=== PATIENT | female | born 1975 | race Caucasian/White ===

== ENCOUNTER 2021-11-20 16:53 | Inpatient (IN) ==
[2021-11-20] MEDS ORDERED: SODIUM CHLORIDE 0.9% 1000ML 1,000 ML IV ONE (17:33)
[2021-11-20 17:48] LABS: Basophils # (auto) 0.06 K/uL (0-0.2); Basophils % (auto) 0.3 %; Eosinophils # (auto) 0.04 K/uL (0-0.50); Eosinophils % (auto) 0.2 %; Hematocrit (blood only) 36.2 % (34.1-44.9); Hemoglobin 12.1 g/dl (12.0-16.0); Immature Granulocytes # (auto) 0.13 K/uL (0.00-0.02); Immature Granulocytes % (auto) 0.7 %; Lymphocytes # (auto) 2.32 K/uL (1.2-3.4); Lymphocytes % (auto) 12.6 %; Mean Corpuscular Hemoglobin 30.5 pg (25.0-34.0); Mean Corpuscular Hgb Conc 33.4 g/dL (32.0-36.0); Mean Corpuscular Volume 91.2 fL (80.0-100.0); Mean Platelet Volume 9.4 fL (9.4-12.3); Monocytes # (auto) 1.09 K/uL (0.24-0.82); Monocytes % (auto) 5.9 %; Neutrophils # (auto) 14.84 K/uL (1.4-6.5); Neutrophils % (auto) 80.3 %; Platelet Count 249 K/uL (130-400); RDW Coefficient of Variation 12.9 % (11.5-14.5); RDW Standard Deviation 43.1 fL (36.4-46.3); Red Blood Count 3.97 M/uL (3.93-5.22); White Blood Count 18.48 K/ul (4.8-10.8)
[2021-11-20 17:57] LABS: Appearance Urine Cloudy (Clear); Bacteria Urine Automated Negative (Negative); Blood Urine 1+ (Negative); Color Urine Orange; Epithelial Cell Urine Auto >30 /lpf (0-5); Glucose Urine UA Negative (Negative); Ketones Urine 2+ (Negative); Leukocyte Esterase Urine Negative (Negative); Nitrite Urine Negative (Negative); Protein Urine Trace (Negative); RBC Urine Automated 0-4 /hpf (0-4); Specific Gravity Urine 1.028 (1.000-1.030); Urobilinogen Urine Negative (Negative)
--- NOTE | 2021-11-20 18:04 | CT Scan Report ---
ABDOMEN AND PELVIS CT WITHOUT CONTRAST CT DOSE: 363.47 mGy.cm HISTORY: Left lower abdominal pain. TECHNIQUE: Multiaxial CT images of the abdomen and pelvis were performed without contrast. A dose lo wering technique was utilized adhering to the principles of ALARA. COMPARISON STUDY: None. FINDINGS: The left lung base is clear. There are 2 punctate nodules adjacent to the right minor fissu re on images 6 and 7 measuring 2 mm. No pneumoperitoneum. No pneumatosis. No fractures within the vis ualized osseous structures. Small amount of perihepatic and perisplenic hemoperitoneum. Otherwise, th e unenhanced liver, spleen, adrenal glands, and pancreas are unremarkable. No renal stones or hydrone phrosis. No retroperitoneal hematoma or lymphadenopathy. Normal caliber abdominal aorta. The bladder is decompressed and not well visualized. The intrauterine device appears in good position. There is a moderate amount of hemoperitoneum within the deep pelvis which primarily surrounds the uterus and ov chaya. There is a 2.7 cm cyst within the right ovary. There are 2 adjacent cysts within the left ovar y with the largest measuring 3.2 cm. The there is mild rectal wall thickening with perirectal fat str anding. A few colonic diverticula. No evidence for acute diverticulitis. Fluid-filled colon. The appe ndix is partially obscured by the hemoperitoneum within the right lower quadrant. A short segment aki endix may be identified on image 293 within the right lower quadrant. No surrounding inflammatory lex nge to suggest acute appendicitis. There are multiple thickened loops of jejunum within the left side of the abdomen with adjacent fat stranding. No dilated loops of bowel to suggest an obstruction. IMPRESSION: 1. Moderate hemoperitoneum most pronounced within the deep pelvis which primarily surrounds the uteru s and ovaries. There are bilateral adnexal cystic lesions which are likely ovarian. The etiology of t he hemoperitoneum is not clearly identified but may represent a ruptured hemorrhagic ovarian cyst. Fo llow-up beta-hCG recommended to exclude the possibility of a ruptured ectopic . 2. Multiple thickened loops of jejunum within the left side of the abdomen with adjacent fat strandin g. This is consistent with a nonspecific enteritis. 3. There appears a mild thickening of the rectum with adjacent perirectal fat stranding. 4. Intrauterine device appears in good position. 5. Additional findings as described above. ACT 112: Negative or not required by law. Electronically signed by: Raymond Bush M.D. 11/20/2021 6:01 PM
[2021-11-20 18:06] LABS: Bilirubin Urine 1+ (Negative)
[2021-11-20 18:08] LABS: Albumin Globulin Ratio 1.5 (0.9-2); Albumin Level 4.1 gm/dl (3.4-5.0); BUN Creatinine Ratio 14.8 (10-20); Bilirubin,Total 1.2 mg/dl (0.2-1.0); Calcium 8.4 mg/dl (8.5-10.1); Est GFR (African American) 100.2 ml/min; Est GFR (Non-African American) 86.5 ml/min; Globulin 2.8 gm/dl (2.5-4.0); Potassium 3.9 mmol/L (3.5-5.1); Total Protein 6.9 gm/dl (6.0-8.3)
[2021-11-20 18:11] LABS: Pregnancy Test, Serum Negative (Negative)
[2021-11-20] MEDS ORDERED: SODIUM CHLORIDE 0.9% 1000ML 500 ML IV ONE (19:15)
[2021-11-20] MEDS ORDERED: ONDANSETRON INJ 2 MG/ML 2 ML VIAL IV STA (19:15)
[2021-11-20] MEDS ORDERED: fentaNYL citrate 100 MCG/2 ML VIAL IV ONE ×2 (19:15→20:43)
[2021-11-20 19:51] LABS: INR 5.3 (0.9-1.1); Partial Thromboplastin Ratio 1.9; Prothrombin Time 51.1 Seconds (9.0-12.0)
[2021-11-20 19:55] LABS: Partial Thromboplastin Time 53.5 Seconds (21.0-31.0)
[2021-11-20] MEDS ORDERED: PHYTONADIONE 10 MG in DEXTROSE 5% 50 ML IV ONE (20:13)
--- NOTE | 2021-11-20 20:42 | OB/GYN Consultation ---
Date of Consultation November 20, 2021 Assessment & Plan (1) Pelvic pain: 46 yo female with Mirena IUD, presenting with pelvic pain, CT of abdomen showing moderate amount of fluid in pelvisby CT scan, US with LO cyst and trace fluid in cul de sac VSS Afebrile, uncomfortable On Coumadin for h/o Fac V Leiden and h/o SSV thrombosis, H&H stable Elevated WBCC count I spoke with Radiologist clinician oncology, who stated" he is not seeing much blood nor fluid in pelvis on US, there was some in CT scan but it was not done with contrast s/p IV vitamin K, PT, INR trending down I spoke with patient and her on the phone above findings Differential diagnosis of bleeding hemorrhagic cyst of LO, vs PID/ TOA I offered her Surgery/ Laparoscopy with definitive diagnosis, evacuation of blood from pelvis and stop bleeding from ovary and possible LSO, Patient does not want to have surgery She prefers observation and repeat blood work US in am She understands it may continue to bleeding and she may need emergency surgery. Plan to admit, monitor, VS Q hour, repeat CBC in 2 hours and serial, repeat US in am IV AB NPO All questions were answered (2) Free fluid in pelvis: (3) Left ovarian cyst: (4) IUD (intrauterine device) in place: (5) Factor V Leiden: History of Present Illness History of Present Illness Patient is a 46 yo ( 18 years ago) with Mirena IUD presents to ED with pelvic pain Started yesterday morning and was intermittent until this morning when it became sever with nausea/ dizziness and feeling hot. No VB/ Vaginal d/c/ odor IUD was placed 3 years ago, gets irregular light periods, not every month, no pain with periods. She has been sexually active with 1 partner for 24 years. No h/o STD's, pelvic infections or PID. on Coumadin for h/o Fac V Leiden mutation, 12 mg day/ last dose was yesterday am She had CT of pelvic and US: CT: IMPRESSION: 1. Moderate hemoperitoneum most pronounced within the deep pelvis which primarily surrounds the uterus and ovaries. There are bilateral adnexal cystic lesions which are likely ovarian. The etiology of the hemoperitoneum is not clearly identified but may represent a ruptured hemorrhagic ovarian cyst. Follow-up beta-hCG recommended to exclude the possibility of a ruptured ectopic . 2. Multiple thickened loops of jejunum within the left side of the abdomen with adjacent fat stranding. This is consistent with a nonspecific enteritis. 3. There appears a mild thickening of the rectum with adjacent perirectal fat stranding. 4. Intrauterine device appears in good position. US report pending. Allergies Allergy/AdvReac Type Severity Reaction Status Date / Time vancomycin Allergy Severe EBONY Verified 11/20/21 18:29 SYNDROME Home Medications Medication Instructions Recorded Confirmed Type albuterol sulfate 90 mcg/actuation 2 puff inhalation Q6H PRN 04/27/18 11/20/21 History aerosol inhaler (Ventolin HFA) Shortness Of Breath Or Wheezing folic acid 1 mg tablet 1 mg PO DAILY 04/27/18 11/20/21 History loperamide 2 mg tablet (Imodium 2 mg PO DIRECTED PRN Diarrhea 04/27/18 11/20/21 History A-D) pyridoxine (vitamin B6) 100 mg 100 mg PO DAILY 04/27/18 11/20/21 History tablet (Vitamin B-6) warfarin 6 mg tablet 12 mg PO DAILY #0 tabs 04/28/18 11/20/21 Rx cyanocobalamin (vitamin B-12) 1,000 mcg PO DAILY 11/20/21 11/20/21 History 1,000 mcg tablet (Vitamin B-12) ondansetron HCl 8 mg tablet 8 mg PO TID PRN NAUSEA/VOMITING 11/20/21 11/20/21 History Patient History Medical History (Updated 11/20/21 @ 20:59 by Isaura Grant MD) 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 Chronic anticoagulation Eczema Factor V Leiden On Coumadin. Migraines MTHFR mutation On Coumadin. Venous thrombosis Sagittal sinus B/L. On Coumadin. Surgical History S/P cholecystectomy S/P tonsillectomy and adenoidectomy Family History Other Asthma Thyroid disease Social History Smoking Status: Never smoker Second Hand Exposure: No; Hx Alcohol Use: No Hx Substance Use: No Preferred Language: Colombian Communication Ability: Effective Visual Impairment: No Limitations Fire Coordinator Required: Yes Beliefs That Will Affect Care: None Current Living Situation: Spouse and Family Feels Safe at Home: Yes Assistive Devices: None Review of Systems Constitutional: as per Subjective / HPI Physical Exam Constitutional: WD/WN, vitals as above well developed, well nourished, + acute distress (seems uncomfortable and nauseaous) and average body habitus Results & Data ([facility]) Vital Signs (Past 12 Hours) Vital Signs Temp Pulse Pulse Resp BP BP Pulse Ox 11/20/21 20:00 87 18 112/80 97 11/20/21 18:00 96 H 22 110/76 100 11/20/21 17:55 104 H 18 110/76 97 11/20/21 17:53 98 11/20/21 17:05 37 C 118 H 18 160/72 H 97 O2 Del Method 11/20/21 20:00 11/20/21 18:00 11/20/21 17:55 Room Air 11/20/21 17:53 Room Air 11/20/21 17:05 Room Air Laboratory Results Lab Results 11/20/21 11/20/21 11/20/21 Range/Units 17:30 17:30 17:30 WBC 18.48 H (4.8-10.8) K/ul RBC 3.97 (3.93-5.22) M/uL Hgb 12.1 (12.0-16.0) g/dl Hct 36.2 (34.1-44.9) % MCV 91.2 (80.0-100.0) fL MCH 30.5 (25.0-34.0) pg MCHC 33.4 (32.0-36.0) g/dL RDW Std Deviation 43.1 (36.4-46.3) fL RDW Coeff of Mima 12.9 (11.5-14.5) % Plt Count 249 (130-400) K/uL MPV 9.4 (9.4-12.3) fL Immature Gran % (Auto) 0.7 % Neut % (Auto) 80.3 % Lymph % (Auto) 12.6 % [place] % (Auto) 5.9 % Eos % (Auto) 0.2 % Baso % (Auto) 0.3 % Neut # (Auto) 14.84 H (1.4-6.5) K/uL Lymph # (Auto) 2.32 (1.2-3.4) K/uL [place] # (Auto) 1.09 H (0.24-0.82) K/uL Eos # (Auto) 0.04 (0-0.50) K/uL Baso # (Auto) 0.06 (0-0.2) K/uL Immature Gran # (Auto) 0.13 H (0.00-0.02) K/uL PT (9.0-12.0) Seconds INR (0.9-1.1) APTT (21.0-31.0) Seconds PTT Ratio Sodium 135 L (136-145) mmol/L Potassium 3.9 (3.5-5.1) mmol/L Chloride 103 (98-107) mmol/L Carbon Dioxide 26 (21-32) mmol/L Anion Gap 6 (3-11) BUN 12 (6-23) mg/dl Creatinine 0.81 (0.6-1.2) mg/dl Est Cr Clr Drug Dosing 76.0 ml/min Est GFR ( Amer) 100.2 ml/min Est GFR (Non-Af Amer) 86.5 ml/min BUN/Creatinine Ratio 14.8 (10-20) Glucose 146 H (70-99(Fasting)) mg/dl Calcium 8.4 L (8.5-10.1) mg/dl Total Bilirubin 1.2 H (0.2-1.0) mg/dl AST 25 (13-39) U/L ALT 28 (7-52) U/L Alkaline Phosphatase 107 H (34-104) U/L Total Protein 6.9 (6.0-8.3) gm/dl Albumin 4.1 (3.4-5.0) gm/dl Globulin 2.8 (2.5-4.0) gm/dl Albumin/Globulin Ratio 1.5 (0.9-2) Lipase 16 (11-82) U/L HCG, Qual Negative (Negative) Urine Color Urine Appearance (Clear) Urine pH (4.5-7.5) Ur Specific [place] (1.000-1.030) Urine Protein (Negative) Urine Glucose (UA) (Negative) Urine Ketones (Negative) Urine Blood (Negative) Urine Nitrite (Negative) Urine Bilirubin (Negative) Urine Urobilinogen (Negative) Ur Leukocyte Esterase (Negative) Urine WBC (Auto) (0-5) /hpf Urine RBC (Auto) (0-4) /hpf U Hyaline Cast (Auto) (0-5) /lpf U Epithel Cells (Auto) (0-5) /lpf Urine Bacteria (Auto) (Negative) Ur Renal Epithelial Cell SARS-CoV-2, RNA, NAAT (NEGATIVE) Blood Type Antibody Screen Crossmatch 11/20/21 11/20/21 11/20/21 Range/Units 17:30 17:50 19:23 WBC (4.8-10.8) K/ul RBC (3.93-5.22) M/uL Hgb (12.0-16.0) g/dl Hct (34.1-44.9) % MCV (80.0-100.0) fL MCH (25.0-34.0) pg MCHC (32.0-36.0) g/dL RDW Std Deviation (36.4-46.3) fL RDW Coeff of Mima (11.5-14.5) % Plt Count (130-400) K/uL MPV (9.4-12.3) fL Immature Gran % (Auto) % Neut % (Auto) % Lymph % (Auto) % [place] % (Auto) % Eos % (Auto) % Baso % (Auto) % Neut # (Auto) (1.4-6.5) K/uL Lymph # (Auto) (1.2-3.4) K/uL [place] # (Auto) (0.24-0.82) K/uL Eos # (Auto) (0-0.50) K/uL Baso # (Auto) (0-0.2) K/uL Immature Gran # (Auto) (0.00-0.02) K/uL PT 51.1 H (9.0-12.0) Seconds INR 5.3 H (0.9-1.1) APTT 53.5 H* (21.0-31.0) Seconds PTT Ratio 1.9 Sodium (136-145) mmol/L Potassium (3.5-5.1) mmol/L Chloride (98-107) mmol/L Carbon Dioxide (21-32) mmol/L Anion Gap (3-11) BUN (6-23) mg/dl Creatinine (0.6-1.2) mg/dl Est Cr Clr Drug Dosing ml/min Est GFR ( Amer) ml/min Est GFR (Non-Af Amer) ml/min BUN/Creatinine Ratio (10-20) Glucose (70-99(Fasting)) mg/dl Calcium (8.5-10.1) mg/dl Total Bilirubin (0.2-1.0) mg/dl AST (13-39) U/L ALT (7-52) U/L Alkaline Phosphatase (34-104) U/L Total Protein (6.0-8.3) gm/dl Albumin (3.4-5.0) gm/dl Globulin (2.5-4.0) gm/dl Albumin/Globulin Ratio (0.9-2) Lipase (11-82) U/L HCG, Qual (Negative) Urine Color [place] Urine Appearance Cloudy A (Clear) Urine pH 5.0 (4.5-7.5) Ur Specific [place] 1.028 (1.000-1.030) Urine Protein Trace H (Negative) Urine Glucose (UA) Negative (Negative) Urine Ketones 2+ H (Negative) Urine Blood 1+ H (Negative) Urine Nitrite Negative (Negative) Urine Bilirubin 1+ H (Negative) Urine Urobilinogen Negative (Negative) Ur Leukocyte Esterase Negative (Negative) Urine WBC (Auto) 1-5 (0-5) /hpf Urine RBC (Auto) 0-4 (0-4) /hpf U Hyaline Cast (Auto) 5-10 H (0-5) /lpf U Epithel Cells (Auto) >30 H (0-5) /lpf Urine Bacteria (Auto) Negative (Negative) Ur Renal Epithelial Cell Not Reportable SARS-CoV-2, RNA, NAAT NEGATIVE (NEGATIVE) Blood Type Antibody Screen Crossmatch 11/20/21 Range/Units 19:32 WBC (4.8-10.8) K/ul RBC (3.93-5.22) M/uL Hgb (12.0-16.0) g/dl Hct (34.1-44.9) % MCV (80.0-100.0) fL MCH (25.0-34.0) pg MCHC (32.0-36.0) g/dL RDW Std Deviation (36.4-46.3) fL RDW Coeff of Mima (11.5-14.5) % Plt Count (130-400) K/uL MPV (9.4-12.3) fL Immature Gran % (Auto) % Neut % (Auto) % Lymph % (Auto) % [place] % (Auto) % Eos % (Auto) % Baso % (Auto) % Neut # (Auto) (1.4-6.5) K/uL Lymph # (Auto) (1.2-3.4) K/uL [place] # (Auto) (0.24-0.82) K/uL Eos # (Auto) (0-0.50) K/uL Baso # (Auto) (0-0.2) K/uL Immature Gran # (Auto) (0.00-0.02) K/uL PT (9.0-12.0) Seconds INR (0.9-1.1) APTT (21.0-31.0) Seconds PTT Ratio Sodium (136-145) mmol/L Potassium (3.5-5.1) mmol/L Chloride (98-107) mmol/L Carbon Dioxide (21-32) mmol/L Anion Gap (3-11) BUN (6-23) mg/dl Creatinine (0.6-1.2) mg/dl Est Cr Clr Drug Dosing ml/min Est GFR ( Amer) ml/min Est GFR (Non-Af Amer) ml/min BUN/Creatinine Ratio (10-20) Glucose (70-99(Fasting)) mg/dl Calcium (8.5-10.1) mg/dl Total Bilirubin (0.2-1.0) mg/dl AST (13-39) U/L ALT (7-52) U/L Alkaline Phosphatase (34-104) U/L Total Protein (6.0-8.3) gm/dl Albumin (3.4-5.0) gm/dl Globulin (2.5-4.0) gm/dl Albumin/Globulin Ratio (0.9-2) Lipase (11-82) U/L HCG, Qual (Negative) Urine Color Urine Appearance (Clear) Urine pH (4.5-7.5) Ur Specific [place] (1.000-1.030) Urine Protein (Negative) Urine Glucose (UA) (Negative) Urine Ketones (Negative) Urine Blood (Negative) Urine Nitrite (Negative) Urine Bilirubin (Negative) Urine Urobilinogen (Negative) Ur Leukocyte Esterase (Negative) Urine WBC (Auto) (0-5) /hpf Urine RBC (Auto) (0-4) /hpf U Hyaline Cast (Auto) (0-5) /lpf U Epithel Cells (Auto) (0-5) /lpf Urine Bacteria (Auto) (Negative) Ur Renal Epithelial Cell SARS-CoV-2, RNA, NAAT (NEGATIVE) Blood Type A Positive Antibody Screen NEGATIVE Crossmatch See Detail
[2021-11-20] MEDS ORDERED: SODIUM CHLORIDE 0.9% 250 ML IV PRN (20:43)
[2021-11-20] MEDS ORDERED: PROMETHAZINE HCL 12.5 MG in SODIUM CHLORIDE 0.9% 50 ML IV PRN (21:05)
[2021-11-20] MEDS ORDERED: cefOXitin 2,000 MG/60 ML BAG IV STA (21:47)
[2021-11-20] MEDS ORDERED: DOXYCYCLINE HYCLATE 100 MG in DEXTROSE 5% 100 ML IV STA (21:47)
[2021-11-20 22:31] LABS: Hematocrit (blood only) 29.5 % (34.1-44.9)
[2021-11-20 22:46] LABS: INR 2.4 (0.9-1.1); Prothrombin Time 24.8 Seconds (9.0-12.0)
[2021-11-20] MEDS ORDERED: ONDANSETRON INJ 2 MG/ML 2 ML VIAL IV PRN (23:11)
--- NOTE | 2021-11-20 23:24 | Emergency Department Note ---
History of Present Illness General Chief complaint: Abdominal Pain Stated complaint: ABDOMINAL PAIN Time Seen by Provider: 11/20/21 17:25 Source: patient and old records reviewed Mode of arrival: ambulatory Limitations: no limitations History of Present Illness Maximum Pain Intensity: 9 This patient is a 46-year-old female who comes in after having abdominal pain since yesterday she said it was lower crampy abdominal pain like feeling like [place] gas and bloating. She was constipated which she does not have a history of and today started having diarrhea. She has had no blood or melena. She is been drinking a lot of water she is been urinating okay with possibly some slight dysuria. Her does have COVID but she has been isolating for him and she has had multiple negative tests at home. No fever chills no trauma or injury. She is on Coumadin long-term as she has history of factor V Leiden she tells me she had venous sinus thrombosis in the past. It is better if she lays on her side it is worse with certain positions as well or movement. Home Medications Medication Instructions Recorded Confirmed Type albuterol sulfate 90 mcg/actuation 2 puff inhalation Q6H PRN 04/27/18 11/20/21 History aerosol inhaler (Ventolin HFA) Shortness Of Breath Or Wheezing folic acid 1 mg tablet 1 mg PO DAILY 04/27/18 11/20/21 History loperamide 2 mg tablet (Imodium 2 mg PO DIRECTED PRN Diarrhea 04/27/18 11/20/21 History A-D) pyridoxine (vitamin B6) 100 mg 100 mg PO DAILY 04/27/18 11/20/21 History tablet (Vitamin B-6) warfarin 6 mg tablet 12 mg PO DAILY #0 tabs 04/28/18 11/20/21 Rx cyanocobalamin (vitamin B-12) 1,000 mcg PO DAILY 11/20/21 11/20/21 History 1,000 mcg tablet (Vitamin B-12) ondansetron HCl 8 mg tablet 8 mg PO TID PRN NAUSEA/VOMITING 11/20/21 11/20/21 History Allergies Allergy/AdvReac Type Severity Reaction Status Date / Time vancomycin Allergy Severe EBONY Verified 11/20/21 18:29 SYNDROME Past Med/Surg History Medical History 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 Chronic anticoagulation Eczema Factor V Leiden On Coumadin. Migraines MTHFR mutation On Coumadin. Venous thrombosis Sagittal sinus B/L. On Coumadin. 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 Beliefs That Will Affect Care: None Current Living Situation: Spouse and Family Feels Safe at Home: Yes Assistive Devices: None Review of Systems A total of 10 systems reviewed and were otherwise negative Physical Exam Vital Signs Vital Signs - 24 hr 11/20/21 17:05 11/20/21 17:53 11/20/21 17:55 Temperature 37 C Temperature Source Axillary Pulse Rate 118 H Pulse Rate [Apical] 104 H Pulse Rhythm [Apical] Pulse Strength [Apical] Respiratory Rate 18 18 Respiratory Effort / Characteristics Respiratory Depth Normal Respiratory Pattern Blood Pressure 160/72 H Blood Pressure [Left Arm] 110/76 Blood Pressure Mean 101 Blood Pressure Mean [Left Arm] 87 Blood Pressure Position [Left Arm] Pulse Oximetry 97 98 97 Oxygen Delivery Method Room Air Room Air Room Air Sepsis Recent Fever Within 48 Hours No Sepsis New/Unexplained Change in Mental Status No Sepsis Action Taken by Nursing No Action Required 11/20/21 18:00 11/20/21 20:00 11/20/21 20:46 Temperature Temperature Source Pulse Rate 96 H 87 102 H Pulse Rate [Apical] Pulse Rhythm [Apical] Pulse Strength [Apical] Respiratory Rate 22 18 23 Respiratory Effort / Characteristics Respiratory Depth Respiratory Pattern Blood Pressure 110/76 112/80 109/79 Blood Pressure [Left Arm] Blood Pressure Mean 87 90 89 Blood Pressure Mean [Left Arm] Blood Pressure Position [Left Arm] Pulse Oximetry 100 97 96 Oxygen Delivery Method Sepsis Recent Fever Within 48 Hours Sepsis New/Unexplained Change in Mental Status Sepsis Action Taken by Nursing 11/20/21 21:00 11/20/21 21:55 11/20/21 22:19 Temperature 36.5 C Temperature Source Oral Pulse Rate 106 H 94 H Pulse Rate [Apical] 97 H Pulse Rhythm [Apical] Regular Pulse Strength [Apical] Normal Respiratory Rate 18 20 21 Respiratory Effort / Characteristics Non-Labored Spontaneous Respiratory Depth Normal Respiratory Pattern Regular Blood Pressure 113/76 122/76 Blood Pressure [Left Arm] 104/73 Blood Pressure Mean 88 91 Blood Pressure Mean [Left Arm] 83 Blood Pressure Position [Left Arm] Lying Pulse Oximetry 96 96 99 Oxygen Delivery Method Room Air Sepsis Recent Fever Within 48 Hours Sepsis New/Unexplained Change in Mental Status Sepsis Action Taken by Nursing 11/20/21 22:22 11/20/21 22:30 11/20/21 22:30 Temperature Temperature Source Pulse Rate 94 H 96 H Pulse Rate [Apical] Pulse Rhythm [Apical] Pulse Strength [Apical] Respiratory Rate 16 Respiratory Effort / Characteristics Respiratory Depth Respiratory Pattern Blood Pressure 104/73 121/71 Blood Pressure [Left Arm] Blood Pressure Mean 83 87 Blood Pressure Mean [Left Arm] Blood Pressure Position [Left Arm] Pulse Oximetry 98 98 Oxygen Delivery Method Sepsis Recent Fever Within 48 Hours Sepsis New/Unexplained Change in Mental Status Sepsis Action Taken by Nursing 11/20/21 23:00 11/20/21 23:00 11/20/21 23:30 Temperature Temperature Source Pulse Rate 92 H Pulse Rate [Apical] Pulse Rhythm [Apical] Pulse Strength [Apical] Respiratory Rate 22 Respiratory Effort / Characteristics Respiratory Depth Respiratory Pattern Blood Pressure 126/73 104/79 Blood Pressure [Left Arm] Blood Pressure Mean 90 87 Blood Pressure Mean [Left Arm] Blood Pressure Position [Left Arm] Pulse Oximetry 99 Oxygen Delivery Method Room Air Sepsis Recent Fever Within 48 Hours Sepsis New/Unexplained Change in Mental Status Sepsis Action Taken by Nursing 11/20/21 23:30 11/20/21 23:47 Temperature Temperature Source Pulse Rate 73 81 Pulse Rate [Apical] Pulse Rhythm [Apical] Pulse Strength [Apical] Respiratory Rate 16 18 Respiratory Effort / Characteristics Respiratory Depth Respiratory Pattern Blood Pressure Blood Pressure [Left Arm] Blood Pressure Mean Blood Pressure Mean [Left Arm] Blood Pressure Position [Left Arm] Pulse Oximetry 97 98 Oxygen Delivery Method Room Air Room Air Sepsis Recent Fever Within 48 Hours Sepsis New/Unexplained Change in Mental Status Sepsis Action Taken by Nursing General: Well developed well nourished comfortable appearing middle-aged female who appears in pain but in no acute distress, breathing comfortably on room air. Normal speech HEENT: Normal cephalic atraumatic. Pupils are equal round and reactive to light. Extraocular movements are intact. Oropharynx is pink with moist mucous membranes. No swelling of the mouth lips or tongue. Neck: Supple with a midline trachea. No meningeal signs or stiffness, no JVD or bruits. No Stridor. Chest: Clear to auscultation bilaterally. No wheezes or rhonchi. No increased work of breathing. Heart: Regular rate and rhythm without murmurs or gallops. Abdomen: Soft moderately diffusely tender more so in the lower abdomen. Nondistended without rebound guarding or rigidity. Extremities: No cyanosis clubbing or edema. No calf tenderness or assymetry Spine/Back. Non tender to palpation. No CVA tenderness Skin: Good turgor without rashes. Neurologic exam: Cranial nerves two through 12 are intact. Motor and sensation are intact and symmetrical throughout. Course Administered Medications Discontinued Medications Fentanyl Citrate (Fentanyl Citrate 100 Mcg/2 Ml Vial) 25 mcg IV NOW ONE Stop: 11/20/21 19:16 Last Admin: 11/20/21 19:20 Dose: 25 mcg Documented By: YAKELIN Fentanyl Citrate (Fentanyl Citrate 100 Mcg/2 Ml Vial) 25 mcg IV NOW ONE Stop: 11/20/21 20:44 Last Admin: 11/20/21 20:49 Dose: 25 mcg Documented By: YAKELIN Sodium Chloride (Nss 1000ml) 1,000 mls @ 999 mls/hr IV .Q1H1M ONE Stop: 11/20/21 18:33 Last Infusion: 11/20/21 19:15 Dose: 0 mls/hr Documented By: OAJanis Admin: 11/20/21 17:54 Dose: 999 mls/hr Documented By: ABIDA Sodium Chloride (Nss 1000ml) 500 mls @ 999 mls/hr IV .Q31M ONE Stop: 11/20/21 19:45 Last Infusion: 11/20/21 19:52 Dose: 0 mls/hr Documented By: Admin: 11/20/21 19:21 Dose: 999 mls/hr Documented By: YAKELIN Phytonadione 10 mg/ Dextrose 51 mls @ 102 mls/hr IV ONE ONE Stop: 11/20/21 20:42 Last Infusion: 11/20/21 21:15 Dose: 0 mls/hr Documented By: Admin: 11/20/21 20:44 Dose: 102 mls/hr Documented By: YAKELIN Cefoxitin Sodium (Mefoxin) 2,000 mg in 60 mls @ 100 mls/hr IV NOW STA Stop: 11/20/21 22:22 Last Infusion: 11/20/21 22:30 Dose: 0 mls/hr Documented By: Admin: 11/20/21 22:00 Dose: 100 mls/hr Documented By: YAKELIN Doxycycline Hyclate 100 mg/ (Dextrose) 110 mls @ 50 mls/hr IV NOW STA Stop: 11/20/21 23:58 Last Admin: 11/20/21 22:37 Dose: 50 mls/hr Documented By: ABIDA Ondansetron HCl (Ondansetron Inj 2 Mg/Ml 2 Ml Vial) 4 mg IV Q4H STA Stop: 11/20/21 19:16 Last Admin: 11/20/21 19:20 Dose: 4 mg Documented By: YAKELIN Critical Care Time Critical Care Time: Yes Total Critical Care Time: 30 Due to the patient's abdominal pain with hemoperitoneum, need for reversal of her Coumadin, consultation with [facility] and hematology, frequent reassessment and hemodynamic monitoring as well as type and cross seen in the event that she would need a blood transfusion and multiple imaging and medications, I have personally spent greater than 30 minutes of critical care time in the direct management of this patient. This includes bedside care, interpretation of diagnostic studies, and testing, discussion with consultants, patient, and family members, and other required patient management activities. This 30 minutes is in excess of all separately billable procedures. Medical Decision Making Differential Diagnosis Kidney stone, infection, UTI, colitis, intra-abdominal process, electrolyte or metabolic abnormality, trauma Medical Records Attestation: I reviewed the patient's medical records. Home Medications Current Medication List: was personally reviewed by me Laboratory Data Attestation: I reviewed the patient's lab results. Result diagrams: 11/20/21 22:23 11/20/21 17:30 Lab Results 11/20/21 11/20/21 11/20/21 Range/Units 17:30 17:30 17:30 WBC 18.48 H (4.8-10.8) K/ul RBC 3.97 (3.93-5.22) M/uL Hgb 12.1 (12.0-16.0) g/dl Hct 36.2 (34.1-44.9) % MCV 91.2 (80.0-100.0) fL MCH 30.5 (25.0-34.0) pg MCHC 33.4 (32.0-36.0) g/dL RDW Std Deviation 43.1 (36.4-46.3) fL RDW Coeff of Mima 12.9 (11.5-14.5) % Plt Count 249 (130-400) K/uL MPV 9.4 (9.4-12.3) fL Immature Gran % (Auto) 0.7 % Neut % (Auto) 80.3 % Lymph % (Auto) 12.6 % [place] % (Auto) 5.9 % Eos % (Auto) 0.2 % Baso % (Auto) 0.3 % Neut # (Auto) 14.84 H (1.4-6.5) K/uL Lymph # (Auto) 2.32 (1.2-3.4) K/uL [place] # (Auto) 1.09 H (0.24-0.82) K/uL Eos # (Auto) 0.04 (0-0.50) K/uL Baso # (Auto) 0.06 (0-0.2) K/uL Immature Gran # (Auto) 0.13 H (0.00-0.02) K/uL PT (9.0-12.0) Seconds INR (0.9-1.1) APTT (21.0-31.0) Seconds PTT Ratio Sodium 135 L (136-145) mmol/L Potassium 3.9 (3.5-5.1) mmol/L Chloride 103 (98-107) mmol/L Carbon Dioxide 26 (21-32) mmol/L Anion Gap 6 (3-11) BUN 12 (6-23) mg/dl Creatinine 0.81 (0.6-1.2) mg/dl Est Cr Clr Drug Dosing 76.0 ml/min Est GFR ( Amer) 100.2 ml/min Est GFR (Non-Af Amer) 86.5 ml/min BUN/Creatinine Ratio 14.8 (10-20) Glucose 146 H (70-99(Fasting)) mg/dl Calcium 8.4 L (8.5-10.1) mg/dl Total Bilirubin 1.2 H (0.2-1.0) mg/dl AST 25 (13-39) U/L ALT 28 (7-52) U/L Alkaline Phosphatase 107 H (34-104) U/L Total Protein 6.9 (6.0-8.3) gm/dl Albumin 4.1 (3.4-5.0) gm/dl Globulin 2.8 (2.5-4.0) gm/dl Albumin/Globulin Ratio 1.5 (0.9-2) Lipase 16 (11-82) U/L HCG, Qual Negative (Negative) Urine Color Urine Appearance (Clear) Urine pH (4.5-7.5) Ur Specific [place] (1.000-1.030) Urine Protein (Negative) Urine Glucose (UA) (Negative) Urine Ketones (Negative) Urine Blood (Negative) Urine Nitrite (Negative) Urine Bilirubin (Negative) Urine Urobilinogen (Negative) Ur Leukocyte Esterase (Negative) Urine WBC (Auto) (0-5) /hpf Urine RBC (Auto) (0-4) /hpf U Hyaline Cast (Auto) (0-5) /lpf U Epithel Cells (Auto) (0-5) /lpf Urine Bacteria (Auto) (Negative) Ur Renal Epithelial Cell SARS-CoV-2, RNA, NAAT (NEGATIVE) Blood Type Antibody Screen Crossmatch 11/20/21 11/20/21 11/20/21 Range/Units 17:30 17:50 19:23 WBC (4.8-10.8) K/ul RBC (3.93-5.22) M/uL Hgb (12.0-16.0) g/dl Hct (34.1-44.9) % MCV (80.0-100.0) fL MCH (25.0-34.0) pg MCHC (32.0-36.0) g/dL RDW Std Deviation (36.4-46.3) fL RDW Coeff of Mima (11.5-14.5) % Plt Count (130-400) K/uL MPV (9.4-12.3) fL Immature Gran % (Auto) % Neut % (Auto) % Lymph % (Auto) % [place] % (Auto) % Eos % (Auto) % Baso % (Auto) % Neut # (Auto) (1.4-6.5) K/uL Lymph # (Auto) (1.2-3.4) K/uL [place] # (Auto) (0.24-0.82) K/uL Eos # (Auto) (0-0.50) K/uL Baso # (Auto) (0-0.2) K/uL Immature Gran # (Auto) (0.00-0.02) K/uL PT 51.1 H (9.0-12.0) Seconds INR 5.3 H (0.9-1.1) APTT 53.5 H* (21.0-31.0) Seconds PTT Ratio 1.9 Sodium (136-145) mmol/L Potassium (3.5-5.1) mmol/L Chloride (98-107) mmol/L Carbon Dioxide (21-32) mmol/L Anion Gap (3-11) BUN (6-23) mg/dl Creatinine (0.6-1.2) mg/dl Est Cr Clr Drug Dosing ml/min Est GFR ( Amer) ml/min Est GFR (Non-Af Amer) ml/min BUN/Creatinine Ratio (10-20) Glucose (70-99(Fasting)) mg/dl Calcium (8.5-10.1) mg/dl Total Bilirubin (0.2-1.0) mg/dl AST (13-39) U/L ALT (7-52) U/L Alkaline Phosphatase (34-104) U/L Total Protein (6.0-8.3) gm/dl Albumin (3.4-5.0) gm/dl Globulin (2.5-4.0) gm/dl Albumin/Globulin Ratio (0.9-2) Lipase (11-82) U/L HCG, Qual (Negative) Urine Color [place] Urine Appearance Cloudy A (Clear) Urine pH 5.0 (4.5-7.5) Ur Specific [place] 1.028 (1.000-1.030) Urine Protein Trace H (Negative) Urine Glucose (UA) Negative (Negative) Urine Ketones 2+ H (Negative) Urine Blood 1+ H (Negative) Urine Nitrite Negative (Negative) Urine Bilirubin 1+ H (Negative) Urine Urobilinogen Negative (Negative) Ur Leukocyte Esterase Negative (Negative) Urine WBC (Auto) 1-5 (0-5) /hpf Urine RBC (Auto) 0-4 (0-4) /hpf U Hyaline Cast (Auto) 5-10 H (0-5) /lpf U Epithel Cells (Auto) >30 H (0-5) /lpf Urine Bacteria (Auto) Negative (Negative) Ur Renal Epithelial Cell Not Reportable SARS-CoV-2, RNA, NAAT NEGATIVE (NEGATIVE) Blood Type Antibody Screen Crossmatch 11/20/21 11/20/21 11/20/21 Range/Units 19:32 22:23 22:23 WBC (4.8-10.8) K/ul RBC (3.93-5.22) M/uL Hgb 10.0 L (12.0-16.0) g/dl Hct 29.5 L (34.1-44.9) % MCV (80.0-100.0) fL MCH (25.0-34.0) pg MCHC (32.0-36.0) g/dL RDW Std Deviation (36.4-46.3) fL RDW Coeff of Mima (11.5-14.5) % Plt Count (130-400) K/uL MPV (9.4-12.3) fL Immature Gran % (Auto) % Neut % (Auto) % Lymph % (Auto) % [place] % (Auto) % Eos % (Auto) % Baso % (Auto) % Neut # (Auto) (1.4-6.5) K/uL Lymph # (Auto) (1.2-3.4) K/uL [place] # (Auto) (0.24-0.82) K/uL Eos # (Auto) (0-0.50) K/uL Baso # (Auto) (0-0.2) K/uL Immature Gran # (Auto) (0.00-0.02) K/uL PT 24.8 H (9.0-12.0) Seconds INR 2.4 H (0.9-1.1) APTT (21.0-31.0) Seconds PTT Ratio Sodium (136-145) mmol/L Potassium (3.5-5.1) mmol/L Chloride (98-107) mmol/L Carbon Dioxide (21-32) mmol/L Anion Gap (3-11) BUN (6-23) mg/dl Creatinine (0.6-1.2) mg/dl Est Cr Clr Drug Dosing ml/min Est GFR ( Amer) ml/min Est GFR (Non-Af Amer) ml/min BUN/Creatinine Ratio (10-20) Glucose (70-99(Fasting)) mg/dl Calcium (8.5-10.1) mg/dl Total Bilirubin (0.2-1.0) mg/dl AST (13-39) U/L ALT (7-52) U/L Alkaline Phosphatase (34-104) U/L Total Protein (6.0-8.3) gm/dl Albumin (3.4-5.0) gm/dl Globulin (2.5-4.0) gm/dl Albumin/Globulin Ratio (0.9-2) Lipase (11-82) U/L HCG, Qual (Negative) Urine Color Urine Appearance (Clear) Urine pH (4.5-7.5) Ur Specific [place] (1.000-1.030) Urine Protein (Negative) Urine Glucose (UA) (Negative) Urine Ketones (Negative) Urine Blood (Negative) Urine Nitrite (Negative) Urine Bilirubin (Negative) Urine Urobilinogen (Negative) Ur Leukocyte Esterase (Negative) Urine WBC (Auto) (0-5) /hpf Urine RBC (Auto) (0-4) /hpf U Hyaline Cast (Auto) (0-5) /lpf U Epithel Cells (Auto) (0-5) /lpf Urine Bacteria (Auto) (Negative) Ur Renal Epithelial Cell SARS-CoV-2, RNA, NAAT (NEGATIVE) Blood Type A Positive Antibody Screen NEGATIVE Crossmatch See Detail Imaging Data Radiologist's Impression: Abdomen/Pelvis CT 11/20/21 17:[address] WITHOUT CONTRAST CT DOSE: 363.47 mGy.cm HISTORY: Left lower abdominal pain. TECHNIQUE: Multiaxial CT images of the abdomen and pelvis were performed without contrast. A dose lowering technique was utilized adhering to the principles of ALARA. COMPARISON STUDY: None. FINDINGS: The left lung base is clear. There are 2 punctate nodules adjacent to the right minor fissure on images 6 and 7 measuring 2 mm. No pneumoperitoneum. No pneumatosis. No fractures within the visualized osseous structures. Small ronnie unt of perihepatic and perisplenic hemoperitoneum. Otherwise, the unenhanced liver, spleen, adrenal glands, and pancreas are unremarkable. No renal stones or hydronephrosis. No retroperitoneal hematoma or lymphadenopathy. Normal caliber abdominal aorta. The bladder is decompressed and not well visualized. The intrauterine device appears in good position. There is a moderate amount of hemoperitoneum within the deep pelvis which primarily surrounds the uterus and ovaries. There is a 2.7 cm cyst within the right ovary. There are 2 adjacent cysts within the left ovary with the largest measuring 3.2 cm. The there is mild rectal wall thickening with perirectal fat stranding. A few colonic diverticula. No evidence for acute diverticulitis. Fluid-filled colon. The appendix is partially obscured by the hemoperitoneum within the right lower quadrant. A short segment appendix may be identified on image 293 within the right lower quadrant. No surrounding inflammatory change to suggest acute appendicitis. There are multiple thickened loops of jejunum within the left side of the abdomen with adjacent fat stranding. No dilated loops of bowel to suggest an obstruction. IMPRESSION: 1. Moderate hemoperitoneum most pronounced within the deep pelvis which primarily surrounds the uterus and ovaries. There are bilateral adnexal cystic lesions which are likely ovarian. The etiology of the hemoperitoneum is not clearly identified but may represent a ruptured hemorrhagic ovarian cyst. Follow-up beta-hCG recommended to exclude the possibility of a ruptured ectopic . 2. Multiple thickened loops of jejunum within the left side of the abdomen with adjacent fat stranding. This is consistent with a nonspecific enteritis. 3. There appears a mild thickening of the rectum with adjacent perirectal fat stranding. 4. Intrauterine device appears in good position. 5. Additional findings as described above. ACT 112: Negative or not required by law. Electronically signed by: Raymond Bush M.D. 11/20/2021 6:01 PM [facility] Narrative This patient comes in as described above. She was placed in room B 11 she aki ears to be uncomfortable she is tender she initially declined any pain medication and extensive work-up was obtained including a CAT scan. Her white count was elevated at 18 however she has no fever here her hemoglobin is 12. Her initial INR was in the 5 range. CAT scan shows a moderate mount of hemoperitoneum which appears to be likely coming from the ovaries there also may be enteritis. I did discuss the case with Dr. Braga and she does recommend giving the patient vitamin K 10 mg IV which I did. The patient did ultimately receive IV fluids as well as IV fentanyl and IV Zofran. I did consult Dr. Dusty Gomes, from [facility] and she promptly came and saw the patient she requested ultrasound. On the ultrasound, there is not as much fluid seen as a CAT scan. Dr. Glover has ordered a second hemoglobin and it was 10 so has dropped a little bit which may be dilutional however the patient is remained hemodynamically stable additionally her INR is in the mid 2 range and is trending the right way as well. She is talking to the patient and is going to admit the patient for observation and potentially surgical exploration. The patient has been typed and crossed for blood in the event that she would need blood. At this point I do not feel she needs PCCs as she has been stable over 6 hours and her ultrasound actually shows only a small amount of free fluid. She will she will also be in a monitored setting but if she gets worse PCC's and/or transfusion could be considered. Continuous cardiac monitoring: Orders placed in EMR for continuous cardiac monitoring. Barragan interpretation the patient was noted to be in normal sinus rhythm with a rate of 90 Impression & Plan Abdominal pain, Current use of nursing home anticoagulation, Factor V Leiden, Hemoperitoneum, Elevated WBC count, Lab test negative for COVID-19 virus, Supratherapeutic INR Discharge Plan Visit Data Chief Complaint: Abdominal Pain Stated Complaint: ABDOMINAL PAIN ED Provider: Dany Goodman Discharge Problem: Abdominal pain, Current use of nursing home anticoagulation, Factor V Leiden, Hemoperitoneum, Elevated WBC count, Lab test negative for COVID-19 virus, Sup ratherapeutic INR Discharge Instructions Interventions: ED Discharge Assessment Last Done: 11/20/21 23:47 Forms Stand Alone Forms: My [facility] Prescriptions Prescriptions: No Action loperamide [Imodium A-D] 2 mg Tablet 2 mg PO DIRECTED PRN (Reason: Diarrhea) folic acid 1 mg Tablet 1 mg PO DAILY pyridoxine (vitamin B6) [Vitamin B-6] 100 mg Tablet 100 mg PO DAILY albuterol sulfate [Ventolin HFA] 90 mcg/actuation Hfa Aerosol Inhaler 2 puff INHALATION Q6H PRN (Reason: Shortness Of Breath Or Wheezing) warfarin 6 mg Tablet 12 mg PO DAILY Qty: 0 0RF Rx Instructions: PER PT "HAVEN'T GOTTEN AN INR RECENTLY TO SEE IF THERE SHOULD BE CHANGES". ondansetron HCl [Zofran] 8 mg Tablet 8 mg PO TID PRN (Reason: NAUSEA/VOMITING) cyanocobalamin (vitamin B-12) [Vitamin B-12] 1,000 mcg Tablet 1,000 mcg PO DAILY Referrals Referrals: Sher Conti MD [Primary Care Provider] -
[2021-11-21] MEDS ORDERED: ALBUTEROL HFA 8 GM INHALER INH PRN (00:27)
[2021-11-21] MEDS ORDERED: diphenhydrAMINE 50 MG/ML VIAL IV PRN (00:37)
--- NOTE | 2021-11-21 00:44 | Gynecologic Progress Note ---
Date of Service November 21, 2021 Assessment & Plan Admission and Anticipated Discharge Date Admission Date: November 20, 2021 Subjective Patient is reevaluated She feels much better, no more pain, no N&V Last time pain med was given about 4 hours ago) Has been up to BRX2 with no dizziness nor light headedness She is hungry and likes to eat. VSS Afebrile Abd: soft, mildly tender on deep palpation, no rebound, ND Ext; NT, no edema A: 46 yo female with pelvic/ abdominal pain, CT suggested fluid in pelvic, trace fluid in culde sac by US, LO cyst which is hemorrhagic CL cyst vs PID/ TOA, elevated WBCC at 18 K VSS Afebrile Pain improved with IV AB, pain meds, Plan to monitor closely Repeat CBC, US in am Continue with IV AB Start diet if next H&H stable All questions were answered. Results & Data ([facility]) Vital Signs (Past 12 Hours) Vital Signs Temp Pulse Pulse Resp BP BP Pulse Ox 11/20/21 23:47 81 18 98 11/20/21 23:30 73 16 97 11/20/21 23:30 104/79 11/20/21 23:00 92 H 22 99 11/20/21 23:00 126/73 11/20/21 22:30 96 H 98 11/20/21 22:30 121/71 11/20/21 22:22 94 H 16 104/73 98 11/20/21 22:19 36.5 C 97 H 21 104/73 99 11/20/21 21:55 94 H 20 122/76 96 11/20/21 21:00 106 H 18 113/76 96 11/20/21 20:46 102 H 23 109/79 96 11/20/21 20:00 87 18 112/80 97 11/20/21 18:00 96 H 22 110/76 100 11/20/21 17:55 104 H 18 110/76 97 11/20/21 17:53 98 11/20/21 17:05 37 C 118 H 18 160/72 H 97 O2 Del Method 11/20/21 23:47 Room Air 11/20/21 23:30 Room Air 11/20/21 23:30 11/20/21 23:00 Room Air 11/20/21 23:00 11/20/21 22:30 11/20/21 22:30 11/20/21 22:22 11/20/21 22:19 Room Air 11/20/21 21:55 11/20/21 21:00 11/20/21 20:46 11/20/21 20:00 11/20/21 18:00 11/20/21 17:55 Room Air 11/20/21 17:53 Room Air 11/20/21 17:05 Room Air
[2021-11-21 00:45] LABS: Basophils # (auto) 0.03 K/uL (0-0.2); Basophils % (auto) 0.2 %; Hematocrit (blood only) 28.3 % (34.1-44.9); Hemoglobin 9.5 g/dl (12.0-16.0); Immature Granulocytes % (auto) 0.7 %; Lymphocytes # (auto) 1.28 K/uL (1.2-3.4); Lymphocytes % (auto) 8.8 %; Mean Corpuscular Hemoglobin 30.4 pg (25.0-34.0); Mean Corpuscular Hgb Conc 33.6 g/dL (32.0-36.0); Mean Corpuscular Volume 90.4 fL (80.0-100.0); Mean Platelet Volume 9.1 fL (9.4-12.3); Monocytes # (auto) 0.68 K/uL (0.24-0.82); Monocytes % (auto) 4.7 %; Neutrophils % (auto) 85.6 %; Platelet Count 197 K/uL (130-400); RDW Coefficient of Variation 13.1 % (11.5-14.5); RDW Standard Deviation 42.4 fL (36.4-46.3); Red Blood Count 3.13 M/uL (3.93-5.22); White Blood Count 14.59 K/ul (4.8-10.8)
[2021-11-21] MEDS: D5W AND 1/2NSS + 20MEQ KCL 20 MEQ/1,000 ML BAG IV SCH ×2 (01:20→13:44)
[2021-11-21] MEDS: cefOXitin 2,000 MG/60 ML BAG IV SCH ×3 (04:17→16:34)
[2021-11-21 07:32] LABS: Basophils # (auto) 0.03 K/uL (0-0.2); Basophils % (auto) 0.3 %; Eosinophils # (auto) 0.09 K/uL (0-0.50); Eosinophils % (auto) 0.9 %; Hematocrit (blood only) 26.5 % (34.1-44.9); Hemoglobin 8.8 g/dl (12.0-16.0); Immature Granulocytes # (auto) 0.05 K/uL (0.00-0.02); Immature Granulocytes % (auto) 0.5 %; Lymphocytes # (auto) 2.25 K/uL (1.2-3.4); Lymphocytes % (auto) 21.4 %; Mean Corpuscular Hemoglobin 30.2 pg (25.0-34.0); Mean Corpuscular Hgb Conc 33.2 g/dL (32.0-36.0); Mean Corpuscular Volume 91.1 fL (80.0-100.0); Mean Platelet Volume 9.2 fL (9.4-12.3); Monocytes # (auto) 0.93 K/uL (0.24-0.82); Monocytes % (auto) 8.9 %; Neutrophils # (auto) 7.14 K/uL (1.4-6.5); Platelet Count 181 K/uL (130-400); RDW Standard Deviation 43.2 fL (36.4-46.3); Red Blood Count 2.91 M/uL (3.93-5.22); White Blood Count 10.49 K/ul (4.8-10.8)
[2021-11-21 07:40] LABS: INR 1.3 (0.9-1.1); Partial Thromboplastin Ratio 1.1; Partial Thromboplastin Time 29.8 Seconds (21.0-31.0); Prothrombin Time 13.7 Seconds (9.0-12.0)
--- NOTE | 2021-11-21 07:49 | Consultation Report ---
DATE OF CONSULTATION: 11/21/2021 CHIEF COMPLAINT: Abdominal pain. HISTORY OF PRESENT ILLNESS: A 46-year-old female with past medical history significant for factor V Leiden deficiency disease, history of DVT, history of sagittal sinus thrombosis, on chronic Coumadin, history of hyperhomocysteinemia, history of acute myeloid leukemia, in remission, as per heme/onc notes in remission for the last 24 years, presents with abdominal pain started last but got worse on Monday, came to the ER today and imaging studies, CT abdomen and pelvis showing moderate hemoperitoneum, most pronounced within deep pelvis, was primarily around the uterus and ovaries, bilateral adnexal cystic lesions, likely ovarian. Etiology of hemoperitoneum is not clearly identified, but may represent a ruptured hemorrhagic ovarian cyst and nonspecific enteritis was seen. The patient was evaluated by HAMMER M[facility] OPERATOR. Her INR was 5.3, IV vitamin K 10 mg was given in the ER. Repeat INR is 2.4. HAMMER MILL OPERATOR offered laparoscopic surgery for definitive diagnosis and possible treatment but the patient declined surgery. Continued under observation. She is currently sleeping, but she states that belly pain that was in her lower abdomen and radiating to back.Seems okay now. Was nauseous earlier, but that resolved, was constipated earlier that has also resolved. Denies any blood in the stools. Normal bladder movements. No hematuria. Denies chest pain or shortness of breath. Has some mild headache. No blurred visions, no earache, no runny nose, no sore throat, no cough, no fevers. The patient's recently diagnosed with COVID, but the patient is isolating herself at home and multiple home COVID tests are negative. Her COVID test in the ER is also negative. She is COVID vaccinated and the patient says she is also boosted. ALLERGIES: VANCOMYCIN. PAST MEDICAL HISTORY: As mentioned above. PAST SURGICAL HISTORY: Laparoscopic cholecystectomy, removal of kidney stones, tonsillectomy. MEDICATIONS: The patient is on albuterol 2 puffs inhalation q. 6 hours p.r.n., vitamin B12 1000 mcg p.o. daily, folic acid 1 mg p.o. daily, Coumadin 2 mg p.o. p.r.n., Zofran 8 mg p.o. t.i.d. p.r.n., vitamin B6 100 mg p.o. daily; warfarin 12 mg p.o. daily. FAMILY HISTORY: Significant for sister has asthma; mother has endocrine disorder, heart disorder; maternal grandmother has heart disorder. SOCIAL HISTORY: . No smoking. Alcohol rare. No drug use. REVIEW OF SYSTEMS: As per HPI. Rest of review of systems is negative. PHYSICAL EXAMINATION: GENERAL: The patient is of moderate build, not in acute distress. VITAL SIGNS: Temperature 36.8, pulse 70, respiratory rate 18, blood pressure 119/71, oxygen 97% on room air. HEENT: Extraocular muscles intact. NECK: No JVD. No neck masses seen. CARDIOVASCULAR: S1 and S2 heard, regular. No murmur, no gallop. RESPIRATORY SYSTEM: Normal AP diameter. No accessory muscle use. No wheezing, no crackles. ABDOMEN: Soft, bowel sounds present. Mild discomfort in lower abdomen, no guarding, no rigidity. CENTRAL NERVOUS SYSTEM: Cranial nerves II through XII are grossly intact, nonfocal. EXTREMITIES: No edema, no erythema. LABORATORY DATA: WBC 14.5, hemoglobin 9.5, hematocrit 28.3, platelets 197. PT 24.8, INR 2.4, APTT 23.5. Sodium 135, potassium 3.9, chloride 103, bicarb 26, BUN 12, creatinine 0.8, serum glucose 146, calcium 8.4, total bilirubin 1.2, AST 25, ALT 28, alkaline phosphatase 107. Lipase 16. HCG qualitative negative. Urinalysis +2 ketones, +1 blood. SARS-CoV-2 rapid test negative. IMAGING DATA: CT of abdomen and pelvis without contrast: Moderate hemoperitoneum, most pronounced within the deep pelvis, which is primarily around the uterus and ovaries. There is bilateral adnexal cystic lesions, which are likely ovarian. The etiology of the hemoperitoneum is not clearly identified, but may represent a ruptured hemorrhagic ovarian cyst. recommended to exclude the possibility of ruptured ectopic .Multiple thickened loops of jejunum within the left side of the abdomen with adjacent fat stranding. This is consistent with nonspecific enteritis. Intrauterine device appears to be in good position. Pelvic ultrasound preliminary report. IUD is in place, likely hemorrhagic cyst on the left ovary. Right ovary was not visible. Trace amount of free fluid in the cul-de-sac. ASSESSMENT AND PLAN: This 46-year-old female who is on Coumadin for DVT and factor V Leiden deficiency, presents with abdominal pain and found to have hemoperitoneum, possibly ruptured hemorrhagic ovarian cyst. 1. Abdominal pain with hemoperitoneum, possibly ruptured ovarian cyst. The patient declined surgical exploration at this time. INR was 5.3 on presentation, received IV vitamin K 10 mg, repeat INR was 2.4, currently hemodynamically stable. Antibiotics and fluids as per H[facility] M[facility] OPERATOR. Closely monitor. 2. History of AML, in remission. 3. Anemia.Hb 10.0 on presentation.recent hb as per [facility] on 10/27/21 is 14.9 . will do stool hmeoccult. follow repeat labs. 4. History of DVT and factor V Leiden deficiency, on Coumadin, which is on hold because of hemoperitoneum. 5. Deep venous thrombosis prophylaxis and disposition. As per HAM[facility] MILL OPERATOR. Job ID: [id number] MTDD
--- NOTE | 2021-11-21 08:12 | Ultrasound Report ---
ULTRASOUND OF THE PELVIS CLINICAL HISTORY: Abnormal menses. COMPARISON STUDY: Pelvic CT dated 11/20/2021. TECHNIQUE: Real-time, grayscale, and color flow sonography of the pelvis is performed both transabdom inally and endovaginally. Images are reviewed in the transverse and longitudinal planes. The endovagi nal examination was performed for better assessment of the ovaries and adnexa. FINDINGS: Uterus: The uterus is normal in size and heterogeneous in echotexture, measuring 9.0 x 3.7 x 4.7 cm. Nabothian cysts are noted in the cervix. Endometrium: No intrauterine gestation is identified. The endometrium is normal in appearance, and th e endometrial stripe is normal in thickness measuring up to 0.4 cm. An intrauterine device is in plac e and appears to be appropriately positioned. Ovaries: The right ovary was not visualized. The left ovary is enlarged measuring 9.1 x 4.7 x 6.8 cm. There is a complex lesion in the left ovary measuring 6.1 x 4.5 x 5.7 cm. An additional 3.7 cm simpl e cyst is noted in the left ovary. Normal Doppler waveforms are shown within the left ovary. Pelvis: There is a small to moderate volume of complex free fluid in the cul-de-sac. No concerning ad nexal lesion is seen. IMPRESSION: 1. No intrauterine gestation is identified and an intrauterine device appears appropriately positione d. 2. Nonvisualization of the right ovary. 3. There is a small to moderate volume of complex free fluid in the pelvis, likely resenting hemoperi toneum. Additionally, there is a 6.1 cm complex lesion in the left ovary. These findings may represen t a rupturing hemorrhagic ovarian cyst. Although no additional abnormal adnexal lesion is identified, if there is a positive test a ruptured ectopic would be impossible to exclude. C lose clinical and laboratory follow-up will be required. Gynecology assessment is advised, as is a fo llow-up pelvic ultrasound in 2-3 months time to document resolution of the left ovarian lesion. ACT 112: Negative or not required by law. Electronically signed by: Ye Tovar M.D. 11/21/2021 8:11 AM
[2021-11-21] MEDS ORDERED: DOXYCYCLINE HYCLATE 100 MG in DEXTROSE 5% 100 ML IV SCH (09:00)
[2021-11-21] MEDS ORDERED: MAG SULFATE 50% 1GM/2ML VIAL IV STA (09:10)
[2021-11-21] MEDS ORDERED: ACETAMINOPHEN 1000 MG/100 ML IV IV ONE (09:16)
[2021-11-21] MEDS ORDERED: ACETAMINOPHEN 1,000 MG/100 ML VIAL IV STA (09:23)
--- NOTE | 2021-11-21 09:24 | Obstetrical Progress Note ---
Date of Service November 21, 2021 Assessment & Plan Admission and Anticipated Discharge Date Admission Date: November 20, 2021 Subjective Patient is reevaluated She has soreness in abdomen. Now has migraine RIVERS and feels dizzy upin getting up. H&H dropped to 8.8/ 26.5 from INR is now 1.[address] Tovar read US from last night as small to moderate blood in pelvis and moderate blood by CT scan. Radiologist from [facility] was reading as trace in cul de sac. I discussed the above findings and recommended surgery Discussed the risks of surgery including but not limited to risks of anesthesia, bleeding, infection, injury to surrounding organs like bowels, bladder, adhesions Patient understands all and signed an informed consent. All questions were answered. Results & Data ([facility]) Vital Signs (Past 12 Hours) Vital Signs Temp Pulse Pulse Resp BP BP Pulse Ox 11/21/21 00:15 36.7 C 93 H 18 109/75 97 11/21/21 00:37 36.7 C 93 H 18 109/75 97 11/20/21 23:47 81 18 98 11/20/21 23:30 73 16 97 11/20/21 23:30 104/79 11/20/21 23:00 92 H 22 99 11/20/21 23:00 126/73 11/20/21 22:30 96 H 98 11/20/21 22:30 121/71 11/20/21 22:22 94 H 16 104/73 98 11/20/21 22:19 36.5 C 97 H 21 104/73 99 11/20/21 21:55 94 H 20 122/76 96 11/20/21 21:00 106 H 18 113/76 96 11/20/21 20:46 102 H 23 109/79 96 11/20/21 20:00 87 18 112/80 97 11/20/21 18:00 96 H 22 110/76 100 11/20/21 17:55 104 H 18 110/76 97 11/20/21 17:53 98 11/20/21 17:05 37 C 118 H 18 160/72 H 97 O2 Del Method 11/21/21 00:15 Room Air 11/21/21 00:37 Room Air 11/20/21 23:47 Room Air 11/20/21 23:30 Room Air 11/20/21 23:30 11/20/21 23:00 Room Air 11/20/21 23:00 11/20/21 22:30 11/20/21 22:30 11/20/21 22:22 11/20/21 22:19 Room Air 11/20/21 21:55 11/20/21 21:00 11/20/21 20:46 11/20/21 20:00 11/20/21 18:00 11/20/21 17:55 Room Air 11/20/21 17:53 Room Air 11/20/21 17:05 Room Air
[2021-11-21] MEDS: MAGNESIUM SULFATE / D5W 1 GM/100 ML BAG IV SCH ×2 (09:43→17:27)
[2021-11-21] MEDS ORDERED: MAGNESIUM SULFATE / D5W 1 GM/100 ML BAG IV SCH (09:45)
[2021-11-21] MEDS ORDERED: PROPOFOL IV EMULSION 10 MG/ML 20 ML VIAL IV ONE (09:49)
[2021-11-21] MEDS ORDERED: fentaNYL citrate 100 MCG/2 ML VIAL ONE ×2 (09:50→11:21)
[2021-11-21] MEDS ORDERED: MIDAZOLAM HCL 1 MG/ML 2ML VIAL ONE (09:50)
[2021-11-21] MEDS ORDERED: LIDOCAINE 2% 20 MG/ML 5 ML SYR IV ONE (10:00)
[2021-11-21] MEDS ORDERED: BUPIVACAINE 0.5 % 5 MG/1 ML MPF 30ML VIAL ONE (10:34)
[2021-11-21] MEDS ORDERED: EPINEPHrine INJ 1 MG/ML AMP ONE (10:34)
--- NOTE | 2021-11-21 10:48 | Anesthesiology Consultation ---
Date of Service November 21, 2021 Assessment & Plan Chart Review Chart Review: Acceptable Risk for Surgery Consults Requested none History Surgery Operation Date: 11/21/21 10:20 Proposed Procedures p Laparoscopic exploration, possible oophorectomy - Isaura Grant MD Height/Weight Height: 5 ft Weight: 72.575 kg Allergies Allergy/AdvReac Type Severity Reaction Status Date / Time vancomycin Allergy Severe EBONY Verified 11/20/21 18:29 SYNDROME Medications Home Medications Medication Instructions Recorded Confirmed Last Taken albuterol sulfate 90 mcg/actuation 2 puff inhalation Q6H PRN 04/27/18 11/20/21 Unknown aerosol inhaler (Ventolin HFA) Shortness Of Breath Or Wheezing folic acid 1 mg tablet 1 mg PO DAILY 04/27/18 11/20/21 11/19/21 loperamide 2 mg tablet (Imodium 2 mg PO DIRECTED PRN Diarrhea 04/27/1811/20 Unknown A-D) pyridoxine (vitamin B6) 100 mg 100 mg PO DAILY 04/27/18 11/20/21 11/19/21 tablet (Vitamin B-6) warfarin 6 mg tablet 12 mg PO DAILY #0 tabs 04/28/18 11/20/21 11/19/21 cyanocobalamin (vitamin B-12) 1,000 mcg PO DAILY 11/20/21 11/20/21 11/19/21 1,000 mcg tablet (Vitamin B-12) ondansetron HCl 8 mg tablet 8 mg PO TID PRN NAUSEA/VOMITING 11/20/21 11/20/21 Unknown Active Medications Generic Name Dose Route Start Last Admin Trade Name Freq PRN Reason Stop Dose Admin Potassium Chloride/Dextrose/Sod Cl 20 meq in 1,000 mls @ 125 mls/hr 11/20/21 23:15 11/21/21 09:10 D5w And 1/2nss + 20meq Kcl IV 12/20/21 23:14 Infused .Q8H REYNA Infusion Cefoxitin Sodium 2,000 mg in 60 mls @ 120 mls/hr 11/21/21 04:00 11/21/21 09:48 Mefoxin IV 12/01/21 03:59 120 mls/hr Q6H REYNA Administration Magnesium Sulfate/Dextrose 1 gm in 100 mls @ 100 mls/hr 11/21/21 09:30 11/21/21 09:43 Magnesium Sulfate / D5w IV 11/21/21 12:29 100 mls/hr Q2H REYNA Administration Ondansetron HCl 4 mg 11/20/21 23:11 11/21/21 09:22 Ondansetron Inj 2 Mg/Ml 2 Ml Vial IV 12/20/21 23:10 4 mg Q6H PRN Administration Nausea And Vomiting NPO Date Last Intake of Fluids: 11/21/21 Time Last Intake of Fluids: 06:30 Last Intake of Fluids Comment: ice chips Date Last Intake of Solids: 11/20/21 Past Medical History Medical History Acute myeloid leukemia in remission (02/24/12) APL-M3, s/p ARC, idarubicin, retinoid 4 cycles, in remission since 1997. Chronic anticoagulation Eczema Factor V Leiden On Coumadin. Migraines MTHFR mutation On Coumadin. Venous thrombosis Sagittal sinus B/L. On Coumadin. Past Family History Family History Other Asthma Thyroid disease Past Surgical History Surgical History S/P cholecystectomy S/P tonsillectomy and adenoidectomy Social History Smoking Status: Never smoker Do You Dip or Chew Tobacco: No Hx Alcohol Use: No Hx Substance Use: No substance use type: does not use Physical Exam Vital Signs Last Vital Signs Temp 36.7 C 11/21/21 09:53 Pulse 81 11/21/21 09:53 Resp 16 11/21/21 09:53 BP 127/77 11/21/21 09:53 Pulse Ox 98 11/21/21 09:53 O2 Del Method 11/21/21 07:45 Testing Laboratory Results 11/21/21 07:15 11/20/21 17:30 PT 13.7 Seconds (9.0-12.0) H 11/21/21 07:15 INR 1.3 (0.9-1.1) H 11/21/21 07:15 APTT 29.8 Seconds (21.0-31.0) 11/21/21 07:15 Urine Color [place] 11/20/21 17:30 Urine Appearance Cloudy (Clear) A 11/20/21 17:30 Urine pH 5.0 (4.5-7.5) 11/20/21 17:30 Ur Specific [place] 1.028 (1.000-1.030) 11/20/21 17:30 Urine Protein Trace (Negative) H 11/20/21 17:30 Urine Glucose (UA) Negative (Negative) 11/20/21 17:30 Urine Ketones 2+ (Negative) H 11/20/21 17:30 Urine Nitrite Negative (Negative) 11/20/21 17:30 Ur Leukocyte Esterase Negative (Negative) 11/20/21 17:30 Urine WBC (Auto) 1-5 /hpf (0-5) 11/20/21 17:30 Urine RBC (Auto) 0-4 /hpf (0-4) 11/20/21 17:30 U Hyaline Cast (Auto) 5-10 /lpf (0-5) H 11/20/21 17:30 U Epithel Cells (Auto) >30 /lpf (0-5) H 11/20/21 17:30 Urine Bacteria (Auto) Negative (Negative) 11/20/21 17:30 Blood Type A Positive 11/20/21 19:32 Antibody Screen NEGATIVE 11/20/21 19:32 11/20/21 21:30 Gram Stain - Final Vaginal
[2021-11-21] MEDS ORDERED: ONDANSETRON INJ 2 MG/ML 2 ML VIAL ONE (11:20)
[2021-11-21] MEDS ORDERED: PHENYLEPHRINE 100MCG/ML 5ML SYR ONE (11:43)
[2021-11-21] MEDS ORDERED: ePHEDrine sulfate 50 MG/ML SYR ONE (11:43)
[2021-11-21] MEDS ORDERED: HYDROmorphone INJ 2 MG/ML SYR/VIAL IV PRN (11:45)
[2021-11-21] MEDS ORDERED: fentaNYL citrate 100 MCG/2 ML VIAL IV PRN (11:45)
[2021-11-21] MEDS ORDERED: ePHEDrine sulfate 50 MG/ML AMP IV PRN (11:45)
[2021-11-21] MEDS ORDERED: ONDANSETRON INJ 2 MG/ML 2 ML VIAL IV PRN ×2 (11:45→12:02)
[2021-11-21] MEDS ORDERED: PROMETHAZINE HCL 12.5 MG in SODIUM CHLORIDE 0.9% 50 ML IV PRN ×2 (11:45→12:02)
[2021-11-21] MEDS ORDERED: ATROPINE SULFATE 0.1 MG/ML 10ML SYR IV PRN (11:45)
[2021-11-21] MEDS ORDERED: bisacodyL 10 MG SUPP PR PRN (12:02)
[2021-11-21] MEDS ORDERED: MEPERIDINE HCL 25 MG/ML CARP/VIAL IV PRN (12:02)
[2021-11-21] MEDS ORDERED: MAGNESIUM HYDROXIDE SUSP 30 ML UDC PO PRN (12:02)
[2021-11-21] MEDS ORDERED: ACETAMINOPHEN 325 MG TAB PO PRN (12:02)
[2021-11-21] MEDS ORDERED: oxyCODONE/ACETAMINOPHEN 5mg/325mg TAB PO PRN (12:02)
[2021-11-21] MEDS ORDERED: MEPERIDINE HCL 50 MG/ML CARP IV PRN (12:02)
[2021-11-21] MEDS ORDERED: SIMETHICONE 80 MG CHEW PO PRN (12:02)
--- NOTE | 2021-11-21 12:06 | Post Operative Brief Note ---
Immediate Post Op Note v1 Date of Surgery November 21, 2021 Pre & Post Diagnosis Operation Date: 11/21/21 10:20 Pre-Op Diagnosis: Pelvic Pain Abdominal Pain Ruptured Ovarian Cyst Post-Op Diagnosis: Pelvic Pain Abdominal Pain Ruptured Ovarian Cyst I identified the patient and participated in the time-out.: Yes Procedure Operation Date: 11/21/21 10:20 Actual Procedures p Laparoscopic Blood Clot Evacuation, Laparoscopic Ovarian Cystectomy, Vulva Biopsy, Excision of Condyloma(Not Applicable) - Isaura Grant MD s Exam Under Anesthesia(Not Applicable) - Isaura Grant MD Surgeon Isaura Grant MD [employer] [address] Mock Estimated Blood Loss 600 Findings Consistent with Post-Op Diagnosis Complications none Disposition Accompanied Patient To Recovery: Yes
[2021-11-21] MEDS ORDERED: GLYCOPYRROLATE 0.2 MG/ML VIAL ONE (12:12)
[2021-11-21] MEDS ORDERED: NEOSTIGMINE METHYLSULFATE 1 MG/ML 10ML VIAL ONE (12:12)
[2021-11-21] MEDS ORDERED: LACTATED RINGER'S 1,000 ML IV SCH (12:15)
[2021-11-21] MEDS ORDERED: ROCURONIUM BROMIDE 10 MG/ML 5 ML VIAL IV ONE (12:26)
[2021-11-21] MEDS ORDERED: DOCUSATE SODIUM 100 MG CAP PO SCH (12:30)
--- NOTE | 2021-11-21 12:52 | Anesthesiology Progress Note ---
Date of Service November 21, 2021 Anesthesia Post Procedure Vital Signs Vital Signs: Temp Pulse Pulse Pulse Resp BP BP 11/21/21 12:45 36.3 C L 99 H 19 11/21/21 12:35 107 H 24 11/21/21 12:25 102 H 20 11/21/21 12:17 36.1 C L 101 H 17 11/21/21 09:53 36.7 C 81 16 127/77 11/21/21 07:45 36.8 C 86 16 114/80 11/21/21 05:19 66 103/69 11/21/21 04:13 36.8 C 74 16 113/76 11/21/21 03:10 36.8 C 78 18 109/71 11/21/21 00:15 36.7 C 93 H 18 109/75 11/21/21 00:37 36.7 C 93 H 18 109/75 11/20/21 23:47 81 18 11/20/21 23:30 73 16 11/20/21 23:30 104/79 11/20/21 23:00 92 H 22 11/20/21 23:00 126/73 11/20/21 22:30 96 H 11/20/21 22:30 121/71 11/20/21 22:22 94 H 16 104/73 11/20/21 22:19 36.5 C 97 H 21 104/73 11/20/21 21:55 94 H 20 122/76 11/20/21 21:00 106 H 18 113/76 11/20/21 20:46 102 H 23 109/79 11/20/21 20:00 87 18 112/80 11/20/21 18:00 96 H 22 110/76 11/20/21 17:55 104 H 18 110/76 11/20/21 17:53 11/20/21 17:05 37 C 118 H 18 160/72 H BP Pulse Ox O2 Del Method O2 Flow Rate 11/21/21 12:45 118/76 96 Room Air 11/21/21 12:35 121/79 100 Oxymask 4 11/21/21 12:25 116/75 100 Oxymask 6 11/21/21 12:17 124/80 97 Oxymask 8 11/21/21 09:53 98 11/21/21 07:45 98 Room Air 11/21/21 05:19 11/21/21 04:13 98 Room Air 11/21/21 03:10 97 Room Air 11/21/21 00:15 97 Room Air 11/21/21 00:37 97 Room Air 11/20/21 23:47 98 Room Air 11/20/21 23:30 97 Room Air 11/20/21 23:30 11/20/21 23:00 99 Room Air 11/20/21 23:00 11/20/21 22:30 98 11/20/21 22:30 11/20/21 22:22 98 11/20/21 22:19 99 Room Air 11/20/21 21:55 96 11/20/21 21:00 96 11/20/21 20:46 96 11/20/21 20:00 97 11/20/21 18:00 100 11/20/21 17:55 97 Room Air 11/20/21 17:53 98 Room Air 11/20/21 17:05 97 Room Air Pain Intensity Lower Abdomen: Pain Intensity: 4 Transfer of Care Handoff Completed per policy Notes Mental Status: alert / awake / arousable and participated in evaluation Patient Amnestic to Procedure: Yes Nausea / Vomiting: adequately controlled Pain: adequately controlled Airway Patency, RR, SpO2: stable & adequate BP & HR: stable & adequate Hydration State: stable & adequate Anesthetic Complications: no major complications apparent
--- NOTE | 2021-11-21 13:43 | Hospitalist Progress Note ---
Date of Service November 21, 2021 Assessment & Plan (1) Hemoperitoneum: Plan: Presented with abdominal pain with hemoperitoneum from possible ruptured ovarian cyst. INR was 5.3 on presentation she received IV vitamin K 10 mg. Repeat INR this morning was 1.3. Last dose of Coumadin was on Monday, 2 days ago. After hemoglobin fell overnight. The decision was made to go ahead with laparoscopic blood clot evacuation, laparoscopic ovarian cystectomy by Dr. Glover. She is recovering well. Defer perioperative antibiotics to [facility]. 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 As her blood clot was 15 years ago plus, her risk of additional clot at this time is low and she can go back on warfarin today or tomorrow, as soon as surgeon is comfortable with level of hemostasis. No bridging therapy is needed. This was discussed peripherally with hematology on- call. Recommend repeat CBC and INR in 2 days. Thank you for this consultation. Liliana Babcock DO [facility] Admission and Anticipated Discharge Date Admission Date: November 20, 2021 Subjective Patient is a 46-year-old female who presented with abdominal pain secondary to a bleeding ovarian cyst. 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 Last dose of Coumadin was on Monday, 2 days ago. She underwent her operation and hemostasis was achieved. Consultation was requested to assist with anticoagulation management. She has just come up from PACU Answering questions appropriately Pain present as expected Denies chest pain, SOB etc. Review of Systems Review of Systems: All systems reviewed negative except as indicated above. Physical Exam Physical Exam: CONSTITUTIONAL: WNWD, vitals as above, generally well- appearing, NAD EYES: normal conjunctivae, no scleral icterus ENT: external ear and nose normal, MMM NECK: trachea midline RESPIRATORY: clear to auscultation bilaterally, no crackles, rales or wheezes, normal respiratory effort CARDIOVASCULAR: regular rate and rhythm, S1 and 2 heard without murmurs, gallops or rubs, no JVD, no peripheral edema CHEST: inspection of chest was normal GASTROINTESTINAL: soft, expected post-operative tenderness around multiple laparoscopic incision sites, ND, no guarding MUSCULOSKELETAL: strength 5/5 throughout, head is normocephalic and atraumatic, neck supple, normal palpation of chest wall without tenderness SKIN: warm and dry NEUROLOGIC: CN 2-12 grossly intact, no sensory deficit, normal cognition, normal speech, no tremor PSYCHIATRIC: alert cooperative and oriented to person, place and time. Results & Data Results & Data ([facility]) Vital Signs (Past 12 Hours) Vital Signs Temp Pulse Pulse Resp BP BP Pulse Ox 11/21/21 13:05 85 13 120/69 95 11/21/21 12:55 85 18 116/72 97 11/21/21 12:45 36.3 C L 99 H 19 118/76 96 11/21/21 12:35 107 H 24 121/79 100 11/21/21 12:25 102 H 20 116/75 100 11/21/21 12:17 36.1 C L 101 H 17 124/80 97 11/21/21 09:53 36.7 C 81 16 127/77 98 11/21/21 07:45 36.8 C 86 16 114/80 98 11/21/21 05:19 66 103/69 11/21/21 04:13 36.8 C 74 16 113/76 98 11/21/21 03:10 36.8 C 78 18 109/71 97 O2 Del Method O2 Flow Rate 11/21/21 13:05 Room Air 11/21/21 12:55 Room Air 11/21/21 12:45 Room Air 11/21/21 12:35 Oxymask 4 11/21/21 12:25 Oxymask 6 11/21/21 12:17 Oxymask 8 11/21/21 09:53 11/21/21 07:45 Room Air 11/21/21 05:19 11/21/21 04:13 Room Air 11/21/21 03:10 Room Air Laboratory Results Short CBC 11/20/21 11/20/21 11/21/21 Range/Units 17:30 22:23 00:35 WBC 18.48 H 14.59 H (4.8-10.8) K/ul Hgb 12.1 10.0 L 9.5 L (12.0-16.0) g/dl Hct 36.2 29.5 L 28.3 L (34.1-44.9) % Plt Count 249 197 (130-400) K/uL 11/21/21 Range/Units 07:15 WBC 10.49 (4.8-10.8) K/ul Hgb 8.8 L (12.0-16.0) g/dl Hct 26.5 L (34.1-44.9) % Plt Count 181 (130-400) K/uL BMP 11/20/21 17:30 Sodium 135 L Potassium 3.9 Chloride 103 Carbon Dioxide 26 BUN 12 Creatinine 0.81 Glucose 146 H Calcium 8.4 L Liver Function 11/20/21 Range/Units 17:30 Total Bilirubin 1.2 H (0.2-1.0) mg/dl AST 25 (13-39) U/L ALT 28 (7-52) U/L Alkaline Phosphatase 107 H (34-104) U/L Albumin 4.1 (3.4-5.0) gm/dl Urine 11/20/21 Range/Units 17:30 Urine Color [place] Urine Appearance Cloudy A (Clear) Urine pH 5.0 (4.5-7.5) Ur Specific Brewster 1.028 (1.000-1.030) Urine Protein Trace H (Negative) Urine Glucose (UA) Negative (Negative) Diagnostic Findings Pelvis Ultrasound 11/20/21 19:49 ULTRASOUND OF THE PELVIS CLINICAL HISTORY: Abnormal menses. COMPARISON STUDY: Pelvic CT dated 11/20/2021. TECHNIQUE: Real-time, grayscale, and color flow sonography of the pelvis is performed both transabdominally and endovaginally. Images are reviewed in the transverse and longitudinal planes. The endovaginal examination was performed for better assessment of the ovaries and adnexa. FINDINGS: Uterus: The uterus is normal in size and heterogeneous in echotexture, measuring 9.0 x 3.7 x 4.7 cm. Nabothian cysts are noted in the cervix. Endometrium: No intrauterine gestation is identified. The endometrium is normal in appearance, and the endometrial stripe is normal in thickness measuring up to 0.4 cm. An intrauterine device is in place and appears to be appropriately positioned. Ovaries: The right ovary was not visualized. The left ovary is enlarged measuring 9.1 x 4.7 x 6.8 cm. There is a complex lesion in the left ovary measuring 6.1 x 4.5 x 5.7 cm. An additional 3.7 cm simple cyst is noted in the left ovary. Normal Doppler waveforms are shown within the left ovary. Pelvis: There is a small to moderate volume of complex free fluid in the cul-de-sac. No concerning adnexal lesion is seen. IMPRESSION: 1. No intrauterine gestation is identified and an intrauterine device appears appropriately positioned. 2. Nonvisualization of the right ovary. 3. There is a small to moderate volume of complex free fluid in the pelvis, likely resenting hemoperitoneum. Additionally, there is a 6.1 cm complex lesion in the left ovary. These findings may represent a rupturing hemorrhagic ovarian cyst. Although no additional abnormal adnexal lesion is identified, if there is a positive test a ruptured ectopic would be impossible to exclude. Close clinical and laboratory follow-up will be required. Gynecology assessment is advised, as is a follow-up pelvic ultrasound in 2-3 months time to document resolution of the left ovarian lesion. ACT 112: Negative or not required by law. Electronically signed by: Ye Tovar M.D. 11/21/2021 8:11 AM Transvaginal US 11/20/21 19:50 ULTRASOUND OF THE PELVIS CLINICAL HISTORY: Abnormal menses. COMPARISON STUDY: Pelvic CT dated 11/20/2021. TECHNIQUE: Real-time, grayscale, and color flow sonography of the pelvis is perf ormed both transabdominally and endovaginally. Images are reviewed in the transverse and longitudinal planes. The endovaginal examination was performed for better assessment of the ovaries and adnexa. FINDINGS: Uterus: The uterus is normal in size and heterogeneous in echotexture, measuring 9.0 x 3.7 x 4.7 cm. Nabothian cysts are noted in the cervix. Endometrium: No intrauterine gestation is identified. The endometrium is normal in appearance, and the endometrial stripe is normal in thickness measuring up to 0.4 cm. An intrauterine device is in place and appears to be appropriately posit ioned. Ovaries: The right ovary was not visualized. The left ovary is enlarged measuring 9.1 x 4.7 x 6.8 cm. There is a complex lesion in the left ovary measuring 6.1 x 4.5 x 5.7 cm. An additional 3.7 cm simple cyst is noted in the left ovary. Normal Doppler waveforms are shown within the left ovary. Pelvis: There is a small to moderate volume of complex free fluid in the cul-de-sac. No concerning adnexal lesion is seen. IMPRESSION: 1. No intrauterine gestation is identified and an intrauterine device appears appropriately positioned. 2. Nonvisualization of the right ovary. 3. There is a small to moderate volume of complex free fluid in the pelvis, likely resenting hemoperitoneum. Additionally, there is a 6.1 cm complex lesion in the left ovary. These findings may represent a rupturing hemorrhagic ovarian cyst. Although no additional abnormal adnexal lesion is identified, if there is a positive test a ruptured ectopic would be impossible to exclude. Close clinical and laboratory follow-up will be required. Gynecology assessment is advised, as is a follow-up pelvic ultrasound in 2-3 months time to document resolution of the left ovarian lesion. ACT 112: Negative or not required by law. Electronically signed by: Ye Tovar M.D. 11/21/2021 8:11 AM Medications Administered Current Inpatient Medications Acetaminophen (Acetaminophen 325 Mg Tab) 650 mg PO Q6H PRN PRN Reason: pain, headache or fever Stop: 12/21/21 12:01 Albuterol (Albuterol Hfa 8 Gm Inhaler) 2 puffs INH Q6H PRN PRN Reason: Shortness Of Breath Or Wheezing Stop: 12/21/21 00:26 Atropine Sulfate (Atropine Sulfate 0.1 Mg/Ml 10ml Syr) 0.5 mg IV Q1M PRN PRN Reason: PACU Use-HR<40 &/or Bradycardi Stop: 11/21/21 19:45 Bisacodyl (Bisacodyl 10 Mg Supp) 10 mg DC DAILY PRN PRN Reason: Constipation or flatulance Stop: 12/21/21 12:01 Diphenhydramine HCl (Diphenhydramine 50 Mg/Ml Vial) 12.5 mg IV Q6H PRN PRN Reason: Nausea Stop: 12/21/21 00:36 Docusate Sodium (Docusate Sodium 100 Mg Cap) 100 mg PO BID REYNA Stop: 12/21/21 12:29 Ephedrine Sulfate (Ephedrine Sulfate 50 Mg/Ml Amp) 5 mg IV Q5M PRN PRN Reason: PACU Use Only-SBP<90 mmHg Stop: 11/21/21 19:45 Fentanyl Citrate (Fentanyl Citrate 100 Mcg/2 Ml Vial) 50 mcg IV Q5M PRN PRN Reason: PACU Use Only-Pain Stop: 11/21/21 19:45 Last Admin: 11/21/21 12:53 Dose: 50 mcg Hydromorphone HCl (Hydromorphone Inj 2 Mg/Ml Syr/Vial) 0.5 mg IV Q5M PRN PRN Reason: PACU Use Only-Pain Stop: 11/21/21 19:45 Potassium Chloride/Dextrose/Sod Cl (D5w And 1/2nss + 20meq Kcl) 20 meq in 1,000 mls @ 125 mls/hr IV .Q8H REYNA Stop: 12/20/21 23:14 Last Infusion: 11/21/21 09:10 Dose: Infused Cefoxitin Sodium (Mefoxin) 2,000 mg in 60 mls @ 120 mls/hr IV Q6H REYNA Stop: 12/01/21 03:59 Last Admin: 11/21/21 09:48 Dose: 120 mls/hr Doxycycline Hyclate 100 mg/ (Dextrose) 110 mls @ 50 mls/hr IV Q12H REYNA Stop: 12/01/21 08:59 Last Infusion: 11/21/21 12:41 Dose: Infused Promethazine HCl 12.5 mg/ (Sodium Chloride) 50.5 mls @ 204 mls/hr IV ONCE PRN PRN Reason: PACU Use Only-Nausea/Vomiting Stop: 11/21/21 19:45 Promethazine HCl 12.5 mg/ (Sodium Chloride) 50.5 mls @ 204 mls/hr IV Q6H PRN PRN Reason: Nausea And Vomiting Stop: 12/21/21 12:01 Lactated Ringer's (Lr) 1,000 mls @ 125 mls/hr IV .Q8H REYNA Stop: 12/21/21 12:14 Magnesium Hydroxide (Magnesium Hydroxide Susp 30 Ml Udc) 30 ml PO Q6H PRN PRN Reason: Constipation Stop: 12/21/21 12:01 Meperidine HCl (Meperidine Hcl 50 Mg/Ml Carp) 50 mg IV Q4H PRN PRN Reason: Pain Scale 1,2,3,4,5 Stop: 12/05/21 12:01 Meperidine HCl (Meperidine Hcl 25 Mg/Ml Carp/Vial) 75 mg IV Q4H PRN PRN Reason: Pain Scale 6,7,8,9,10 Stop: 12/05/21 12:01 Ondansetron HCl (Ondansetron Inj 2 Mg/Ml 2 Ml Vial) 4 mg IV ONCE PRN PRN Reason: PACU Use Only-Nausea/Vomiting Stop: 11/21/21 19:45 Ondansetron HCl (Ondansetron Inj 2 Mg/Ml 2 Ml Vial) 4 mg IV Q6H PRN PRN Reason: Nausea And Vomiting Stop: 12/21/21 12:01 Oxycodone/Acetaminophen (Oxycodone/Acetaminophen 5mg/325mg Tab) 1 tab PO Q4H PRN PRN Reason: Pain Scale 1,2,3,4,5 Stop: 12/05/21 12:01 Simethicone (Simethicone 80 Mg Chew) 80 mg PO TID PRN PRN Reason: Gas Stop: 12/21/21 12:01
[2021-11-21] MEDS ORDERED: cefOXitin 2,000 MG in DEXTROSE 5% 50 ML IV SCH (16:15)
--- NOTE | 2021-11-21 17:27 | Gynecologic Progress Note ---
Date of Service November 21, 2021 Assessment & Plan Admission and Anticipated Discharge Date Admission Date: November 20, 2021 Subjective Postop check Patient is seen and examined Feels well, no complaints Pain is under control with PO meds No CP/ SOB/ Dizziness/ N&V/ VB/ Leg pain OOBX2 voidedx2 Tolerating clears and crackers, dinner has just arrived. Flatus+ Explained about the surgery and findings Shown her pictures from [employer] Vital Signs Temp Pulse Pulse Pulse Resp BP BP 11/21/21 14:45 36.6 C 96 H 16 133/63 11/21/21 14:15 79 14 105/70 11/21/21 13:45 36.4 C L 84 14 106/68 11/21/21 13:15 36.4 C L 78 14 115/75 11/21/21 13:05 85 13 120/69 11/21/21 12:55 85 18 116/72 11/21/21 12:45 36.3 C L 99 H 19 118/76 11/21/21 12:35 107 H 24 121/79 11/21/21 12:25 102 H 20 116/75 11/21/21 12:17 36.1 C L 101 H 17 124/80 11/21/21 09:53 36.7 C 81 16 127/77 11/21/21 07:45 36.8 C 86 16 114/80 Pulse Ox O2 Del Method O2 Flow Rate 11/21/21 14:45 98 Room Air 11/21/21 14:15 100 Room Air 11/21/21 13:45 98 Room Air 11/21/21 13:15 95 Room Air 11/21/21 13:05 95 Room Air 11/21/21 12:55 97 Room Air 11/21/21 12:45 96 Room Air 11/21/21 12:35 100 Oxymask 4 11/21/21 12:25 100 Oxymask 6 11/21/21 12:17 97 Oxymask 8 11/21/21 09:53 98 11/21/21 07:45 98 Room Air PE: General: Alert, orientedx3, NAD CVS: S1S2 RRR Lungs: CTAB Abd: soft, NT, ND, BS+, Incisions C/D/I No VB Ext: NT, no edema, SCD's on AP: 46 yo female s/p EUA, Lap evauation of blood cloths and ovarian cyst from pelvis, pod#0 VSS Afebrile doing well Continue to routine postop care Encourage PO intake, ambulate Patient desires d/c tonight Check CBC and feed dinner then d/c All questions were answered. Discussed when to call Results & Data ([facility]) Vital Signs (Past 12 Hours) Vital Signs Temp Pulse Pulse Pulse Resp BP BP 11/21/21 14:45 36.6 C 96 H 16 133/63 11/21/21 14:15 79 14 105/70 11/21/21 13:45 36.4 C L 84 14 106/68 11/21/21 13:15 36.4 C L 78 14 115/75 11/21/21 13:05 85 13 120/69 11/21/21 12:55 85 18 116/72 11/21/21 12:45 36.3 C L 99 H 19 118/76 11/21/21 12:35 107 H 24 121/79 11/21/21 12:25 102 H 20 116/75 11/21/21 12:17 36.1 C L 101 H 17 124/80 11/21/21 09:53 36.7 C 81 16 127/77 11/21/21 07:45 36.8 C 86 16 114/80 Pulse Ox O2 Del Method O2 Flow Rate 11/21/21 14:45 98 Room Air 11/21/21 14:15 100 Room Air 11/21/21 13:45 98 Room Air 11/21/21 13:15 95 Room Air 11/21/21 13:05 95 Room Air 11/21/21 12:55 97 Room Air 11/21/21 12:45 96 Room Air 11/21/21 12:35 100 Oxymask 4 11/21/21 12:25 100 Oxymask 6 11/21/21 12:17 97 Oxymask 8 11/21/21 09:53 98 11/21/21 07:45 98 Room Air
[2021-11-21 17:34] LABS: Basophils # (auto) 0.03 K/uL (0-0.2); Basophils % (auto) 0.2 %; Eosinophils # (auto) 0.03 K/uL (0-0.50); Eosinophils % (auto) 0.2 %; Hematocrit (blood only) 26.1 % (34.1-44.9); Hemoglobin 8.6 g/dl (12.0-16.0); Immature Granulocytes # (auto) 0.08 K/uL (0.00-0.02); Immature Granulocytes % (auto) 0.7 %; Lymphocytes # (auto) 2.52 K/uL (1.2-3.4); Lymphocytes % (auto) 20.7 %; Mean Corpuscular Hemoglobin 30.5 pg (25.0-34.0); Mean Corpuscular Volume 92.6 fL (80.0-100.0); Mean Platelet Volume 8.7 fL (9.4-12.3); Monocytes # (auto) 0.86 K/uL (0.24-0.82); Monocytes % (auto) 7.1 %; Neutrophils # (auto) 8.65 K/uL (1.4-6.5); Neutrophils % (auto) 71.1 %; Platelet Count 178 K/uL (130-400); RDW Coefficient of Variation 12.9 % (11.5-14.5); RDW Standard Deviation 43.8 fL (36.4-46.3); Red Blood Count 2.82 M/uL (3.93-5.22); White Blood Count 12.17 K/ul (4.8-10.8)
--- NOTE | 2021-11-21 18:28 | Operative Report (OR) ---
PREOPERATIVE DIAGNOSES: The patient is a 46-year-old G1, P1-0-0-1 female who presented to ER with pelvic pain, found to have blood in the pelvis and abdomen, and hemorrhagic left ovarian cyst, elevated INR due to being on Coumadin, decreasing hemoglobin over observation, and normalized INR. POSTOPERATIVE DIAGNOSES: The patient is a 46-year-old G1, P1-0-0-1 female who presented to ER with pelvic pain, found to have blood in the pelvis and abdomen, and hemorrhagic left ovarian cyst, elevated INR due to being on Coumadin, decreasing hemoglobin over observation, and normalized INR and hemoperitoneum and vulvar lesions suggesting condyloma. PROCEDURE: Examination under anesthesia, Operative laparoscopy, left ovarian cystectomy, evacuation of blood clots from the pelvis and abdomen, vulvar biopsy and excision of vulvar condyloma. SURGEON: Isaura Grant MD SENIOR ANALYTIC CONSULTANT: Liliana Mock MD ESTIMATED BLOOD LOSS: 600 mL blood evacuated from pelvic and abdomen, otherwise minimal EBL for the rest of surgery. FINDINGS: Blood clots in the pelvis and blood in the abdominal gutters. Tissue/ capsule-like structure in the cul-de-sac among the blood clots. The tissue was suggesting capsule of ruptured left ovarian cyst since the cyst was gone from the left ovary as seen by ultrasound. Otherwise, normal bilateral ovaries and fallopian tube. Small 2 x 2 cm fundal leiomyoma Vulvar/ perineal skin lesion suggesting condyloma. COMPLICATIONS: None. DRAINS: Ellis drained 100 mL of urine. DESCRIPTION OF PROCEDURE: The patient was taken to the operating room where general anesthesia was given without difficulty. She was placed in dorsal lithotomy position, prepared and draped in the usual sterile fashion. Examination under anesthesia was done with the above findings. A speculum was placed in the vagina. Cervix was visualized and 2-3 cm long IUD strings were seen. Then a Hulka manipulator was placed into the uterus to provide manipulation during surgery. Gloves were changed. Attention was turned to the patient's abdomen where a 5 mm periumbilical skin incision was and then a 5-mm trocar with operative scope was introduced from this incision under direct visualization with the camera, and then we were able to see the omentum. CO2 gas was attached to the trochar and pneumoperitoneum was obtained. Pelvis was with seen to be full of blood and blood cloths. Then another 5 mm trocar was placed on the left lower quadrant of the abdomen under direct visualization with the scope. Trendelenburg position was obtained. From the trocar, the suction was introduced, and some of the blood clots in the pelvis including the cul-de-sac was suctioned, and we noted that there was a larger blood clot with tissue in it and then another 5 mm trocar was placed on the right lower quadrant under direct visualization. The bowels were retracted with the retractor, and some of the blood was suctioned from the gutters and the pelvis. Then an Endobad was introduced from left trochar. The tissue and the rest of the large blood cloths were placed in Endobag and brought out from the left incision, and then the cul-de-sac was irrigated with warm normal saline and suctioned. It was clean. An upper abdomen was found to be normal with normal omentum and bowels and liver and stomach. Blood was suctioned from the gutters and the rest o blood was brought to the pelvic by strigatenin the patient and then suctioned. Irrigation was used to clear the lana. Both ovaries were visualized to be normal except the left ovary had a small red spot, which suggested a ruptured and aborted cyst versus paraovarian cyst, which was found to be in the cul-de-sac, and this/ left ovary was hemostatic and no bleeding was noted. Right ovary was normal with a normal follicle. Decision was made to end the procedure. All instruments were removed from the patient's abdomen. The gas was emptied from the abdomen and the skin incisions were closed with 4-0 Monocryl in a subcuticular fashion and they were hemostatic. Attention was turned to the patient's vagina. The Hulka manipulator was removed from the cervix, and the cervix was visualized to be hemostatic. IUD strings were seen to be intact. Then these vulvar condylomatous-like lesions were excised from the right perineal skin and then left. Those were sent to pathology and the remaining skin was oozing. Those were repaired with 4-0 Monocryl in a continuous fashion, and excellent hemostasis was achieved, and the procedure was ended. No complications happened. Maximilian and Dr. Mock were present during whole procedure. at the end of the procedure, sponge, needle, and instrument count was correct x3, and then the patient was taken to the recovery room in stable condition. My assistant infant teacher was needed for uterine manipulation, retraction for tissue exposure and handling of laparoscope and laparoscopic instruments to ensure adequate visualization, gentle tissue manipulation and hemostasis. Job ID: [id number] MTDD
[2021-11-24 01:49] LABS: Chlamydia Trach RNA NOT DETECTED (NOT DETECTED); GC (Neis gonorrhoeae) RNA NOT DETECTED (NOT DETECTED); Trichomonas vaginalis RNA NOT DETECTED (NOT DETECTED)
--- NOTE | 2021-11-25 02:51 | Discharge Summary (DS) ---
DATE OF ADMISSION: 11/20/2021 DATE OF DISCHARGE: 11/21/2021. DETAILS OF ADMISSION: The patient is a 46-year-old G1, P1-0-0-1 female with Mirena IUD who has a his tory of blood clotting disorder, on lifelong Coumadin anticoagulant therapy, presented to ER with pel antoinette pain. CT of abdomen showed moderate amount of fluid in the pelvis and ultrasound with left ovari an cyst and trace fluid in the cul-de-sac, suggesting a hemorrhagic corpus luteum. When she first ca me, her vital signs were stable, afebrile. Her H and H were stable. Her INR was elevated due to use of Coumadin. She was admitted overnight for observation. She was given IV vitamin K to reverse Cou madin and in the morning, her H and H was dropping from 12 to 8.8, hematocrit from 36 to 26. Her vit al signs were still stable, but the repeat ultrasound showed moderate amount of fluid in the pelvis, suggesting hemorrhagic corpus luteum. Her INR meanwhile dropped from 5.5 to 1.3. After discussion o f all the options, we proceeded with surgical exploration of the pelvis, evacuation of blood clots an d she was consented for laparoscopy. She was taken to the OR in stable condition. Under general ane sthesia, we performed operative laparoscopy, evacuation of blood clots from the pelvis and abdomen an d excision and removal of cyst from the cul-de-sac and excision of vulvar lesion, suggesting condylom a. Her surgery was uncomplicated. See dictated op note for details. On postop period, the patient was doing well, vital signs stable, afebrile. Urine output was good. She was ambulated. She used [employer] bathroom twice without dizziness. She tolerated a regular diet without nausea or vomiting. She w anted to go home in the evening after surgery. Her repeat H and H were stable at 8.6/26.1. Her coag s were within normal limits. She was also seen by hospitalist medical doctor for anticoagulation. Lee kern recommended to discharge home without any medication and call Coumadin Clinic next day, Monday, _ ____. She was instructed when to call, prescriptions were written for pain. She is to be seen in [facility] [place] [facility] office in a week and followed up by Coumadin Clinic in a day. All questions were answered. Job ID: [id number]
== END 2021-11-21 18:45 | disposition home or self-care (01) | DRG 742 ==
LOC: ED 16:53 → 4E1 23:11

== ENCOUNTER 2023-03-30 14:52 | Observation (INO) ==
--- OUTSIDE RECORDS SUMMARY | 2023-03-30 14:59 | External Medical Summary | Summary of Care ---
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) Procedures VA PALONOSETRON HCL VA INJECTION, UDENYCA 0.5 MG VA DOCETAXEL INJECTION VA CYCLOPHOSPHAMIDE 100 MG INJ VA INJ PEGFILGRAST EX BIO 0.5MG Zach Anderson MD [address] [place] [address] Anc Hem/Onc [address] [address] Referral ID Status Reason Start Date Expiration Date V isits Requested Visits Authorized [id number] Authorized 03/06/2023 07/28/2023 [id number] Encounter Details Date Type Department Care Team (Latest Contact Info) Description 03/28/2023 4:15 PM EST Immunization/ Injection Hematology/Oncology Treatment, [address] [address] Encounter for antineoplastic chemotherapy*; Malignant neoplasm of upper-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, estrogen receptor positive ; 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 1 Inhaler 1 04/07/2016 Active B-12-SL 1000 MCG Sublingual Tablet Sublingual (Cyanocobalamin) Place under the tongue 1,000 mcg daily . 90 Tablet 3 10/25/2021 Active Ondansetron HCl 8 MG Oral Tablet (Zofran)Indication s:Migraine with aura, intractable Take by mouth 1 Tablet as needed in the morning AND 1 Tablet as needed at noon AND 1 Tablet as needed in the evening for Nausea. 21 Tablet 1 11/22/2021 Active Loperamide HCl 2 MG Oral Tablet (Immodium (A-D)) Take 1 Tablet by mouth 4 times a day as needed for Diarrhea. 0 Active Folic Acid 1 MG Oral Tablet TAKE 1 TABLET BY MOUTH IN THE MORNING 90 Tablet 1 01/26/2023 Active Ondansetron HCl 8 MG Oral Tablet (Zofran)Indication s:Malignant neoplasm of upper-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, estrogen receptor positive,Metastati c cancer to axillary lymph nodes (HCC) Take 1 Tablet by mouth every 8 hours as needed for Nausea. 30 Tablet 3 03/02/2023 Active dexAMETHasone 4 MG Oral Tablet (Decadron)Indicati ons:Malignant neoplasm of upper-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, estrogen receptor positive,Metastati c cancer to axillary lymph nodes (HCC) Take 8mg (2 tabs) twice a day x3 days starting the day before chemotherapy 48 Tablet 0 03/02/2023 Active Lidocaine-Prilocai ne 2.5-2.5 % External Cream (Emla)Indications: Malignant neoplasm of upper-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, estrogen receptor positive,Metastati c cancer to axillary lymph nodes (HCC) APPLY TO SKIN OVER MEDIPORT & COVER 1HR PRIOR TO ACCESSING. 30 g 1 03/02/2023 Active Warfarin Sodium 6 MG Oral Tablet (Coumadin) TAKE 2 Tablets by mouth daily OR DIRECTED BY COUMADIN CLINIC (patient taking up to 3 tabs daily based on INR) 270 Tablet 1 03/18/2023 Active documented as of this encounter (statuses as of 03/28/2023) Active Problems Problem Noted Date Diagnosed Date Malignant neoplasm of upper- 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, estrogen receptor positive 03/02/2023 Metastatic cancer to axillary lymph nodes 2022 Encounter for antineoplastic chemotherapy 2022 ANTONY III (vulvar intraepithelial neoplasia III) 0 11/25/2021 Overview: 11/21/2021 Right and left vulvar biopsies: Vulvar intraepithelial neoplasia 3, no invasive squamous cell carcinoma identified (positive margins) 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 long term care pharmacist current use of anticoagulant therapy 0 05/12/2003 Overview: ICD-10 update of inactive term MTHFR MUTATION- HOMOZYGOUS 02/28/2003 History of acute myeloid leukemia in remission 0 12/23/2002 documented as of this encounter (statuses as of 03/28/2023) Resolved Problems Problem Noted Date Diagnosed Date Resolved Date Acute myeloid leukemia in remission 10/15/2019 10/15/2019 Acute serous otitis media 02/04/2010 Lymphadenitis, unspecified, except mesenteric 02/05/20 10 11/24/2014 Calculus of gallbladder with out mention of cholecystitis or obstruction 07/22/2003 11/24/2014 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 02/28/2003 10/15/2019 Supervision of other high-risk 02/20/2003 05/06/2003 Overview: ICD-10 update of inactive term ACUTE MYELOID LEUKEMIA; WITH OUT MENTION OF REMISSION 11/22/2002 01/29/2011 Anticoagulation management encounter 10/26/2001 08/04/2020 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 documented as of this encounter (statuses as of 03/28/2023) Immunizations Name Administration Dates Next Due COVID-19 mRNA, LNP-s, No Pre serve, 2-Dose Series (Pfizer) 09/03/2020,08/13/2020 TD - Tetanus/Diptheria (ADULT) 05/08/2000 TDAP (age 10 and older)(Boostrix) 11/16/2020 TDAP (age 11 and older)(Adacel) 09/22/2010 documented as of this encounter Social History Tobacco Use Types Packs/Day Years Used Date Smoking Tobacco: Never Smokeless Tobacco: Never Alcohol Use Standard Drinks/Week Comments Yes 0 (1 standard drink = 0.6 oz pur e alcohol) rare PHQ-2 Answer Date Recorded PHQ-2 Score 0 09/07/2018 Sex and Gender Information Value Date Recorded Sex Assigned at Not on file Gender Identity Not on file Sexual Orientation Not on file Job Start Date Occupation Industry Not on file Not on file Not on file documented as of this encounter Nursing Notes * Elyssa Young LPN - 03/28/2023 4:09 PM EST Pt arrived for Neulasta injection. Administered in JALEESA. Pt tolerated well. Discharged in stable condition. documented in this encounter Plan of Treatment Upcoming Encounters Date Type Department Care Team (Latest Contact Info) Description 04/03/2023 2:00 PM EST Laboratory Laboratory, [facility] 132 [facility] [place] [phone] DurandOctaviano perales 132 [facility] [place] [address] 04/04/2023 6:15 AM EST Anticoagulation Pharmacy Call Center [address] [place] [address] [facility] 58 60 [facility] [place] [address] 04/07/2023 7:30 AM EST Imaging [facility] 132 [facility] [place] [address] 04/07/2023 8:00 AM EST Imaging Radiology [facility] 132 [facility] [place] [address] 04/18/2023 7:15 AM EST Laboratory Laboratory Scenery [facility] [address] [place] [phone] Talia, Lab Scenery [address] [place] [address] 04/18/2023 8:00 AM EST Office Visit Hematology/Oncolog y Scenery [place] [address] [place] [address] Radha Robles CRNP [address] [place] [address] [place] [address] 04/19/2023 1:30 PM EST [facility] [address] [place] [address] Talia, Chair 9 Hem Onc Scenery [address] [place] [address] 06/02/2023 8:30 AM EST Hospital Encounter ENDO [facility], Endoscopy Room [facility] [address] [place] [phone] Itzel Monroy, [address] [place] [address] 06/02/2023 8:30 AM EST - 06/02/2023 9:00 AM EST Surgery ENDO [facility], Endoscopy Room [facility] [address] [place] [phone] Itzel Monroy DO [address] [place] [address] COLONOSCOPY FLEXIBLE PROXIMAL DIAGNOSTIC 08/09/2023 11:00 AM EDT Telemedicine Genetics HemOnc, [facility] [address] [place] [address] Rupinder Euceda, [place] [address] [place] [address] Scheduled Procedures Name Priority Associated Diagnoses Date/Ti me COLONOSCOPY FLEXIBLE PROXIMAL DIAGNOSTIC Screening for colon cancer 06/02/2023 8:30 AM EST Health Maintenance Due Date Last Done Comments Hepatitis B (1 of 3 - 3-dose series) 1974 Pneumococcal Vaccine: Pediatrics (0 to 5 Years) and At-Risk Patients (6 to 64 Years) (1 - PCV) 1980 HPV/Co-Test 2004 Cologuard 10/28/2019 Colonoscopy 10/28/2019 Colorectal Cancer Screening 10/28/2019 Fecal Occult Blood Test 10/28/2019 Sigmoidoscopy 10/28/2019 Depression Screening 01/09/2020 01/08/2019 COVID-19 Vaccine (3 - Pfizer risk series) 10/01/2020 09/03/2020, 08/13/2020 Influenza Vaccine (FLU shot) (#1) 2023 Mammogram 02/07/2024 02/06/2023, 01/06, 03/10/2021, Additional history exists Cervical Cancer Screening 12/03/2024 Pap Smear 12/03/2024 12/03/2021, 10/06, 10/20/2017, Additional history exists Diabetes Screening 03/27/2026 03/27/2023, 1 , 01/20/2023, Additional history exists Lipid Panel 01/21/2028 01/20/2023, 10/11/2017 DTaP,Tdap,and Td Vaccines (3 - Td or Tdap) 11/16/2030 11/16/2020, 09/22/2010, 05/08/2000 GARDASIL-HPV IMMUNIZATION SERIES Aged Out No longer eligible based on patient's age to complete this topic MENINGOCOCCAL (MENACTRA/MENVEO) Aged Out No longer eligible based on patient's age to complete this topic documented as of this encounter Medical Devices Implanted Type Area Hat Cone Inspector Device Identifier Shelf Expiration Date Model / Serial / Lot Port Implant W/8f Poly Cath - [id number] Implanted:Qty: 1 on 03/17/2023 at [facility] CR BARD : PERIPHERAL VASCULAR [id number] 10/05/2024 [id number] / / [id number] documented as of this encounter Visit Diagnoses Diagnosis Encounter for antineoplastic chemotherapy- Primary Malignant neoplasm of upper-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, 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) Secondary and unspecified malignant neoplasm of lymph nodes of axilla and upper limb Screening for colon cancer Special screening for malignant neoplasms, colon documented in this encounter Administered Medications Inactive Administered Medications - up to 3 most recent administrations Medication Order MAR Action Action Date Dose Rate Site Pegfilgrastim (Neulasta) inj 6 mg 6 mg, Subcutaneous, ONCE, On 03/28/23 at 1630, For 1 dose Given 03/28/2023 3:59 PM EST 6 mg Arm L eft Upper documented in this encounter Care Teams Body Work Auto Trimmer Relationship Specialty Start Date End Date Gabriel Iqbal DO [address] [place] [address] PCP - General Family Medicine 08/04/20 documented as of this encounter
--- OUTSIDE RECORDS SUMMARY | 2023-03-30 14:59 | External Medical Summary | Summary of Care ---
Author Name Unknown Organization [facility] Address [address] [place] [address] Phone [phone] Care Team Providers Care Follow Up Manager Name Role Phone Gabriel Iqbal DO Primary Care Provider Reason for Visit * Reason Onset Date Comments Advice 03/27/2023 Encounter Details Date Type Department Care Team (Late st Contact Info) Description 03/27/2023 Telephone General Surgery, [facility] [address] [place] [address] Renee Loving MD [address] [place] [phone] Advice Allergies Active Allergy Reactions Criticality Noted Date [...] (intrauterine device) in place 08/17/2015 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 emt intermediate current use of anticoagulant therapy 0 05/12/2003 [...] on file documented as of this encounter Miscellaneous Notes * Telephone Encounter - Caroline Barry OSA - 03/28/2023 9:55 AM EST Scheduled on 04/07/2023.Patient is on blood thinners but will coordinate with her doctor when she will need to stop it prior to her jeanette registered vascular technologist (rvt). * Telephone Encounter - Reene Loving MD - 03/28/2023 8:05 AM EST Discussed MRI and Pet findings with pt. Multicentric disease in the right breast, no metastatic disease outside of the axilla. Caroline - could you get her jeanette registered vascular technologist (rvt) scheduled (placed into the lymph node please). She is off on 03/31 and 04/03 if that works. She is undergoing chemotherapy. * Telephone Encounter - Elvie Boyle OSA - 03/27/2023 8:51 AM EST PT is calling in regards to her ultrasound that was ordered for her on February 28. She is wondering if it is still needed. She states that she has done a Pet Scan and a MRI as well. Please advise: [phone] documented in this encounter Plan of Treatment Upcoming Encounters Date Type Department Care Team (Latest Contact Info) Description 03/28/2023 4:15 PM EST Immunization/Injection Hematology/Oncolo gy Treatment, [place] [facility] [address] [place] [address] 04/03/2023 2:00 PM EST Laboratory Laboratory, [facility] 132 [facility] [place] [phone] [facility] 132 [facility] [place] [address] 04/04/2023 6:15 AM EST Anticoagulation Pharmacy Call Center WB [address] [place] [address] Ccps, [facility] 58 60 [facility] [place] [address] 04/07/2023 7:30 AM EST Imaging [facility] 132 [facility] [place] [address] 04/07/2023 8:00 AM EST Imaging Radiology [facility], [place] 132 [facility] [place] [address] 04/18/2023 7:15 AM EST Laboratory Laboratory Scenery Talia [place] [address] [place] [phone] Talia, Lab Scenery [address] [place] [address] 04/18/2023 8:00 AM EST Office Visit Hematology/Oncolo gy [facility] Talia [facility] [address] [place] [address] Radha Robles, MOO [address] [facility] [place] [address] 04/19/2023 1:30 PM EST Hem/Onc Treatment Hematology/Oncolo gy Treatment, [facility] [address] [place] [address] Talia, Chair 9 Hem Onc Scene [address] [place] [address] 06/02/2023 8:30 AM EST Hospital Encounter ENDO [facility], Endoscopy Room [facility] [address] [facility] [place] [phone] Itzel Monroy DO [address] [place] [address] 06/02/2023 8:30 AM EST - 06/02/2023 9:00 AM EST Surgery ENDO [facility], Endoscopy Room [facility] [address] [place] [phone] Itzel Monroy, [address] [place] [address] COLONOSCOPY FLEXIBLE PROXIMAL DIAGNOSTIC 08/09/2023 11:00 AM EDT Telemedicine Genetics HemOnc, [facility] [address] [place] [address] Rupinder Euceda, [place] [address] [place] [address] Scheduled Procedures Name Priority Associated Diagnoses Date/Ti [...] this encounter Medical Devices Implanted Type Area Golf Course Starter Device Identifier Shelf Expiration Date Model / Serial / Lot Port Implant W/8f Poly Cath - [id number] Implanted:Qty: 1 on 03/17/2023 at [facility] CR BARD : PERIPHERAL VASCULAR [id number] 10/05/2024 [id number] / / [id number] documented as of this encounter Care Teams Follow Up Manager Relationship Specialty Start Date End Date Gabriel Iqbal DO [address] [place] [address] PCP - General Family Medicine 08/04/20 documented as of this encounter
--- OUTSIDE RECORDS SUMMARY | 2023-03-30 15:00 | External Medical Summary | Summary of Care ---
Author Name Unknown Organization [facility] Address [address] [place] [address] Phone [phone] Care Team Providers Care Cold Roll Packer Sheet Iron Name Role Phone Gabriel Iqbaljaylan Primary Care Provider Reason for Visit * Reason Comments Outpatient Testing Encounter Details Date Type Department Care Team (Late st Contact Info) Description 03/23/2023 2:10 PM EST Laboratory Laboratory, [facility] 132 [facility] [place] [phone] [facility] 132 [facility] [place] [address] Encounter for general adult medical examination w/o abnormal findings Allergies Active Allergy Reactions Criticality Noted Date Comments 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, stopped as soon as infusion stopped documented as of this encounter (statuses as of 03/23/2023) Medications Medication Sig Dispensed Refills Start Date [...] as of this encounter (statuses as of 03/23/2023) Active Problems Problem Noted Date Diagnosed Date [...] (positive margins) Hereditary factor V deficiency disease 05/03/201 9 Overview: heterozygote History of DVT (deep vein thrombosis) 06/18/2018 IUD (intrauterine device) in place 08/17/2015 Overview: Dorianena. watermaster current use of anticoagulant therapy 0 05/12/2003 Overview: ICD-10 update of inactive term MTHFR MUTATION- HOMOZYGOUS 02/28/2003 History of acute myeloid leukemia in remission 0 12/23/2002 documented as of this encounter (statuses as of 03/23/2023) Resolved Problems Problem Noted Date Diagnosed Date [...] as of this encounter (statuses as of 03/23/2023) Immunizations Name Administration Dates Next Due COVID-19 [...] on file documented as of this encounter Plan of Treatment Upcoming Encounters Date Type Department Care Team (Latest Contact Info) Description 03/24/2023 6:15 AM EST Anticoagulation Pharmacy Call Center WB [address] [facility] [place] [address] [facility] 58 60 [facility] [place] [address] 03/27/2023 12:00 PM EST Laboratory Laboratory [facility] [address] [place] [phone] Talia, Lab Scenery [address] [place] [address] 03/27/2023 1:00 PM EST Hem/Onc Treatment Hematology/Oncology Treatment, [place] [address] [place] [address] Talia, Chair 2 Hem Onc Scenery [address] [place] [address] 03/31/2023 4:10 PM EST Laboratory Laboratory, [facility] [address] [place] [phone] Octaviano [facility] [address] [place] [address] 04/03/2023 6:15 AM EST Anticoagulation Pharmacy Call Center WB [address] [facility] [place] [address] [facility] 58 60 [facility] [place] [address] 06/02/2023 8:30 AM EST Hospital Encounter ENDO [facility], Endoscopy Room [facility] [address] [place] [phone] Itzel Monroy DO [address] [place] [address] 06/02/2023 8:30 AM EST - 06/02/2023 9:00 AM EST Surgery ENDO [facility], Endoscopy Room [facility] [address] [place] [phone] Itzel Monroy Loan, [address] [place] [address] COLONOSCOPY FLEXIBLE PROXIMAL DIAGNOSTIC 08/09/2023 11:00 AM EDT Telemedicine Genetics HemOnc, [facility] [address] [place] [address] Rupinder Euceda, MS [address] [place] [address] Pending Results Name Type Priority Associated Diagnoses Date /Time PT INR Lab STAT Encounter for general adult medical examination w/o abnormal findings 03/23/2023 1:39 PM EST Scheduled Procedures Name Priority Associated Diagnoses Date/Ti [...] 10/06, 10/20/2017, Additional history exists Diabetes Screening 03/03/2026 03/03/2023, 0 01/20/2023, 11/20/2021, Additional history exists Lipid Panel 01/21/2028 01/20/2023, 10/11/2017 DTaP,Tdap,and Td Vaccines (3 - Td or Tdap) 11/16/2030 11/16/2020, 09/22/2010, 05/08/2000 GARDASIL-HPV IMMUNIZATION SERIES Aged Out No longer eligible based on patient's age to complete this topic MENINGOCOCCAL (MENACTRA/MENVEO) Aged Out No longer eligible based on patient's age to complete this topic documented as of this encounter Medical Devices Implanted Type Area Financial Operations Consultant Device Identifier Shelf Expiration Date Model / Serial / Lot Port Implant W/8f Poly Cath - [id number] Implanted:Qty: 1 on 03/17/2023 at [facility] CR BARD : PERIPHERAL VASCULAR [id number] 10/05/2024 [id number] / / [id number] documented as of this encounter Visit Diagnoses Diagnosis Encounter for general adult medical examination w/o abnormal findings Unspecified general medical examination Screening for colon cancer Special screening for malignant neoplasms, colon documented in this encounter Care Teams Cold Roll Packer Sheet Iron Relationship Specialty Start Date End Date Gabriel Iqbal DO [address] [place] [address] PCP - General Family Medicine 08/04/20 documented as of this encounter
--- OUTSIDE RECORDS SUMMARY | 2023-03-30 15:00 | External Medical Summary | Summary of Care ---
Author Name Unknown Organization [facility] Address [address] [place] [address] Phone [phone] Care Team Providers Care Revenue Cycle Manager Name Role Phone Gabriel Iqbla Primary Care Provider Reason for Visit * Reason Comments Outpatient Testing Encounter Details Date Type Department Care Team (Late st Contact Info) Description 03/27/2023 12:00 PM EST Laboratory Laboratory [facility] [place] [address] [place] [address] [facility] Lab [facility] [address] [place] [address] Malignant neoplasm of upper-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, estrogen receptor positive ; 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 joint terminal attack controller current use of anticoagulant therapy 0 05/12/2003 Overview: ICD-10 update of inactive term MTHFR MUTATION- HOMOZYGOUS 02/28/2003 History of acute myeloid leukemia in remission 0 12/23/2002 documented as of this encounter (statuses as of 03/27/2023) Resolved Problems Problem Noted Date Diagnosed Date [...] as of this encounter (statuses as of 03/27/2023) Immunizations Name Administration Dates Next Due COVID-19 [...] Department Care Team (Latest Contact Info) Description 03/27/2023 1:00 PM EST Hem/Onc Treatment Hematology/Oncology Treatment, [place] [address] [place] [address] Talia, Chair 2 Hem Onc Scenery [address] [place] [address] Arrived 04/03/2023 2:00 PM EST Laboratory Laboratory, [facility] [address] [place] [phone] [facility] [address] [place] [address] 04/04/2023 6:15 AM EST Anticoagulation Pharmacy Call Center WB 58-60 [facility] [place] [address] [facility] 58 60 [facility] [place] [address] 06/02/2023 8:30 AM EST Hospital Encounter ENDO [facility], Endoscopy Room [facility] [address] [place] [address] Itzel Monroy DO [address] [place] [address] 06/02/2023 8:30 AM EST - 06/02/2023 9:00 AM EST Surgery ENDO [facility], Endoscopy Room [facility] [address] [place] [phone] Itzel Monroy DO [address] [place] [address] COLONOSCOPY FLEXIBLE PROXIMAL DIAGNOSTIC 08/09/2023 11:00 AM EDT Telemedicine Genetics HemOnc, [facility] [address] [place] [address] Rupinder Euceda, MS [address] [place], [place] [id number] Pending Results Name Type Priority Associated Diagnoses Date /Time CBC WITH WBC DIFFERENTIAL Lab STAT Malignant neoplasm of upper-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, 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) 03/27/2023 12:55 PM EST COMPREHENSIVE METABOLIC PANEL Lab STAT Malignant neoplasm of upper-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, 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) 03/27/2023 12:55 PM EST CBC Lab STAT Malignant neoplasm of upper-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, 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) 03/27/2023 12:55 PM EST DIFFERENTIAL, AUTOMATED Lab STAT Malignant neoplasm of upper-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, 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) 03/27/2023 12:55 PM EST Scheduled Procedures Name Priority Associated [...] this encounter Medical Devices Implanted Type Area Celery Stripper Device Identifier Shelf Expiration Date Model / Serial / Lot Port Implant W/8f Poly Cath - [id number] Implanted:Qty: 1 on 03/17/2023 at [facility] CR BARD : PERIPHERAL VASCULAR [id number] 10/05/2024 [id number] / / [id number] documented as of this encounter Visit Diagnoses Diagnosis Malignant neoplasm of upper-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, 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
--- OUTSIDE RECORDS SUMMARY | 2023-03-30 15:00 | External Medical Summary ---
Author Name Unknown Address Unknown Organization K09:[facility] [address] [place] [address] Laboratory Report Ordering Provider Test Date Status WILMAN QUINTANA 03/27/2023 12:55:46 Final Observation Date Value Abnormality Reference (Units ) Status BUN 03/27/2023 12:55:46 16 6-20 (mg/dL) Final Creatinine 03/27/2023 12:55:46 0.7 0.5-1.0 (mg/dL) Final Glomerular filtration rate/1.73 sq M.predicted [Volume Rate/Area] in Serum, Plasma or Blood by Creatinine-based formula (CKD-EPI) 03/27/2023 12:55:46 >90 >=60 (mL/min) Final eGFR is calculated based on the CKD-EPI 2020 equation SODIUM 03/27/2023 12:55:46 138 135-146 (m mol/L) Final Potassium 03/27/2023 12:55:46 3.9 3.5-5.1 (m mol/L) Final Cl 03/27/2023 12:55:46 101 98-107 (mm ol/L) Final CO2 03/27/2023 12:55:46 27 22-32 (mmo l/L) Final Anion gap 03/27/2023 12:55:46 10 7-15 (mmol /L) Final Glucose 03/27/2023 12:55:46 132 Above high normal 70 -120 (mg/dL) Final Albumin 03/27/2023 12:55:46 4.4 3.8-5.0 (g /dL) Final AST (Aspartate aminotransferase) 03/27/2023 12:55:46 17 10-35 (U/L) Fin al Alk Phos 03/27/2023 12:55:46 109 35-130 (U/ L) Final Bilirubin, Total 03/27/2023 12:55:46 0.2 <=1 .2 (mg/dL) Final Calcium 03/27/2023 12:55:46 9.7 8.4-10.2 ( mg/dL) Final Protein 03/27/2023 12:55:46 7.7 6.0-8.3 (g /dL) Final ALT (Alanine aminotransferase) 03/27/2023 12:55:46 31 10-35 (U/L) Varghese reed Performing Location [facility] [address] [place] [address]
--- OUTSIDE RECORDS SUMMARY | 2023-03-30 15:00 | External Medical Summary | Summary of Care ---
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) Procedures IA PALONOSETRON HCL IA INJECTION, UDENYCA 0.5 MG IA DOCETAXEL INJECTION IA CYCLOPHOSPHAMIDE 100 MG INJ IA INJ PEGFILGRAST EX BIO 0.5MG Zach Anderson MD 200 [facility] [place] [address] Anc Hem/Onc [facility] [address] [place] [address] Referral ID Status Reason Start Date Expiration Date V isits Requested Visits Authorized [id number] Authorized 03/06/2023 07/28/[phone] Encounter Details Date Type Department Care Team (Latest Contact Info) Description 03/27/2023 1:00 PM EST Hem/Onc Treatment Hematology/Oncolog y Treatment, [address] [address] Talia, Chair 2 Hem Onc [address] [place] [address] Encounter for antineoplastic chemotherapy*; Malignant neoplasm of [...] (intrauterine device) in place 08/17/2015 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 0 05/12/2003 [...] on file documented as of this encounter Last Filed Vital Signs Vital Sign Reading Time Taken Comments Blood Pressure 135/87 03/27/2023 1:44 PM EST Pulse 111 03/27/2023 1:44 PM EST Temperature 37.1 C (98.7 F) 03/27/2023 1:44 PM ES T Respiratory Rate 18 03/27/2023 1:44 PM EST Oxygen Saturation 97% 03/27/2023 1:44 PM EST Inhaled Oxygen Concentration - - Weight 74.3 kg (163 lb 12.8 oz) 03/27/2023 1:44 PM EST Height - - Body Mass Index 32.26 03/02/2023 12:16 PM EDT documented in this encounter Nursing Notes * Maggie Serrano, RN - 03/27/2023 4:39 PM EST Functional status at today's visit: Fully active, able to carry on all pre-disease performance without restriction The drug name, dose, infusion volume, rate and route of administration, expiration date and time, appearance and physical integrity of the drug and rate set on the pump and sequencing of drug administration (as applicable) were verified by me and second sign-in RN. Patient was assessed for symptoms or adverse side effects during treatment. Pt completed treatment without issues. VAD flushed with 10 ml NSS and Heparin 5 ml (100 units/ml). Armando needle removed intact. Goals: Pt will remain free from injury. Possible barriers to meeting goals: risk of reaction, ambulation with IV pole Stability of the patient: Moderately stable - low risk of patient condition declining or worsening Summary regarding today's goals: Met: Pt remained free from injury during treatment today. Discharged in stable condition. Goals: Pt will demonstrate understanding. Possible barriers to meeting goals: pt has a mild hearing impairment Stability of the patient: Moderately stable - low risk of patient condition declining or worsening Summary regarding today's goals: Met: Pt verbalized understanding of treatment today, use of steroids and antiemetics at home. Pt asked appropriate questions throughout treatment. No coverage. * Maggie Serrano RN - 03/27/2023 1:58 PM EST Chair 12, TC D1C1. Pt has no acute concerns to report today. Labs reviewed and okay for treatment today. Reviewed medications and infusion process with pt and pt's family; pt verbalized understanding. VAD accessed; NSS infusing. Safety and Risk for Injury Patient will remain free from injury. Ensure appropriate safety devices are available. Provide and maintain safe environment. Knowledge Deficit Patient and Caregiver will demonstrate understanding. Assess current knowledge base. Reinforce education. Teach at level of understanding. documented in this encounter Plan of Treatment Upcoming Encounters Date Type Department Care Team (Latest Contact Info) Description 03/28/2023 4:15 PM EST Immunization/Injection Hematology/Oncolo gy Treatment, [place] [address] [place] [address] 04/03/2023 2:00 PM EST Laboratory Laboratory, [facility] 132 [facility] [place] [phone] Octaviano Durand Fern [address] [place] [address] 04/04/2023 6:15 AM EST Anticoagulation Pharmacy Call Center WB [address] Public [place] [address] [facility] 58 60 [facility] [place] [address] 04/18/2023 7:15 AM EST Laboratory Laboratory Scenery Talia [place] [address] [place] [phone] Talia Lab Scenery [address] [facility] [place] [address] 04/18/2023 8:00 AM EST Office Visit Hematology/Oncolo gy Scenery Talia [place] [address] [place] [address] Radha Robles, MOO 400 [facility] [place] [address] 04/19/2023 1:30 PM EST Hem/Onc Treatment Hematology/Oncolo gy Treatment, [place] [address] [place] [address] Talia, Chair 9 Hem Onc Scenery [address] [place] [address] 06/02/2023 8:30 AM EST Hospital Encounter ENDO [facility], Endoscopy Room [facility] [address] [place] [phone] Itzel Monroy DO [address] [place] [address] 06/02/2023 8:30 AM EST - 06/02/2023 9:00 AM EST Surgery ENDO [facility], Endoscopy Room [facility] [address] [place] [phone] Itzel Monroy DO [address] [place] [address] COLONOSCOPY FLEXIBLE PROXIMAL DIAGNOSTIC 08/09/2023 11:00 AM EDT Telemedicine Genetics HemOnc, [facility] [address] [place] [address] Rupinder Euceda, MS [address] [place] [address] Scheduled Procedures Name Priority Associated Diagnoses Date/Ti [...] this encounter Medical Devices Implanted Type Area Psychiatry Teacher Device Identifier Shelf Expiration Date Model / Serial / Lot Port Implant W/8f Poly Cath - [id number] Implanted:Qty: 1 on 03/17/2023 at [facility] BARD : PERIPHERAL VASCULAR [id number] 10/05/2024 [id number] / / [id number] documented as of this encounter Visit Diagnoses Diagnosis Encounter for antineoplastic chemotherapy- Primary Malignant neoplasm of upper-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, 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) Secondary and unspecified malignant neoplasm of lymph nodes of axilla and upper limb Screening for colon cancer Special screening for malignant neoplasms, colon documented in this encounter Administered Medications Active Administered Medications - up to 3 most recent administrations Medication Order MAR Action Action Date Dose Rate Site diphenhydrAMINE (Benadryl) inj 50 mg 50 mg, IV Push, ONCE PRN Other, Hypersensitivity Reaction, Starting on Mon03/27/23 at 1343, Until Mon03/28/23 at 1342, For 24 hours EPINEPHrine 1 MG/ML inj 0.3 mg 0.3 mg, Intramuscular, ONCE PRN Other, Hypersensitivity Reaction or Anaphylaxis, Starting on Mon03/27/23 at 1343, Until Mon03/28/23 at 1342, For 24 hours hEParin 100 UNIT/ML Lock Flush inj 500 Units 500 Units (5 mL), IV Lock, PRN Other, IV Flush, Starting on Mon03/27/23 at 1343, Until Mon03/28/23 at 1342, For 24 hours, Do not flush if lock, PICC, or central line not in place; IV infusing or unable to flush. Given 03/27/2023 4:13 PM EST 500 Units Hydrocortisone Sod Suc (PF) (Solu-Cortef) inj 100 mg 100 mg, IV Push, ONCE PRN Other, Hypersensitivity Reaction, Starting on Mon03/27/23 at 1343, Until Mon03/28/23 at 1342, For 24 hours LORAzepam (Ativan) tab 0.5 mg 0.5 mg, Oral, ONCE PRN Anxiety, Nausea, Starting on Mon03/27/23 at 1445, Until Discontinued NSS infusion Intravenous, at 50 mL/hr, PRN, Starting on Mon03/27/23 at 1445, Until Discontinued, KVO Start Infusion 03/27/2023 1:52 PM EST 50 mL/hr oxygen GAS Inhalation, OXYGEN, First dose on Mon03/27/23 at 1600, Until Discontinued, Device/Managed by: Low Flow Device, Goal SPO2 (%): 91-95, Starting Device: Nasal Cannula, Inital Flow Rate (LPM): 2, Lowest Support: Nasal Cannula: Flow 0-6 LPM. Titrate up/down by 1 LPM., Higher Support: Non-Rebreather (NRB) Mask: Minimum of 10 LPM. Titrate to maintain bag inflation., Titration Interval: Q2 minutes and as needed., Notify Provider: For sudden DECREASE in resting SPO2 to less than 85% and when escalating delivery device. sodium chloride 0.9 % flush central line 10 mL 10 mL, IV Push, PRN Other, IV Flush, Starting on Mon03/27/23 at 1343, Until Mon03/28/23 at 1342, For 24 hours, Do not flush if lock, PICC, or central line not in place; IV infusing or unable to flush. Given 03/27/2023 4:13 PM EST 10 mL Inactive Administered Medications - up to 3 most recent administrations Medication Order MAR Action Action Date Dose Rate Site cycloPHOSphamide (Cytoxan) 1,040 mg in NSS 500 mL infusion 1,040 mg (rounded from 1,044 mg = 600 mg/m2 1.74 m2 Treatment Plan BSA from Recorded weight), IV Piggyback, ONCE, On Mon03/27/23 at 1515, For 1 dose, Cyclophosphamide doses over 1g should be in 500 mL.May extend infusion to 1 hour if not tolerated. Start Infusion 03/27/2023 3:34 PM EST 1,040 mg 1000 mL/hr dexAMETHasone (Decadron) tab 12 mg 12 mg, Oral, ONCE, On Mon03/27/23 at 1445, For 1 dose Given 03/27/2023 1:54 PM EST 12 mg diphenhydrAMINE (Benadryl) cap 25 mg 25 mg, Oral, ONCE, On Mon03/27/23 at 1415, For 1 dose Given 03/27/2023 1:54 PM EST 25 mg DOCEtaxel (Taxotere) 120 mg in NSS 250 mL infusion 120 mg (rounded from 130.5 mg = 75 mg/m2 1.74 m2 Treatment Plan BSA from Recorded weight), IV Piggyback, at 250 mL/hr Administer over 60 Minutes, ONCE, 1 dose, On Mon03/27/23 at 1415 Start Infusion 03/27/2023 2:32 PM EST 120 mg 250 mL/hr Palonosetron (Aloxi) inj SOLN 0.25 mg 0.25 mg, IV Push, ONCE, On Mon03/27/23 at 1445, For 1 dose, Restricted per [facility] antiemetic guidelines Given 03/27/2023 1:52 PM EST 0.25 mg documented in this encounter Care Teams Nightman Relationship Specialty Start Date End Date Gabriel Iqbal DO [address] [place] [address] PCP - General Family Medicine 08/04/20 documented as of this encounter
--- OUTSIDE RECORDS SUMMARY | 2023-03-30 15:00 | External Medical Summary | Summary of Care ---
Author Name Unknown Organization [facility] Address [address] [place] [address] Phone [phone] Care Team Providers Care Salad Bar Clerk Name Role Phone Gabriel Iqbal Primary Care Provider Reason for Visit * Reason Comments Outpatient Testing Encounter Details Date Type Department Care Team (Late st Contact Info) Description 03/27/2023 12:00 PM EST Laboratory Laboratory [facility] [address] [place] [address] [facility] 200 [facility] [place] [address] Arrived Allergies Active Allergy Reactions Criticality Noted Date [...] (intrauterine device) in place 08/17/2015 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 group home current use of anticoagulant therapy 0 05/12/2003 [...] mRNA, LNP-s, No Pre serve, 2-Dose Series (The Spoken Thought) 09/03/2020,08/13/2020 TD - Tetanus/Diptheria (ADULT) 05/08/2000 TDAP [...] 1:00 PM EST Hem/Onc Treatment Hematology/Oncology Treatment, [place] [address] [place] [address] Talia, Chair 2 Hem Onc Scenery [address] [place] [address] Arrived 04/03/2023 2:00 PM EST Laboratory Laboratory, [facility] [address] [place] [phone] DurandOctaviano perales [facility] [address] [place] [address] 04/04/2023 6:15 AM EST Anticoagulation Pharmacy Call Center WB 58[address]60 [facility] [place] [address] [facility] 58 60 [facility] [place] [address] 06/02/2023 8:30 AM EST Hospital Encounter ENDO [facility], Endoscopy Room [facility] [address] [place] [phone] Itzel Monroy DO [address] [place] [address] 06/02/2023 8:30 AM EST - 06/02/2023 9:00 AM EST Surgery ENDO OSSC, Endoscopy Room [facility] [address] [place] [phone] Itzel Monroy DO [address] [place] [address] COLONOSCOPY FLEXIBLE PROXIMAL DIAGNOSTIC 08/09/2023 11:00 AM EDT Telemedicine Genetics [facility]c, [facility] [address] [place] [address] Rupinder Euceda, MS [address] [place], [place] [id number] Scheduled Procedures Name Priority Associated Diagnoses Date/Ti [...] this encounter Medical Devices Implanted Type Area Manager Program Management Device Identifier Shelf Expiration Date Model / Serial / Lot Port Implant W/8f Poly Cath - [id number] Implanted:Qty: 1 on 03/17/2023 at [facility] CR BARD : PERIPHERAL VASCULAR [id number] 10/05/2024 [id number] / / [id number] documented as of this encounter Care Teams Salad Bar Clerk Relationship Specialty Start Date End Date Gabriel Iqbal DO [address] [place] [address] PCP - General Family Medicine 08/04/20 documented as of this encounter
--- OUTSIDE RECORDS SUMMARY | 2023-03-30 15:00 | External Medical Summary | Summary of Care ---
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 Multicentric disease in the right breast, no metastatic disease outside of the axilla. Caroline - could you get her jeanette flight attendant/inflight manager scheduled (placed into the lymph node please). [...] and a MRI as well. Please advise: [phone] documented in this encounter Plan of Treatment Upcoming Encounters Date Type Department Care Team (Latest Contact Info) Description 03/28/2023 4:15 PM EST Immunization/Injection Hematology/Oncolo gy Treatment, [place] [address] [place] [address] 04/03/2023 2:00 PM EST [facility] 132 [facility] [place] [phone] DurandOctaviano perales 132 [facility] [place] [address] 04/04/2023 6:15 AM EST Anticoagulation Pharmacy Call Center WB [address] [place] [address] [facility] [address] [facility] [place] [address] 04/05/2023 9:00 AM EST Imaging Radiology [address] 132 [facility] [place] [address] 04/05/2023 9:00 AM EST Imaging Radiology [facility] 132 [facility] [place] [address] 04/18/2023 7:15 AM EST Laboratory Laboratory [facility] [place] [address] [place] [phone] Talia, Lab Scenery [address] [place] [address] 04/18/2023 8:00 AM EST Office Visit Hematology/Oncolo gy [facility] [place] [address] [place] [address] Radha Robles, MOO [address] [place] [address] [place] [address] 04/19/2023 1:30 PM EST Hem/Onc Treatment Hematology/Oncolo gy Treatment, [place] [address] [place] [address] Talia, Chair 9 Hem Onc Scenery [address] [place] [address] 06/02/2023 8:30 AM EST Hospital Encounter ENDO OSSC, Endoscopy Room [facility] [address] [place] [phone] Itzel Monroy, [address] [place] [address] 06/02/2023 8:30 AM EST - 06/02/2023 9:00 AM EST Surgery ENDO [facility], Endoscopy Room [facility] [address] [place] [phone] Itzel Monroy DO [address] [place] [address] COLONOSCOPY FLEXIBLE PROXIMAL DIAGNOSTIC 08/09/2023 11:00 AM EDT Telemedicine Genetics HemOnc, [facility] [address] [place] [address] [place] Rupinder Roper, MS [address] [place] [address] Scheduled Procedures Name Priority Associated Diagnoses Date/Ti [...] this encounter Medical Devices Implanted Type Area Executive Sales Assistant Device Identifier Shelf Expiration Date Model / Serial / Lot Port Implant W/8f Poly Cath - [id number] Implanted:Qty: 1 on 03/17/2023 at [facility] CR BARD : PERIPHERAL VASCULAR [id number] 10/05/2024 [id number] / / [id number] documented as of this encounter Care Teams Church Business Administrator Relationship Specialty Start Date End Date Gabriel Iqbal DO [address] [place] [address] PCP - General Family Medicine 08/04/20 documented as of this encounter
--- OUTSIDE RECORDS SUMMARY | 2023-03-30 15:00 | External Medical Summary ---
Author Name Unknown Address Unknown Organization K0G[facility] [address] [place] [address] Laboratory Report Ordering Provider Test Date Status DIVYA PARRA 03/23/2023 13:39:38 Final Warfarin Therapy
INR: 2 .0-3.0 conventional anticoagulation
INR: 2.5- 3.5 high intensity anticoagulation Observation Date Value Abnormality Reference (Units ) Status PT 03/23/2023 13:39:38 35.7 Above high normal 11 .6-15.2 (seconds) Final INR 03/23/2023 13:39:38 3.5 Above high normal 0. 8-1.2 Final Performing Location [facility] [address] [place] [address]
--- OUTSIDE RECORDS SUMMARY | 2023-03-30 15:00 | External Medical Summary | Summary of Care ---
Author Name Unknown Organization [facility] Address [address] [place] [address] Phone [phone] Care Team Providers Care Biofuels Plant Construction Worker Name Role Phone Ganesh Iqbal DO Primary Care Provider Reason for Visit * Reason Onset Date Comments Medication Refill 03/18/2023 Encounter Details Date Type Department Care Team (Late st Contact Info) Description 03/18/2023 Refill Family Practice [facility] [address] [place] [address] Ganesh Iqbal DO [address] [place] [address] Allergies Active Allergy Reactions Criticality Noted Date Comments 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, stopped as soon as infusion stopped documented as of this encounter (statuses as of 03/18/2023) Medications Medication Sig Dispensed Refills Start Date End Date Status VITAMIN B-6 100 MG OR TABS 0 03/12/2002 Active albuterol (PROAIR HFA) 108 (90 BASE) MCG/ACT inhalerIndication s:Acute bronchitis, complicated Inhale 2 Puffs by mouth 4 times a day. 1 Inhaler 1 04/07/2016 Active B-12-SL 1000 MCG Sublingual Tablet Sublingual (Cyanocobalamin) Place under the tongue 1,000 mcg daily . 90 Tablet 3 10/25/2021 Active Ondansetron HCl 8 MG Oral Tablet (Zofran)Indicatio ns:Migraine with aura, intractable Take by mouth 1 [...] Active Ondansetron HCl 8 MG Oral Tablet (Zofran)Indicatio ns:Malignant neoplasm of upper-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, estrogen receptor positive,Metastat ic cancer to axillary lymph nodes (HCC) Take 1 Tablet by mouth every 8 hours as needed for Nausea. 30 Tablet 3 03/02/2023 Active dexAMETHasone 4 MG Oral Tablet (Decadron)Indicat ions:Malignant neoplasm of upper-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, estrogen receptor positive,Metastat ic cancer to axillary lymph nodes (HCC) Take 8mg (2 tabs) twice a day x3 days starting the day before chemotherapy 48 Tablet 0 03/02/2023 Active Lidocaine-Priloca ine 2.5-2.5 % External Cream (Emla)Indications :Malignant neoplasm of upper-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, estrogen receptor positive,Metastat ic cancer to axillary lymph nodes (HCC) APPLY TO SKIN OVER MEDIPORT & COVER 1HR PRIOR TO ACCESSING. 30 g 1 03/02/2023 Active Warfarin Sodium 6 MG Oral Tablet (Coumadin) TAKE 2 Tablets by mouth daily OR DIRECTED BY COUMADIN CLINIC (patient taking up to 3 tabs daily based on INR) 270 Tablet 1 03/18/2023 Active Warfarin Sodium 6 MG Oral Tablet (Coumadin) TAKE 2 Tablets by mouth daily OR DIRECTED BY COUMADIN CLINIC (patient taking up to 3 tabs daily based on INR) 270 Tablet 1 12/20/2021 3 Discontinue d(Refill) documented as of this encounter (statuses as of 03/18/2023) Active Problems Problem Noted Date Diagnosed Date [...] (intrauterine device) in place 08/17/2015 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 documented as of this encounter (statuses as of 03/18/2023) Resolved Problems Problem Noted Date Diagnosed Date [...] as of this encounter (statuses as of 03/18/2023) Immunizations Name Administration Dates Next Due COVID-19 [...] encounter Miscellaneous Notes * Telephone Encounter - Nora Anderson RPh - 03/18/2023 5:11 PM ESTSigned Prescriptions: Disp Refills Warfarin Sodium 6 MG Oral Tablet (Coumadin)270 Ta*1 Sig: TAKE 2 Tablets by mouth daily OR DIRECTED BY COUMADIN CLINIC (patient taking up to 3 tabs daily based onINR)Authorizing Provider: GANESH IQBAL User: NORA ANDERSON documented in this encounter Plan of Treatment Upcoming Encounters Date Type Department Care Team (Latest Contact Info) Description 03/20/2023 7:45 AM EST Imaging Radiology [address] [place] [address] 03/22/2023 11:30 AM EST Telemedicine Plastic Surgery, [place] [address] [place] [address] Lane Yung MD [address] [place] [address] 03/23/2023 1:00 PM EST Imaging Radiology [address] [place] [address] 03/23/2023 2:10 PM EST Laboratory Laboratory, [address] [place] [address] Octaviano Durand [address] [place] [address] 03/24/2023 6:15 AM EST Anticoagulation Pharmacy Call Center WB [address] [facility] [place] [address] [facility] 58 60 [facility] [place] [address] 03/27/2023 12:00 PM EST Laboratory Laboratory [facility] [address] [place] [phone] Talia Lab Scenery 200 [facility] [place] [address] 03/27/2023 1:00 PM EST Hem/Onc Treatment Hematology/Oncology Treatment, [place] [address] [place] [address] Talia, Chair 2 Hem Onc Scenery [address] [place] [address] 03/31/2023 4:10 PM EST Laboratory Laboratory, [facility] [address] [place] [phone] Octaviano Durand [address] [place] [address] 04/03/2023 6:15 AM EST Anticoagulation Pharmacy Call Center [address] [facility] [place] [address] [facility] 58 60 [facility] [place] [address] 06/02/2023 8:30 AM EST Hospital Encounter ENDO [facility], Endoscopy Room [facility] [address] [place] [phone] Itzel Monroy DO [address] [place] [address] 06/02/2023 8:30 AM EST - 06/02/2023 9:00 AM EST Surgery ENDO [facility], Endoscopy Room [facility] [address] [place] [phone] Eliana Itzel Cates, [address] [place] [address] COLONOSCOPY FLEXIBLE PROXIMAL DIAGNOSTIC 08/09/2023 11:00 AM EDT Telemedicine Genetics HemOnc, [facility] [address] [place] [address] Rupinder Euceda, [place] [address] [place] [address] Scheduled Procedures Name Priority Associated [...] this encounter Medical Devices Implanted Type Area Health Information Specialist Device Identifier Shelf Expiration Date Model / Serial / Lot Port Implant W/8f Poly Cath - [id number] Implanted:Qty: 1 on 03/17/2023 at [facility] : PERIPHERAL VASCULAR [id number] 10/05/2024 [id number] / / [id number] documented as of this encounter Care Teams Biofuels Plant Construction Worker Relationship Specialty Start Date End Date Ganesh Iqbal DO [address] [place] [address] PCP - General Family Medicine 08/04/20 documented as of this encounter
--- OUTSIDE RECORDS SUMMARY | 2023-03-30 15:00 | External Medical Summary | Summary of Care ---
Author Name Unknown Organization [facility] Address [address] [place] [address] Phone [phone] Care Team Providers Care Optics Technical Officer Name Role Phone Gabriel Iqbaljaylan Primary Care Provider Reason for Visit * Reason Onset Date Comments Test Results Imaging Study 03/21/2023 Encounter Details Date Type Department Care Team (Late st Contact Info) Description 03/21/2023 Telephone Hematology/Oncology Treatment, [place] [address] [place] [address] Zach Anderson MD [address] [facility] [place] [address] Test Results Imaging Study Allergies Active Allergy Reactions Criticality Noted Date Comments 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, stopped as soon as infusion stopped documented as of this encounter (statuses as of 03/22/2023) Medications Medication Sig Dispensed Refills Start Date [...] as of this encounter (statuses as of 03/22/2023) Active Problems Problem Noted Date Diagnosed Date [...] (intrauterine device) in place 08/17/2015 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 residential current use of anticoagulant therapy 0 05/12/2003 Overview: ICD-10 update of inactive term MTHFR MUTATION- HOMOZYGOUS 02/28/2003 History of acute myeloid leukemia in remission 0 12/23/2002 documented as of this encounter (statuses as of 03/22/2023) Resolved Problems Problem Noted Date Diagnosed Date [...] as of this encounter (statuses as of 03/22/2023) Immunizations Name Administration Dates Next Due COVID-19 mRNA, LNP-s, No Pre serve, 2-Dose Series (GMI Ratings) 09/03/2020,08/13/2020 TD - Tetanus/Diptheria (ADULT) 05/08/2000 TDAP [...] encounter Miscellaneous Notes * Telephone Encounter - Romina Mcneill RN - 03/22/2023 8:[address] Anderson: patient is asking what stage her breast cancer is? * Telephone Encounter - Romina Mcneill RN - 03/21/2023 4:[address] Anderson: "PET-CT scan done on 03/20/2023: - FDG avid right breast mass in the medial aspect measuring about 1.3 cm with SUV of 10.2 - Too closely adjacent nodular opacities in the right breast which SUV of 3.57 which requires further imaging. She is going for bilateral breast MRI on 03/23/2020. - Mild activity in the right axillary lymph node with SUV of 2.27. This could be post biopsy related. No other suspicious finding noted anywhere else. No evidence of distant metastatic noted. " MyG sent. documented in this encounter Plan of Treatment Upcoming Encounters Date Type Department Care Team (Latest Contact Info) Description 03/22/2023 11:30 AM EST Telemedicine Plastic Surgery, [place] [address] [place] [address] Lane Yung MD [address] [place] [address] 03/23/2023 1:00 PM EST Imaging Radiology [facility] 1st [facility] [address] [facility] [place] [address] 03/23/2023 2:10 PM EST Laboratory Laboratory, [facility] [address] [facility] [place] [phone] [employer] [address] [facility] [place] [address] 03/24/2023 6:15 AM EST Anticoagulation Pharmacy Call Center WB [address] [facility] [place] [address] [facility] 58 60 [facility] [place] [address] 03/27/2023 12:00 PM EST Laboratory Laboratory [facility] [address] [place] [phone] Talia, Lab Scenery 200 [facility] [place] [address] 03/27/2023 1:00 PM EST Hem/Onc Treatment Hematology/Oncology Treatment, [place] [address] [place] [address] Talia, Chair 2 Hem Onc Scenery [address] [place] [address] 03/31/2023 4:10 PM EST Laboratory Laboratory, [facility] [address] [place] [phone] [facility] [address] [place] [address] 04/03/2023 6:15 AM EST Anticoagulation Pharmacy Call Center WB [address] [facility] [place] [address] [facility] 58 60 [facility] [place] [address] 06/02/2023 8:30 AM EST Hospital Encounter ENDO [facility], Endoscopy Room [facility] [address] [place] [phone] Itzel Monroy DO [address] [place] [address] 06/02/2023 8:30 AM EST - 06/02/2023 9:00 AM EST Surgery ENDO [facility], Endoscopy Room [facility] [address] [place] [phone] Itzel Monroy DO [address] [place] [address] COLONOSCOPY FLEXIBLE PROXIMAL DIAGNOSTIC 08/09/2023 11:00 AM EDT Telemedicine Genetics HemOnc, C [address] [place] [address] Rupinder [place], [place] [address] [place] [address] Scheduled Procedures Name Priority Associated Diagnoses Date/Ti [...] this encounter Medical Devices Implanted Type Area Blood Donor Recruiter Device Identifier Shelf Expiration Date Model / Serial / Lot Port Implant W/8f Poly Cath - [id number] Implanted:Qty: 1 on 03/17/2023 at [facility]ARD : PERIPHERAL VASCULAR [id number] 10/05/2024 [id number] / / [id number] documented as of this encounter Care Teams Optics Technical Officer Relationship Specialty Start Date End Date Gabriel Iqbal DO [address] [place] [address] PCP - General Family Medicine 08/04/20 documented as of this encounter
--- OUTSIDE RECORDS SUMMARY | 2023-03-30 15:00 | External Medical Summary ---
Author Name Unknown Address Unknown Organization K09:[facility] [address] Laboratory Report Ordering Provider Test Date Status WILMAN QUINTANA 03/27/2023 12:55:46 Final Observation Date Value Abnormality Reference (Units ) Status SYNC LEUKOCYTES IN BLOOD BY AUTOMATED COUNT 03/27/2023 12:55:46 25.09 Above high normal 4.00-10.80 (K/uL) Final Segs 03/27/2023 12:55:46 93.4 Above high normal 40.0-75.0 (%) Final Lymphs % 03/27/2023 12:55:46 4.8 Below low normal 18.0-42.0 (%) Final Monos 03/27/2023 12:55:46 1.7 1.0-11.0 (%) Final Eosinophils 03/27/2023 12:55:46 0.0 0.0-6.0 (%) Final Basos 03/27/2023 12:55:46 0.1 0.0-2.0 (%) Final Absolute Segs 03/27/2023 12:55:46 23.45 Above high normal 1.80-7.70 (K/uL) Final Lymphs, absolute 03/27/2023 12:55:46 1.20 1.00-4.80 (K/ul) Final Monos, Abs 03/27/2023 12:55:46 0.42 0.00-1.10 (K/uL) Final Eos, Abs 03/27/2023 12:55:46 0.00 0.00-0.70 (K/uL) Final Basos, Abs 03/27/2023 12:55:46 0.02 0.00-0.20 (K/uL) Final Performing Location [facility] [place] [address]
--- OUTSIDE RECORDS SUMMARY | 2023-03-30 15:00 | External Medical Summary | Summary of Care ---
Author Name Unknown Organization [facility] Address [address] [place] [address] Phone [phone] Care Team Providers Care Apparel Trimmings Sales Representative Name Role Phone Gabriel Iqbaljaylan Primary Care Provider Reason for Visit * Reason Onset Date Comments Test Results Imaging Study 03/21/2023 Encounter Details Date Type Department Care Team (Late st Contact Info) Description 03/21/2023 Telephone Hematology/Oncology Treatment, [place] [facility] [address] [place] [address] Zach Anderson MD 200 [facility] [place] [address] Test Results Imaging Study Allergies Active Allergy [...] (intrauterine device) in place 08/17/2015 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 senior care current use of anticoagulant therapy 0 05/12/2003 [...] mRNA, LNP-s, No Pre serve, 2-Dose Series ([employer]) 09/03/2020,08/13/2020 TD - Tetanus/Diptheria (ADULT) 05/08/2000 TDAP [...] encounter Miscellaneous Notes * Telephone Encounter - Zach Anderson MD - 03/22/2023 9:27 AM EST T1c (based on size between 1 and 2 cm), N1 M0. Stage IIA. MRI of the breast also will help us to understand about the extent of disease in the breasts. * Telephone Encounter - Romina Mcneill RN [...] Description 03/22/2023 11:30 AM EST [facility] [address] [place] [address] Lane Yung MD [address] [place] [address] 03/23/2023 1:00 PM EST Imaging Radiology [facility] [address] [facility] [place] [address] 03/23/2023 2:10 PM EST Laboratory Laboratory, [facility] [address] [facility] [place] [phone] Octaviano Durand 132 [facility] [place] [address] 03/24/2023 6:15 AM EST Anticoagulation Pharmacy Call Center [facility] [facility] [place] [address] [facility] 58 60 [facility] [place] [address] 03/27/2023 12:00 PM EST Laboratory Laboratory [facility] [address] [place] [phone] Talia Lab Scenery 200 [facility] [place] [address] 03/27/2023 1:00 PM EST Hem/Onc Treatment Hematology/Oncology Treatment, [facility] [address] [place] [address] Talia, Chair 2 Hem Onc Scenery [address] [place] [address] 03/31/2023 4:10 PM EST Laboratory Laboratory, [facility] 132 [facility] [place] [phone] Octaviano Durand 132 [facility] [place] [address] 04/03/2023 6:15 AM EST Anticoagulation Pharmacy Call Center WB [address]60 [facility] [place] [address] [facility] 58 60 [facility] [place] [address] 06/02/2023 8:30 AM EST Hospital Encounter ENDO [facility], Endoscopy Room [facility] [address] [place] [phone] Itzel Monroy, DO [address] [place] [address] 06/02/2023 8:30 AM EST - 06/02/2023 9:00 AM EST Surgery ENDO [facility], Endoscopy Room [facility] [address] [place] [address] Itzel Monroy, DO [address] [place] [address] COLONOSCOPY FLEXIBLE PROXIMAL DIAGNOSTIC 08/09/2023 11:00 AM EDT Telemedicine Genetics HemOn, [facility] [address] [place] [address] Rupinder [place], [place] [address] [place] [address] Scheduled Procedures Name Priority Associated [...] this encounter Medical Devices Implanted Type Area Polymer Tester Device Identifier Shelf Expiration Date Model / Serial / Lot Port Implant W/8f Poly Cath - [id number] Implanted:Qty: 1 on 03/17/2023 at [facility] CR [place]ARD : PERIPHERAL VASCULAR [id number] 10/05/2024 [id number] / / [id number] documented as of this encounter Care Teams Apparel Trimmings Sales Representative Relationship Specialty Start Date End Date Gabriel Iqbal DO [address] [place] [address] PCP - General Family Medicine 08/04/20 documented as of this encounter
--- OUTSIDE RECORDS SUMMARY | 2023-03-30 15:00 | External Medical Summary | Summary of Care ---
Author Name Unknown Organization [facility] Address [address] [place] [address] Phone [phone] Care Team Providers Care Typing Section Chief Name Role Phone Gabriel Iqbaljaylan Primary Care Provider Reason for Visit * Evaluate & Treat - Unlimited Visits (Within 10 days (routine)) - Pending Review Specialty Diagnoses / Procedures Referred By Contraghu john Referred To Contact Plastic Surgery Diagnoses Malignant neoplasm of upper-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, estrogen receptor positive Renee Loving MD [address] [place] [address] Referral ID Status Reason Start Date Expiration Date Visits Requested Visits Authorized [id number] Pending Review Specialty Services Required [phone] Encounter Details Date Type Department Care Team (Late st Contact Info) Description 03/22/2023 11:30 AM EST Telemedicine Plastic Surgery, [place] [address] [place] [address] Lane Yung MD [address] [place] [address] Malignant neoplasm of upper-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, estrogen receptor positive * Allergies Active Allergy Reactions Criticality Noted Date [...] IUD (intrauterine device) in place 08/17/2015 Overview: [facility] current use of anticoagulant therapy 0 05/12/2003 [...] on file documented as of this encounter Progress Notes * Lane Yung MD - 03/22/2023 12:41 PM EST New Patient Telemed Note Ruth Hylton [id number] 1975 47 year old CC: right breast cancer with + LN Referring Provider: Dr. Augustin Breast Surgeon: Dr. Loving Patient location: HOME. I was in a hospital or clinic location. After connecting through [employer],patient was verified with two unique identifiers. Patient (or authorized legal public relations representative) was then informed that this was a Telemedicine visit and being conducted confidentially over secure lines. Methods to assure confidentiality were taken. Patient acknowledged consent and understanding of pr ivacy and security of the Telemedicine visit. The patient agreed to participate. HPI: Mrs. Hylton is a 47 year old year old female who presents to the plastic and reconstructive surgery clinic via telemed for evaluation for breast reconstruction after mastectomy. She was diagnosed with Right breast multicentric breast cancer. A lymph node was also found to be positive for cancer. She is set to start neoadjuvant chemotherapy next week and is expected to require radiation at this point. Given the multicentric nature of the breast cancer, mastectomy was recommended. She has anMRI pending. There are no plans for mastectomy on the left side. History of AML, Factor V Leiden, and MTHFR Mutation. She is on lifetime coumadin, with history of bilateral sagittal sinus thrombosis The patient would like the least invasive options possible with the lowest risk of complications. She works a lot and dose not want much downtime if possible Current Bra Size: 38DD Desired Size After Reconstruction: same as contralateral Previous breast surgeries: Denies She is a Non-smoker, is not using any nicotine products, and is not currently taking steroids. 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) 03/02/2023 Migraine MTHFR MUTATION- HOMOZYGOUS 02/28/2003 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 Stanley REMOVAL OF KIDNEY STONE 05/02/2018 REMOVAL OF TONSILS, UNDER AGE 11 Current Outpatient Medications Medication Sig Dispense Refill VITAMIN B-6 100 MG OR TABS 0 albuterol (PROAIR HFA) 108 (90 BASE) MCG/ACT inhaler Inhale 2 Puffs by mouth 4 times a day. 1 Inhaler 1 B-12-SL 1000 MCG Sublingual Tablet Sublingual (Cyanocobalamin) Place under the tongue 1,000 mcg daily . 90 Tablet 3 Ondansetron HCl 8 MG Oral Tablet (Zofran) Take by mouth 1 Tablet as needed in the morning AND 1 Tablet as needed at noon AND 1 Tablet as needed in the evening for Nausea. 21 Tablet 1 Loperamide HCl 2 MG Oral Tablet (Immodium (A-D)) Take 1 Tablet by mouth 4 times a day as needed forDiarrhea. Folic Acid 1 MG Oral Tablet TAKE 1 TABLET BY MOUTH IN THE MORNING 90 Tablet 1 Ondansetron HCl 8 MG Oral Tablet (Zofran) Take 1 Tablet by mouth every 8 hours as needed for Nausea. 30 Tablet 3 dexAMETHasone 4 MG Oral Tablet (Decadron) Take 8mg (2 tabs) twice a day x3 days starting the day before chemotherapy 48 Tablet 0 Lidocaine-Prilocaine 2.5-2.5 % External Cream (Emla) APPLY TO SKIN OVER MEDIPORT & COVER 1HR PRIOR TO ACCESSING. 30 g 1 Warfarin Sodium 6 MG Oral Tablet (Coumadin) TAKE 2 Tablets by mouth daily OR DIRECTED BY COUMADIN CLINIC (patient taking up to 3 tabs daily based on INR) 270 Tablet 1 No current facility-administered medications for this visit. 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 Tobacco Use Smoking status: Never Smokeless tobacco: Never Vaping Use Vaping Use: Never used Substance and Sexual Activity Alcohol use: Yes Comment: rare Drug use: No Sexual activity: Yes Partners: Male Other Topics Concern Not on file Social History Narrative Not on file Social Determinants of Health Financial Resource Strain: Not on file Food Insecurity: Not on file Transportation Needs: Not on file Physical Activity: Not on file Stress: Not on file Social Connections: Not on file Intimate Partner Violence: Not on file Housing Stability: Not on file Family History Problem Relation Age of Onset Endocrine Disorder Mother hypo/hyper thyroid Heart Disorder Mother MVP Asthma Sister Heart Disorder Grandmother (Maternal) Diabetes Grandfather (Maternal) Breast Cancer Aunt (Paternal) ROS: denies fevers, chills, headache, chest pain, shortness of breath, abdominal pain, nausea, vomiting, constipation, diarrhea Physical Examination Deferred secondary to telemed Assessment and Plan: 47 year old female with right multicentric breast cancer as well as positive LN who presents via telemed to discuss reconstruction options The patient is very realistic with her goals and understands she is at higher risk of complicationsgiven her genetic mutations and need to stay on anticoagulation. She would like to minimize procedures as much as possible. I feel she has two good options given those goals Forego reconstruction Perform direct to implant reconstruction in order to avoid a second surgery. We spent time discussing all the different options for reconstruction and the pros and cons of eachof those. We discussed that the best way to avoid additional procedures or doctor's visits would gabriel not have reconstruction after mastectomy. I explained that long-term studies have shown that women that have reconstruction have higher satisfaction rates however she is not a study and is a increased risk of complications given her need for anticoagulation. We discussed that most typically be placed tissue expanders at the time of mastectomy in order to obtain the best aesthetic result, but this does require 2nd surgery. One option to potentially avoid additional surgery would be to performdirect implant reconstruction. I explained that she would likely not be the same size as her contralateral side but it would give her some breast reconstruction. If she was unhappy with this the surgery for removal is overall low risk for bleeding or complication. We then discussed the effects of radiation on implants including the long-term risk of capsular contracture. When the patient has radiation we typically recommend autologous reconstruction. However, given her genetic mutations for clotting she is at much higher risk of flap failure as well as additional operative sites which would put her at risk for bleeding. In order to avoid free tissue transfer but counteract the effects of radiation, we would typically recommend latissimus muscle flap overtissue account manager forest service implant. However once again this would happen additional operative site with space that she would be at risk of bleeding into. The patient is not interested at incurring any of those additional risks at this time. She would like to think about the 2 primary options that I discussed (no reconstruction versus direct implant) and will let us know prior to planning her mastectomy surgery date. If she chooses to have direct implant reconstruction I will need to see her back in the clinic for physical examination and further discussion of the procedure. If she chooses to forego reconstruction, I reassured her that all of these options could be performed in a delayed fashion. Patient will require a PAT Phone Screening. Lane Yung MD [facility] Plastic and Reconstructive Surgery Total time spent: 25min documented in this encounter Plan of Treatment Upcoming Encounters Date Type Department Care Team (Latest Contact Info) Description 03/23/2023 1:00 PM EST Imaging Radiology [address] [place] [address] 03/23/2023 2:10 PM EST Laboratory Laboratory, [address] [place] [address] Octaviano Durand [address] [place] [address] 03/24/2023 6:15 AM EST Anticoagulation Pharmacy Call Center [facility] [address] [facility] [place] [address] [facility] [address] [facility] [place] [address] 03/27/2023 12:00 PM EST Laboratory Laboratory [facility] [address] [place] [phone] Talia, Lab Scenery 200 [facility] [place] [address] 03/27/2023 1:00 PM EST Hem/Onc Treatment Hematology/Oncology Treatment, [place] [address] [place] [address] Talia, Chair 2 Hem Onc Scenery [address] [place] [address] 03/31/2023 4:10 PM EST Laboratory Laboratory, [facility] [address] [place] [address] Octaviano Durand [address] [place] [address] 04/03/2023 6:15 AM EST Anticoagulation Pharmacy Call Center [facility] [address] [facility] [place] [address] [facility] 58 60 [facility] [place] [address] 06/02/2023 8:30 AM EST Hospital Encounter ENDO [facility], Endoscopy Room [facility] [address] [place] [phone] Itzel Monroy DO [address] [place] [address] 06/02/2023 8:30 AM EST - 06/02/2023 9:00 AM EST Surgery ENDO [facility], Endoscopy Room [facility] [address] [place] [phone] Eliana Itzel Cates, [address] [place] [address] COLONOSCOPY FLEXIBLE PROXIMAL DIAGNOSTIC 08/09/2023 11:00 AM EDT Telemedicine Genetics HemOnc, C [address] [place] [address] Rupinder Euceda, [place] [address] [place] [address] Scheduled Procedures Name Priority Associated Diagnoses Date/Ti nh COLONOSCOPY FLEXIBLE PROXIMAL DIAGNOSTIC Screening for colon cancer 06/02/2023 8:30 AM EST Scheduled Referrals Name Type Priority Associated Diagnoses Orde r Schedule PLASTIC SURGERY REFERRAL OP Referral Within 10 days (routine) Malignant neoplasm of upper-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, estrogen receptor positive Ordered: 02/28/2023 Health Maintenance Due Date Last Done Comments [...] this encounter Medical Devices Implanted Type Area Cross Cut Sawyer Device Identifier Shelf Expiration Date Model / Serial / Lot Port Implant W/8f Poly Cath - [id number] Implanted:Qty: 1 on 03/17/2023 at [facility] CR BARD : PERIPHERAL VASCULAR [id number] 10/05/2024 [id number] / / [id number] documented as of this encounter Visit Diagnoses Diagnosis Malignant neoplasm of upper-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, estrogen receptor positive- Primary Screening for colon cancer Special screening for malignant neoplasms, colon documented in this encounter Care Teams Typing Section Chief Relationship Specialty Start Date End Date Gabriel Iqbal DO [address] [place] [address] PCP - General Family Medicine 08/04/20 documented as of this encounter
--- OUTSIDE RECORDS SUMMARY | 2023-03-30 15:00 | External Medical Summary ---
Author Name Unknown Address Unknown Organization K09:[facility] [address] Laboratory Report Ordering Provider Test Date Status WILMAN QUINTANA 03/27/2023 12:55:46 Final Observation Date Value Abnormality Reference (Units ) Status Nucleated erythrocytes/100 leukocytes [Ratio] in Blood by Automated count 03/27/2023 12:55:46 Final Performing Location [facility] [place] [address]
--- OUTSIDE RECORDS SUMMARY | 2023-03-30 15:00 | External Medical Summary | Summary of Care ---
Author Name Unknown Organization [facility] [address] [facility] [address] Phone [phone] Care Team Providers Care Gut Carrier Name Role Phone Gabriel Iqbal DO Primary Care Provider Reason for Visit * Reason Comments Dosage Adjustment Via Phone (anticoag Cl inic) Encounter Details Date Type Department Care Team (Latest Contact Info) Description 03/24/2023 6:15 AM [facility] Anticoagulation Pharmacy Call Center [address] [place] [address] [facility] [address] [facility] [place] [address] History of DVT (deep vein thrombosis)*; MTHFR MUTATION- HOMOZYGOUS; Hereditary factor V deficiency disease (HCC) Allergies Active Allergy Reactions Criticality Noted Date Comments 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, stopped as soon as infusion stopped documented as of this encounter (statuses as of 03/24/2023) Medications Medication Sig Dispensed Refills Start Date [...] as of this encounter (statuses as of 03/24/2023) Active Problems Problem Noted Date Diagnosed Date [...] (intrauterine device) in place 08/17/2015 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 care home current use of anticoagulant therapy 0 05/12/2003 Overview: ICD-10 update of inactive term MTHFR MUTATION- HOMOZYGOUS 02/28/2003 History of acute myeloid leukemia in remission 0 12/23/2002 documented as of this encounter (statuses as of 03/24/2023) Resolved Problems Problem Noted Date Diagnosed Date [...] as of this encounter (statuses as of 03/24/2023) Immunizations Name Administration Dates Next Due COVID-19 mRNA, LNP-s, No Pre serve, 2-Dose Series (Contactual) 09/03/2020,08/13/2020 TD - Tetanus/Diptheria (ADULT) 05/08/2000 TDAP [...] as of this encounter Progress Notes * Amrita Hendricks PHARM Tech - 03/24/2023 9:02 AM EST Contacts Type Contact Phone/Fax 03/24/2023 09:01 AM EST Phone (Outgoing) Ruth Hylton (Self) [phone] (M) Left Message Subjective Advised patient to contact Anticoagulation Clinic if any unusual bruising or bleeding, recent illness, changes in medication, or questions/concerns. PT/INR results, Coumadin dose instructions, and next PT/INR date communicated as noted by Pharmacist: Yes CHRISTY GREEN 03/24/2023, 9:02 AM * Alida Urbano RPh - 03/24/2023 8:20 AM EST Coumadin Clinic (region specific) Objective Current Warfarin Dose As of 03/24/2023 Warfarin maintenance plan: 9 mg (6 mg x 1.5) every Fri; 12 mg (6 mg x 2) all other days INR Result As of 03/24/2023 INR goal: 2.5-3.5 INR used for dosin.5 (03/23/2023) Assessment & Plan Warfarin Plan As of 03/24/2023 Full warfarin instructions: 9 mg every Fri; 12 mg all other days No change documented: Alida Urbano RPh Next INR check: 04/03/2023 Repeat PT/INR in 1.5 week(s) Weekly dose: not changed Additional Dosing Information: Description Fern [place] Colonoscopy 06/02/23 Tech to contact patient with dose instructions as noted. Alida Urbano RPh 03/24/2023, 8:20 AM documented in this encounter Plan of Treatment Upcoming Encounters Date Type Department Care Team (Latest Contact Info) Description 03/27/2023 12:00 PM EST Laboratory Laboratory [facility] [place] [address] [place] [phone] Octaviano Melgar [address] [facility] [place] [address] 03/27/2023 1:00 PM EST Hem/Onc Treatment Hematology/Oncology Treatment, [place] [address] [place] [address] Talia, Chair 2 Hem Onc Scenery [address] [place] [address] 04/03/2023 2:00 PM EST Laboratory Laboratory, [facility] [address] [place] [phone] Octaviano Durand [place] [address] [place] [address] 04/04/2023 6:15 AM EST Anticoagulation Pharmacy Call Center WB [address] [facility] [place] [address] [facility] 58 60 [facility] [place] [address] 06/02/2023 8:30 AM EST Hospital Encounter ENDO [facility], Endoscopy Room [facility] [address] [place] [phone] Itzel Monroy DO [address] [place] [address] 06/02/2023 8:30 AM EST - 06/02/2023 9:00 AM EST Surgery ENDO [facility], Endoscopy Room [facility] [address] [place] [phone] Itzel Monroy DO [address] [place] [address] COLONOSCOPY FLEXIBLE PROXIMAL DIAGNOSTIC 08/09/2023 11:00 AM EDT Telemedicine Genetics HemOnc, [facility] [address] [place] [address] Rupinder Euceda, [place] [address] [place] [address] Scheduled Procedures Name Priority Associated [...] this encounter Medical Devices Implanted Type Area Fish Skinning Machine Feeder Device Identifier Shelf Expiration Date Model / Serial / Lot Port Implant W/8f Poly Cath - [id number] Implanted:Qty: 1 on 03/17/2023 at [facility] CR BARD : PERIPHERAL VASCULAR [id number] 10/05/2024 [id number] / / [id number] documented as of this encounter Visit Diagnoses Diagnosis History of DVT (deep vein thrombosis)- Primary Personal history of venous thrombosis and embolism 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
--- OUTSIDE RECORDS SUMMARY | 2023-03-30 15:00 | External Medical Summary | Summary of Care ---
Author Name Unknown Organization [facility] Address [address] [place] [address] Phone [phone] Care Team Providers Care Security Infrastructure Engineer Name Role Phone Gabriel Iqbaljaylan Primary Care Provider Reason for Visit * Reason Onset Date Comments Test Results Imaging Study 03/21/2023 Encounter Details Date Type Department Care Team (Late st Contact Info) Description 03/21/2023 Telephone Hematology/Oncology Treatment, [place] [address] [place] [address] Zach Anderson MD [address] [facility] [place] [address] Test Results Imaging Study Allergies Active Allergy [...] (intrauterine device) in place 08/17/2015 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 detention current use of anticoagulant therapy 0 05/12/2003 [...] mRNA, LNP-s, No Pre serve, 2-Dose Series (TennisHub) 09/03/2020,08/13/2020 TD - Tetanus/Diptheria (ADULT) 05/08/2000 TDAP [...] Description 03/22/2023 11:30 AM EST [facility] [address] [place] [address] Lane Yung MD [address] [place] [address] 03/23/2023 1:00 PM EST Imaging Radiology [facility] [place] [facility] [facility] [address] [facility] [place] [address] 03/23/2023 2:10 PM EST Laboratory Laboratory, [facility] [address] [facility] [place] [address] Octaviano Durand [address] [facility] [place] [address] 03/24/2023 6:15 AM EST Anticoagulation Pharmacy Call Center [facility] [address] [facility] [place] [address] [facility] 58 60 [facility] [place] [address] 03/27/2023 12:00 PM EST Laboratory Laboratory [facility] [place] [address] [place] [phone] Talia Lab Scenery 200 [facility] [place] [address] 03/27/2023 1:00 PM EST Hem/Onc Treatment Hematology/Oncology Treatment, [place] [address] [place] [address] Talia, Chair 2 Hem Onc Scenery [address] [place] [address] 03/31/2023 4:10 PM EST Laboratory Laboratory, [facility] [address] [facility] [place] [address] Octaviano Durand 132 [facility] [place] [address] 04/03/2023 6:15 AM EST Anticoagulation Pharmacy Call Center WB [address] [facility] [place] [address] [facility] 58 60 [facility] [place] [address] 06/02/2023 8:30 AM EST Hospital Encounter ENDO [facility], Endoscopy Room [facility] [address] [place] [phone] Itzel Monroy, DO [address] [place] [address] 06/02/2023 8:30 AM EST - 06/02/2023 9:00 AM EST Surgery ENDO [facility], Endoscopy Room [facility] [address] [place] [address] Itzel Monroy, DO [address] [place] [address] COLONOSCOPY FLEXIBLE PROXIMAL DIAGNOSTIC 08/09/2023 11:00 AM EDT Telemedicine Genetics HemOn, [facility] [address] [place] [address] Rupinder Euced[place], [place] [address] [place] [address] Scheduled Procedures Name Priority Associated [...] this encounter Medical Devices Implanted Type Area Surgical Specialist Device Identifier Shelf Expiration Date Model / Serial / Lot Port Implant W/8f Poly Cath - [id number] Implanted:Qty: 1 on 03/17/[address] [facility] CR BARD : PERIPHERAL VASCULAR [id number] 10/05/2024 [id number] / / [id number] documented as of this encounter Care Teams Security Infrastructure Engineer Relationship Specialty Start Date End Date Gabriel Iqbal DO [address] [place] [address] PCP - General Family Medicine 08/04/20 documented as of this encounter
--- OUTSIDE RECORDS SUMMARY | 2023-03-30 15:00 | External Medical Summary | Summary of Care ---
Author Name Unknown Organization [facility] Address [address] [place] [address] Phone [phone] Care Team Providers Care Data Center Technician Name Role Phone Gabriel Iqbaljaylan Primary Care Provider Reason for Visit * Reason Onset Date Comments Test Results Imaging Study 03/21/2023 Encounter Details Date Type Department Care Team (Late st Contact Info) Description 03/21/2023 Telephone Hematology/Oncology Treatment, [place] [address] [place] [address] Zach Anderson MD [address] [facility] [place] [address] Test Results Imaging Study Allergies Active Allergy Reactions Criticality Noted Date Comments 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, stopped as soon as infusion stopped documented as of this encounter (statuses as of 03/21/2023) Medications Medication Sig Dispensed Refills Start Date [...] as of this encounter (statuses as of 03/21/2023) Active Problems Problem Noted Date Diagnosed Date [...] (intrauterine device) in place 08/17/2015 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 alf current use of anticoagulant therapy 0 05/12/2003 Overview: ICD-10 update of inactive term MTHFR MUTATION- HOMOZYGOUS 02/28/2003 History of acute myeloid leukemia in remission 0 12/23/2002 documented as of this encounter (statuses as of 03/21/2023) Resolved Problems Problem Noted Date Diagnosed Date [...] as of this encounter (statuses as of 03/21/2023) Immunizations Name Administration Dates Next Due COVID-19 mRNA, LNP-s, No Pre serve, 2-Dose Series ([employer]) 09/03/2020,08/13/2020 TD - Tetanus/Diptheria (ADULT) 05/08/2000 TDAP [...] 03/22/2023 11:30 AM EST Telemedicine Plastic Surgery, [place] [address] [place] [address] Lane Yung MD [address] [place] [address] 03/23/2023 1:00 PM EST Imaging Radiology [facility] 1st [facility] [address] [facility] [place] [address] 03/23/2023 2:10 PM EST Laboratory Laboratory, [facility] [address] [facility] [place] [phone] [facility] [address] [facility] [place] [address] 03/24/2023 6:15 AM EST Anticoagulation Pharmacy Call Center [address] [place] [address] [facility] 58 60 Public [facility] [place] [address] 03/27/2023 12:00 PM EST Laboratory Laboratory [facility] [place] [address] [place] [phone] [facility] Scenery [address] [place] [address] 03/27/2023 1:00 PM EST Hem/Onc Treatment Hematology/Oncology Treatment, [place] [address] [place] [address] Tal[place], Chair 2 Hem Onc Scenery [address] [place] [address] 03/31/2023 4:10 PM EST Laboratory Laboratory, [facility] [address] [place] [phone] Octaviano Durand [facility] [address] [place] [address] 04/03/2023 6:15 AM EST Anticoagulation Pharmacy Call Center [address] [place] [address] [facility], [facility] 58 60 [facility] [place] [address] 06/02/2023 8:30 AM EST Hospital Encounter ENDO [facility], Endoscopy Room [facility] [address] [place] [phone] Itzel Monroy DO [address] [place] [address] 06/02/2023 8:30 AM EST - 06/02/2023 9:00 AM EST Surgery ENDO [facility], Endoscopy Room [facility] [address] [place] [address] Itzel Monroy DO [address] [place] [address] COLONOSCOPY FLEXIBLE PROXIMAL DIAGNOSTIC 08/09/2023 11:00 AM EDT Telemedicine Genetics HemOnc, [facility] [address] [place] [address] Rupinder Euceda, [place] [address] [place], [place] [id number] Scheduled Procedures Name Priority Associated Diagnoses Date/Ti [...] this encounter Medical Devices Implanted Type Area Pest Control Pilot Device Identifier Shelf Expiration Date Model / Serial / Lot Port Implant W/8f Poly Cath - [id number] Implanted:Qty: 1 on 03/17/2023 at [facility] CR BARD : PERIPHERAL VASCULAR [id number] 10/05/2024 [id number] / / [id number] documented as of this encounter Care Teams Data Center Technician Relationship Specialty Start Date End Date Gabriel Iqbal DO [address] [place] [address] PCP - General Family Medicine 08/04/20 documented as of this encounter
--- OUTSIDE RECORDS SUMMARY | 2023-03-30 15:00 | External Medical Summary ---
Author Name Unknown Address Unknown Organization K09:[facility] [place] [address] Laboratory Report Ordering Provider Test Date Status WILMAN QUINTANA 03/27/2023 12:55:46 Final Observation Date Value Abnormality Reference (Units ) Status WBC, Total 03/27/2023 12:55:46 25.09 Above high normal 4 .00-10.80 (K/uL) Final RBC 03/27/2023 12:55:46 4.71 3.85-5.15 (M/uL) Final Hemoglobin 03/27/2023 12:55:46 14.4 12.0-15.3 (g/dL) Final HCT 03/27/2023 12:55:46 43.1 36.0-45.2 (%) Final MCV 03/27/2023 12:55:46 91.5 81.5-97.5 (fL) Final MCH 03/27/2023 12:55:46 30.6 27.0-34.0 (pg) Final MCHC 03/27/2023 12:55:46 33.4 32.0-36.0 (g/dL) Final RDW 03/27/2023 12:55:46 13.7 11.5-15.5 (%) Final Platelets 03/27/2023 12:55:46 311 140-400 (K /uL) Final MPV 03/27/2023 12:55:46 9.0 6.6-11.1 ( fL) Final Performing Location [facility] [place] [address]
--- OUTSIDE RECORDS SUMMARY | 2023-03-30 15:00 | External Medical Summary | Summary of Care ---
Author Name Unknown Organization [facility] Address [address] [place] [address] Phone [phone] Care Team Providers Care Digital Media Representative Name Role Phone Gabriel Iqbal Sarojjaylan Primary Care Provider Reason for Visit * Reason Onset Date Comments Appointment 03/22/2023 Encounter Details Date Type Department Care Team (Late st Contact Info) Description 03/22/2023 Telephone Rad[address] [place] [address] Ava Herndon TECH Appointment Allergies Active Allergy Reactions Criticality Noted Date [...] (intrauterine device) in place 08/17/2015 Overview: Sushila. FDC current use of anticoagulant therapy 0 05/12/2003 [...] Description 03/23/2023 1:00 PM EST Imaging Radiology [facility] 1st Floor, [place] [address] [facility] [place] [address] 03/23/2023 2:10 PM EST Laboratory Laboratory, [facility] [address] [facility] [place] [phone] Octaviano Durand 132 [facility] [place] [address] 03/24/2023 6:15 AM EST Anticoagulation Pharmacy Call Center [address] [facility] [place] [address] [facility] 58 60 [facility] [place] [address] 03/27/2023 12:00 PM EST Laboratory Laboratory [place] [address] [place] [phone] [facility] Lab Scenery [address] [place] [address] 03/27/2023 1:00 PM EST Hem/Onc Treatment Hematology/Oncology Treatment, [place] [address] [place] [address] Talia, Chair 2 Hem Onc Scenery [address] [place] [address] 03/31/2023 4:10 PM EST Laboratory [facility], [facility] [address] [place] [phone] Octaviano Durand [address] [place] [address] 04/03/2023 6:15 AM EST Anticoagulation Pharmacy Call Center [address] [facility] [place] [address] [facility] 58 60 [facility] [place] [address] 06/02/2023 8:30 AM EST Hospital Encounter ENDO [facility], Endoscopy Room [facility] [address] [place] [address] Itzel Monroy, [address] [place] [address] 06/02/2023 8:30 AM EST - 06/02/2023 9:00 AM EST Surgery ENDO [facility], Endoscopy Room [facility] [address] [place] [phone] Itzel Monroy, [address] [place] [address] COLONOSCOPY FLEXIBLE PROXIMAL DIAGNOSTIC 08/09/2023 11:00 AM EDT [facility], [facility] [address] [place] [address] Rupinder Euceda, [place] [address] [place] [address] Scheduled Procedures Name Priority Associated [...] encounter Medical Devices Implanted Type Area Manager Surgery Device Identifier Shelf Expiration Date Model / Serial / Lot Port Implant W/8f Poly Cath - [id number] Implanted:Qty: 1 on 03/17/2023 at [facility] CR BARD : PERIPHERAL VASCULAR [id number] 10/05/2024 [id number] / / [id number] documented as of this encounter Care Teams Digital Media Representative Relationship Specialty Start Date End Date Gabriel Iqbal DO [address] [place] [address] PCP - General Family Medicine 08/04/20 documented as of this encounter
--- OUTSIDE RECORDS SUMMARY | 2023-03-30 15:00 | External Medical Summary | Summary of Care ---
Author Name Unknown Organization [facility] Address [address] [place] [address] Phone [phone] Care Team Providers Care Receivable Executive Name Role Phone Gabriel Iqbal DO Primary Care Provider Reason for Visit * Reason Onset Date Comments Advice 03/27/2023 Encounter Details Date Type Department Care Team (Late st Contact Info) Description 03/27/2023 Telephone General Surgery, [facility] [address] [place] [address] Renee Loving MD [address] [place] [phone] Advice Allergies Active Allergy Reactions Criticality Noted [...] (intrauterine device) in place 08/17/2015 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 buttermaker helper current use of anticoagulant therapy 0 05/12/2003 [...] Caroline - could you get her jeanette clinical technologist scheduled (placed into the lymph node please). [...] and a MRI as well. Please advise: [phone] documented in this encounter Plan of Treatment Upcoming Encounters Date Type Department Care Team (Latest Contact Info) Description 03/28/2023 4:15 PM EST Immunization/Injection Hematology/Oncolo gy Treatment, [place] [address] [place] [address] 04/03/2023 2:00 PM EST [facility] [address] [facility] [place] [phone] DurandOctaviano perales [address] [facility] [place] [address] 04/04/2023 6:15 AM EST Anticoagulation Pharmacy Call Center [address] [place] [address] [facility] 58 60 [facility] [address] 04/18/2023 7:15 AM EST Laboratory Laboratory Scenery [place]ia [place] [address] [place] [phone] Talia, Lab Scenery [address] [place] [address] 04/18/2023 8:00 AM EST Office Visit Hematology/Oncolo gy Scenery [place] [address] [place] [address] Radha Robles CRNP [address] [facility] [place] [address] 04/19/2023 1:30 PM EST Hem/Onc Treatment Hematology/Oncolo gy [facility] [address], [place] [address] [place] [address] Talia, Chair 9 Hem Onc Scenery [address] [place] [address] 06/02/2023 8:30 AM EST Hospital Encounter ENDO [facility], Endoscopy Room [facility] [address] [place] [phone] Itzel Monroy DO [address] [place] [address] 06/02/2023 8:30 AM EST - 06/02/2023 9:00 AM EST Surgery ENDO [facility], Endoscopy Room [facility] [address] [place] [phone] Itzel Monroy DO [address] [place] [address] COLONOSCOPY FLEXIBLE PROXIMAL DIAGNOSTIC 08/09/2023 11:00 AM EDT Telemedicine Genetics HemOnc, [facility] [address] [place], [place] [phone] Rupinder Euceda [place] [address] [place] [address] Scheduled Procedures Name Priority Associated Diagnoses Date/Ti [...] this encounter Medical Devices Implanted Type Area Senior Mechanical Project Engineer Device Identifier Shelf Expiration Date Model / Serial / Lot Port Implant W/8f Poly Cath - [id number] Implanted:Qty: 1 on 03/17/2023 at [facility] CR BARD : PERIPHERAL VASCULAR [id number] 10/05/2024 [id number] / / [id number] documented as of this encounter Care Teams Receivable Executive Relationship Specialty Start Date End Date Gabriel Iqbal DO [address] [place] [address] PCP - General Family Medicine 08/04/20 documented as of this encounter
--- OUTSIDE RECORDS SUMMARY | 2023-03-30 15:01 | External Medical Summary | Summary of Care ---
Author Name Unknown Organization [facility] Address [address] [place] [facility] [place] [address] Phone [phone] Care Team Providers Care Buttonhole Machine Operator Name Role Phone Rory Iqbalvor Sarojjaylan Primary Care Provider Reason for Visit * Reason Comments PAP Encounter Details Date Type Department Care Team (Late st Contact Info) Description 03/14/2023 1:00 PM EST Office Visit Gynecology/[facility]stet[facility] [address] [place] [address] Lea Drummond CRNP [address] [place] [address] Encounter for annual routine gynecological examination*; Encounter for IUD removal; Vulvar lesion; ANTONY III (vulvar intraepithelial neoplasia III) Allergies Active Allergy Reactions Criticality Noted Date Comments 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, stopped as soon as infusion stopped documented as of this encounter (statuses as of 03/14/2023) Medications Medication Sig Dispensed Refills Start Date [...] day as needed for Diarrhea. 0 Active Warfarin Sodium 6 MG Oral Tablet (Coumadin) TAKE 2 Tablets by mouth daily OR DIRECTED BY COUMADIN CLINIC (patient taking up to 3 tabs daily based on INR) 270 Tablet 1 12/20/2021 Active Folic Acid 1 MG Oral Tablet [...] TO ACCESSING. 30 g 1 03/02/2023 Active Omeprazole 20 MG Oral Capsule Delayed Release (PriLOSEC) Take by mouth 1 Capsule in the morning. 1 hour before the first meal of the day. 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 As instructed by the [facility]. 8 mL 0 02/07/2023 3 Discontinue d(Medicatio n List Clean Up) documented as of this encounter (statuses as of 03/14/2023) Active Problems Problem Noted Date Diagnosed Date [...] as of this encounter (statuses as of 03/14/2023) Resolved Problems Problem Noted Date Diagnosed Date [...] as of this encounter (statuses as of 03/14/2023) Immunizations Name Administration Dates Next Due COVID-19 [...] Sign Reading Time Taken Comments Blood Pressure 134/82 03/14/2023 1:10 PM EST Pulse - - Temperature - - Respiratory Rate - - Oxygen Saturation - - Inhaled Oxygen Concentration - - Weight 72.1 kg (159 lb) 03/14/2023 1:10 PM EST Height - - Body Mass Index 31.31 03/02/2023 12:16 PM EDT documented in this encounter Progress Notes * Lea Drummond CRNP - 03/14/2023 1:33 PM EST HPI: The patient is a 47 year old who presents for annual gynecological examination & IUD removal. Reports area of burning/stinging on vulva near urethra for a few days, wondering if she cut herselfshaving. The area mcdonald when urine is in contact with it, but no dysuria/urgency/frequency. No known HSV diagnosis. Hx ANTONY III, last saw value analyst/onc for this 03/2022 - was ok'd to have annual visits locally. Pt denies any new itching. She has a Mirena IUD - light periods. Plans removal today due to recent breast cancer diagnosis. Planning chemotherapy and mastectomy. Wishes to use condoms - concerned about heavy bleeding with Paragard and anticoagulant use. Pap history: normal, last in 2021 Denies problems with intercourse, . 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 History of DVT (deep vein thrombosis) 06/18/2018 Malignant neoplasm of upper-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, estrogen receptor positive 03/02/2023 Metastatic cancer to axillary lymph nodes ([facility]) 03/02/2023 Migraine MTHFR MUTATION- HOMOZYGOUS 02/28/2003 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 Stanley REMOVAL OF KIDNEY STONE 05/02/2018 [...] 4 times a day as needed forDiarrhea. Warfarin Sodium 6 MG Oral Tablet (Coumadin) TAKE 2 Tablets by mouth daily OR DIRECTED BY COUMADIN CLINIC (patient taking up to 3 tabs daily based on INR) 270 Tablet 1 Folic Acid 1 MG Oral Tablet TAKE [...] 1HR PRIOR TO ACCESSING. 30 g 1 No current facility-administered medications for this visit. 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 ROS EXAM: CONSTITUTIONAL: No change in weight, No weakness, No fatigue, and No fevers, sweats, or chills BREASTS: No severe breast pain and No nipple discharge. Known malignancy. FEMALE: No dysuria, No frequency, No incontinence, No irregular menstruation, No urgency, and Novaginal discharge. +vulvar lesion PHYSICAL EXAM BP 134/82 | Wt 72.1 kg (159 lb) | BMI 31.31 kg/m | BSA 1.74 m Manager [employer] Documentation Provider requested transfer specialist. Name of transfer specialist: Arielle Gay ANDREA General: No acute distress, sitting comfortably, normal interaction Psych: appropriate affect and insight. No depressive symptoms. Abdomen: abdomen soft, non-tender, no masses or organomegaly, and no rebound or guarding Breasts: Inspection negative No nipple retraction or dimpling No nipple discharge or bleeding. +palpable mass at 3 o'clock, known malignancy Inguinal Nodes: No palpable nodes. External: normal anatomy. Bilateral hyperpigmentation of labia minora. Small cluster of bumpy raised tissue lateral to R labia minora - compared to photo taken by value analyst/onc 03/2022, and no new findings. Small ulcer on clitoral parikh, tender. Vagina: pink and rugated. Cervix: no cervical motion tenderness, without lesions, IUD strings seen, and non-friable. Uterus: mobile and non-tender. Adnexa: non-tender bilaterally and non-palpable bilaterally Rectal: deferred. Extremeties: No deep calf tenderness, bilaterally Neurological: Grossly intact. IMPRESSION/PLAN: 1. Encounter for annual routine gynecological examination Pap up to date. 2. Encounter for IUD removal Discussed return to fertility/menses following removal. Encouraged consistent condom use. 3. Vulvar lesion R/o HSV. If negative and lesion persists, consider vulvar bx. - HERPES SIMPLEX 1/2 AND VARICELLA ZOSTER, PCR; Future 4. ANTONY III (vulvar intraepithelial neoplasia III) Exam consistent with photos from value analyst/onc last year. Pt encouraged to call the office with any new itching/burning or skin lesions. Follow Up: Return in about 1 year (around 03/14/2024) for annual exam. | For: annual exam IUD removal note Discussed risks and benefits of IUD removal. A "time out" was initiated by MOO Perea prior to procedure. The patient was identified by name and date of . The correct procedure, and correct site identified. Correct positioning(as applicable). There is availability of necessary equipment. Patient states she is not allergic to latex. IUD strings visualized in cervical os. Strings grasped with ring forceps and removed with gentle traction. IUD intact at removal. Patient tolerated procedure well. Advised to call if bleeding saturates a pad in <1 hr. MOO Perea 03/14/23 documented in this encounter Nursing Notes * Arielle Gay LPN - 03/14/2023 1:11 PM EST Patient identified Ruth Hylton by name and date of . Patient here for yearly exam. Complaints: removal iud Last pap: 12/03/21 Last Mammogram: 01/20/23 Last Dexa: none Last Colonoscopy: none Type of Contraception: iud Pt here for chlamydia screen. no Have you heard about the Gardasil Vaccine? yes Would you be interested in discussing this with your provider? no My [facility] is a way you can talk to your provider online through e-mail. May I activate it for you? ALREADY ACTIVE Do you need any refills while you are here? no Arielle Gay LPN 03/14/2023 1:11 PM documented in this encounter Plan of Treatment Upcoming Encounters Date Type Department Care Team (Latest Contact Info) Description 03/14/2023 6:00 PM EST Anticoagulation Pharmacy Call Center [address] [place] [address] [facility] [address] [place] [address] 03/17/2023 2:00 PM EST Appointment Interventional Radiology [facility], [facility] 1st Floor [address] [place] [address] 03/20/2023 7:45 AM EST Imaging Radiology [facility] 1st [facility], [address] [place] [address] 03/22/2023 11:30 AM EST Telemedicine Plastic Surgery, [place] [address] [place] [address] Lane Yung MD [address] [place] [address] 03/23/2023 1:00 PM EST Imaging Radiology [facility] 1st [facility] [place] [address] 03/27/2023 12:00 PM EST Laboratory Laboratory Scenery [facility] [address] [place] [phone] [facility] Lab Scenery [address] [facility] [place] [address] 03/27/2023 1:00 PM EST Hem/Onc Treatment Hematology/Oncology Treatment, [place] [address] [place] [address] [place], Chair 2 Hem Onc Scenery [address] [facility] [place] [address] 03/31/2023 4:10 PM EST Laboratory Laboratory, [facility] [address] [facility] [place] [phone] DurandOctaviano perales Rust [address] [facility] [place] [address] 04/03/2023 6:15 AM EST Anticoagulation Pharmacy Call Center [address] [facility] [place] [address] [facility] 58 60 [facility] [place] [address] 06/02/2023 8:30 AM EST Hospital Encounter ENDO [facility], Endoscopy Room [facility] [address] [facility] [place] [phone] Itzel Monroy DO [address] [place] [address] 06/02/2023 8:30 AM EST - 06/02/2023 9:00 AM EST Surgery ENDO [facility], Endoscopy Room [facility] [address] [facility] [place] [phone] Itzel Monroy DO [address] [place] [address] COLONOSCOPY FLEXIBLE PROXIMAL DIAGNOSTIC 08/09/2023 11:00 AM EDT Telemedicine Genetics HemOnc, [facility] [address] [place] [address] Rupinder [place]uceda, [place] [address] [place] [address] Pending Results Name Type Priority Associated Diagnoses Date /Time HERPES SIMPLEX 1/2 AND VARICELLA ZOSTER, PCR Lab Routine Vulvar lesion 03/14/2023 1:44 PM EST Scheduled Orders Name Type Priority Associated Diagnoses Orde r Schedule HERPES SIMPLEX 1/2 AND VARICELLA ZOSTER, PCR Lab Routine Vulvar lesion Expected: 03/14/2023, Expires: 03/14/2024 Scheduled Procedures Name Priority Associated Diagnoses Date/Ti [...] 03/03/2023, 0 01/20/2023, 11/20/2021, Additional history exists IUD 7-Year 03/08/2026 03/08/2019 Lipid Panel 01/21/2028 01/20/2023, 10/11/2017 DTaP,Tdap,and Td Vaccines (3 - Td or Tdap) 11/16/2030 11/16/2020, 09/22/2010, 05/08/2000 GARDASIL-HPV IMMUNIZATION SERIES Aged Out No longer eligible based on patient's age to complete this topic MENINGOCOCCAL (MENACTRA/MENVEO) Aged Out No longer eligible based on patient's age to complete this topic documented as of this encounter Medical Devices Not on filedocumented as of this encounter Visit Diagnoses Diagnosis Encounter for annual routine gynecological examination- Primary Encounter for IUD removal Encounter for removal of intrauterine contraceptive device Vulvar lesion Other specified noninflammatory disorder of vulva and perineum 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
--- OUTSIDE RECORDS SUMMARY | 2023-03-30 15:01 | External Medical Summary | Summary of Care ---
Author Name Unknown Organization [facility] Address [address] [facility] [address] Phone [phone] Care Team Providers Care Thread Cutter Tender Name Role Phone Gabriel Iqbal DO Primary Care Provider Reason for Visit * Reason Comments Dosage Adjustment Via Phone (anticoag Cl inic) Encounter Details Date Type Department Care Team (Latest Contact Info) Description 03/14/2023 6:00 PM [facility] Anticoagulation Pharmacy Call Center [address] [place] [address] [facility] [address] [facility] [place] [address] History of DVT (deep vein thrombosis)*; MTHFR [...] TO ACCESSING. 30 g 1 03/02/2023 Active documented as of this encounter (statuses [...] mRNA, LNP-s, No Pre serve, 2-Dose Series ([employer] Reservations) 09/03/2020,08/13/2020 TD - Tetanus/Diptheria (ADULT) 05/08/2000 TDAP [...] as of this encounter Progress Notes * Alida Urbano RPh - 03/14/2023 4:20 PM EST Images from the original note were not included. Medication Therapy Disease Management - Anticoagulation Patient: Ruth Pena Vactor | : 1975 Subjective Contacts Type Contact Phone/Fax 03/14/2023 03:07 PM EST Phone (Outgoing) Ruth Hylton (Self) [phone] (M) Spoke to Patient 03/14/2023 04:22 PM EST Phone (Outgoing) Ruth Hylton (Self) [phone] (M) Spoke to Patient Patient-Reported Symptoms: Patient Findings Comments: Pt had IUD removed today, states she had bleeding right after. Pt is scheduled for mediport insertion on 03/17 at 2pm. Provider requests INR less than 3.0. Since INR elevated will have OFS 03/17 to confirm it decreases. Objective Current Warfarin Dose As of 03/14/2023 Warfarin maintenance plan: 9 mg (6 mg x 1.5) every Fri; 12 mg (6 mg x 2) all other days INR Result As of 03/14/2023 INR goal: 2.5-3.5 INR used for dosin.2 (03/14/2023) Assessment & Plan Warfarin Plan As of 03/14/2023 Full warfarin instructions: 03/15: Hold; 03/16: Hold; 03/17: 12 mg; Otherwise 9 mg every Fri; 12 mg all other days Next INR check: 03/16/2023 [facility] will follow up after OFS to schedule next lab visit Additional Dosing Information: Description Fern Durand Mediport Placement 03/17/23 Colonoscopy 06/02/23 Alida Urbano RPh Clinical Pharmacist 03/14/2023, 4:25 PM documented in this encounter Plan of Treatment Upcoming Encounters Date Type Department Care Team (Latest Contact Info) Description 03/17/2023 8:30 AM EST Anticoagulation Pharmacy, [facility] [address] [facility] [place] [address] [facility] [address] [facility] [place] [address] 03/17/2023 2:00 PM EST Appointment Interventional Radiology [facility], [facility] 1st Floor [address] [place] [phone] 03/20/2023 7:45 AM EST Imaging Radiology [facility] [address] [facility] [place] [facility] [place] [address] 03/22/2023 11:30 AM EST Telemedicine Plastic Surgery, [place] [address] [place] [address] Lane Yung MD [address] [place] [address] 03/23/2023 1:00 PM EST Imaging Radiology [address] [facility] [place] [address] 03/27/2023 12:00 PM EST Laboratory Laboratory [facility] [place] [address] [place] [phone] Talia, Lab Scenery [address] [facility] [place] [address] 03/27/2023 1:00 PM EST Hem/Onc Treatment Hematology/Oncology Treatment, [place] [address] [place] [address] Talia, Chair 2 Hem Onc Scenery [address] [facility] [place] [address] 03/31/2023 4:10 PM EST Laboratory Laboratory, [facility] [address] [facility] [place] [phone] Octaviano Dur[place] [address] [place] [address] 04/03/2023 6:15 AM EST Anticoagulation Pharmacy Call Center WB [address] [facility] [place] [address] [facility] 58 60 [facility] [place] [address] 06/02/2023 8:30 AM EST Hospital Encounter ENDO [facility], Endoscopy Room [facility] [address] [place] [phone] Itzel Monroy, [address] [place] [address] 06/02/2023 8:30 AM EST - 06/02/2023 9:00 AM EST Surgery ENDO [facility], Endoscopy Room [facility] [address] [place] [phone] Itzel Monroy, [address] [place] [address] COLONOSCOPY FLEXIBLE PROXIMAL DIAGNOSTIC 08/09/2023 11:00 AM EDT Telemedicine [facility] [address] [place] [address] Rupinder Euceda, [place] [address] [place] [address] Scheduled Procedures Name Priority Associated [...] colon documented in this encounter Care Teams Thread Cutter Tender Relationship Specialty Start Date End Date Gabriel Iqbal DO [address] [place] [address] PCP - General Family Medicine 08/04/20 documented as of this encounter"
--- OUTSIDE RECORDS SUMMARY | 2023-03-30 15:01 | External Medical Summary | Summary of Care ---
Author Name Unknown Organization [facility] Address [address] [place] [address] Phone [phone] Care Team Providers Care Merchandise Manager Name Role Phone Iqbal Gabriel Kylejaylan Primary Care Provider Reason for Visit * Reason Onset Date Comments Precert Future 03/02/2023 TC/udenyca Encounter Details Date Type Department Care Team (Late st Contact Info) Description 03/02/2023 Telephone Hematology/Oncology Treatment, [place] [address] [place] [phone] Zach Anderson MD [address] [place] [address] Precert Future (TC/udenyca) Allergies Active Allergy Reactions Criticality Noted Date Comments 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, stopped as soon as infusion stopped documented as of this encounter (statuses as of 03/13/2023) Medications Medication Sig Dispensed Refills Start Date End Date Status VITAMIN B-6 100 MG OR TABS 0 03/12/2002 Active albuterol (PROAIR HFA) 108 (90 BASE) MCG/ACT inhalerIndications: Acute bronchitis, complicated Inhale 2 Puffs by mouth 4 times a day. 1 Inhaler 1 04/07/2016 Active B-12-SL 1000 MCG Sublingual Tablet Sublingual (Cyanocobalamin) Place under the tongue 1,000 mcg daily . 90 Tablet 3 10/25/2021 Active Ondansetron HCl 8 MG Oral Tablet (Zofran)Indications :Migraine with aura, intractable Take by mouth 1 Tablet as needed in the morning AND 1 Tablet as needed at noon AND 1 Tablet as needed in the evening for Nausea. 21 Tablet 1 11/22/2021 Active Loperamide HCl 2 MG Oral Tablet (Immodium (A-D)) Take 1 Tablet by mouth 4 times a day as needed for Diarrhea. 0 Active Omeprazole 20 MG Oral Capsule Delayed Release (PriLOSEC) Take by mouth 1 Capsule in the morning. 1 hour before the first meal of the day. 30 Capsule 5 11/22/2021 Active Warfarin Sodium 6 MG Oral Tablet (Coumadin) TAKE 2 Tablets by mouth daily OR DIRECTED BY COUMADIN CLINIC (patient taking up to 3 tabs daily based on INR) 270 Tablet 1 12/20/2021 Active Folic Acid 1 MG Oral Tablet TAKE 1 TABLET BY MOUTH IN THE MORNING 90 Tablet 1 01/26/2023 Active Enoxaparin Sodium 80 MG/0.8ML Injection Solution Prefilled Syringe (Lovenox)Indication s:History of DVT (deep vein thrombosis),Methylt etrahydrofolate reductase mutation,Hereditary factor V deficiency disease (HCC) Inject 70 mg under the skin in the morning and 70 mg before bedtime. As instructed by the [facility]. 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 0 05/12/2003 Overview: ICD-10 update of inactive term MTHFR MUTATION- HOMOZYGOUS 02/28/2003 History of acute myeloid leukemia in remission 0 12/23/2002 documented as of this encounter (statuses as of 03/13/2023) Resolved Problems Problem Noted Date Diagnosed Date [...] as of this encounter (statuses as of 03/13/2023) Immunizations Name Administration Dates Next Due COVID-19 mRNA, LNP-s, No Pre serve, 2-Dose Series ([employer]) 09/03/2020,08/13/2020 TD - Tetanus/Diptheria (ADULT) 05/08/2000 TDAP [...] encounter Miscellaneous Notes * Telephone Encounter - Alida Bhatti OSA - 03/13/2023 12:30 PM EST Per nursing updated lab appt note. Done. * Telephone Encounter - Romina Mcneill RN - 03/13/2023 10:59 AM EST Left message for patient to have lab work drawn, advised she can have them drawn tomorrow when going for PT/INR if she would like to. Scheduling: please add to tomorrows lab appt at "draw CBCd, CMP, hep B labs for Dr Zach Anderson as well". Thanks! * Telephone Encounter - Maribeth Thomas OSA - 03/08/2023 10:38 AM EDT Spoke to patient, scheduled labs/ treatment 03/27/23. * Telephone Encounter - Romina Mcneill RN - 03/08/2023 8:33 AM EDT Port placement 03/17/23. PET 03/20/23. MRI for clips 03/23/23. Scheduling: please call patient to schedule for after 03/23 - labs "CBCd, CMP"- ok to do day prior if patient prefers - 3 hour appt "C1D1 TC/ neulasta day 2" (Justin) - treatment cannot be on a Monday as patient will need to return the day after chemo for neulasta injection Thanks! * Telephone Encounter - Romina Mcneill RN - 03/06/2023 10:04 AM EDT Per precert, both udenyca and fulphila are none preferred. [place]: please change beacon plan to NEULASTA. * Telephone Encounter - Romina Mcneill, RN - 03/02/2023 3:25 PM EDT Order received for TC/ udenyca. [place] plan built and routed for signature. Waiting for auth. Consent signed 03/02/23. PET 03/20/23. Port referral placed- not scheduled yet. Nurse education visit 03/06/23- will need hep B labs. documented in this encounter Plan of Treatment Upcoming Encounters Date Type Department Care Team (Latest Contact Info) Description 03/14/2023 9:10 AM EST Laboratory Laboratory, [facility] [address] [facility] [place] [phone] [facility] [address] [facility] [address] 03/14/2023 1:00 PM EST Office Visit Gynecology/Obstetr ics [facility] [address] [facility] [place] [address] Back[place], MOO Johnson [address] [facility] [address] 03/14/2023 6:00 PM EST Anticoagulation Pharmacy Call Center WB [address] [facility] [place] [address] [facility] [address] [facility] [place] [address] 03/17/2023 2:00 PM EST Appointment Interventional [place]iology [facility] [facility] [address] [facility] [address] [place] [facility] [place] [address] 03/20/2023 7:45 AM EST Imaging Radiology [address] [facility] [address] 03/22/2023 11:30 AM EST Telemedicine Plastic Surgery, [place] [address] [place] [address] Lane Yung MD [address] [place] [address] 03/23/2023 1:00 PM EST Imaging Radiology [facility] 1st [facility] [address] [facility] [address] 03/27/2023 12:00 PM EST Laboratory Laboratory Scenery [facility] [address] [place] [phone] [facility] Scenery [address] [place] [address] 03/27/2023 1:00 PM EST Hem/Onc Treatment Hematology/Oncolog y Treatment, [place] [address] [place] [address] Talia, Chair 2 Hem Onc Scenery [address] [place] [address] 03/31/2023 4:10 PM EST Laboratory Laboratory, [facility] [address] [facility] [place] [phone] Octaviano Durand [facility] [address] [facility] [place] [address] 04/03/2023 6:15 AM EST Anticoagulation Pharmacy Call Center WB [address] [facility] [place] [address] [facility] [address] [facility] [place] [address] 06/02/2023 8:30 AM EST Hospital Encounter ENDO [facility], Endoscopy Room [facility] [address] [facility] [place] [phone] Itzel Monroy DO [address] [facility] [place] [address] 06/02/2023 8:30 AM EST - 06/02/2023 9:00 AM EST Surgery ENDO [facility], Endoscopy Room [facility] [address] [place] [phone] Itzel Monroy, [address] [place] [address] COLONOSCOPY FLEXIBLE PROXIMAL DIAGNOSTIC 08/09/2023 11:00 AM EDT Telemedicine Genetics HemOnc, C [address] [place] [address] Rupinder [place], [place] [address] [place], [place] [id number] Scheduled Orders Name Type Priority Associated Diagnoses Orde r Schedule HEPATITIS B SURFACE ANTIBODY Lab STAT Malignant neoplasm of upper-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, 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) Expected: 03/02/2023 (Approximate), Expires: 03/02/2024 HEPATITIS B SURFACE ANTIGEN Lab STAT Malignant neoplasm of upper-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, 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) Expected: 03/02/2023 (Approximate), Expires: 03/02/2024 HEPATITIS B CORE ANTIBODIES IGG AND IGM Lab STAT Malignant neoplasm of upper-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, 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) Expected: 03/02/2023 (Approximate), Expires: 03/02/2024 CBC WITH WBC DIFFERENTIAL Lab STAT Malignant neoplasm of upper-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, 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) Every 3 Weeks for 15 Occurrences starting 03/02/2023 until 03/02/2024, 1 completed COMPREHENSIVE METABOLIC PANEL Lab STAT Malignant neoplasm of upper-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, 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) Every 3 Weeks for 15 Occurrences starting 03/02/2023 until 03/02/2024, 1 completed Scheduled Procedures Name Priority Associated Diagnoses Date/Ti [...] Not on filedocumented as of this encounter Results * COMPREHENSIVE METABOLIC PANEL (03/03/2023 4:08 PM EDT) BUN 12 6 - 20 mg/dL 03/03/2023 11:20 PM EDT LAB[facility]ATORY [facility] Creatinine 0.9 0.5 - 1.0 mg/dL 03/03/2023 11:20 PM EDT LAB[facility] Estimated Glomerular Filtration Rate 80 >=60 mL/min 03/03/2023 11:20 PM EDT LAB[facility] Comment:eGFR is calculated b ased on the CKD-EPI 2020 equation Sodium 139 135 - 146 mmol/L 03/03/2023 11:20 PM EDT LAB[facility] Potassium 3.9 3.5 - 5.1 mmol/L 03/03/2023 11:20 PM EDT LAB[facility] Chloride 101 98 - 107 mmol/L 03/03/2023 11:20 PM EDT LAB[facility] CO2 27 22 - 32 mmol/L 03/03/2023 11:20 PM EDT [facility] Anion Gap 11 7 - 15 mmol/L 03/03/2023 11:20 PM EDT LAB[facility] Glucose 105 70 - 120 mg/dL 03/03/2023 11:20 PM EDT LAB[facility] Albumin 4.6 3.8 - 5.0 g/dL 03/03/2023 11:20 PM EDT LAB[facility] AST 18 10 - 35 U/L 03/03/2023 11:20 PM EDT LAB[facility] Alkaline Phosphatase 109 35 - 130 U/L 03/03/2023 11:20 PM EDT LAB[facility] Bilirubin, Total 0.4 <=1.2 mg/dL 03/03/2023 11:20 PM EDT LAB[facility] Calcium 9.5 8.4 - 10.2 mg/dL 03/03/2023 11:20 PM EDT LAB[facility] Protein 7.7 6.0 - 8.3 g/dL 03/03/2023 11:20 PM EDT LAB[facility]ATORY [facility] ALT 24 10 - 35 U/L 03/03/2023 11:20 PM EDT LAB[facility]ATORY [facility] Blood Venous blood specimen / Unknown Venipuncture / Unknown 03/03/2023 4:08 PM EDT 03/03/2023 4:08 PM EDT Zach Anderson MD LAB BLOOD ORDERABLES LABORATORY [facility] [address] [place] [address] documented in this encounter Visit Diagnoses Diagnosis Malignant neoplasm of upper-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, estrogen receptor positive- Primary 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
--- OUTSIDE RECORDS SUMMARY | 2023-03-30 15:01 | External Medical Summary ---
Author Name Unknown Address Unknown Organization K01:LABORATORY [address] [facility] [address] Laboratory Report Ordering Provider Test Date Status JIMENA MARTIN 03/14/2023 13:44:30 Final Observation Date Value Abnormality Reference (Units ) Status Herpes simplex virus 1+2 DNA [Presence] in Specimen by DAMIR with probe detection 03/14/2023 13:44:30 Negative Negative Final No Herpes Simplex Virus Type 1 detected by PCR (amplified probe). Herpes simplex virus 1+2 DNA [Presence] in Specimen by DAMIR with probe detection 03/14/2023 13:44:30 Negative Negative Final No Herpes Simplex Virus Type 2 detected by PCR (amplified probe). Varicella zoster virus DNA [Presence] in Specimen by DAMIR with probe detection 03/14/2023 13:44:30 Negative. No Varicella Zoster Virus detected by PCR (amplified Probe). Negative Final This test was developed and its performance characteristics determined by [employer]. It has not been cleared or approved by the FDA. The laboratory is regulated under CLIA as qualified to perform high- complexity testing. This test is used for clinical purposes. It should not be regarded as investigational or for research. Performing Location LABORATORY [address] [place] [facility] [address]
--- OUTSIDE RECORDS SUMMARY | 2023-03-30 15:01 | External Medical Summary | Summary of Care ---
Author Name Unknown Organization [facility] Address [address] [place] [facility] [place] [place] [address] Phone [phone] Care Team Providers Care Industrial Green Systems Designer Name Role Phone Iqbal Gabriel Kylejaylan Primary Care Provider Reason for Visit * Reason Onset Date Comments Precert Future 03/02/2023 TC/udenyca Encounter Details Date Type Department Care Team (Late st Contact Info) Description 03/02/2023 Telephone Hematology/Oncology Treatment, [place] [address] [place] [phone] Zach Anderson MD [address] [place] [address] Precert Future (TC/udenyca) Allergies Active Allergy Reactions [...] mg before bedtime. As instructed by the [facility]. 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 [place]: please change beacon plan to NEULASTA. * Telephone Encounter - Romina Mcneill RN - 03/02/2023 3:25 PM EDT Order received for TC/ udenyca. [place] plan built and routed for signature. Waiting for auth. Consent signed 03/02/23. PET 03/20/23. Port referral placed- not scheduled yet. Nurse education visit 03/06/23- will need hep B labs. documented in this encounter Plan of Treatment Upcoming Encounters Date Type Department Care Team (Latest Contact Info) Description 03/14/2023 9:10 AM EST Laboratory Laboratory, [address] [phone] [address] [place] [address] 03/14/2023 1:00 PM EST Office Visit Gynecology/Obstetr ics [address] [place] [address] Backer, MOO Johnson 132 [facility] [place] [address] 03/14/2023 6:00 PM EST Anticoagulation Pharmacy Call Center [address] [place] [address] [facility], [facility] [address] [place] [address] 03/17/2023 2:00 PM EST Appointment Interventional Radiology [facility] [place], [facility] 1st [facility] [address] [place] [address] 03/20/2023 7:45 AM EST Imaging Radiology [address] [address] 03/22/2023 11:30 AM EST Telemedicine Plastic Surgery, [place] [address] [place] [address] Lane Yung MD [address] [place] [address] 03/23/2023 1:00 PM EST Imaging Radiology [address] [place] [address] 03/27/2023 12:00 PM EST Laboratory Laboratory [facility] [place] [address] [place] [phone] [facility] Lab Scenery [address] [place] [address] 03/27/2023 1:00 PM EST Hem/Onc Treatment Hematology/Oncolog y Treatment, [place] [address] [place] [address] Talia, Chair 2 Hem Onc Scenery [address] [place] [address] 03/31/2023 4:10 PM EST Laboratory Laboratory, [facility] [place] [phone] Octaviano Durand [facility] 132 [facility] [place] [address] 04/03/2023 6:15 AM EST Anticoagulation Pharmacy Call Center WB [address] [facility] [place] [address] [facility] 58 60 [facility] [place] [address] 06/02/2023 8:30 AM EST Hospital Encounter ENDO [facility], Endoscopy Room [facility] [address] [place] [phone] Itzel Monroy, [address] [place] [address] 06/02/2023 8:30 AM EST - 06/02/2023 9:00 AM EST Surgery ENDO [facility], Endoscopy Room [facility] [address] [place] [phone] Itzel Monroy DO [address] [place] [address] COLONOSCOPY FLEXIBLE PROXIMAL DIAGNOSTIC 08/09/2023 11:00 AM EDT Telemedicine Genetics HemOnc, [facility] [address] 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 [facility] [place] [address] PCP - General Family Medicine 08/04/20 documented as of this encounter
--- OUTSIDE RECORDS SUMMARY | 2023-03-30 15:01 | External Medical Summary | Summary of Care ---
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, estrogen receptor positive Procedures IR VENOUS ACCESS Zach Bills MD [address] [place] [address] Referral ID Status Reason Start Date Expiration Date V isits Requested Visits Authorized [id number] Authorized Precert 03/09/2023 11/29/2025 999 999 Reason for Visit * Precert (Within 10 days (routine)) - Authorized Specialty Diagnoses / Procedures Referred By Contac t Referred To Contact Radiology Diagnoses 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, estrogen receptor positive Procedures IR VENOUS ACCESS Zach Bills MD [address] [place] [address] Referral ID Status Reason Start Date Expiration Date V isits Requested Visits Authorized [id number] Authorized Precert 03/09/2023 11/29/2025 999 999 Encounter Details Date Type Department Care Team (Latest Contact Info) Description 03/17/2023 12:39 PM EST - 03/17/2023 4:02 PM EST Hospital Encounter Radiology Waiting Room [facility], [place] 1[address] [place] [address] Ham Arteaga MD [address] [place] [address] Arrived Discharge Disposition: Home - Self Care Allergies Active Allergy Reactions Criticality Noted Date [...] (intrauterine device) in place 08/17/2015 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 skilled nursing current use of anticoagulant therapy 0 05/12/2003 [...] mRNA, LNP-s, No Pre serve, 2-Dose Series ([employer]) 09/03/2020,08/13/2020 TD - Tetanus/Diptheria (ADULT) 05/08/2000 TDAP [...] Sign Reading Time Taken Comments Blood Pressure 121/81 03/17/2023 3:50 PM EST Pulse 102 03/17/2023 3:50 PM EST Temperature 36.2 C (97.2 F) 03/17/2023 3:50 PM ES T Respiratory Rate 19 03/17/2023 3:50 PM EST Oxygen Saturation 100% 03/17/2023 3:50 PM EST Inhaled Oxygen Concentration - - Weight - - Height - - Body Mass Index - - documented in this encounter Discharge Instructions * Discharge Instr - AVS* Hong Naylor MD - 03/17/2023 1:32 PM EST Discharge Date: 03/17/2023 Provider: Dr. Hong Naylor If you are experiencing any problems related to your procedure, please contact Interventional Radiology at [phone] during normal business hours: Monday - Monday, 8:00 am - 4:00 pm. If a problem occurs outside of normal business hours, please call the hospital tumbler machine operator at [phone] and ask for the Interventional Radiologist outside production inspector. Contact scheduling for Interventional Radiology at [phone] during normal business hours: Monday - Monday, 8:00 am - 4:00 pm. The information below provides you with the instructions and the list of medications you need to betaking following discharge from the hospital. If you have any questions, please ask before leaving.Please carry this letter with you when you see your doctor in the clinic. If you have questions, you can reach us at the numbers above. SPECIAL INSTRUCTIONS Mediport Insertion (Implanted Central Venous Access) A Mediport is a sealed chamber covered by a silicone disc that is surgically placed in a pocket under the skin on the upper chest, just below the collarbone. This chamber connects to a flexible tube that goes into a large vein in the neck. The tip is near the heart. The port provides direct access to the bloodstream and can be used in drawing blood samples and giving intravenous fluids and medications. Some ports allow CT scan injections; these ports are referred to as "Power Ports." The port will be visible only as a small raised area beneath your skin. Home Care If you experience pain or discomfort at the site you may use a cold pack on the site and/or take acetaminophen (Tylenol) or your preferred pain medicine as directed. Avoid contact sports or any activity that may cause blunt force impact to the port area, as it may damage your port. Avoid strenuous activity for 24 to 48 hours after the procedure. Do not lift anything heavier than 10 pounds for 3 days after the procedure. Gradually increase your activity after 24 to 48 hours after the procedure. No dressing changes or wound care are needed at the insertion site. Your wound is closed with sutures on the inside and then sealed on the outside with a special "skin glue" called Dermabond (a surgical glue). Depending on your physician's preference, there may also be "steri strips" applied. It isvery important to let these special bandages fall off on their own. Please do not scrub or pull these bandages off. You may gently wash the area with soap and water. Depending on your physician's preference, there may also be gauze and Tegaderm (clear) bandage overthe Mediport insertion site. You may remove this bandage in 24 hours. You may shower in 24 hours. Gently wash the area and pat it dry. Please DO NOT take a bath, soak in a hot tub, or swim until the wound is completely healed. Your port must be accessed and flushed/heparinized every 30 days if it is not currently being used. When to Call Interventional Radiology Call Interventional Radiology right away if you have any of the following: Fever above 100 degrees Fahrenheit Increased bleeding, redness, swelling, warmth, or discharge at the incision site. Constant or increasing pain, numbness, coldness, or tingling around the incision area. Vomiting or nausea that does not go away If at any time you experience any of the following or feel you are having a medical emergency, [id number] for emergency assistance. Chest Pain Sudden, severe shortness of breath Rapid heart rate Sudden onset of weakness Do not smoke or use tobacco products in any way! If you feel suicidal or homicidal, please call the crisis hotline at [phone] ([phone]) Driving: You may resume driving in 24 hours, if previously allowed . Diet: You may resume your current diet as tolerated. School/Work: You can return to school or work 24 hours after the procedure. 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 Patient denies fever, chills, chest pain, shortness of breath, nausea, vomiting, or diarrhea. Past Medical History: Diagnosis Date Acute myeloid [...] double lumen phillip catherters LAPAROSCOPY; CHOLECYSTECTOMY 07/10/03 [facility] Dr. 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 Prior to Admission medications Medication Sig Last Dose Discont. dexAMETHasone 4 MG Oral Tablet (Decadron) Take 8mg (2 tabs) twice a day x3 days starting the day before chemotherapy Lidocaine-Prilocaine 2.5-2.5 % External Cream (Emla) APPLY TO SKIN OVER MEDIPORT & COVER 1HR PRIOR TO ACCESSING. Ondansetron HCl 8 MG Oral Tablet (Zofran) Take 1 Tablet by mouth every 8 hours as needed for Nausea. Folic Acid 1 MG Oral Tablet TAKE 1 TABLET BY MOUTH IN THE MORNING Warfarin Sodium 6 MG Oral Tablet (Coumadin) TAKE 2 Tablets by mouth daily OR DIRECTED BY COUMADIN CLINIC (patient taking up to 3 tabs daily based on INR) Loperamide HCl 2 MG Oral Tablet (Immodium (A-D)) Take 1 Tablet by mouth 4 times a day as needed forDiarrhea. Ondansetron HCl 8 MG Oral Tablet (Zofran) Take by mouth 1 Tablet as needed in the morning AND 1 Tablet as needed at noon AND 1 Tablet as needed in the evening for Nausea. B-12-SL 1000 MCG Sublingual Tablet Sublingual (Cyanocobalamin) Place under the tongue 1,000 mcg daily . albuterol (PROAIR HFA) 108 (90 BASE) MCG/ACT inhaler Inhale 2 Puffs by mouth 4 times a day. VITAMIN B-6 100 MG OR TABS REVIEW OF SYSTEMS: Per HPI. OBJECTIVE: PHYSICAL EXAM: BP 151/84 | Pulse 92 | Temp 37 C (98.6 F) (Tympanic) | Resp 15 | SpO2 100% Constitutional: no acute distress HEENT: mucous membranes moist Neck: supple CV: regular Chest: normal respiratory effort Neuro: alert and oriented Medications, labs and imaging were reviewed. PRE-SEDATION ASSESSMENT: Level of sedation planned: Moderate Patient's allergies reviewed: Yes Difficulty with sedation / anesthesia: No Sleep apnea: No History of snoring: Yes History of difficult intubation: No Decreased ROM neck flexion/extension: No Tracheal deviation: No Decreased ability to open mouth / TMJ: No Loose teeth / dentures / partial: No Congenital deformities / abnormalities: No Dysphagia: No Mallampati Classification: I - soft palate, uvula, fauces, pillars visible ASA Risk Stratification (Select One): ASA 2 - Mild systemic disease, no functional limitations The patient was identified and the procedure verified: Yes The patient was reevaluated immediately prior to the sedation: 03/17/2023 1:46 PM IMPRESSION/PLAN: Ruth Hylton is a 47 year old female with history of clotting disorder on chronic warfarin, acutemyeloid leukemia in remission, now with 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 Plan to proceed with the procedure under moderate sedation. Howard Morin MD [facility] Radiology, PGY-4 Associated attestation - Hong Naylor MD - 03/17/2023 1:54 PM EST I have discussed the patient's management with the medical trainee and agree with the note. Please refer to the documented findings and plan of care. This patient's visit today consisted of an evaluation. I was present and confirmed the findings of the history and exam. Hong Naylor MD documented in this encounter Procedure Notes * Viviane Resendez RN - 03/17/2023 2:51 PM ESTAssociated Order(s): Central Line PROCEDURE NOTE [address] [id number] Name: Ruth Hylton Location: RADIOLOGY WAITING ROOM/IR Date: 03/17/2023 Time: 2:51 PM Central Line General Information and Staff: Performed by: Hong Naylor MD Assisted by: Howard Morin MD Procedure Date/Time: 03/17/2023 2:52 PM Patient Location: IR Indication: Anesthesia Management in anticipation of needing access for monitoring, pacing, transfusion and/or vasoactive medications and Chemotherapy Patient identity confirmed: Verbally with patient and arm band Verbal confirmation: MRN, name and date of Verbal consent obtained: No Written consent obtained: Yes Consent given by: Patient Understanding of procedure being performed: Yes Understanding of procedure matches verbalized consent: Yes Procedure consent matches procedure scheduled: Yes Allergies reviewed: Yes Site marked: n/a Verify correct position: Yes Radiology Studies available/reviewed: yes Relevant Lab Results available/reviewed: n/a Required items available: yes Other healthcare professional(s) verbalize(s) agreement with time out: Yes Name(s): See official timeout documentation for details Time out: Immediately prior to the procedure a time out was completed Anticoagulation therapy: Yes Medication: Warfarin (Coumadin) Procedure Detail: Sterility Preparation: mask worn, sterile gloves worn, cap worn, sterile sheet used, sterile gown worn and full body drape Provider Hand Hygiene: antimicrobial soap and water Medical Reason for Not Performing Maximal Sterile Barrier Technique: No Placement conditions: Elective Patient Position: Supine Prep: Chlorhexidine Local Anesthetic Used: Yes Catheter Type: Implanted Port Implanted Port Location: Chest Power Port: Yes Catheter Total Length (cm): 23 Lot Number: [id number]; expiration date 10/05/2024 Number of Lumens: Single lumen Oximetric Catheter?: No Number of Needle Passes: 1 Placement: target vein identified, needle advanced into vein and blood aspirated and guidewire advanced into vein Radiologic Support with Sterile Technique: ultrasound guidance used and live fluoroscopy Sterile gel and probe cover used for ultrasound?: Yes Intravenous Verification: verified by ultrasound, venous blood return, verified by x-ray and live fluoroscopy Outcomes/Complications: patient tolerated procedure well with no complications Estimated blood loss (mL): Minimal PA Catheter Placed?: No Post Insertion: Post Insertion Details: all ports aspirated, all ports flushed easily and guidewire was removed, examined and appears intact Other: Dermabond applied to site Site cleansed: Normal saline Line secured with: Braided Suture Attestation: Attestation: Attending present for earl portions of procedure and immediately available, I was present during the entire procedure performed by a resident or advanced practitioner and The earl portionsof this procedure were performed in my presence Additional Comments: Tip location: right atrium Mediport locked with heparin during IR insertion procedure. Line placement confirmed during IR insertion procedure; okay for use in 24-48 hours. documented in this encounter Nursing Notes * Marguerite Nguyen RN - 03/17/2023 3:58 PM EST DISCHARGE - POST INTERVENTIONAL RADIOLOGY PROCEDURE Patient meets discharge criteria for Interventional Radiology. Vital signs stable. Dressing clean, dry, and intact. IV site removed. Patient awake and oriented to pre procedure baseline. Discharge instructions given, no questions at this time. Patient tolerating liquids, with no nausea/vomiting. All belongings sent with patient. Discharged to home. Vital Signs: BP: 121/81 (03/17/230) Temp: 36.2 C (97.2 F) (03/17/231549) Pulse: 102 (03/17/231549) Resp: 19 (03/17/231549) SpO2: 100 % (03/17/231549) Neurological: Guzman Coma Scale Eyes Open: Spontaneous (03/17/231549) Best Verbal Response: Verbally appropriate for age (03/17/231549) Best Motor Response: Obeys commands appropriate for age (03/17/231549) Coma Score: 15 (03/17/231549) Activity: Four Extremities LOC: Fully Awake or Pre-Anesthetic Level of Consciousness BP: Less than (+/-) 20% Resp: Deep Breathe and Cough Freely (03/17 1544) Respiratory: Pain Assessment Flowsheet Row Most Recent Value [facility] Scale [facility] 0-10 Pain Score 0 (no pain) * Viviane Resendez RN - 03/17/2023 2:21 PM EST electronic engineering draftsperson note Name: Ruth Hylton Procedure: Mediport Insertion Patient ID band checked using two identifiers. Patient placed on procedure table in the supine position with comfort measures intact and safety strap in place. Hemodynamic monitoring initiated. Patient denies any complaints at current time. RT staff preparing patient for procedure. Reevaluation statement: RN received verbal confirmation that the patient was reevaluated by Dr. Hong Naylor immediately prior to the sedation at 2:23 PM. 2:22 PM Timeout performed by Dr. Hong Naylor 2:23 PM 2 mg Versed administered. 2:26 PM 50 mcg Fentanyl administered. 2:30 PM Pre counts completed. 2:33 PM Procedure started by Dr. Hong Naylor and Marco Antonio scrubbed RT. Ultrasound utilized for anatomical analysis of patient and access needle guidance. 1% buffered lidocaine being given at the left neck. 2:34 PM 1 mg Versed administered. 2:35 PM Access obtained. Guidewire inserted. Imaging ongoing. 2:39 PM 1% buffered lidocaine and lidocaine with Epi being given at the left chest. 2:40 PM 50 mcg Fentanyl administered. 2:43 PM Incision made. 2:49 PM 50 mcg Fentanyl administered. 2:51 PM Mediport placed, see Central Line Note. Images obtained. Mediport has positive blood return, has been flushed, and locked with Heparin. 2:54 PM First closure counts completed. Counts verified and correct. 3:10 PM Final closure sutures placed. Final Count completed. Counts verified and correct. Dermabondapplied. 3:14 PM Area cleaned. Steri-strips and Medipore dressing applied. All wires, catheters, sheaths and other devices have been inspected prior to the procedure for damage. This has been confirmed by the scrubbed RT and the operating physician. All items not intended to remain in the patient have been inspected, accounted for and have been removed from the patient atthe end of the procedure. This has been confirmed by the scrubbed RT and the operating physician. Pt did receive conscious sedation for their procedure, and was sedated from 2:26 PM to 3:18 PM. Total Medications Versed: 3 mg Fentanyl: 100 mcg 1% buffered lidocaine: 17 mL Lidocaine with epi: 10 mL Heparin: 5 mL Please see doctor's operative note for additional details. documented in this encounter Miscellaneous Notes * Sedation Note - Hong Naylor MD - 03/17/2023 3:23 PM EST Post Sedation Evaluation: Cardiovascular status: acceptable Level of consciousness: awake and alert Airway patency: patent Distress - NAD Hydration status - well hydrated Nausea/vomiting - not present Pain Evaluation Pain Assessment Flowsheet Row Most Recent Value Pain Assessment Scale [facility] Adult Scale 0-10 Pain Score 0 (no pain) Vital Signs: Temp: 37 C (98.6 F) (03/17 1330) BP: 147/81 (03/17 1505) Pulse: 117 (03/17 1505) Resp: 20 (03/17 1505) SpO2: 100 % (03/17 1505) I have personally examined the patient, prescribed the necessary medications as charted, and certify that Ruth Hylton is recovered for safe discharge from my face to face care. documented in this encounter Plan of Treatment Upcoming Encounters Date Type Department Care Team (Latest Contact Info) Description 03/20/2023 7:45 AM EST Imaging Radiology [address] [place] [address] 03/22/2023 11:30 AM EST [facility] [address] [place] [address] Lane Yung MD [address] [place] [address] 03/23/2023 1:00 PM EST Imaging Radiology [address] [place] [address] 03/23/2023 2:10 PM EST Laboratory Laboratory, [address] [place] [phone] [facility] [address] [place] [address] 03/24/2023 6:15 AM EST Anticoagulation Pharmacy Call Center WB [address] [facility] [place] [address] [facility] 58 60 [facility] [place] [address] 03/27/2023 12:00 PM EST Laboratory Laboratory [facility] [place] [address] [place] [id number] [place], Lab Scenery [address] [facility] [place] [address] 03/27/2023 1:00 PM EST Hem/Onc Treatment Hematology/Oncology Treatment, [place] [address] [place] [address] [place], Chair 2 Hem Onc Scenery [address] [place] [address] 03/31/2023 4:10 PM EST [facility] [place] [address] [place] [id number] DurandOctaviano perales [facility] [address] [place] [address] 04/03/2023 6:15 AM EST Anticoagulation Pharmacy Call Center WB [address] [facility] [place] [address] [facility] 58 60 [facility] [place] [address] 06/02/2023 8:30 AM EST Hospital Encounter ENDO [facility], Endoscopy Room [facility] [address] [place] [phone] Itzel Monroy DO [address] [place] [address] 06/02/2023 8:30 AM EST - 06/02/2023 9:00 AM EST Surgery ENDO [facility], Endoscopy Room [facility] [address] [place] [phone] Itzel Monroy DO [address] [place] [address] COLONOSCOPY FLEXIBLE PROXIMAL DIAGNOSTIC 08/09/2023 11:00 AM EDT Telemedicine Genetics HemOnc, [place] [address] [place] [address] Rupinder [place], [place] [address] [place] [address] Scheduled Procedures Name Priority Associated [...] this encounter Medical Devices Implanted Type Area Six Color Press Operator Device Identifier Shelf Expiration Date Model / Serial / Lot Port Implant W/8f Poly Cath - [id number] Implanted:Qty: 1 on 03/17/2023 at [facility] : PERIPHERAL VASCULAR [id number] 10/05/2024 [id number] / / [id number] documented as of this encounter Procedures Procedure Name Priority Date/Time Associated Diagnosis Comments IR VENOUS ACCESS MEDIPORT Routine 03/17/2023 3:06 PM EST 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 I have personally reviewed this examination and agree with the resident/fellow physician's interpretation. Narrative 03/17/2023 3:42 PM EST PROCEDURE: Left chest medical port placement INDICATION: 39-year-old female with right breast cancer in need of central intravenous access for chemotherapy. ATTENDING (OPERATING PHYSICIAN): Dr. Hong Naylor SCRUBBED RESIDENT (OPERATING PHYSICIAN): Dr. Howard Morin SUPPORTING PROVIDER (LEAD CYTOGENETIC TECHNOLOGIST): RT Ashley CONSENT: After a detailed discussion of the procedure, risks, benefits and alternative treatment options, informed consent was obtained. TIME OUT: A time out procedure was performed. The patient's identification was verified. Informed consent with agreement of procedure, site and position was obtained. All necessary equipment was available prior to procedure. CONTRAST: No contrast was administered. COMPLICATIONS: None. ANESTHESIA: Local lidocaine. IV Versed. IV Fentanyl. SEDATION TIME: Start to end: 2:26 p.m. to 3:18 p.m. (52 minutes). Qualified nurse sedation observer Viviane Resendez RN. MEDICATIONS: See MAR PROCEDURE DESCRIPTION: The left neck and chest were prepped and draped in the usual sterile fashion. Using real-time ultrasound guidance, the left internal jugular vein was punctured with a micro puncture needle. Digital ultrasound images were acquired and digitally archived. A wire and sheath were used to secure access to the internal jugular vein access using fluoroscopic guidance. A second incision was made in the upper chest and a pocket was created. The medical port catheter was tunneled from the pocket to the venotomy site, measured to 23 cm and then cut. A peel-away sheath was placed through the venotomy over the wire and the catheter was positioned under fluoroscopic guidance. Once the medical port and catheter were in satisfactory position, the medical port was accessed, had appropriate blood return, and easily flushed and was locked with dilute heparin. The incision was then closed with absorbable suture and surgical glue. The venotomy site was closed with absorbable suture and surgical glue. The procedure was performed under the personal supervision of Dr. Naylor who was present for the entire procedure. FINDINGS: Ultrasound shows an anechoic and compressible left internal jugular vein. The medical port is in the left upper chest with the catheter tip at the proximal right atrium. Procedure Note Hong Naylor MD - 03/17/2023 PROCEDURE: Left chest medical port placement INDICATION: 39-year-old female with right breast cancer in need of centralintravenous access for chemotherapy. ATTENDING (OPERATING PHYSICIAN): Dr. Hong Naylor SCRUBBED RESIDENT (OPERATING PHYSICIAN): Dr. Howard Morin SUPPORTING PROVIDER (LEAD CYTOGENETIC TECHNOLOGIST): RT Ashley CONSENT: After a detailed discussion of the procedure, risks, benefits andalternative treatment options, informed consent was obtained. TIME OUT: A time out procedure was performed. The patient's identificationwas verified. Informed consent with agreement of procedure, site andposition was obtained. All necessary equipment was available prior toprocedure. CONTRAST: No contrast was administered. COMPLICATIONS: None. ANESTHESIA: Local lidocaine. IV Versed. IV Fentanyl. SEDATION TIME: Start to end: 2:26 p.m. to 3:18 p.m. (52 minutes).Qualified nurse sedation observer Viviane Resendez RN. MEDICATIONS: See MAR PROCEDURE DESCRIPTION: The left neck and chest were prepped and draped inthe usual sterile fashion. Using real-time ultrasound guidance, the leftinternal jugular vein was punctured with a micro puncture needle. Digitalultrasound images were acquired and digitally archived. A wire and sheathwere used to secure access to the internal jugular vein access usingfluoroscopic guidance. A second incision was made in the upper chest and a pocket was created.The medical port catheter was tunneled from the pocket to the venotomysite, measured to 23 cm and then cut. A peel-away sheath was placedthrough the venotomy over the wire and the catheter was positioned underfluoroscopic guidance. Once the medical port and catheter were in satisfactory position, themedical port was accessed, had appropriate blood return, and easilyflushed and was locked with dilute heparin. The incision was then closedwith absorbable suture and surgical glue. The venotomy site was closedwith absorbable suture and surgical glue. The procedure was performed under the personal supervision of Dr. Kaur was present for the entire procedure. FINDINGS: Ultrasound shows an anechoic and compressible left internal jugular vein.The medical port is in the left upper chest with the catheter tip at theproximal right atrium. IMPRESSION IMPRESSION: Successful placement of a left chest power injectable medical port. I have personally reviewed this examination and agree with the resident/fellow physician's interpretation. Zach Anderson MD RAD SPECIAL PROCEDUR ES * Central Line (03/17/2023 2:51 PM EST) Narrative Hong Naylor MD - 03/17/2023 2:51 PM EST Viviane Resendez RN 03/17/2023 3:04 PM Central Line General Information and Staff: Performed by: Hong Naylor MD Assisted by: Howard Morin MD Procedure Date/Time: 03/17/2023 2:52 PM Patient Location: IR Indication: Anesthesia Management in anticipation of needing access for monitoring, pacing, transfusion and/or vasoactive medications and Chemotherapy Patient identity confirmed: Verbally with patient and arm band Verbal confirmation: MRN, name and date of Verbal consent obtained: No Written consent obtained: Yes Consent given by: Patient Understanding of procedure being performed: Yes Understanding of procedure matches verbalized consent: Yes Procedure consent matches procedure scheduled: Yes Allergies reviewed: Yes Site marked: n/a Verify correct position: Yes Radiology Studies available/reviewed: yes Relevant Lab Results available/reviewed: n/a Required items available: yes Other healthcare professional(s) verbalize(s) agreement with time out: Yes Name(s): See official timeout documentation for details Time out: Immediately prior to the procedure a time out was completed Anticoagulation therapy: Yes Medication: Warfarin (Coumadin) Procedure Detail: Sterility Preparation: mask worn, sterile gloves worn, cap worn, sterile sheet used, sterile gown worn and full body drape Provider Hand Hygiene: antimicrobial soap and water Medical Reason for Not Performing Maximal Sterile Barrier Technique: No Placement conditions: Elective Patient Position: Supine Prep: Chlorhexidine Local Anesthetic Used: Yes Catheter Type: Implanted Port Implanted Port Location: Chest Power Port: Yes Catheter Total Length (cm): 23 Lot Number: [id number]; expiration date 10/05/2024 Number of Lumens: Single lumen Oximetric Catheter?: No Number of Needle Passes: 1 Placement: target vein identified, needle advanced into vein and blood aspirated and guidewire advanced into vein Radiologic Support with Sterile Technique: ultrasound guidance used and live fluoroscopy Sterile gel and probe cover used for ultrasound?: Yes Intravenous Verification: verified by ultrasound, venous blood return, verified by x-ray and live fluoroscopy Outcomes/Complications: patient tolerated procedure well with no complications Estimated blood loss (mL): Minimal PA Catheter Placed?: No Post Insertion: Post Insertion Details: all ports aspirated, all ports flushed easily and guidewire was removed, examined and appears intact Other: Dermabond applied to site Site cleansed: Normal saline Line secured with: Braided Suture Attestation: Attestation: Attending present for earl portions of procedure and immediately available, I was present during the entire procedure performed by a resident or advanced practitioner and The earl portions of this procedure were performed in my presence Additional Comments: Tip location: right atrium Mediport locked with heparin during IR insertion procedure. Line placement confirmed during IR insertion procedure; okay for use in 24-48 hours. 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 Personal history of myeloid leukemia Malignant neoplasm of upper-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, estrogen receptor positive Screening for colon cancer Special screening for malignant neoplasms, colon documented in this encounter Administered Medications Inactive Administered Medications - up to 3 most recent administrations Medication Order MAR Action Action Date Dose Rate Site buffered lidocaine 1 % inj Intradermal, ONCE PRN INTRA PROCEDURE, Starting on Mon03/17/23 at 1440, Until Mon03/17/23 at 1440, Intra-Op Given 03/17/2023 2:40 PM EST 17 mL fentaNYL (PF) inj ONCE PRN INTRA PROCEDURE, Starting on Mon03/17/23 at 1426, Until Mon03/17/23 at 1449, Intra-Op Given 03/17/2023 2:49 PM EST 50 mcg Given 03/17/2023 2:40 PM EST 50 mcg Given 03/17/2023 2:26 PM EST 50 mcg hEParin 100 UNIT/ML Lock Flush inj ONCE PRN INTRA PROCEDURE, Starting on Mon03/17/23 at 1454, Until Mon03/17/23 at 1454, Intra-Op Given 03/17/2023 2:54 PM EST 5 mL lidocaine-epinephrine 2 %-1:214304 inj Subcutaneous, ONCE PRN INTRA PROCEDURE, Starting on Mon03/17/23 at 1439, Until Mon03/17/23 at 1439, Intra-Op Given 03/17/2023 2:39 PM EST 10 mL Chest Left midazolam (Versed) 2 MG/2ML inj ONCE PRN INTRA PROCEDURE, Starting on Mon03/17/23 at 1423, Until Mon03/17/23 at 1434, Intra-Op Given 03/17/2023 2:34 PM EST 1 mg Given 03/17/2023 2:23 PM EST 2 mg documented in this encounter Active and Recently Administered Medications Times are shown in EST. PRN Medication Order 03/15/2023 03/16/2023 03/17/2023 buffered lidocaine 1 % inj (COMPLETED) Intradermal, ONCE PRN INTRA PROCEDURE, Starting on Mon03/17/23 at 1440, Until Mon03/17/23 at 1440, Intra-Op 1440 (Given - Provid er: Hong Naylor MD - Comment: total administered during IR procedure) fentaNYL (PF) inj (COMPLETED) ONCE PRN INTRA PROCEDURE, Starting on Mon03/17/23 at 1426, Until Mon03/17/23 at 1449, Intra-Op 1426 (Given - Provid er: Viviane Resendez RN)1440 (Given - Provider: Viviane Resendez RN)1449 (Given - Provider: Viviane Resendez RN) hEParin 100 UNIT/ML Lock Flush inj (COMPLETED) ONCE PRN INTRA PROCEDURE, Starting on Mon03/17/23 at 1454, Until Mon03/17/23 at 1454, Intra-Op 1454 (Given - Provid er: Hong Naylor MD) lidocaine-epinephrine 2 %-1:602061 inj (COMPLETED) Subcutaneous, ONCE PRN INTRA PROCEDURE, Starting on Mon03/17/23 at 1439, Until Mon03/17/23 at 1439, Intra-Op 1439 (Given - Provid er: Viviane Resendez RN - Comment: total administered during IR procedure) midazolam (Versed) 2 MG/2ML inj (COMPLETED) ONCE PRN INTRA PROCEDURE, Starting on Mon03/17/23 at 1423, Until Mon03/17/23 at 1434, Intra-Op 1423 (Given - Provid er: Viviane Resendez RN)1434 (Given - Provider: Viviane Resendez RN) documented in this encounter Care Teams Data Warehouse Specialist Relationship Specialty Start Date End Date Gabriel Iqbal DO [address] [place] [address] PCP - General Family Medicine 08/04/20 documented as of this encounter
--- OUTSIDE RECORDS SUMMARY | 2023-03-30 15:01 | External Medical Summary | Summary of Care ---
Author Name Unknown Organization [facility] Address [address] [place] [address] Phone [phone] Care Team Providers Care Physical Education Professor Name Role Phone Rasheed Gabriel Kylejaylan Primary Care Provider Reason for Visit * Reason Comments Dosage Adjustment In Person (Anticoag Cl inic) Encounter Details Date Type Department Care Team (Latest Contact Info) Description 03/17/2023 8:30 AM EST Anticoagulation Pharmacy, [facility] [address] [facility] [place] [address] [facility] [address] [facility] [place] [address] History of DVT (deep vein thrombosis)*; MTHFR MUTATION- HOMOZYGOUS; Hereditary factor V deficiency disease (HCC); Anticoagulation management encounter; 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 jail current use of anticoagulant therapy 0 05/12/2003 Overview: ICD-10 update of inactive term MTHFR MUTATION- HOMOZYGOUS 02/28/2003 History of acute myeloid leukemia in remission 0 12/23/2002 documented as of this encounter (statuses as of 03/17/2023) Resolved Problems Problem Noted Date Diagnosed Date [...] as of this encounter (statuses as of 03/17/2023) Immunizations Name Administration Dates Next Due COVID-19 [...] as of this encounter Progress Notes * Shirley Manzano RPh - 03/17/2023 8:34 AM EST Images from the original note were not included. Medication Therapy Disease Management - Anticoagulation Patient: Ruth Hylton | : 1975 Subjective Patient-Reported Symptoms: Objective Current Warfarin Dose As of 03/17/2023 Warfarin maintenance plan: 9 mg (6 mg x 1.5) every Fri; 12 mg (6 mg x 2) all other days INR Result As of 03/17/2023 INR goal: 2.5-3.5 INR used for dosin.2 (03/17/2023) Assessment & Plan Warfarin Plan As of 03/17/2023 Full warfarin instructions: 03/17: 12 mg; Otherwise 9 mg every Fri; 12 mg all other days Next INR check: Repeat PT/INR in as per telepharmacy Weekly dose: not changed Additional Dosing Information: Description [facility] Mediport Placement 03/17/23 Colonoscopy 06/02/23 Shirley Manzano RPh Clinical Pharmacist 03/17/2023, 8:40 AM documented in this encounter Plan of Treatment Upcoming Encounters Date Type Department Care Team (Latest Contact Info) Description 03/17/2023 12:30 PM EST Laboratory Outpatient Laboratory, [place] [address] [place] [facility] [place] [address] Tony, Lab B1a [address] [place] [facility] [place] [address] 03/17/2023 2:00 PM EST Hospital Encounter [place]ventional [place] [facility] [facility] 1st [facility] [address] [facility] [address] 03/20/2023 7:45 AM EST Imaging Radiology [facility] 1st [facility], [address] [place] [address] 03/22/2023 11:30 AM EST Telemedicine Plastic Surgery, Tony [address] [place] [address] Lane Yung MD [address] [facility] [place] [address] 03/23/2023 1:00 PM EST Imaging Radiology [facility] 1st [facility] [address] [facility] [place] [address] 03/27/2023 12:00 PM EST Laboratory Laboratory Scenery [facility] [address] [place] [phone] Talia Lab Scenery [address] [place] [address] 03/27/2023 1:00 PM EST Hem/Onc Treatment Hematology/Oncology Treatment, [place] [address] [place] [address] Talia, Chair 2 Hem Onc Scenery [address] [place] [address] 03/31/2023 4:10 PM EST Laboratory Laboratory, [facility] [address] [facility] [place] [phone] Octaviano Durands [address] [facility] [place] [address] 04/03/2023 6:15 AM EST Anticoagulation Pharmacy Call Center WB [address] [facility] [place] [address] [facility], [facility] [address] [facility] [place] [address] 06/02/2023 8:30 AM EST Hospital Encounter ENDO [facility], Endoscopy Room [facility] [address] [facility] [place] [phone] Itzel Monroy DO [address] [facility] [place] [address] 06/02/2023 8:30 AM EST - 06/02/2023 9:00 AM EST Surgery ENDO [facility], Endoscopy Room [facility] [address] [place] [phone] Eliana Itzel Cates, [address] [place] [address] COLONOSCOPY FLEXIBLE PROXIMAL DIAGNOSTIC 08/09/2023 11:00 AM EDT Telemedicine Genetics HemOnc, C [address] 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 Every 2 Weeks for 26 Occurrences starting 03/17/2023 until 03/17/2024, 1 completed Scheduled Procedures Name Priority Associated [...] Not on filedocumented as of this encounter Procedures Procedure Name Priority Date/Time Associated Diagnosis Comments INR FINGERSTICK, POINT OF CARE STAT 03/17/2023 8:33 AM EST History of DVT (deep vein thrombosis) MTHFR MUTATION- 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) Anticoagulation management encounter jail current use of anticoagulant therapy documented in this encounter Results * INR FINGERSTICK, POINT OF CARE (03/17/2023 8:33 AM EST) Fingerstick INR 1.2 INR 8:36 AM EST [facility] 57-10 Blood 03/17/2023 8:33 AM EST 03/17/2023 8:36 AM EST Narrative [facility] 57-10 - 03/17/2023 8:36 AM EST Therapeutic ranges for non-operative patients: Prophylaxsis/treatment of DVT: (Range:2.0-3.0) Treatment of pulmonary embolism:(Range:2.0-3.0) Prevention of systemic embolism from: -tissue heart valves -acute myocardial infarction -valvular heart disease -atrial fibrillation (Range: 2.0-3.0) Mechanical prosthetic valves: (Range: 2.5-3.5) Shirley Manzano [facility] LAB POINT OF C ARE TEST DOCKED DEVICE UNSOLICITED RESULTS LABORATORY [place] [place] 57-[address] [place] [address] documented in this encounter Visit Diagnoses Diagnosis History of DVT (deep vein thrombosis)- Primary Personal history of venous thrombosis and embolism MTHFR 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
--- OUTSIDE RECORDS SUMMARY | 2023-03-30 15:01 | External Medical Summary ---
Author Name Unknown Address Unknown Organization K01:[facility] [place] [address] [address] [place] [address] Laboratory Report Ordering Provider Test Date Status WILMAN QUINTANA 03/14/2023 13:49:42 Final Observation Date Value Abnormality Reference (Units) Status Hepatitis B virus surface Ab [Units/volume] in Serum or Plasma by Immunoassay 03/14/2023 13:49:42 191.0 (mIU/mL) Final Hepatitis B virus surface Ab [Presence] in Serum by Immunoassay 03/14/2023 13:49:42 Positive Final HEPATITIS B SURFACE ANTIBODY, INTERPRETATION 03/14/2023 13:49:42 Immune to Hepatitis B Virus Final POSITIVE: >=11.5 mIU/mL
INDETERMINATE: 8.5-<11.5 mIU/mL
NEGATIVE: <8.5 mIU/mL Performing Location [facility] [place] [address] [address] [facility] [address] [place] [address]
--- OUTSIDE RECORDS SUMMARY | 2023-03-30 15:01 | External Medical Summary | Summary of Care ---
Author Name Unknown Organization [facility] Address [address] [facility] [place] [address] Phone [phone] Care Team Providers Care Biodiesel Production Technician Name Role Phone Gabriel Iqbal DO Primary Care Provider Reason for Visit * Reason Comments Dosage Adjustment Via Phone (anticoag Cl inic) Encounter Details Date Type Department Care Team (Latest Contact Info) Description 03/17/2023 6:45 AM [facility] Anticoagulation Pharmacy Call Center [address] [place] [address] [facility] [address] [facility] [place] [address] History of DVT (deep vein thrombosis)*; MTHFR [...] mRNA, LNP-s, No Pre serve, 2-Dose Series (Symetrica) 09/03/2020,08/13/2020 TD - Tetanus/Diptheria (ADULT) 05/08/2000 TDAP [...] Progress Notes * Alida Urbano RPh - 03/17/2023 10:21 AM EST Medication Therapy Disease Management - Anticoagulation Patient: Ruth Hylton | : 1975 Subjective Contacts Type Contact Phone/Fax 03/17/2023 10:29 AM EST Phone (Outgoing) Warner Ruth L (Self) [phone] (M) Spoke to Patient Patient-Reported Symptoms: Patient Findings Negatives: Signs/symptoms of thrombosis, Signs/symptoms of bleeding, Change in health, Change in alcohol use, Change in activity, Upcoming invasive procedure, Missed doses, Extra doses, Change in medications, Change in diet/appetite, Bruising Comments: Pt scheduled for mediport insertion today. Provider requests INR less than 3.0 Objective Current Warfarin Dose As of 03/17/2023 Warfarin maintenance plan: 9 mg (6 mg x 1.5) every Fri; 12 mg (6 mg x 2) all other days INR Result As of 03/17/2023 INR goal: 2.5-3.5 INR used for dosin.2 via OFS drawn today Assessment & Plan Warfarin Plan As of 03/17/2023 Full warfarin instructions: 03/17: 18 mg; Otherwise 9 mg every Fri; 12 mg all other days Next INR check: 03/23/2023 Repeat PT/INR in 1 week(s) Weekly dose: not changed Additional Dosing Information: Description Fern Durand Mediport Placement 03/17/23 Colonoscopy 06/02/23 Alida Urbano RPh Clinical Pharmacist 03/17/2023, 10:22 AM documented in this encounter Plan of Treatment Upcoming Encounters Date Type Department Care Team (Latest Contact Info) Description 03/17/2023 12:30 PM EST Laboratory Outpatient Laboratory, [place] [address] [facility] [place] [phone] [place], [facility] B1a [address] [place] [address] 03/17/2023 2:00 PM EST Hospital Encounter Interventional Radiology GM, [facility] 1st Floor [address] [place] [address] 03/20/2023 7:45 AM EST Imaging Radiology [facility] 1st [facility], [place] [address] [facility] [place] [address] 03/22/2023 11:30 AM EST Telemedicine Plastic Surgery, [place] [address] [place] [address] Lane Yung MD [address] [place] [address] 03/23/2023 1:00 PM EST Imaging Radiology [address], [place] [address] [facility] [place] [address] 03/23/2023 2:10 PM EST Laboratory Laboratory, [address] [place] [address] [place] [address] 03/24/2023 6:15 AM EST Anticoagulation Pharmacy Call Center WB [address] [place] [address] [facility] [address] [facility] [address] 03/27/2023 12:00 PM EST Laboratory Laboratory Scenery Talia [place] [address] [place] [phone] Octaviano Melgar Scenery [address] [place] [address] 03/27/2023 1:00 PM EST Hem/Onc Treatment Hematology/Oncology Treatment, [place] [address] [place] [address] Talia, Chair 2 Hem Onc Scenery [address] [place] [address] 03/31/2023 4:10 PM EST Laboratory Laboratory, Streeterdiaz Durand [place] [address] [place] [phone] Octaviano Durand [address] [place] [address] 04/03/2023 6:15 AM EST Anticoagulation Pharmacy Call Center WB [address] [facility] [place] [address] [facility] 58 60 [facility] [place] [address] 06/02/2023 8:30 AM EST Hospital Encounter ENDO [facility], Endoscopy Room [facility] [address] [place] [phone] Itzel Monroy, [address] [place] [address] 06/02/2023 8:30 AM EST - 06/02/2023 9:00 AM EST Surgery ENDO [facility], Endoscopy Room [facility] [address] [place] [phone] Itzel Monroy DO [address] [place] [address] COLONOSCOPY FLEXIBLE PROXIMAL DIAGNOSTIC 08/09/2023 11:00 AM EDT Telemedicine Genetics HemOnc, [facility] [address] [place] [address] Rupinder Euceda, MS [address] [place] [address] Scheduled Procedures Name Priority Associated [...] colon documented in this encounter Care Teams Biodiesel Production Technician Relationship Specialty Start Date End Date Gabriel Iqbal DO [address] [place] [address] PCP - General Family Medicine 08/04/20 documented as of this encounter"
--- OUTSIDE RECORDS SUMMARY | 2023-03-30 15:01 | External Medical Summary | Summary of Care ---
Author Name Unknown Organization [facility] Address [address] [place] [place] [address] Phone [phone] Care Team Providers Care Climate Change Risk Assessor Name Role Phone Rory Iqbalvor Sarojjaylan Primary Care Provider Reason for Visit * Reason Comments PAP Encounter Details Date Type Department Care Team (Late st Contact Info) Description 03/14/2023 1:00 PM EST Office Visit Gynecology/Obstetri [facility] [address] [place] [address] Lea Drummond CRNP [address] [place] [address] Encounter for annual routine gynecological examination*; Encounter [...] mg before bedtime. As instructed by the [facility]. 8 mL 0 02/07/2023 3 [...] HSV diagnosis. 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 History of DVT (deep vein thrombosis) 06/18/2018 Malignant neoplasm of upper-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, estrogen receptor positive 03/02/2023 Metastatic cancer to axillary lymph nodes ([facility]) 03/02/2023 Migraine MTHFR MUTATION- HOMOZYGOUS 02/28/2003 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 Name of methods specialist engineer: Arielle Gay ANDREA General: No acute distress, [...] minora - compared to photo taken by track fitter/onc 03/2022, and no new findings. Small ulcer [...] neoplasia III) Exam consistent with photos from track fitter/onc last year. Pt encouraged to call the [...] Anticoagulation Pharmacy Call Center WB [address] [place] [address] [facility] 58 60 [place] [address] 03/17/2023 2:00 PM EST Appointment Interventional Radiology [facility], [facility] 1st Floor [address] [place] [address] 03/20/2023 7:45 AM EST Imaging Radiology [facility] 1st [facility], [address] [place] [address] 03/22/2023 11:30 AM EST Telemedicine Plastic Surgery, [place] [address] [place] [address] Lane Yung MD [address] [place] [address] 03/23/2023 1:00 PM EST Imaging Radiology [facility] 1st [facility] [place] [address] 03/27/2023 12:00 PM EST Laboratory Laboratory Scenery [facility] [address] [place] [phone] Talia Lab Scenery [address] [facility] [place] [address] 03/27/2023 1:00 PM EST Hem/Onc Treatment Hematology/Oncology Treatment, [place] [address] [place] [address] Talia, Chair 2 Hem Onc Scenery [address] [facility] [place] [address] 03/31/2023 4:10 PM EST Laboratory Laboratory, [facility] 132 [facility] [place] [phone] DurandOctaviano perales [facility] [place] [address] 04/03/2023 6:15 AM EST Anticoagulation Pharmacy Call Center WB 58-60 [facility] [place] [address] [facility] 58 60 [facility] [place] [address] 06/02/2023 8:30 AM EST Hospital Encounter ENDO OSS[facility], Endoscopy Room OSS 132 [facility] [place] [phone] Itzel Monroy DO [address] [place] [address] 06/02/2023 8:30 AM EST - 06/02/2023 9:00 AM EST Surgery ENDO OSSC, Endoscopy Room OSS 132 [facility] [place] [phone] Itzel Monroy DO [address] [place] [address] COLONOSCOPY FLEXIBLE PROXIMAL DIAGNOSTIC 08/09/2023 11:00 AM EDT Telemedicine Genetics HemOnc, [facility] [address] [place] [address] Rupinder Euceda, [place] [address] [place] [address] Pending Results Name Type Priority Associated Diagnoses [...] colon documented in this encounter Care Teams Climate Change Risk Assessor Relationship Specialty Start Date End Date Gabriel Iqbal DO [address] [place] [address] PCP - General Family Medicine 08/04/20 documented as of this encounter
--- OUTSIDE RECORDS SUMMARY | 2023-03-30 15:01 | External Medical Summary | Summary of Care ---
Author Name Unknown Organization [facility] Address [address] [place] [address] Phone [phone] Care Team Providers Care Snow Shoveler Name Role Phone Gabriel Iqbal DO Primary Care Provider Encounter Details Date Type Department Care Team (Late st Contact Info) Description 03/15/2023 Orders Only Interventional Radiology [facility], [facility] 1st Floor [address] [place] [address] Itzel Iqbal RN Encounter for general adult medical examination w/o abnormal findings* Allergies Active Allergy Reactions Criticality Noted Date Comments 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, stopped as soon as infusion stopped documented as of this encounter (statuses as of 03/15/2023) Medications Medication Sig Dispensed Refills Start Date [...] as of this encounter (statuses as of 03/15/2023) Active Problems Problem Noted Date Diagnosed Date [...] (intrauterine device) in place 08/17/2015 Overview: Sushila. halfway current use of anticoagulant therapy 0 05/12/2003 Overview: ICD-10 update of inactive term MTHFR MUTATION- HOMOZYGOUS 02/28/2003 History of acute myeloid leukemia in remission 0 12/23/2002 documented as of this encounter (statuses as of 03/15/2023) Resolved Problems Problem Noted Date Diagnosed Date [...] as of this encounter (statuses as of 03/15/2023) Immunizations Name Administration Dates Next Due COVID-19 [...] (Latest Contact Info) Description 03/17/2023 6:45 AM EST Anticoagulation Pharmacy Call Center WB [address] [place] [address] [facility], [facility] [address] [facility] [place] [address] 03/17/2023 8:30 AM EST Anticoagulation Pharmacy, [address] [place] [address] [facility] 132 [facility] [place] [address] 03/17/2023 2:00 PM EST Hospital Encounter Interventional Radiology [facility], [facility] 1st [facility] [address] [place] [address] 03/20/2023 7:45 AM EST Imaging Radiology [facility] 1st [facility], [address] [place] [address] 03/22/2023 11:30 AM EST Telemedicine Plastic Surgery, [place] [address] [place] [address] Lane Yung MD [address] [place] [address] 03/23/2023 1:00 PM EST Imaging Radiology [address] [address] 03/27/2023 12:00 PM EST Laboratory Laboratory Scenery [place] [address] [place] [phone] [place], Lab Scenery [address] [facility] [place] [address] 03/27/2023 1:00 PM EST Hem/Onc Treatment Hematology/Oncology Treatment, [place] [address] [place] [address] Talia, Chair 2 Hem Onc Scenery [address] [facility] [place] [address] 03/31/2023 4:10 PM EST Laboratory Laboratory, [facility] [address] [place] [phone] Octaviano Durand Fern [address] [place] [address] 04/03/2023 6:15 AM EST Anticoagulation Pharmacy Call Center WB 58-60 [facility] [place] [address] [facility], [facility] 58 60 [facility] [place] [address] 06/02/2023 8:30 AM EST Hospital Encounter ENDO OSSC, Endoscopy Room OSS [address] [place] [phone] Itzel Monroy, [address] [place] [address] 06/02/2023 8:30 AM EST - 06/02/2023 9:00 AM EST Surgery ENDO [facility], Endoscopy Room [facility] [address] [place] [phone] Itzel Monroy DO [address] [place] [address] COLONOSCOPY FLEXIBLE PROXIMAL DIAGNOSTIC 08/09/2023 11:00 AM EDT Telemedicine Genetics HemOnc, [facility] [address] [place], [place] [phone] Rupinder Euceda, [facility] [place] [address] Scheduled Orders Name Type Priority Associated Diagnoses Orde r Schedule PT INR Lab STAT Encounter for general adult medical examination w/o abnormal findings Expected: 03/15/2023, Expires: 05/15/2023 Scheduled Procedures Name Priority Associated Diagnoses Date/Ti [...] for general adult medical examination w/o abnormal findings- Primary Unspecified general medical examination Screening for colon cancer Special screening for malignant neoplasms, colon documented in this encounter Care Teams Snow Shoveler Relationship Specialty Start Date End Date Gabriel Iqbal DO [address] [place] [address] PCP - General Family Medicine 3/30/21 documented as of this encounter
--- OUTSIDE RECORDS SUMMARY | 2023-03-30 15:01 | External Medical Summary | Summary of Care ---
Author Name Unknown Organization [facility] Address [address] [place] [address] Phone [phone] Care Team Providers Care Numerical Control Operator Name Role Phone Gabriel Iqbaljaylan Primary Care Provider Encounter Details Date Type Department Care Team (Late st Contact Info) Description 03/06/2023 2:00 PM EDT Nurse Only Hematology/Oncology [facility] [address] [place] [address] Talia, Nurse Hem Onc [facility] [address] [place] [address] Allergies Active Allergy Reactions Criticality Noted Date Comments 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, stopped as soon as infusion stopped documented as of this encounter (statuses as of 03/09/2023) Medications Medication Sig Dispensed Refills Start Date End Date Status VITAMIN B-6 100 MG OR TABS 0 03/12/2002 Active albuterol (PROAIR HFA) 108 (90 BASE) MCG/ACT inhalerIndicatio ns:Acute bronchitis, complicated Inhale 2 Puffs by mouth 4 times a day. 1 Inhaler 1 04/07/2016 Active B-12-SL 1000 MCG Sublingual Tablet Sublingual (Cyanocobalamin) Place under the tongue 1,000 mcg daily . 90 Tablet 3 10/25/2021 Active Ondansetron HCl 8 MG Oral Tablet (Zofran)Indicati ons:Migraine with aura, intractable Take by mouth 1 [...] Sodium 80 MG/0.8ML Injection Solution Prefilled Syringe (Lovenox)Indicat ions:History of DVT (deep vein thrombosis),Meth yltetrahydrofola te reductase mutation,Heredit roberto factor V deficiency disease (HCC) Inject 70 mg under the skin in the morning and 70 mg before bedtime. As instructed by the [facility]. 8 mL 0 02/07/2023 Active Ondansetron HCl 8 MG Oral Tablet (Zofran)Indicati ons:Malignant neoplasm of upper-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, estrogen receptor positive,Metasta tic cancer to axillary lymph nodes (HCC) Take 1 Tablet by mouth every 8 hours as needed for Nausea. 30 Tablet 3 03/02/2023 Active dexAMETHasone 4 MG Oral Tablet (Decadron)Indica tions:Malignant neoplasm of upper-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, estrogen receptor positive,Metasta tic cancer to axillary lymph nodes (HCC) Take 8mg (2 tabs) twice a day x3 days starting the day before chemotherapy 48 Tablet 0 03/02/2023 Active Lidocaine-Priloc harvey 2.5-2.5 % External Cream (Emla)Indication s:Malignant neoplasm of upper-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, estrogen receptor positive,Metasta tic cancer to axillary lymph nodes (HCC) APPLY TO SKIN OVER MEDIPORT & COVER 1HR PRIOR TO ACCESSING. 30 g 1 03/02/2023 Active Prochlorperazine Maleate 10 MG Oral Tablet (Compazine)Indic ations:Malignant neoplasm of upper-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, estrogen receptor positive,Metasta tic cancer to axillary lymph nodes (HCC) Take 1 Tablet by mouth every 6 hours as needed for Nausea. 30 Tablet 3 03/02/2023 03/06/20 23 Discontinued documented as of this encounter (statuses as of 03/09/2023) Active Problems Problem Noted Date Diagnosed Date [...] (intrauterine device) in place 08/17/2015 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 long-term current use of anticoagulant therapy 0 05/12/2003 Overview: ICD-10 update of inactive term MTHFR MUTATION- HOMOZYGOUS 02/28/2003 History of acute myeloid leukemia in remission 0 12/23/2002 documented as of this encounter (statuses as of 03/09/2023) Resolved Problems Problem Noted Date Diagnosed Date [...] as of this encounter (statuses as of 03/09/2023) Immunizations Name Administration Dates Next Due COVID-19 [...] Description 03/14/2023 9:10 AM EST Laboratory [facility] [address] [place] [phone] DurandOctaviano perales Fern [address] [place] [address] 03/14/2023 1:00 PM EST Office Visit Gynecology/Obstetr ics Maxwell Durand [address] [place] [address] BackerLea CRNP [address] [place] [address] 03/14/2023 6:00 PM EST Anticoagulation Pharmacy Call Center WB [address] [place] [address] [facility] 58 60 [facility] [place] [address] 03/17/2023 2:00 PM EST Appointment Interventional Radiology [facility], [facility] 1st Floor [address] [place] [address] 03/20/2023 7:45 AM EST Imaging Radiology [facility] 1st [facility], [address] [place] [address] 03/22/2023 11:30 AM EST Telemedicine Plastic Surgery, [place] [address] [place] [address] Lane Yung MD [address] [place] [address] 03/23/2023 1:00 PM EST Imaging Radiology [facility] 1st [facility], [address] [place] [address] 03/27/2023 12:00 PM EST Laboratory Laboratory [facility] [address] [place] [phone] Octaviano Melgar [facility] 200 [facility] [place] [address] 03/27/2023 1:00 PM EST Hem/Onc Treatment Hematology/Oncolog y Treatment, [place] [address] [place] [address] Talia, Chair 2 Hem Onc Scenery [address] [place] [address] 03/31/2023 4:10 PM EST Laboratory Laboratory, [address] [place] [address] Octaviano Durand [address] [address] 04/03/2023 6:15 AM EST Anticoagulation Pharmacy Call Center WB [address] [place] [address] [facility] 58 60 [facility] [place] [address] 06/02/2023 8:30 AM EST Hospital Encounter ENDO OSS, Endoscopy Room [facility] [address] [place] [phone] Itzel Monroy, [address] [place] [address] 06/02/2023 8:30 AM EST - 06/02/2023 9:00 AM EST Surgery ENDO [facility], Endoscopy Room [facility] [address] [place] [phone] Itzel Monroy, [address] [place] [address] COLONOSCOPY FLEXIBLE PROXIMAL DIAGNOSTIC 08/09/2023 11:00 AM EDT Telemedicine Genetics HemOnc, [facility] [address] [place] [address] Rupinder Euceda, [place] [address] [place], [place] [phone] Scheduled Procedures Name Priority Associated Diagnoses Date/Ti [...] Not on filedocumented as of this encounter Care Teams Numerical Control Operator Relationship Specialty Start Date End Date Gabriel Iqbal DO [address] [place] [address] PCP - General Family Medicine 08/04/20 documented as of this encounter
--- OUTSIDE RECORDS SUMMARY | 2023-03-30 15:01 | External Medical Summary ---
Author Name Unknown Address Unknown Organization [id number]:[facility] [place] [address] - [address] [place] [address] Laboratory Report Ordering Provider Test Date Status MELCHOR ALLEN 03/14/2023 13:49:42 Final Standing order for pt/inr. < br/>Please draw pt/inr every 1 to 4 weeks as requested
Results to [facility]

Warfarin Therapy
INR: 2.0-3.0 conventional anticoagulation
INR: 2.5-3.5 high intensity anticoagulation Observation Date Value Abnormality Reference (Units ) Status PT 03/14/2023 13:49:42 40.9 Above high normal 11 .6-15.2 (seconds) Final INR 03/14/2023 13:49:42 4.2 Above high normal 0. 8-1.2 Final Performing Location [facility] 57[address] 0 - [address] [place] [address]
--- OUTSIDE RECORDS SUMMARY | 2023-03-30 15:01 | External Medical Summary ---
Author Name Unknown Address Unknown Organization [id number]:[facility] [address] - [address] [place] [address] Laboratory Report Ordering Provider Test Date Status MISAEL IRIZARRY 03/17/2023 08:33:31 Final Therapeutic ranges for non-o perative patients:
Prophylaxsis/treatment of DVT: (Range:2.0-3.0)
Treatment of pulmonary embolism:(Range:2.0-3.0)
Prevention of systemic embolism from:
-tissue heart valves
-acute myocardial infarction
-valvular heart disease
-atrial fibrillation
(Range: 2.0-3.0)
Mechanical prosthetic valves: (Range: 2.5-3.5) Observation Date Value Abnormality Reference (Units ) Status INR in Capillary blood by Coagulation assay 03/17/2023 08:33:31 1.2 (INR) Final Performing Location [facility] 57[address] 0 - [address] [place] [address]
--- OUTSIDE RECORDS SUMMARY | 2023-03-30 15:01 | External Medical Summary ---
Author Name Unknown Address Unknown Organization K01:[facility] - [address] [facility] [place] [id number] Laboratory Report Ordering Provider Test Date Status WILMAN QUINTANA 03/14/2023 13:49:42 Final Observation Date Value Abnormality Reference (Units ) Status Hep B surface Ag 03/14/2023 13:49:42 Negative Neg ative Final Performing Location [facility] - [address] [facility] [address]
--- OUTSIDE RECORDS SUMMARY | 2023-03-30 15:01 | External Medical Summary | Summary of Care ---
Author Name Unknown Organization [facility] Address [address] [place] [address] Phone [phone] Care Team Providers Care Cmm Inspector Name Role Phone Iqbal Gabriel Kylejaylan Primary Care Provider Reason for Visit * Reason Comments Outpatient Testing Encounter Details Date Type Department Care Team (Latest Contact Info) Description 03/14/2023 9:10 AM EST Laboratory Laboratory, [facility] [address] [place] [place] [address] [facility] 132 [facility] [place] [address] Anticoagulation management encounter; Malignant neoplasm of upper-inner quadrant of right [...] (intrauterine device) in place 08/17/2015 Overview: Sushila. correction current use of anticoagulant therapy 0 05/12/2003 [...] Call Center WB [address] [place] [address] [facility] 58 60 [facility] [place] [address] 03/17/2023 2:00 PM EST Appointment Interventional Radiology [facility], [address] [place] [address] 03/20/2023 7:45 AM EST Imaging Radiology [facility] 1st [facility], [address] [address] 03/22/2023 11:30 AM EST Telemedicine Plastic Surgery, [place] [address] [place] [address] Lane Yung MD [address] [place] [address] 03/23/2023 1:00 PM EST Imaging Radiology [facility] 1st [facility], [address] [address] 03/27/2023 12:00 PM EST Laboratory Laboratory Scenery [place] [address] [place] [phone] Talia, Lab Scenery [address] [place] [address] 03/27/2023 1:00 PM EST Hem/Onc Treatment Hematology/Oncology Treatment, [place] [address] [place] [address] Talia, Chair 2 Hem Onc Scenery [address] [place] [address] 03/31/2023 4:10 PM EST Laboratory [facility], [facility] [address] [facility] [place] [phone] Octaviano Durand [address] [place] [address] 04/03/2023 6:15 AM EST Anticoagulation Pharmacy Call Center WB 58-60 [facility] [place] [address] [facility] 58 60 [facility] [place] [address] 06/02/2023 8:30 AM EST Hospital Encounter ENDO OSS, Endoscopy Room [facility] [address] [place] [address] Itzel Monroy, [address] [place] [address] 06/02/2023 8:30 AM EST - 06/02/2023 9:00 AM EST Surgery ENDO [facility], Endoscopy Room [facility] [address] [facility] [place] [address] Itzel Monroy, [address] [place] [address] COLONOSCOPY FLEXIBLE PROXIMAL DIAGNOSTIC 08/09/2023 11:00 AM EDT Telemedicine Genetics HemOnc, [facility] [address] 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) 03/14/2023 1:49 PM EST HEPATITIS B CORE ANTIBODIES IGG AND IGM Lab STAT Malignant neoplasm of upper-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, 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) 03/14/2023 1:49 PM EST Scheduled Procedures Name Priority Associated [...] as of this encounter Visit Diagnoses Diagnosis Anticoagulation management encounter Encounter for therapeutic drug monitoring Malignant neoplasm of 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
--- OUTSIDE RECORDS SUMMARY | 2023-03-30 15:01 | External Medical Summary ---
Author Name Unknown Address Unknown Organization K01:LAB[facility]ORY [facility] - [address] [facility] [place] [address] Laboratory Report Ordering Provider Test Date Status WILMAN QUINTANA 03/14/2023 13:49:42 Final Observation Date Value Abnormality Reference (Units ) Status Hepatitis B virus core Ab [Presence] in Serum 03/14/2023 13:49:42 Negative Negative Final Performing Location [facility] - [address] [place] [address]
--- OUTSIDE RECORDS SUMMARY | 2023-03-30 15:02 | External Medical Summary | Summary of Care ---
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) Procedures PET CT SKULL BASE TO MID-THIGH Zach Anderson MD [address] [place] [address] Referral ID Status Reason Start Date Expiration Date V isits Requested Visits Authorized [id number] Authorized Precert 03/02/2023 08/29/2023 999 999 * Precert (Within 10 days (routine)) - Pending Review Specialty Diagnoses / Procedures Referred By Contac t Referred To Contact Radiology Diagnoses 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, estrogen receptor positive Procedures IR VENOUS ACCESS MEDIPORT Zach Anderson MD [address] [place] [address] Referral ID Status Reason Start Date Expiration Date V isits Requested Visits Authorized [id number] Pending Review 03/09/2023 999 999 Reason for Visit * Reason Comments Consultation Consultation - Maricel edmond neoplasm of breast * Evaluate & Treat - Unlimited Visits (Within 3 days (urgent)) - Pending Review Specialty Diagnoses / Procedures Referred By Myranda john Referred To Contact Hematology/Oncology / Hematology Oncology Diagnoses Malignant neoplasm of right female breast, unspecified estrogen receptor status, unspecified site of breast (HCC) History of acute myeloid leukemia in remission Melissa Kowalski DO [address] [place] [address] Referral ID Status Reason Start Date Expiration Date Visits Requested Visits Authorized [id number] Pending Review Specialty Services Required 3 [phone] Encounter Details Date Type Department Care Team (Late st Contact Info) Description 03/02/2023 12:15 PM EDT Office Visit Hematology/Oncology [facility] [address] [facility] [place] [address] Zach Anderson MD [address] [facility] [place] [address] Malignant neoplasm of 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 As instructed by the [facility]. 8 mL 0 02/07/2023 Active documented as of this encounter (statuses as of 03/02/2023) Active Problems Problem Noted Date Diagnosed Date [...] (intrauterine device) in place 08/17/2015 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 prison current use of anticoagulant therapy 0 05/12/2003 Overview: ICD-10 update of inactive term MTHFR MUTATION- HOMOZYGOUS 02/28/2003 History of acute myeloid leukemia in remission 0 12/23/2002 documented as of this encounter (statuses as of 03/02/2023) Resolved Problems Problem Noted Date Diagnosed Date [...] as of this encounter (statuses as of 03/02/2023) Immunizations Name Administration Dates Next Due COVID-19 mRNA, LNP-s, No Pre serve, 2-Dose Series (Pfizer) 09/03/2020,08/13/2020 TD - Tetanus/Diptheria (ADULT) 05/08/2000 TDAP (age 10 and older)(Boostrix) 11/16/2020 TDAP (age 11 and older)(Adacel) 09/22/2010 documented as of this encounter Social History Tobacco Use Types Packs/Day Years Used Date Smoking Tobacco: Never Smokeless Tobacco: Never Tobacco Cessation:Counseling Given: Not Answered Alcohol Use Standard Drinks/Week Comments Yes 0 [...] Sign Reading Time Taken Comments Blood Pressure 145/94 03/02/2023 12:16 PM EDT Pulse 100 03/02/2023 12:16 PM EDT Temperature 36.6 C (97.8 F) 03/02/2023 12:16 PM E DT Respiratory Rate 16 03/02/2023 12:16 PM EDT Oxygen Saturation 96% 03/02/2023 12:16 PM EDT Inhaled Oxygen Concentration - - Weight 72.2 kg (159 lb 3.2 oz) 03/02/2023 12:16 PM EDT Height 151.8 cm (4' 11.75") 03/02/2023 12:16 PM EDT Body Mass Index 31.35 03/02/2023 12:16 PM EDT documented in this encounter Progress Notes * Zach Anderson MD - 03/02/2023 12:15 PM EDT TEZ SALEH MR # [id number] :1975 47-year-old female, REASON FOR CONSULTATION: Consultation for Tez Saleh requested by Dr. Melissa Kowalski for evaluation and discussion oftreatment options for breast cancer, previous history of Acute myeloid leukemia in remission. Date of consultation:03/02/2023 DIAGNOSIS: Right breast cancer, at least 2 foci, on ultrasound measuring about 1.5 cm and 7 mm, hormonal strongly positive HER2 Kavin negative. Right axillary lymph jimi involvement ( biopsy-proven ) CURRENT TREATMENT: Planning for neoadjuvant chemotherapy. Because of previous idarubicin treatment for the leukemia, Iwould like to avoid additional anthracycline therapy in her case. Planning for Taxotere and cyclophosphamide chemotherapy every 3 weekly x4 Prophylactic Pegfilgrastim. To prevent febrile neutropenia DIAGNOSTIC WORKUP: Diagnosed with acute myeloid leukemia, APL, received treatment with ATRA, cytarabine and idarubicincombination. She completed treatment somewhere in December of 1997. She has developed sinus thrombosis in June 1998, hypercoagulable state work up done at that time showed Factor V Leiden mutation positive, MTHFR positive. She is on oral Coumadin since 1998. No evidence of recurrence of acute myeloid leukemia noted subsequently. She was on 3 occasions, once she had successful , during that time she was on oral Coumadin and then It was switched over to Lovenox. Her son is doing quite well, he is about 19-year-old now. She had a routine bilateral screening mammogram done on 01/20/2023: Left breast showed no suspiciousfinding, right breast showed some focal asymmetry. Right breast diagnostic mammogram sonogram done on 03/09/2023: -1.5 x 1.11 cm mass in the right breast at 3 o'clock Another small 7 x 8 x 4 mm mass at 3 o'clock -ultrasound of the right breast showed enlarged lymph node with cortex measuring about 5 mm thickness. Biopsy from the right breast: -3 o'clock --> invasive mammary carcinoma with focal micropapillary feature, ER and PA strongly positive in 100% malignamt cells, her 2 Kavin negative Another small right breast 3 o'clock biopsy --> invasive ductal carcinoma no special type, ER and PA receptor strongly positive 95 malignamt cells, HER2 Kavin negative. Core needle biopsy of the right axillary lymph node --> metastatic carcinoma measuring 5 mm in the dimension. No extranodal extension noted OTHER IMPORTANT HISTORY: She is on oral Coumadin for previously noted dural sinus thrombosis -Factor V Leiden mutation positive -she is also on folic acid and Vitamin B12 supplementation on regular basis. She takes Lovenox for the breast therapy. -no smoking. -she would cholecystectomy in June 2003. A. Ovarian cyst and blood clot, evacuation:(11/22/2021) - Acute inflammatory cells, blood and fibrin. - See comment. B. Vulva, right, biopsy: - High-grade squamous intraepithelial lesion (severe dysplasia, VIN3). - No invasive squamous cell carcinoma identified. - See comment. C. Vulva, left, biopsy: - High-grade squamous intraepithelial lesion (severe dysplasia, VIN3). - No invasive squamous cell carcinoma identified. - See comment. Comment: Both of the vulva specimens show relatively extensive severe dysplasia. No invasive squamous cell carcinoma is identified. The right vulva specimen shows involvement of the biopsy margin by severe dysplasia. The left vulva specimen is too small to comment on biopsy margins but the biopsy margins are most likely involved by severe dysplasia. - she will follow-up with stunt man for that. INTERVAL HISTORY: She has come the clinic for the initial evaluation, accompanied by her in the office next para overall she is doing well, no nausea no vomiting, no cardiac or pulmonary symptom no abdominal symptoms, no joint pain, no back pain, no headache. She is on oral Coumadin, no new bleeding complications. REVIEW OF SYSTEMS: GENERAL: No change in weight, no weakness, no fatigue, no fever, sweats or chills. Current weight is around 159 lb. SKIN: No skin rash, no bruising. HEAD: No new headache, no dizziness. EYES: No recent change in the vision, no diplopia, EARS: No earache no tinnitus, NOSE: No epistaxis, No nasal discharge or stuffiness, MOUTH: No sores, no dysphagia, no hoarseness of voice, NECK: No lumps, No swelling in thyroid area. No stiffness. PULMONARY: No cough, No shortness of breath, no hemoptysis, no chest pain, No wheezing. CARDIOVASCULAR: No anginal chest pain, no PND, no orthopnea. No palpitation, no leg edema. No syncope. GASTROINTESTINAL: No abdominal pain, no nausea or vomiting. No diarrhea, No constipation. No blood in stool or black tarry stools. No abdominal distention. UROLOGIC: No burning urination. No hematuria. MUSCULOSKELETAL: No joint pain, No joint swelling, no muscle weakness. HEMATOLOGIC: No anemia, no bleeding disorder, No bruising. No history of blood transfusion. NEUROLOGIC: No seizures, no focal weakness, no speech difficulty, No memory disturbances. No tingling or numbness of the extremities. PSYCHIATRIC: No depression. No anxiety. No psychosis. 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 Stanley REMOVAL OF KIDNEY STONE [...] 4 times a day as needed forDiarrhea. Omeprazole 20 MG Oral Capsule Delayed Release (PriLOSEC) Take by mouth 1 Capsule in the morning. 1 hour before the first meal of the day. 30 Capsule 5 Warfarin Sodium 6 MG Oral Tablet (Coumadin) TAKE 2 Tablets by mouth daily OR DIRECTED BY COUMADIN CLINIC (patient taking up to 3 tabs daily based on INR) 270 Tablet 1 Folic Acid 1 MG Oral Tablet TAKE 1 TABLET BY MOUTH IN THE MORNING 90 Tablet 1 Enoxaparin Sodium 80 MG/0.8ML Injection Solution Prefilled Syringe (LovenoColatris) Inject 70 mg under theskin in the morning and 70 mg before bedtime. As instructed by the [facility]. 8 mL 0 No current facility-administered medications for this visit. 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 Well built woman, Patient is in no acute distress. HEENT: No icterus, no pallor, Throat and pharynx normal. Sinuses are non-tender. Neck: Supple and without lymphadenopathy or masses. No JVD. No Palpable supraclavicular lymph nodes. Lungs: Clear to auscultation. Bilateral symmetric air entry. No wheezing or rhonchi. Cardiovascular: Normal heart sounds, no murmurs.Regular rate and rhythm. Abdomen: soft, nontender, no hepatomegaly, no splenomegaly. Bowel sounds are normal. Neurological: No gross focal neurological deficit; walks with a normal gait. Extremities: No finger clubbing, No cyanosis. No leg edema. Skin:: No skin rash. SPINE: No spinal or paraspinal tenderness. No palpable lymphadenopathy in the axilla. LABS: Blood workup done on 01/20/2023: -WBC 6100, H&H of 14/41.5, Platelet count of 394474 -BUN/Creat: 14/0.8, Calcium 8.9 -AST 34, ALT 48, alkaline phosphatase 141. Bilirubin level 0.3. IMAGING: She is having bilateral breast MRI Planning for PET-CT scan for initial staging. ASSESSMENT AND PLAN: 47-year-old female, she is premenopausal, she has Mirena IUD. Diagnosed a case of right breast carcinoma at least 2 foci, hormonal positive, HER2 negative, rightaxillary lymph node involvement, Previous history of APL noted, (1996), received ATRA, cytarabine and idarubicin chemotherapy at that time which was completed in December of 1997. History of dural sinus thrombosis in 1998, Factor V Leiden mutation positive, MTHFR gene mutation about, she is on long-term oral anticoagulant with Coumadin. Because of previous anthracycline therapy, I would like to avoid additional anthracycline therapy. Reviewed with her regarding different protocol that can be considered in her case as neoadjuvant treatment option. I would consider for with Taxotere and cyclophosphamide chemotherapy, reviewed with her regarding treatment schedule side effect profile she is in agreement for that Will proceed port placement in her case by IR. She would like to have It done at [facility]. She will have bilateral breast MRI. I would like to get PET-CT scan for initial staging especially with the lymph node involvement and slightly elevated alkaline phosphatase She is on oral Coumadin and she will require Lovenox bridge therapy when she goes for port placement. She has Mirena IUD which will be removed early next month Thanks for the consultation Dr. Zach Anderson Hem/Onc (This note was completed using the dictation program Fluency Direct. As such, there may be misspellings word substitutions, or other variations that should not change the essence of the clinical content of this encounter note. If there is need for further clarification, please direct questions to the provider listed above.) documented in this encounter Nursing Notes * Amanda Iqbal CMA - 03/02/2023 12:17 PM EDT Patient identifed by name and birthdate Do you have any concerns about pain management for today's visit? No Living Will or Advance Directive for Health Care as noted on the problem list. [facility] is a way you can talk to your provider on line through e-mail. Would you like to sign up? I can activate it for you? ALREADY ACTIVE Filed Vitals: 03/02/23 1216 BP: 145/94 Pulse: 100 Resp: 16 Temp: 36.6 C (97.8 F) TempSrc: Tympanic SpO2: 96% Weight: 72.2 kg (159 lb 3.2 oz) Height: 1.518 m (4' 11.75") Patient was instructed to not get up on the exam table/exam chair until directed and assisted by their provider; patient is to remain seated in the chair/ wheelchair/ exam table/ exam chair for fall prevention and safety reasons. Patient is aware to have assistance to step down off exam table/exam chair with personnel. Patient voiced full comprehension of instructions. documented in this encounter Plan of Treatment Upcoming Encounters Date Type Department Care Team (Latest Contact Info) Description 03/03/2023 4:10 PM EDT Laboratory Laboratory, [facility] [address] [place] [phone] [place], [facility] [address] [place] [address] 03/06/2023 6:15 AM EDT [facility] Pharmacy Call Center [address] [place] [address] [facility], [facility] [address] [place] [address] 03/06/2023 2:00 PM EDT Nurse Only Hematology/Oncolog y [facility] [address] [place] [address] Talia Nurse Hem Onc Sc[address]ery [address] [facility] [place] [address] 03/14/2023 1:00 PM EST Office Visit Gynecology/Obstetr ics [facility] [place] [address] Lea Drummond CRNP [address] [facility] [place] [address] 03/20/2023 7:45 AM EST Imaging Radiology [address] [place] [address] 03/23/2023 1:00 PM EST Imaging Radiology [address] [place] [address] 06/02/2023 8:30 AM EST Hospital Encounter ENDO [facility], Endoscopy Room [facility] [address] [place] [phone] Itzel Monroy DO [address] [place] [address] 06/02/2023 8:30 AM EST - 06/02/2023 9:00 AM EST Surgery ENDO [facility], Endoscopy Room [facility] [address] [place] [phone] Itzel Monroy DO [address] [place] [address] COLONOSCOPY FLEXIBLE PROXIMAL DIAGNOSTIC 08/09/2023 11:00 AM EDT Telemedicine Genetics HemOnc, [facility] [address] [place] [address] Rupinder [place]uced[place], [place] [address] [place] [address] Scheduled Orders Name Type Priority Associated Diagnoses Orde r Schedule IR VENOUS ACCESS MEDIPORT Medical Imaging Routine 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, estrogen receptor positive Expected: 03/09/2023, Expires: 04/02/[address] SKULL BASE TO MID-THIGH Medical Imaging Routine Malignant neoplasm of upper-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, 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) Ordered: 03/02/2023 Scheduled Procedures Name Priority Associated Diagnoses Date/Ti [...] 10/06, 10/20/2017, Additional history exists Diabetes Screening 01/20/2026 01/20/2023, 0 11/20/2021, 11/20/2021, Additional history exists IUD 7-Year 03/08/2026 [...] breast in female, estrogen receptor positive- Primary 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
--- OUTSIDE RECORDS SUMMARY | 2023-03-30 15:02 | External Medical Summary | Summary of Care ---
Author Name Unknown Organization [facility] Address [address] [place] [place] [address] Phone [phone] Care Team Providers Care Registered Nurse Supervisor Name Role Phone Rasheed Gabriel Kylejaylan Primary Care Provider Reason for Visit * Reason Onset Date Comments Medication Question 03/06/2023 Encounter Details Date Type Department Care Team (Late st Contact Info) Description 03/06/2023 Telephone Pharmacy Call Center [phone] [place] [address] [facility] [address] [facility] [place] [address] Medication Question Allergies Active Allergy Reactions Criticality Noted Date Comments 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, stopped as soon as infusion stopped documented as of this encounter (statuses as of 03/07/2023) Medications Medication Sig Dispensed Refills Start Date [...] Sodium 80 MG/0.8ML Injection Solution Prefilled Syringe (Lovenox)Indicatio ns:History of DVT (deep vein thrombosis),Methyl tetrahydrofolate reductase mutation,Hereditar y factor V deficiency disease (HCC) Inject 70 mg under the skin in the morning and 70 mg before bedtime. As instructed by the [facility]. 8 mL 0 02/07/2023 [...] as of this encounter (statuses as of 03/07/2023) Active Problems Problem Noted Date Diagnosed Date [...] (intrauterine device) in place 08/17/2015 Overview: Sushila. snf current use of anticoagulant therapy 0 05/12/2003 Overview: ICD-10 update of inactive term MTHFR MUTATION- HOMOZYGOUS 02/28/2003 History of acute myeloid leukemia in remission 0 12/23/2002 documented as of this encounter (statuses as of 03/07/2023) Resolved Problems Problem Noted Date Diagnosed Date [...] as of this encounter (statuses as of 03/07/2023) Immunizations Name Administration Dates Next Due COVID-19 mRNA, LNP-s, No Pre serve, 2-Dose Series ([employer]) 09/03/2020,08/13/2020 TD - Tetanus/Diptheria (ADULT) 05/08/2000 TDAP [...] encounter Miscellaneous Notes * Telephone Encounter - Regla Larson RPh - 03/07/2023 10:08 AM EDT Spoke with Leander in Radiology department [phone] who advised no hold needed however INR < 3.0 preferred. Since patient has a higher INR goal and last INR elevated will plan to check INR again prior to procedure. [facility] will follow up with patient to schedule INR. Thank You Regla Larson PharmD Clinical Pharmacist [facility] ([facility]) (formerly Telepharmacy) [phone] / [phone] 03/07/2023, 10:09 AM * Telephone Encounter - Regla Larson RPh - 03/06/2023 9:04 AM EDT Patient is scheduled for Mediport insertion 03/17/23. Please advise if any Coumadin hold is needed prior to procedure. Thank You Regla Larson PharmD Clinical Pharmacist [facility] ([facility]) (formerly Telepharmacy) [phone] / [phone] 03/06/2023, 9:06 AM documented in this encounter Plan of Treatment Upcoming Encounters Date Type Department Care Team (Latest Contact Info) Description 03/14/2023 1:00 PM EST Office Visit Gynecology/Obstetr ics [facility] [address] [place] [address] BackerLea CRNP [address] [place] [address] 03/17/2023 2:00 PM EST Appointment Interventional Radiology [facility], [facility] [address] [facility] [address] [place] [address] 03/20/2023 7:45 AM EST Imaging Radiology [address] [facility] [place] [address] 03/22/2023 11:30 AM EST Telemedicine Plastic Surgery, [place] [address] [place] [address] Lane Yung MD [address] [place] [address] 03/23/2023 1:00 PM EST Imaging Radiology [address] [facility] [place] [address] 03/31/2023 4:10 PM EST Laboratory Laboratory, [facility] [address] [facility] [place] [phone] [facility] 132 [facility] [place] [address] 04/03/2023 6:15 AM EST Anticoagulation Pharmacy Call Center [address] [place] [address] [facility], [facility] [address] 60 [facility] [place] [address] 06/02/2023 8:30 AM EST Hospital Encounter ENDO [facility], Endoscopy Room [facility] [address] [place] [phone] Itzel Monroy DO [address] [place] [address] 06/02/2023 8:30 AM EST - 06/02/2023 9:00 AM EST Surgery ENDO [facility], Endoscopy Room [facility] [address] [place] [phone] Itzel Monroy, DO [address] [place] [address] COLONOSCOPY FLEXIBLE PROXIMAL DIAGNOSTIC 08/09/2023 11:00 AM EDT Telemedicine Genetics HemOnc, [facility] [address] [place] [address] Rupinder [place], [place] [address] [place] [address] Scheduled Procedures Name Priority Associated [...] filedocumented as of this encounter Care Teams Registered Nurse Supervisor Relationship Specialty Start Date End Date Gabriel Iqbal DO [address] [place] [address] PCP - General Family Medicine 08/04/20 documented as of this encounter
--- OUTSIDE RECORDS SUMMARY | 2023-03-30 15:02 | External Medical Summary ---
Author Name Unknown Address Unknown Organization K01:[facility] - [address] [place] [address] Laboratory Report Ordering Provider Test Date Status ANGEL ASHBY 03/03/2023 16:08:01 Final Observation Date Value Abnormality Reference (Units ) Status Bilirubin, Direct 03/03/2023 16:08:01 <0.2 0. 0-0.3 (mg/dL) Final Performing Location [facility] - [address] [place] [address]
--- OUTSIDE RECORDS SUMMARY | 2023-03-30 15:02 | External Medical Summary ---
Author Name Unknown Address Unknown Organization K0G[facility] [address] [place] [address] Laboratory Report Ordering Provider Test Date Status WILMAN QUINTANA 03/03/2023 16:08:01 Final Observation Date Value Abnormality Reference (Units ) Status WBC, Total 03/03/2023 16:08:01 11.38 Above high normal 4 .00-10.80 (K/uL) Final RBC 03/03/2023 16:08:01 4.95 3.85-5.15 (M/uL) Final Hemoglobin 03/03/2023 16:08:01 15.3 12.0-15.3 (g/dL) Final HCT 03/03/2023 16:08:01 45.4 Above high normal 36 .0-45.2 (%) Final MCV 03/03/2023 16:08:01 91.7 81.5-97.5 (fL) Final MCH 03/03/2023 16:08:01 30.9 27.0-34.0 (pg) Final MCHC 03/03/2023 16:08:01 33.7 32.0-36.0 (g/dL) Final RDW 03/03/2023 16:08:01 13.5 11.5-15.5 (%) Final Platelets 03/03/2023 16:08:01 297 140-400 (K /uL) Final MPV 03/03/2023 16:08:01 8.9 6.6-11.1 ( fL) Final Performing Location [facility] [address] [place] [address]
--- OUTSIDE RECORDS SUMMARY | 2023-03-30 15:02 | External Medical Summary | Summary of Care ---
Author Name Unknown Organization [facility] Address [address] [facility] [address] Phone [phone] Care Team Providers Care Chief Of Pediatric Urology Name Role Phone Gabriel Iqbaljaylan Primary Care Provider Reason for Visit * Reason Onset Date Comments Medication Refill 03/02/2023 Encounter Details Date Type Department Care Team (Late st Contact Info) Description 03/02/2023 Refill Hematology/Oncology Treatment, [place] [address] [place] [phone] Mariano Anderson MD [address] [place] [address] Malignant neoplasm of upper-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, estrogen receptor positive *; 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 As instructed by the [facility]. 8 mL 0 02/07/2023 Active Ondansetron HCl 8 MG Oral Tablet (Zofran)Indication s:Malignant neoplasm of upper-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, estrogen receptor positive,Metastati c cancer to axillary lymph nodes (HCC) Take 1 Tablet by mouth every 8 hours as needed for Nausea. 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 0 05/12/2003 [...] Encounter - Romina Mcneill RN - 03/02/2023 3:32 PM EDTSigned Prescriptions: Disp Refills Ondansetron HCl 8 MG Oral Tablet (Zofran) 30 Tab*3 Sig: Take 1 Tablet by mouth every 8 hours as needed for Nausea.Authorizing Provider: MARIANO ANDERSON Prochlorperazine Maleate 10 MG Oral Tablet*30 Tab*3 Sig: Take 1 Tablet by mouth every 6 hours as needed for Nausea.Authorizing Provider: MARIANO ANDERSON dexAMETHasone 4 MG Oral Tablet (Decadron) 48Tab*0 Sig: Take 8mg (2 tabs) twice a day x3 days starting the day before chemotherapyAuthorizing Provider: MARIANO ANDERSON Lidocaine-Prilocaine 2.5-2.5 % External Cr*30 g 1 Sig: APPLY TO SKIN OVER MEDIPORT & COVER 1HR PRIOR TO ACCESSING.Authorizing Provider: MARIANO ANDERSON * Telephone Encounter - Mariano Anderson MD - 03/02/2023 3:30 PM EDT E-prescribed Mariano Anderson MD Hem/Onc * Telephone Encounter - Romina Mcneill RN - 03/02/2023 3:27 PM EDT Pended zofran, compazine, EMLA, decadron. documented in this encounter Plan of Treatment Upcoming Encounters Date Type Department Care Team (Latest Contact Info) Description 03/03/2023 4:10 PM EDT [facility] [phone] DurandOctaviano perales [place] 132 [facility] [place] [address] 03/06/2023 6:15 AM EDT [facility] Call Center [address] [place] [address] [facility] 58 60 [facility] [place] [address] 03/06/2023 2:00 PM EDT Nurse Only Hematology/Oncolog y Sherice Melgar [place] [address] [place] [address] Talia, Nurse Hem Onc Scenery 200 [facility] [place] [address] 03/14/2023 1:00 PM EST Office Visit Gynecology/Obstetr ics [facility] [address] [place] [address] Backer, MOO Johnson [address] [place], [place] [address] 03/20/2023 7:45 AM EST Imaging Radiology [address] [place] [address] 03/23/2023 1:00 PM EST Imaging Radiology [address], [place] [address] [place] [address] 06/02/2023 8:30 AM EST Hospital Encounter ENDO [facility], Endoscopy Room [facility] [address] [place] [address] Itzel Monroy DO [address] [place] [address] 06/02/2023 8:30 AM EST - 06/02/2023 9:00 AM EST Surgery ENDO [facility], Endoscopy Room [facility] [address] [place] [address] Itzel Monroy, [address] [place], [place] [address] COLONOSCOPY FLEXIBLE PROXIMAL DIAGNOSTIC 08/09/2023 11:00 AM EDT [facility] [address] [place] [address] Rupinder [place], [place] [address] [place], [place] [id number] Scheduled Procedures Name Priority Associated Diagnoses Date/Ti [...] colon documented in this encounter Care Teams Chief Of Pediatric Urology Relationship Specialty Start Date End Date Gabriel Iqbal DO 132 [facility] [place] [address] PCP - General Family Medicine 08/04/20 documented as of this encounter
--- OUTSIDE RECORDS SUMMARY | 2023-03-30 15:02 | External Medical Summary ---
Author Name Unknown Address Unknown Organization [facility] [address] [place] [address] Laboratory Report Ordering Provider Test Date Status MELCHOR ALLEN 03/03/2023 16:08:01 Final Standing order for pt/inr. < br/>Please draw pt/inr every 1 to 4 weeks as requested
Results to [facility]ticoagulation [facility]

Warfarin Therapy
INR: 2.0-3.0 conventional anticoagulation
INR: 2.5-3.5 high intensity anticoagulation Observation Date Value Abnormality Reference (Units ) Status PT 03/03/2023 16:08:01 38.4 Above high normal 11 .6-15.2 (seconds) Final INR 03/03/2023 16:08:01 3.9 Above high normal 0. 8-1.2 Final Performing Location [facility] [address] [place] [address]
--- OUTSIDE RECORDS SUMMARY | 2023-03-30 15:02 | External Medical Summary | Summary of Care ---
Author Name Unknown Organization [facility] Address [address] [facility] [place] [address] Phone [phone] Care Team Providers Care Halfway House Counselor Name Role Phone Gabriel Iqbal DO Primary Care Provider Reason for Visit * Reason Comments Dosage Adjustment Via Phone (anticoag Cl inic) Encounter Details Date Type Department Care Team (Latest Contact Info) Description 03/06/2023 6:15 AM EDT Anticoagulation Pharmacy Call Center [address] [place] [address] [facility] [address] [facility] [place] [address] History of DVT (deep vein thrombosis)*; MTHFR MUTATION- HOMOZYGOUS; Hereditary factor V deficiency disease (HCC) Allergies Active Allergy Reactions Criticality Noted Date Comments 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, stopped as soon as infusion stopped documented as of this encounter (statuses as of 03/06/2023) Medications Medication Sig Dispensed Refills Start Date [...] mg before bedtime. As instructed by the [facility]madin [facility]. 8 mL 0 02/07/2023 [...] as of this encounter (statuses as of 03/06/2023) Active Problems Problem Noted Date Diagnosed Date [...] as of this encounter (statuses as of 03/06/2023) Resolved Problems Problem Noted Date Diagnosed Date [...] as of this encounter (statuses as of 03/06/2023) Immunizations Name Administration Dates Next Due COVID-19 [...] as of this encounter Progress Notes * Regla Larson RPh - 03/06/2023 3:22 PM EDT Noted. Usually no hold or INR < 3.0 needed for procedure. I did send a TE to radiology to confirm as Hem/Onc had mentioned a Lovenox bridge at last OV. ACC will follow up. Thank You Regla Larson PharmD Clinical Pharmacist [facility] ([facility]) (formerly Telepharmacy) [phone] / [phone] 03/06/2023, 3:22 PM * Deanne Negro, legal writing professor - 03/06/2023 11:10 AM EDT Contacts Type Contact Phone/Fax 03/06/2023 11:07 AM EDT Phone (Outgoing) Ruth Hylton (Self) [phone] (M) Spoke to Patient Subjective Patient Findings Positives: Other complaints (Pateint states NO instructions have been given to her yet for the upcoming procedure) Negatives: Signs/symptoms of thrombosis, Signs/symptoms of bleeding, Change in health, Change in alcohol use, Change in activity, Upcoming invasive procedure, Missed doses, Extra doses, Change in medications, Change in diet/appetite, Bruising Advised patient to contact Anticoagulation Clinic if any unusual bruising or bleeding, recent illness, changes in medication, or questions/concerns. PT/INR results, Coumadin dose instructions, and next PT/INR date communicated as noted by Pharmacist: Yes CHRISTY FUNES Tech 03/06/2023, 11:10 AM * Regla Larson RPh - 03/06/2023 8:48 AM EDT Images from the original note were not included. Coumadin Clinic (region specific) Objective Current Warfarin Dose As of 03/06/2023 Warfarin maintenance plan: 9 mg (6 mg x 1.5) every Fri; 12 mg (6 mg x 2) all other days INR Result As of 03/06/2023 INR goal: 2.5-3.5 INR used for dosin.9 (03/03/2023) Assessment & Plan Warfarin Plan As of 03/06/2023 Full warfarin instructions: 03/06: Hold; Otherwise 9 mg every Fri; 12 mg all other days Next INR check: 03/31/2023 Was patient given instructions on upcoming Mediport placement? ACC also reaching out to IR to confirm if any hold is needed Repeat PT/INR in 4 week(s) Weekly dose: not changed Additional Dosing Information: Description Fern [place] Mediport Placement 03/17/23 Colonoscopy 06/02/23 Tech to contact patient with dose instructions as noted. Regla Larson RPh 03/06/2023, 8:49 AM documented in this encounter Plan of Treatment Upcoming Encounters Date Type Department Care Team (Latest Contact Info) Description 03/07/2023 6:45 AM EDT Anticoagulation Pharmacy Call Center [address] [place] [address] [facility] 58 60 [facility] [place] [address] 03/14/2023 1:00 PM EST Office Visit Gynecology/Obstetr ics [facility] [address] [facility] [place] [address] Lea Drummond CRNP [address] [place] [address] 03/17/2023 2:00 PM EST Appointment Interventional Radiology [facility], [facility] 1st [facility] [address] [place] [address] 03/20/2023 7:45 AM EST Imaging Radiology [address] 132 [facility] [place] [address] 03/22/2023 11:30 AM EST Telemedicine Plastic Surgery, [place] [address] [place] [address] Lane Yung MD [address] [place] [address] 03/23/2023 1:00 PM EST Imaging Radiology [address] 132 [facility] [place] [address] 03/31/2023 4:10 PM EST Laboratory Laboratory, [facility] 132 [facility] [place] [phone] [facility] 132 [facility] [place] [address] 04/03/2023 6:15 AM EST Anticoagulation Pharmacy Call Center [address] [place] [address] [facility], [facility] 58 60 [facility] [place] [address] 06/02/2023 8:30 AM EST Hospital Encounter ENDO [facility], [facility] [place] [phone] Itzel Monroy DO [address] [place] [address] 06/02/2023 8:30 AM EST - 06/02/2023 9:00 AM EST Surgery ENDO [facility], Endoscopy Room [facility] [address] [place] [phone] Itzel Monroy DO [address] [place] [address] COLONOSCOPY FLEXIBLE PROXIMAL DIAGNOSTIC 08/09/2023 11:00 AM EDT Telemedicine Genetics HemOnc, [facility] [address] [place] [address] Rupinder [place], [place] [address] [place] [address] Scheduled Procedures Name Priority Associated [...] colon documented in this encounter Care Teams Halfway House Counselor Relationship Specialty Start Date End Date Gabriel Iqbal DO [address] [place] [address] PCP - General Family Medicine 08/04/20 documented as of this encounter
--- OUTSIDE RECORDS SUMMARY | 2023-03-30 15:02 | External Medical Summary | Summary of Care ---
Author Name Unknown Organization [facility] Address [address] [place] [facility] [place] [place] [address] Phone [phone] Care Team Providers Care Tai Chi Instructor Name Role Phone Iqbal Gabriel Kylejaylan Primary Care Provider Reason for Visit * Reason Onset Date Comments Precert Future 03/02/2023 TC/udenyca Encounter Details Date Type Department Care Team (Late st Contact Info) Description 03/02/2023 Telephone Hematology/Oncology Treatment, [place] [address] [place] [phone] Zach Anderson MD [address] [place] [address] Precert Future (TC/udenyca) Allergies Active Allergy Reactions Criticality Noted Date Comments 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, stopped as soon as infusion stopped documented as of this encounter (statuses as of 03/08/2023) Medications Medication Sig Dispensed Refills Start Date [...] mg before bedtime. As instructed by the [facility]madin [facility]. 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 0 05/12/2003 Overview: ICD-10 update of inactive term MTHFR MUTATION- HOMOZYGOUS 02/28/2003 History of acute myeloid leukemia in remission 0 12/23/2002 documented as of this encounter (statuses as of 03/08/2023) Resolved Problems Problem Noted Date Diagnosed Date [...] as of this encounter (statuses as of 03/08/2023) Immunizations Name Administration Dates Next Due COVID-19 mRNA, LNP-s, No Pre serve, 2-Dose Series ([employer] Check) 09/03/2020,08/13/2020 TD - Tetanus/Diptheria (ADULT) 05/08/2000 TDAP [...] encounter Miscellaneous Notes * Telephone Encounter - Maribeth Thomas OSA [...] PM EDT Order received for TC/ udenyca. [place] plan built and routed for signature. Waiting for auth. Consent signed 03/02/23. PET 03/20/23. Port referral placed- not scheduled yet. Nurse education visit 03/06/23- will need hep B labs. documented in this encounter Plan of Treatment Upcoming Encounters Date Type Department Care Team (Latest Contact Info) Description 03/14/2023 9:10 AM EST Laboratory Laboratory, [facility] [address] [place] [address] [place], [address] [place] [address] 03/14/2023 1:00 PM EST Office Visit Gynecology/Obstetr ics [address] [place] [address] Backer, MOO Johnson 132 [facility] [place] [address] 03/14/2023 6:00 PM EST Anticoagulation Pharmacy Call Center [address] [facility] [place] [address] [facility], [facility] 58 60 [facility] [place] [address] 03/17/2023 2:00 PM EST Appointment Interventional Radiology [facility], [address] [place] [phone] 03/20/2023 7:45 AM EST Imaging Radiology [address] [place] [address] 03/22/2023 11:30 AM EST Telemedicine Plastic Surgery, [place] [address] [place] [address] Lane Yung MD [address] [place] [address] 03/23/2023 1:00 PM EST Imaging Radiology [address] [address] 03/27/2023 12:00 PM EST Laboratory Laboratory Scenery Talia [place] [address] [place] [phone] Octaviano Melgar [address] [place] [address] 03/27/2023 1:00 PM EST Hem/Onc Treatment Hematology/Oncolog y Treatment, [place] [address] [place] [address] Talai, Chair 2 Hem Onc Scenery [address] [place] [address] 03/31/2023 4:10 PM EST Laboratory [facility], [facility] [place] [address] [place] [phone] DurandOctaviano perales [facility] [address] [place] [address] 04/03/2023 6:15 AM EST Anticoagulation Pharmacy Call Center [address] [facility] [place] [address] [facility] 58 60 [facility] [place] [address] 06/02/2023 8:30 AM EST Hospital Encounter ENDO [facility], Endoscopy Room [facility] [address] [place] [address] Itzel Monroy, [address] [place] [address] 06/02/2023 8:30 AM EST - 06/02/2023 9:00 AM EST Surgery ENDO [facility], Endoscopy Room [facility] [address] [place] [phone] Itzel Monroy, [address] [place] [address] COLONOSCOPY FLEXIBLE PROXIMAL DIAGNOSTIC 08/09/2023 11:00 AM EDT Telemedicine Genetics HemOnc, [facility] [address] 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 [place] [address] PCP - General Family Medicine 08/04/20 documented as of this encounter
--- OUTSIDE RECORDS SUMMARY | 2023-03-30 15:02 | External Medical Summary | Summary of Care ---
Author Name Unknown Organization [facility] Address [address] [place] [address] Phone [phone] Care Team Providers Care Program Advocate Name Role Phone Iqbal Gabriel Kylejaylan Primary Care Provider Reason for Visit * Reason Onset Date Comments Precert Future 03/02/2023 TC/udenyca Encounter Details Date Type Department Care Team (Late st Contact Info) Description 03/02/2023 Telephone Hematology/Oncology Treatment, [place] [address] [place] [phone] Zach Anderson MD [address] [place] [address] Precert Future (TC/udenyca) Allergies Active Allergy Reactions [...] mg before bedtime. As instructed by the [facility]in [facility]. 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 [place] plan built and routed for signature. Waiting for auth. Consent signed 03/02/23. PET 03/20/23. Port referral placed- not scheduled yet. Nurse education visit 03/06/23- will need hep B labs. documented in this encounter Plan of Treatment Upcoming Encounters Date Type Department Care Team (Latest Contact Info) Description 03/06/2023 2:00 PM EDT Nurse Only Hematology/Oncolog y [facility] [address] [place] [address] Talia, Nurse Hem Onc [facility] 200 [place] [address] 03/14/2023 1:00 PM EST Office Visit Gynecology/Obstetr ics [address] [place] [address] Backer, MOO Johnson 132 [facility] [address] 03/17/2023 2:00 PM EST Appointment Interventional Radiology [facility], [facility] 1st Floor [address] [facility] [address] 03/20/2023 7:45 AM EST Imaging Radiology [address], [place] 132 [facility] [place] [address] 03/23/2023 1:00 PM EST Imaging Radiology [address], [place] 132 [facility] [place] [address] 06/02/2023 8:30 AM EST Hospital Encounter ENDO [facility], Endoscopy Room [facility] [address] [place] [address] Itzel Monroy, DO [address] [place] [address] 06/02/2023 8:30 AM EST - 06/02/2023 9:00 AM EST Surgery ENDO [facility], Endoscopy Room [facility] [address] [place] [address] Itzel Monroy, [address] [place] [address] COLONOSCOPY FLEXIBLE PROXIMAL DIAGNOSTIC 08/09/2023 11:00 AM EDT Telemedicine Genetics HemOnc, [facility] [address] [place] [address] Rupinder [place], [place] [address] [place] [address] Scheduled Orders Name Type Priority Associated Diagnoses [...] Zach Anderson MD LAB BLOOD ORDERABLES LABORATORY [facility] 100 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
--- OUTSIDE RECORDS SUMMARY | 2023-03-30 15:02 | External Medical Summary | Summary of Care ---
Author Name Unknown Organization [facility] Address [address] [facility] [address] Phone [phone] Care Team Providers Care Copyright Clerk Name Role Phone Gabriel Iqbal DO Primary Care Provider Reason for Visit * Reason Comments Dosage Adjustment Via Phone (anticoag Cl inic) Encounter Details Date Type Department Care Team (Latest Contact Info) Description 03/07/2023 6:45 AM EDT Anticoagulation Pharmacy Call Center 58-60 Public [place] [address] [facility] 58 60 Public [facility] [place] [address] History of DVT (deep vein thrombosis)*; MTHFR [...] mg before bedtime. As instructed by the [facility]. 8 mL 0 02/07/2023 Active [...] (intrauterine device) in place 08/17/2015 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 shelter current use of anticoagulant therapy 0 05/12/2003 [...] Progress Notes * Alida Urbano RPh - 03/07/2023 11:49 AM EDT Spoke with patient today. Pt will repeat PT/INR on 03/14 to confirm INR no longer elevated. Per previous message, INR less than 3.0 for upcoming procedure. Pt has higher goal 2.5-3.5. Will advise if any hold necessary after 03/14 INR results. Alida Urbano Rph, Pharm.D. Clinical Pharmacist [facility] ([facility]PS) (formerly Telepharmacy) [phone] 03/07/2023,12:22 PM documented in this encounter Plan of Treatment Upcoming Encounters Date Type Department Care Team (Latest Contact Info) Description 03/14/2023 1:00 PM EST Office Visit Gynecology/Obstetr [facility] [address] [address] BackerLea CRNP 132 [place] [address] 03/17/2023 2:00 PM EST Appointment Interventional [place] [facility] [place] 1st Floor [address] [place] [address] 03/20/2023 7:45 AM EST Imaging Radiology [address] [facility] [place] [address] 03/22/2023 11:30 AM EST [facility] [address] [place] [address] Lane Yung MD [address] [place] [address] 03/23/2023 1:00 PM EST Imaging Radiology [address] 132 [facility] [place] [address] 03/31/2023 4:10 PM EST Laboratory Laboratory, [facility] [address] [facility] [place] [phone] [facility] [place] [address] 04/03/2023 6:15 AM EST Anticoagulation Pharmacy Call Center WB 58-60 [facility] [place] [address] [facility] 58 60 [facility] [place] [address] 06/02/2023 8:30 AM EST Hospital Encounter ENDO [facility], Endoscopy Room [facility] [address] [place] [phone] Itzel Monroy DO [address] [place] [address] 06/02/2023 8:30 AM EST - 06/02/2023 9:00 AM EST Surgery ENDO [facility], Endoscopy Room [facility] [address] [place] [address] Itzel Monroy DO [address] [place] [address] COLONOSCOPY FLEXIBLE PROXIMAL DIAGNOSTIC 08/09/2023 11:00 AM EDT Telemedicine Genetics HemOnc, [facility] [address] [place] [address] Rupinder Euceda, MS [address] [place] [address] Scheduled Procedures Name Priority Associated Diagnoses Date/Ti [...] colon documented in this encounter Care Teams Copyright Clerk Relationship Specialty Start Date End Date Gabriel Iqbal DO 132 [place] [address] PCP - General Family Medicine 08/04/20 documented as of this encounter
--- OUTSIDE RECORDS SUMMARY | 2023-03-30 15:02 | External Medical Summary | Summary of Care ---
Author Name Unknown Organization [facility] Address [address] [facility] [place] [address] Phone [phone] Care Team Providers Care Mine Laborer Name Role Phone Iqbal Gabriel Kylejaylan Primary Care Provider Reason for Visit * Reason Onset Date Comments Precert Future 03/02/2023 TC/udenyca Encounter Details Date Type Department Care Team (Late st Contact Info) Description 03/02/2023 Telephone Hematology/Oncology Treatment, [place] [address] [place] [phone] Zach Anderson MD [address] [place] [address] Precert Future (TC/udenyca) Allergies Active Allergy Reactions [...] instructed by the [facility] Coumadin [facility]. 8 mL 0 02/07/2023 Active [...] (intrauterine device) in place 08/17/2015 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 Stark plan built and routed for signature. Waiting for auth. Consent signed 03/02/23. PET 03/20/23. Port referral placed- not scheduled yet. Nurse education visit 03/06/23- will need hep B labs. documented in this encounter Plan of Treatment Upcoming Encounters Date Type Department Care Team (Latest Contact Info) Description 03/14/2023 9:10 AM EST Laboratory Laboratory, [facility] [address] [place] [address] [place], [address] [address] 03/14/2023 1:00 PM EST Office Visit Gynecology/Obstetr ics [address] [place] [address] Backer, MOO Johnson 132 [facility] [place] [address] 03/14/2023 6:00 PM EST Anticoagulation Pharmacy Call Center WB 58-60 Public [facility] [place] [address] [facility], [facility] 58 60 [facility] [place] [address] 03/17/2023 2:00 PM EST Appointment Interventional Radiology [facility] [place], [address] [place] [phone] 03/20/2023 7:45 AM EST Imaging Radiology [address] [place] [address] 03/22/2023 11:30 AM EST Telemedicine Plastic Surgery, [place] [address] [place] [address] Lane Yung MD [address] [place] [address] 03/23/2023 1:00 PM EST Imaging Radiology [address] [address] 03/27/2023 12:00 PM EST Laboratory Laboratory Scenery Talia [place] [address] [place] [phone] Octaviano Melgar Scenery [address] [place] [address] 03/27/2023 1:00 PM EST Hem/Onc Treatment Hematology/Oncolog y Treatment, [place] [address] [place] [address] Talia, Chair 2 Hem Onc Scenery [address] [place] [address] 03/31/2023 4:10 PM EST Laboratory [facility], [facility] [place] [address] [place] [phone] DurandOctaviano perales [facility] [address] [place] [address] 04/03/2023 6:15 AM EST Anticoagulation Pharmacy Call Center WB 58-60 [facility] [place] [address] [facility] 58 60 [facility] P[place] [address] 06/02/2023 8:30 AM EST Hospital Encounter ENDO [facility], Endoscopy Room [facility] [address] [place] [address] Itzel Monroy, [address] [place] [address] 06/02/2023 8:30 AM EST - 06/02/2023 9:00 AM EST Surgery ENDO [facility], Endoscopy Room [facility] [address] [place] [phone] Itzel Monroy, [address] [place] [address] COLONOSCOPY FLEXIBLE PROXIMAL DIAGNOSTIC 08/09/2023 11:00 AM EDT Telemedicine Genetics HemOnc, [facility] [address] 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
--- OUTSIDE RECORDS SUMMARY | 2023-03-30 15:02 | External Medical Summary ---
Author Name Unknown Address Unknown Organization [id number]:[facility] [place] [address] - [address] [place] [address] Laboratory Report Ordering Provider Test Date Status WILMAN QUINTANA 03/03/2023 16:08:01 Final Observation Date Value Abnormality Reference (Units ) Status SYNC LEUKOCYTES IN BLOOD BY AUTOMATED COUNT 03/03/2023 16:08:01 11.38 Above high normal 4.00-10.80 (K/uL) Final Segs 03/03/2023 16:08:01 62.6 40.0-75.0 (%) Final Lymphs % 03/03/2023 16:08:01 27.9 18.0-42.0 (%) Final Monos 03/03/2023 16:08:01 7.6 1.0-11.0 (%) Final Eosinophils 03/03/2023 16:08:01 1.5 0.0-6.0 (%) Final Basos 03/03/2023 16:08:01 0.4 0.0-2.0 (%) Final Absolute Segs 03/03/2023 16:08:01 7.12 1.80-7.70 (K/uL) Final Lymphs, absolute 03/03/2023 16:08:01 3.18 1.00-4.80 (K/ul) Final Monos, Abs 03/03/2023 16:08:01 0.87 0.00-1.10 (K/uL) Final Eos, Abs 03/03/2023 16:08:01 0.17 0.00-0.70 (K/uL) Final Basos, Abs 03/03/2023 16:08:01 0.04 0.00-0.20 (K/uL) Final Performing Location [facility] [place] 57-1 0 - [address] [place] [address]
--- OUTSIDE RECORDS SUMMARY | 2023-03-30 15:02 | External Medical Summary | Summary of Care ---
Author Name Unknown Organization [facility] Address [address] [place] [address] Phone [phone] Care Team Providers Care Customer Insight Analyst Name Role Phone Iqbal Gabriel Kylejaylan Primary Care Provider Reason for Visit * Reason Comments Outpatient Testing Encounter Details Date Type Department Care Team (Latest Contact Info) Description 03/03/2023 4:10 PM EDT Laboratory Laboratory, [facility] 132 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 As instructed by the [facility] Cou[facility]in [facility]. 8 mL 0 02/07/2023 [...] as of this encounter (statuses as of 03/03/2023) Active Problems Problem Noted Date Diagnosed Date [...] (intrauterine device) in place 08/17/2015 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 retirement current use of anticoagulant therapy 0 05/12/2003 Overview: ICD-10 update of inactive term MTHFR MUTATION- HOMOZYGOUS 02/28/2003 History of acute myeloid leukemia in remission 0 12/23/2002 documented as of this encounter (statuses as of 03/03/2023) Resolved Problems Problem Noted Date Diagnosed Date [...] as of this encounter (statuses as of 03/03/2023) Immunizations Name Administration Dates Next Due COVID-19 [...] 6:15 AM EDT Anticoagulation Pharmacy Call Center WB [address] [place] [address] [facility] 58 60 [facility] [place] [address] 03/06/2023 2:00 PM EDT Nurse Only Hematology/Oncolog y Sherice Melgar [place] [address] [facility], [place] [address] Talia, Nurse Hem Onc Scenery 200 Sherice Melgar [place] [address] 03/14/2023 1:00 PM EST Office Visit Gynecology/Obstetr ics [facility] [address] [place] [phone] Lea Drummond CRNP [address] [place] [address] 03/17/2023 2:00 PM EST Appointment Interventional Radiology [facility] [place], [place] [address] 1st Floor [address] [place] [address] 03/20/2023 7:45 AM EST Imaging Radiology [address] 132 [facility] [place] [address] 03/23/2023 1:00 PM EST Imaging Radiology [address], [place] [facility] [place] [address] 06/02/2023 8:30 AM EST Hospital Encounter ENDO [facility], Endoscopy Room [facility] [address] [place] [address] Itzel Monroy, [address] [place] [address] 06/02/2023 8:30 AM EST - 06/02/2023 9:00 AM EST Surgery ENDO [facility], Endoscopy Room [facility] [address] [place] [address] Itzel Monroy, [address] [place] [address] COLONOSCOPY FLEXIBLE PROXIMAL DIAGNOSTIC 08/09/2023 11:00 AM EDT Telemedicine Genetics HemOnc, [facility] [address] 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) 03/03/2023 4:08 PM EDT BILIRUBIN, DIRECT Lab Routine Transaminitis 03/03/2023 4:08 PM EDT Scheduled Procedures Name Priority Associated Diagnoses Date/Ti [...] Procedure Name Priority Date/Time Associated Diagnosis Comments DIFFERENTIAL, AUTOMATED STAT 03/03/2023 4:08 PM EDT Malignant neoplasm of upper-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, 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) CBC STAT 03/03/2023 4:08 PM EDT Malignant neoplasm of upper-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, 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) CBC STAT 03/03/2023 4:08 PM EDT Malignant neoplasm of upper-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, 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) documented in this encounter Results * (ABNORMAL) DIFFERENTIAL, AUTOMATED (03/03/2023 4:08 PM EDT) WBC 11.38(H) 4.00 - 10.80 K/uL 03/03/2023 4:12 PM EDT LAB[facility]ORY [place] 57-10 Neutrophils % 62.6 40.0 - 75.0 % 03/03/2023 4:12 PM EDT LAB[facility] [place] 57-10 Lymphocytes % 27.9 18.0 - 42.0 % 03/03/2023 4:12 PM EDT LAB[facility] [place] 57-10 Monocytes % 7.6 1.0 - 11.0 % 03/03/2023 4:12 PM EDT LAB[facility] [place] 57-10 Eosinophils % 1.5 0.0 - 6.0 % 03/03/2023 4:12 PM EDT LAB[facility] [place] 57-10 Basophils % 0.4 0.0 - 2.0 % 03/03/2023 4:12 PM EDT LAB[facility]ORY [place] 57-10 Absolute Neutrophils 7.12 1.80 - 7.70 K/uL 03/03/2023 4:12 PM EDT LAB[facility]ORY [place] 57-10 Absolute Lymphocytes 3.18 1.00 - 4.80 K/ul 03/03/2023 4:12 PM EDT LAB[facility]ATORY [place] 57-10 Absolute Monocytes 0.87 0.00 - 1.10 K/uL 03/03/2023 4:12 PM EDT LAB[facility]ATORY [place] 57-10 Absolute Eosinophils 0.17 0.00 - 0.70 K/uL 03/03/2023 4:12 PM EDT LAB[facility]ORY [place] 57-10 Absolute Basophils 0.04 0.00 - 0.20 K/uL 03/03/2023 4:12 PM EDT [facility] Blood Venous blood specimen / Unknown Venipuncture / Unknown 03/03/2023 4:08 PM EDT 03/03/2023 4:08 PM EDT Zach Anderson MD LAB BLOOD ORDERABLES LABORATORY [facility] 57-10 [address] [place] [address] * (ABNORMAL) CBC (03/03/2023 4:08 PM EDT) WBC 11.38(H) 4.00 - 10.80 K/uL 03/03/2023 4:12 PM EDT LABORATORY [place] 57-10 RBC 4.95 3.85 - 5.15 M/uL 03/03/2023 4:12 PM EDT [facility] [place] 57-10 HGB 15.3 12.0 - 15.3 g/dL 03/03/2023 4:12 PM EDT [facility] [place] 57-10 HCT 45.4(H) 36.0 - 45.2 % 03/03/2023 4:12 PM EDT [facility] [place] 57-10 MCV 91.7 81.5 - 97.5 fL 03/03/2023 4:12 PM EDT [facility] [place] 57-10 MCH 30.9 27.0 - 34.0 pg 03/03/2023 4:12 PM EDT [facility] [place] 57-10 MCHC 33.7 32.0 - 36.0 g/dL 03/03/2023 4:12 PM EDT [facility] [place] 57-10 RDW 13.5 11.5 - 15.5 % 03/03/2023 4:12 PM EDT LAB[facility] [place] 57-10 PLT 297 140 - 400 K/uL 03/03/2023 4:12 PM EDT [facility] [place] 57-10 MPV 8.9 6.6 - 11.1 fL 03/03/2023 4:12 PM EDT LABORATORY [place] 57-10 Blood Venous blood specimen / Unknown Venipuncture / Unknown 03/03/2023 4:08 PM EDT 03/03/2023 4:08 PM EDT Zach Anderson MD LAB BLOOD ORDERABLES LABORATORY [place] 57-10 132 [place] [address] documented in this encounter Visit Diagnoses Diagnosis Anticoagulation management encounter Encounter for therapeutic drug monitoring Transaminitis Nonspecific elevation of levels of transaminase or lactic acid dehydrogenase (LDH) Malignant neoplasm of upper-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, 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
--- OUTSIDE RECORDS SUMMARY | 2023-03-30 15:02 | External Medical Summary | Summary of Care ---
Author Name Unknown Organization [facility] Address [address] [place] [address] Phone [phone] Care Team Providers Care Food And Beverage Manager Name Role Phone Iqbal Gabriel Kylejaylan Primary Care Provider Reason for Visit * Reason Onset Date Comments Precert Future 03/02/2023 TC/udenyca Encounter Details Date Type Department Care Team (Late st Contact Info) Description 03/02/2023 Telephone Hematology/Oncology Treatment, [place] [address] [place] [phone] Zach Anderson MD [address] [place] [address] Precert Future (TC/udenyca) Allergies Active Allergy Reactions [...] mg before bedtime. As instructed by the [facility] Coumadin Clinic. 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 Prospect plan built and routed for signature. Waiting for auth. Consent signed 03/02/23. PET 03/20/23. Port referral placed- not scheduled yet. Nurse education visit 03/06/23- will need hep B labs. documented in this encounter Plan of Treatment Upcoming Encounters Date Type Department Care Team (Latest Contact Info) Description 03/03/2023 4:10 PM EDT Laboratory Laboratory, [address] [place] [phone] [facility] [address] [place] [address] 03/06/2023 6:15 AM EDT Anticoagulation Pharmacy Call Center 58-60 [facility] [place] [address] [facility] 58 60 [facility] [address] 03/06/2023 2:00 PM EDT Nurse Only Hematology/Oncolog y [facility] [address] [place] [address] Talia, Nurse Hem Onc Scenery 200 [place] [address] 03/14/2023 1:00 PM EST Office Visit Gynecology/Obstetr ics [facility] 132 [facility] [place] [address] Backer, MOO Johnson 132 [facility] [place] [address] 03/20/2023 7:45 AM EST Imaging Radiology [address] [place] [address] 03/23/2023 1:00 PM EST Imaging Radiology [address] [place] [address] 06/02/2023 8:30 AM EST Hospital Encounter ENDO [facility], Endoscopy Room [facility] [address] [place] [address] Itzel Monroy, DO [address] [place] [address] 06/02/2023 8:30 AM EST - 06/02/2023 9:00 AM EST Surgery ENDO [facility], Endoscopy Room [facility] [address] [place] [address] Itzel Monroy, DO [address] [place], [place] [address] COLONOSCOPY FLEXIBLE PROXIMAL DIAGNOSTIC 08/09/2023 11:00 AM EDT Telemedicine Genetics HemOnc, [facility] 100 [place] [address] Rupinder Euceda, 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
--- OUTSIDE RECORDS SUMMARY | 2023-03-30 15:02 | External Medical Summary ---
Author Name Unknown Address Unknown Organization K01:LAB[facility]AT[facility] - [address] [facility] [place] [address] Laboratory Report Ordering Provider Test Date Status WILMAN QUINTANA 03/03/2023 16:08:01 Final Observation Date Value Abnormality Reference (Units ) Status BUN 03/03/2023 16:08:01 12 6-20 (mg/dL) Final Creatinine 03/03/2023 16:08:01 0.9 0.5-1.0 (mg/dL) Final Glomerular filtration rate/1.73 sq M.predicted [Volume Rate/Area] in Serum, Plasma or Blood by Creatinine-based formula (CKD-EPI) 03/03/2023 16:08:01 80 >=60 (mL/min) Final eGFR is calculated based on the CKD-EPI 2020 equation SODIUM 03/03/2023 16:08:01 139 135-146 (m mol/L) Final Potassium 03/03/2023 16:08:01 3.9 3.5-5.1 (m mol/L) Final Cl 03/03/2023 16:08:01 101 98-107 (mm ol/L) Final CO2 03/03/2023 16:08:01 27 22-32 (mmo l/L) Final Anion gap 03/03/2023 16:08:01 11 7-15 (mmol /L) Final Glucose 03/03/2023 16:08:01 105 70-120 (mg /dL) Final Albumin 03/03/2023 16:08:01 4.6 3.8-5.0 (g /dL) Final AST (Aspartate aminotransferase) 03/03/2023 16:08:01 18 10-35 (U/L) Final Alk Phos 03/03/2023 16:08:01 109 35-130 (U/ L) Final Bilirubin, Total 03/03/2023 16:08:01 0.4 <=1 .2 (mg/dL) Final Calcium 03/03/2023 16:08:01 9.5 8.4-10.2 ( mg/dL) Final Protein 03/03/2023 16:08:01 7.7 6.0-8.3 (g /dL) Final ALT (Alanine aminotransferase) 03/03/2023 16:08:01 24 10-35 (U/L) Final Performing Location LABORATORY [facility] - [address] [facility] [address]
--- OUTSIDE RECORDS SUMMARY | 2023-03-30 15:02 | External Medical Summary | Summary of Care ---
Author Name Unknown Organization [facility] Address [address] [place] [facility] [place] [address] Phone [phone] Care Team Providers Care Physical Security Engineer Name Role Phone Gabriel Iqbaljaylan Primary Care Provider Reason for Visit * Reason Onset Date Comments Appointment 03/02/2023 Encounter Details Date Type Department Care Team (Late st Contact Info) Description 03/02/2023 Telephone Hematology/Oncology Sherice Melgar [place] [address] [facility] [place] [address] Zach Anderson MD [address] [facility] [place] [address] Appointment Allergies Active Allergy Reactions Criticality Noted [...] mg before bedtime. As instructed by the [facility]. 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 watermaster current use of anticoagulant therapy 0 [...] mRNA, LNP-s, No Pre serve, 2-Dose Series ([place]) 09/03/2020,08/13/2020 TD - Tetanus/Diptheria (ADULT) 05/08/2000 TDAP [...] encounter Miscellaneous Notes * Telephone Encounter - MATTHEW Ellis - 03/02/2023 1:25 PM EDT Patient scheduled for a PET/CT SCAN @ for 03/20/23 @ 7:45am. Patient given prep instructions. 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 She will need bridge Lovenox therapy. She follows up with anticoagulation clinic. Order Questions Question Answer Is this Procedure for Evaluation, Venous Access Insertion or Removal? Venous Access Insertion Mediport Type Single Lumen Reason for Procedure Chemotherapy. Where Will The Procedure Be Performed? [facility] Diagnosis Right breast cancer, right axilla lymph node involvement. Previous history of acute myeloid leukemia ( APL), she had double-lumen catheter on both sides at that time in 1997. Thank you documented in this encounter Plan of Treatment Upcoming Encounters Date Type Department Care Team (Latest Contact Info) Description 03/03/2023 4:10 PM EDT Laboratory Laboratory, [facility] [address] [place] [phone] DurandOctaviano perales [facility] [place] [address] 03/06/2023 6:15 AM EDT Anticoagulation Pharmacy Call Center 58-[address] [facility] [place] [address] [facility], [facility] [address] [facility] [address] 03/06/2023 2:00 PM EDT Nurse Only Hematology/Oncolog y [facility] [address] [facility] [address] [place] [address] Talia Nurse Hem Onc Scenery 200 [place] [address] 03/14/2023 1:00 PM EST Office Visit Gynecology/Obstetr ics [facility] [address] [place] [address] BackerLea CRNP [address] [place] [address] 03/20/2023 7:45 AM EST Imaging Radiology [facility] 1st Floor, [place] [address] [place] [address] 03/23/2023 1:00 PM EST Imaging Radiology [address] [place] [address] 06/02/2023 8:30 AM EST Hospital Encounter ENDO [facility], Endoscopy Room [facility] [address] [place] [phone] Itzel oMnroy, [address] [place] [address] 06/02/2023 8:30 AM EST - 06/02/2023 9:00 AM EST Surgery ENDO [facility], Endoscopy Room [facility] [address] [place] [phone] Itzel Monroy, [address] [place] [address] COLONOSCOPY FLEXIBLE PROXIMAL DIAGNOSTIC 08/09/2023 11:00 AM EDT Telemedicine Genetics HemOnc, [facility] [address] [place] [address] Rupinder [place], [place] [address] [place] [address] Scheduled Procedures Name Priority Associated [...] filedocumented as of this encounter Care Teams Physical Security Engineer Relationship Specialty Start Date End Date Gabriel Iqbal DO [address] [place] [address] PCP - General Family Medicine 08/04/20 documented as of this encounter
--- OUTSIDE RECORDS SUMMARY | 2023-03-30 15:02 | External Medical Summary | Summary of Care ---
Author Name Unknown Organization [facility] [address] [facility] [address] Phone [phone] Care Team Providers Care Director Ship Name Role Phone Gabriel Iqbaljaylan Primary Care Provider Reason for Visit * Reason Onset Date Comments Medication Problem 03/02/2023 Encounter Details Date Type Department Care Team (Late st Contact Info) Description 03/02/2023 Telephone Hematology/Oncology [facility] [place] [address] [facility] [place] [address] Zach Anderson MD 200 [facility] [place] [address] Medication Problem Allergies Active Allergy Reactions Criticality Noted Date [...] mg before bedtime. As instructed by the [facility]. 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 current use of anticoagulant therapy 0 05/12/2003 [...] encounter Miscellaneous Notes * Telephone Encounter - Virginia Clark CPhT - 03/02/2023 4:49 PM EDT Pharmacy calling for Hematology onc[facility] Thank you, Virginia Clark Line Driver II [facility] ([facility]) (formerly Telepharmacy) 03/02/2023 4:49 PM documented in this encounter Plan of Treatment Upcoming Encounters Date Type Department Care Team (Latest Contact Info) Description 03/03/2023 4:10 PM EDT [facility] [address] [place] [phone] Octaviano Durand [address] [place] [address] 03/06/2023 6:15 AM EDT Anticoagulation Pharmacy Call Center [address] [facility] [place] [address] [facility] 58 60 [facility] [address] 03/06/2023 2:00 PM EDT Nurse Only Hematology/Oncolog y Sc[address]ia [place] [address] [place] [address] Talia, Nurse Hem Onc Scenery [address] [place] [address] 03/14/2023 1:00 PM EST Office Visit Gynecology/Obstetr ics [facility] [address] [place] [address] BackerLea CRNP [address] [place] [address] 03/20/2023 7:45 AM EST Imaging Radiology [address] [place] [address] 03/23/2023 1:00 PM EST Imaging Radiology [address] [facility] [place] [address] 06/02/2023 8:30 AM EST Hospital Encounter ENDO [facility], Endoscopy Room [facility] [address] [place] [phone] Itzel Monroy DO [address] [place] [address] 06/02/2023 8:30 AM EST - 06/02/2023 9:00 AM EST Surgery ENDO [facility], Endoscopy Room [facility] [address] [place] [phone] Itzel Monroy DO [address] [place] [address] COLONOSCOPY FLEXIBLE PROXIMAL DIAGNOSTIC 08/09/2023 11:00 AM EDT Telemedicine Genetics HemOn, [address] [address] Rupinder Euceda [place], [place] [address] [place] [address] Scheduled Procedures Name Priority Associated [...] filedocumented as of this encounter Care Teams Director Ship Relationship Specialty Start Date End Date Gabriel Iqbal DO [address] [place] [address] PCP - General Family Medicine 08/04/20 documented as of this encounter
--- OUTSIDE RECORDS SUMMARY | 2023-03-30 15:02 | External Medical Summary | Summary of Care ---
Author Name Unknown Organization [facility] Address [address] [facility] [place] [address] Phone [phone] Care Team Providers Care Sales Representative Printing Supplies Name Role Phone Iqbal Gabriel Kylejaylan Primary Care Provider Reason for Visit * Reason Onset Date Comments Precert Future 03/02/2023 TC/udenyca Encounter Details Date Type Department Care Team (Late st Contact Info) Description 03/02/2023 Telephone Hematology/Oncology Treatment, [place] [address] [place] [phone] Zach Anderson MD [address] [place] [address] Precert Future (TC/udenyca) Allergies Active Allergy Reactions [...] mg before bedtime. As instructed by the [facility]. 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 Malone plan built and routed for signature. Waiting for auth. Consent signed 03/02/23. PET 03/20/23. Port referral placed- not scheduled yet. Nurse education visit 03/06/23- will need hep B labs. documented in this encounter Plan of Treatment Upcoming Encounters Date Type Department Care Team (Latest Contact Info) Description 03/14/2023 9:10 AM EST [facility] [address] [place] [phone] Octaviano [place] [address] [place] [address] 03/14/2023 1:00 PM EST Office Visit Gynecology/Obstetr ics Maxwell [place] [address] [place] [address] Lea Drummond CRNP 132 [facility] [place] [address] 03/14/2023 6:00 PM EST Anticoagulation Pharmacy Call Center WB 58-60 [place] [address] [facility] 58 60 [place] [address] 03/17/2023 2:00 PM EST Appointment Interventional Radiology [facility], [facility] [address] [facility] [address] [place] [phone] 03/20/2023 7:45 AM EST Imaging Radiology [address] [address] 03/22/2023 11:30 AM EST Telemedicine Plastic Surgery, [place] [address] [place] [address] Lane Ynug MD [address] [place] [address] 03/23/2023 1:00 PM EST Imaging Radiology [address] [place] [address] 03/31/2023 4:10 PM EST Laboratory Laboratory, [address] [phone] [place] [address] 04/03/2023 6:15 AM EST Anticoagulation Pharmacy Call Center WB 58-60 [facility] [place] [address] [facility] 58 60 [place] [address] 06/02/2023 8:30 AM EST Hospital Encounter ENDO [facility], Endoscopy Room [address] [place] [phone] Itzel Monroy, DO [address] [place] [address] 06/02/2023 8:30 AM EST - 06/02/2023 9:00 AM EST Surgery ENDO [facility], Endoscopy Room [facility] [address] [place] [address] Itzel Monroy, DO [address] [place] [address] COLONOSCOPY FLEXIBLE PROXIMAL DIAGNOSTIC 08/09/2023 11:00 AM EDT Telemedicine Genetics HemOnc, [facility] [address] 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
--- OUTSIDE RECORDS SUMMARY | 2023-03-30 15:03 | External Medical Summary | Summary of Care ---
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 [facility] Reason for Visit * Reason Onset Date Comments Test Results 02/20/2023 Encounter Details Date Type Department Care Team Description 02/20/2023 Telephone Family Practice [facility] [address] [place] [address] Melissa Kowalski DO [address] [place] [address] Test Results Allergies Active Allergy Reactions Severity Noted Date Comments 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, stopped as soon as infusion stopped documented as of this encounter (statuses as of 02/20/2023) Medications Medication Sig Dispensed Refills Start Date [...] mg before bedtime. As instructed by the [facility]. 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 02/28/2003 10/15/2019 Supervision of other high-risk 003 05/06/2003 Overview: ICD-10 update of inactive term ACUTE MYELOID LEUKEMIA; WITHOUT MENTION OF REMIS JARROD 11/22/2002 01/29/2011 Anticoagulation management encounter 10/26/2001 08/04/2020 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 Needs to see gen surg breast herbert documented in this encounter Plan of Treatment Upcoming Encounters Date Type Specialty Care Team Description 02/21/2023 Office Visit General Surgery Baldev Charles MD [address] [place] [address] 03/03/2023 Laboratory Laboratory [facility] [address] [place] [address] 03/06/2023 [facility] [address] [place] [address] 03/14/2023 Office Visit Gynecology Obstetrics BackerLea CRNP [address] [place] [address] 06/02/2023 Hospital Encounter Endoscopy Itzel Monroy DO [address] [place] [address] 06/02/2023 Surgery Endoscopy Itzel Monroy DO [address] [place] [address] COLONOSCOPY FLEXIBLE PROXIMAL DIAGNOSTIC Scheduled Procedures Name Priority Associated Diagnoses Date/Ti me COLONOSCOPY FLEXIBLE PROXIMAL DIAGNOSTIC Screening for colon cancer 06/02/2023 8:30 AM EST Scheduled Referrals Name Type Priority Associated Diagnoses Orde r Schedule BREAST CANCER CLINIC REFERRAL OP Referral Within 3 days (urgent) 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
--- OUTSIDE RECORDS SUMMARY | 2023-03-30 15:03 | External Medical Summary | Summary of Care ---
Author Name Unknown Organization [facility] Address [address] [place] [address] Phone [phone] Care Team Providers Care Global Sales Executive Name Role Phone Gabriel Iqbal DO Primary Care Provider Reason for Visit * Reason Comments Outpatient Testing Encounter Details Date Type Department Care Team Description 02/06/2023 Laboratory Laboratory, [facility] 132 [facility] [place] [address] [facility] 132 [facility] [place] [address] Anticoagulation management encounter Allergies Active Allergy Reactions Severity Noted Date Comments 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, stopped as soon as infusion stopped documented as of this encounter (statuses as of 02/16/2023) Medications Medication Sig Dispensed Refills Start Date End Date Status VITAMIN B-6 100 MG OR TABS 0 03/12/2002 Active albuterol (PROAIR HFA) 108 (90 BASE) MCG/ACT inhalerIndications:A cute bronchitis, complicated Inhale 2 Puffs by mouth 4 times a day. 1 Inhaler 1 04/07/2016 Active B-12-SL 1000 MCG Sublingual Tablet Sublingual (Cyanocobalamin) Place under the tongue 1,000 mcg daily . 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 documented as of this encounter (statuses as of 02/16/2023) Resolved Problems Problem Noted Date Resolved Date Acute myeloid leukemia in remission 10/15/2019 10/15/2019 Acute serous otitis media 02/04/[address] Lymphadenitis, unspecified, except mesenteric 11/24/2014 Calculus of gallbladder with out mention of cholecystitis or obstruction 07/22/2003 11/24/2014 CONGENITAL DEFIC CLOT FACTOR -FACTOR V LEIDEN CARY CARVAJAL 02/28/2003 10/15/2019 Supervision of other high-risk 003 05/06/2003 Overview: ICD-10 update of inactive term ACUTE MYELOID LEUKEMIA; WITHOUT MENTION OF REMSTEPHANIE JARROD 11/22/2002 01/29/2011 Anticoagulation management encounter 10/26/2001 08/04/2020 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 documented as of this encounter (statuses as of 02/16/2023) Immunizations Name Administration Dates Next Due COVID-19 [...] as of this encounter Miscellaneous Notes * Addendum Note - Ness Saleh MT - 02/16/2023 7:44 AM EDTAddended by: NESS SALEH on: 02/16/2023 07:44 AM Modules accepted: Orders documented in this encounter Plan of Treatment Upcoming Encounters Date Type Specialty Care Team Description 03/03/2023 Laboratory Laboratory [facility] [address] [place] [address] 03/06/2023 Anticoagulation Pharmacy [facility] 58 60 [facility] [place] [address] 03/14/2023 Office Visit Gynecology Obstetrics Backer, MOO Johnson [address] [place] [address] 06/02/2023 Hospital Encounter Endoscopy Itzel Monroy, DO [address] [place] [address] 06/02/2023 Surgery Endoscopy Itzel Monroy, DO [address] [place] [address] COLONOSCOPY FLEXIBLE PROXIMAL DIAGNOSTIC Pending Results Name Type Priority Associated Diagnoses Date /Time FLOW CYTOMETRY, LEUKEMIA LYMPHOMA PANEL Lab Routine Anticoagulation management encounter 02/15/2023 8:50 AM EDT Scheduled Procedures Name Priority Associated Diagnoses [...] Procedure Name Priority Date/Time Associated Diagnosis Comments PT INR Routine 02/06/2023 4:19 PM EDT Anticoagulation management encounter documented in this encounter Results * (ABNORMAL) PT INR (02/06/2023 4:19 PM EDT) Prothrombin Time 20.8(H) 11.6 - 15.2 seconds 02/06/2023 4:45 PM EDT LABORATORY [place] 57-10 INR 1.8(H) 0.8 - 1.2 02/06/2023 4:45 PM EDT LABORATORY [place] 57-10 Blood Venous blood specimen / Unknown Venipuncture / Unknown 02/06/2023 4:19 PM EDT 02/06/2023 4:19 PM EDT Narrative LABORATORY [place] 57-10 - 02/06/2023 4:45 PM EDT Warfarin Therapy INR: 2.0-3.0 conventional anticoagulation INR: 2.5-3.5 high intensity anticoagulation Alida Urbano [facility] LAB BLOOD ORDERABLES LABORATORY [place] 57-[address] [place] [address] documented in this encounter Visit Diagnoses Diagnosis Anticoagulation management encounter Encounter for therapeutic drug monitoring Screening for colon cancer Special screening for malignant neoplasms, colon documented in this encounter Care Teams Global Sales Executive Relationship Specialty Start Date End Date Gabriel Iqbal DO [address] [place] [address] PCP - General Family Medicine 08/04/20 documented as of this encounter
--- OUTSIDE RECORDS SUMMARY | 2023-03-30 15:03 | External Medical Summary | Summary of Care ---
Author Name Unknown Organization [facility] Address [address] [place] [address] Phone [phone] Care Team Providers Care Printed Circuit Board Pcb Draftsman Name Role Phone Gabriel Iqbal DO Primary Care Provider Encounter Details Date Type Department Care Team Description 02/06/2023 Telephone Radiology [facility] [address] [place] [address] Gabriel Iqbal DO [address] [place] [address] Allergies Active Allergy Reactions Severity Noted Date Comments 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, stopped as soon as infusion stopped documented as of this encounter (statuses as of 02/07/2023) Medications Medication Sig Dispensed Refills Start Date [...] as of this encounter (statuses as of 02/07/2023) Active Problems Problem Noted Date 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 Thanks, Magali Conti PharmD Clinical Pharmacist [facility] ([facility]) [phone] 02/07/2023 8:06 AM * Telephone Encounter - Shirley Manzano RPh - 02/07/2023 7:57 AM EDT Sending request to Telepharmacy who manages this patient's warfarin. Shirley Manzano, Pharm D, BCACP Clinical Pharmacist 02/07/2023, 7:58 AM * Telephone Encounter - Melissa Kowalski DO - 02/06/2023 5:37 PM EDT Shirley - could you please advise on mgmt for this patient On coumadin to have breast bx Thank you * Telephone Encounter - Umberto Carrion RDMS - 02/06/2023 4:11 PM EDT Ruth has been scheduled for an Ultrasound Guided Breast Biopsy: tentatively scheduled for 02/15/2023. Pt reports that she is on a blood thinner. Can someone please reach out to patient with instructions prior to biopsy. Please advise and thank you! Fern [facility] Ultrasound documented in this encounter Plan of Treatment Upcoming Encounters Date Type Specialty Care Team Description 02/15/2023 Imaging Radiology 02/15/2023 Imaging Radiology 03/03/2023 Laboratory Laboratory [facility] [address] [place] [address] 03/06/2023 [facility] [address] [facility] [address] [facility]/02/2023 Hospital Encounter Endoscopy Itzel Monroy DO [address] [place] [address] 06/02/2023 Surgery Endoscopy Itzel Monroy DO [address] [place] [address] COLONOSCOPY FLEXIBLE PROXIMAL DIAGNOSTIC Scheduled Procedures Name [...] Influenza Vaccine (FLU shot) (#1) 2023 Mammogram 01/21/2024 01/20/2023, 11/07/2020, 10/30/2017, Additional history exists Cervical Cancer Screening 12/03/2024 [...] filedocumented as of this encounter Care Teams Printed Circuit [employer] Pcb Draftsman Relationship Specialty Start Date End Date Gabriel Iqbal DO [address] [place] [address] PCP - General Family Medicine 08/04/20 documented as of this encounter
--- OUTSIDE RECORDS SUMMARY | 2023-03-30 15:03 | External Medical Summary | Summary of Care ---
Author Name Unknown Organization [facility] Address [address] [place] [address] Phone [phone] Care Team Providers Care Customer Management Specialist Name Role Phone Rory Iqbalvor Sarojjaylan Primary Care Provider Reason for Visit * Reason Onset Date Comments Appointment 02/28/2023 Encounter Details Date Type Department Care Team (Late st Contact Info) Description 02/28/2023 Telephone Gynecology/Obstetrics [facility] [address] [place] [address] Lea Drummond CRNP [address] [place] [address] Appointment Allergies Active Allergy Reactions Criticality Noted Date Comments 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, stopped as soon as infusion stopped documented as of this encounter (statuses as of 02/28/2023) Medications Medication Sig Dispensed Refills Start Date [...] mg before bedtime. As instructed by the [facility]. 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 0 05/12/2003 Overview: ICD-10 update of inactive term MTHFR MUTATION- HOMOZYGOUS 02/28/2003 History of acute myeloid leukemia in remission 0 12/23/2002 documented as of this encounter (statuses as of 02/28/2023) Resolved Problems Problem Noted Date Diagnosed Date [...] as of this encounter (statuses as of 02/28/2023) Immunizations Name Administration Dates Next Due COVID-19 mRNA, LNP-s, No Pre serve, 2-Dose Series ([employer]) 09/03/2020,08/13/2020 TD - Tetanus/Diptheria (ADULT) 05/08/2000 TDAP [...] encounter Miscellaneous Notes * Telephone Encounter - Mariela Rossi LPN - 02/28/2023 12:29 PM EDT Patient would be interested in discussing the paragard and possibly having it placed same day. * Telephone Encounter - MOO Morales - 02/28/2023 12:16 PM EDT Please see message from Dr Loving. Pt has a immigration coordinator appt scheduled 03/14 - can you check to see if she is ok with removing IUD at that time? If she wants a paragard (non-hormonal) IUD, we can counseling program leader and place it then. MOO [place] * Telephone Encounter - MOO Morales - 02/28/2023 12:16 PM EDT ----- Message from Renee Loving MD sent at 02/28/2023 12:11 PM EDT ----- Regarding: removal of mirena Hi. Ruth has been diagnosed with breast cancer. Can you get her mirena out? Thanks! Renee Loving MD documented in this encounter Plan of Treatment Upcoming Encounters Date Type Department Care Team (Latest Contact Info) Description 03/02/2023 12:15 PM EDT Office Visit Hematology/Oncolog y [facility] [address] [place] [address] [facility] [place] [address] Zach Anderson MD [address] [place] [address] 03/03/2023 4:10 PM EDT [facility] [address] [place] [phone] [facility] [address] [place] [address] 03/06/2023 6:15 AM EDT Anticoagulation Pharmacy Call Center [phone] [place] [address] [facility] [address] [facility] [place] [address] 03/14/2023 1:00 PM EST Office Visit Gynecology/Obstetr ics [facility] [address] [place] [address] BackerLea CRNP [address] [place] [address] 03/23/2023 1:00 PM EST [facility] [address] [place] [address] 06/02/2023 8:30 AM EST Hospital Encounter ENDO [facility], Endoscopy Room [facility] [address] [place] [phone] Itzel Monroy DO [address] [place] [address] 06/02/2023 8:30 AM EST - 06/02/2023 9:00 AM EST Surgery ENDO [facility], Endoscopy Room [facility] [address] [place] [phone] Itzel Monroy DO [address] [place] [address] COLONOSCOPY FLEXIBLE PROXIMAL DIAGNOSTIC Scheduled Procedures Name [...] filedocumented as of this encounter Care Teams Customer Management Specialist Relationship Specialty Start Date End Date Gabriel Iqbal DO [address] [place] [address] PCP - General Family Medicine 08/04/20 documented as of this encounter
--- OUTSIDE RECORDS SUMMARY | 2023-03-30 15:03 | External Medical Summary | Summary of Care ---
Author Name Unknown Organization [facility] Address [address] [place] [address] Phone [phone] Care Team Providers Care Fundraising Sale Representative Name Role Phone Gabriel Iqbaljaylan Primary Care Provider Reason for Visit * Reason Comments Outpatient Testing Encounter Details Date Type Department Care Team Description 02/06/2023 Laboratory Laboratory, [facility] [address] [facility] [place] [address] [facility] [address] [facility] [place] [address] Arrived Allergies Active Allergy Reactions Severity Noted Date Comments 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, stopped as soon as infusion stopped documented as of this encounter (statuses as of 02/06/2023) Medications Medication Sig Dispensed Refills Start Date [...] as of this encounter (statuses as of 02/06/2023) Active Problems Problem Noted Date 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 documented as of this encounter (statuses as of 02/06/2023) Immunizations Name Administration Dates Next Due COVID-19 [...] Radiology 02/15/2023 Imaging Radiology 03/03/2023 Laboratory Laboratory [facility] [address] [place] [address] 03/06/2023 [facility] [address] [facility] [place] [address] 06/02/2023 Hospital Encounter Endoscopy Itzel Monroy DO [address] [place] [address] 06/02/2023 Surgery Endoscopy Itzel Monroy DO [address] [place] [address] COLONOSCOPY FLEXIBLE PROXIMAL DIAGNOSTIC Scheduled Procedures Name [...] (FLU shot) (#1) 2023 Mammogram 01/21/2024 01/20/2023, 1107/2020, 10/30/2017, Additional history exists Cervical Cancer Screening [...] filedocumented as of this encounter Care Teams Fundraising Sale Representative Relationship Specialty Start Date End Date Gabriel Iqbal DO [address] [place] [address] PCP - General Family Medicine 3/30/21 documented as of this encounter
--- OUTSIDE RECORDS SUMMARY | 2023-03-30 15:03 | External Medical Summary | Summary of Care ---
Author Name Unknown Organization [facility] Address [address] [place] [address] Phone [phone] Care Team Providers Care Boiler Assistant Operator Name Role Phone Gabriel Iqbal Sarojjaylan Primary Care Provider Reason for Referral * Evaluate & Treat - Unlimited Visits (Within 10 days (routine)) - Pending Review Specialty Diagnoses / Procedures Referred By Myranda john Referred To Contact Medical Genetics / Hematology Oncology Diagnoses Malignant neoplasm of upper-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, estrogen receptor positive Renee Loving MD [address] [place] [address] Referral ID Status Reason Start Date Expiration Date Visits Requested Visits Authorized [id number] Pending Review Specialty Services Required [phone] Question Answer Referral Priority Within 10 days (routine) Where should this appointment be scheduled? [facility] Is this referral request related to one of the following genetics sub-specialties? If unsure of category, use Medical Genetics Ask-A-Doc. Cancer Personal history of cancer? Yes Type of cancer and age at diagnosis: breast age 47, personal history of leukemia Family history of cancer? Yes Describe family history of cancer: breast cancer paternal aunt Has patient OR family member had genetic testing previously? No * Evaluate & Treat - Unlimited Visits (Within 10 days (routine)) - Pending Review Specialty Diagnoses / Procedures Referred By Myranda john Referred To Contact Plastic Surgery Diagnoses Malignant neoplasm of upper-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, estrogen receptor positive Renee Loving MD [address] [place] [address] Referral ID Status Reason Start Date Expiration Date Visits Requested Visits Authorized [id number] Pending Review Specialty Services Required [phone] Question Answer Referral Priority Within 10 days (routine) Where should this appointment be scheduled? [facility] What condition is the patient being seen for? Breast Reconstruction Comments Current Patient BMI: Body mass index is 31.62 kg/m. Right breast multifocal cancer, will need mastectomy Chemo first * Precert (Within 10 days (routine)) - Pending Review Specialty Diagnoses / Procedures Referred By Myranda john Referred To Contact Radiology Diagnoses Malignant neoplasm of upper-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, estrogen receptor positive Procedures MRI BREAST BILATERAL W WO CONTRAST Renee Loving MD [address] [place] [address] Referral ID Status Reason Start Date Expiration Date V isits Requested Visits Authorized [id number] Pending Review 03/01/[phone] Reason for Visit * Reason Comments NEW PATIENT Breast cancer * Evaluate & Treat - Unlimited Visits (Within 3 days (urgent)) - Pending Review Specialty Diagnoses / Procedures Referred By Myranda john Referred To Contact Breast Clinic Multi Specialty Diagnoses 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 As instructed by the [facility]. 8 mL 0 02/07/2023 [...] (intrauterine device) in place 08/17/2015 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 [employer] current use of anticoagulant therapy 0 05/12/2003 [...] Sign Reading Time Taken Comments Blood Pressure 150/71 02/28/2023 11:15 AM EDT Pulse 97 02/28/2023 11:15 AM EDT Temperature - - Respiratory Rate - - Oxygen Saturation - - Inhaled Oxygen Concentration - - Weight 73.4 kg (161 lb 14.4 oz) 023 11:15 AM EDT Height - - Body Mass Index 31.62 11/02/2022 8:41 AM EDT documented in this encounter Progress Notes * Renee Loving MD - 02/28/2023 11:38 AM EDT [facility] NEW BREAST CANCER CLINIC NOTE Chief Complaint Patient presents with NEW PATIENT Breast cancer REASON FOR CONSULTATION: Right Breast Cancer Clinical Stage 2-T1 multifocal, N1 MX HPI: Ruth Hylton is a 47 year old female who was referred by Gabriel Iqbal DO for evaluationand discussion of newly diagnosed breast cancer. This was found on screening mammogram which showeda focal asymmetry in the right breast. This was confirmed on spot compression films and US showed four separate tumors within the right 3:00- 4:00 breast. Two of these (3:00 areolar edge and 3:00 10 cm FN) were biopsied. Two (3:00 8 cm FN and 4:00 3 cm FN) have not been. An axillary node was noted to be thickened and was also biopsied. 1) Right 3:00 10 cm FN: 15 mm mass, invasive mammary carcinoma, intermediate grade, er/pr pos, [id number] 2) Right 3:00 areolar edge: 8 mm mass, invasive mammary carcinoma, intermediate grade, er/pr pos, her2 neg 3) Right axillary node: metastatic carcinoma Personal history of leukemia - did chemotherapy May 1997-December 1998. Continued ATRA through Jun 1998. Developed bilateral thromboses and was found to have a high homocysteine level, factor V leiden mutation, and MTHFR gene mutation. On coumadin since 1998. Does do bridges with lovenox when coumadin needs to be held. Had surgery last year due to a bleeding ruptured ovarian cyst. Ovary was able to be saved. Has mirena IUD in place. No prior breast procedures. Paternal aunt with breast cancer, may also have had ovarian or cervicalcancer. Unsure is she did genetic testing. 02/26/23: A. Breast, Right, 3:00 10cmfn, core biopsy: - Invasive mammary carcinoma with focal micropapillary features, Elliott score 6/9 : Tubule formation : 3/3, nuclear grade 2/3, mitotic count : 1/3 - Lymphovascular invasion or microcalcification is not identified - Breast biomarkers will be issued in an addendum - see microscopic description B. Breast, Right, 3:00 Areolar Edge, core biopsy: - Invasive ductal carcinoma ( invasive mammary carcinoma no special type) Elliott score 6/9 : Tubule formation : 3/3, nuclear grade 2/3, mitotic count : 1/3 - Lymphovascular invasion or microcalcification is not identified - Breast biomarkers will be issued in an addendum - see microscopic description C. Lymph Node, Right Axilla, core biopsy: - Metastatic carcinoma to lymph node, measuring 5.0 mm in greatest dimension in the current material ( metastatic foci labels with AE1-AE3 immunostain, supportive of final diagnosis) - No perinodal tumor extension is identified at 1244 Order Comments Ultrasound guided core biopsy of a 12 x 11 x 15mm hypoechoic suspicious mass right breast 3:00 10cmfn rule out breast CA, rule out leukemia. Specimen submitted in formalin and RPMI, please run flow cytometry Gross Description A. Breast, Right. Received part in formalin, part in RPMI solution with a container labeled with "Ruth Hylton", "[id number]", "1975" and " right breast three o'clock 10cmfn". Received in formalin are three cores of nesbitt-white to yellow and rubbery soft tissue that range from 1.1 up to 1.5 cm in greatest dimension. Also received in RPMI solution are three additional fragments of nesbitt-pink and rubbery soft tissue. The cores of tissue received in formalin are submitted in A1 and the fragments of tissue received in RPMI are sent for flow cytometry analysis. Gross By: SIOMARA B. Breast, Right. Received part in formalin, part in RPMI solution with a container labeled with "Ruth L Vactor", "[id number]", "1975" and " right breast three o'clock areolar edge". Received in formalin are three cores of nesbitt-pink and rubbery soft tissue with a scant amount of attached red-brown hemorrhagic material that range from 0.8 up to 1.1 cm in greatest dimension. Also received in RPMI solution are multiple additional fragments of nesbitt-pink and rubbery soft tissue. The cores of tissue received in formalin are submitted in B1 and the fragments of tissue received in RPMI solution are sent flow cytometry analysis. Gross By: SIOMARA C. Lymph Node, Right Axillary. Received part in formalin, part in RPMI solution with a container labeled with "Ruth L Vactor", "[id number]", "1975" and " right axilla lymph node". Received in formalin are three cores of nesbitt-pink and rubbery soft tissue with a scant amount of attached red-brown hemorrhagic material that range from 0.6 up to 0.7 cm in greatest dimension. Also received in RPMI solution are multiple additional fragments of nesbitt-pink and rubbery soft tissue. The cores of tissue received in formalin are submitted in C1 and the fragments of tissue received in RPMI solution are sent for flow cytometry analysis. Gross By: SIOMARA Microscopic Description The largest dimension of the invasive carcinoma is 1.3 cm in part one and 0.5 cm in part 2. Breast, right, Block [id number] A. Breast, Right, 3:00 10cmfn, core biopsy: - Invasive mammary carcinoma with focal micropapillary features Estrogen Receptor (ER) protein expression is STRONGLY POSITIVE 100% nuclear positivity 2+ average intensity score (range 0 to 3+) Progesterone Receptor (AZ) protein expression is STRONGLY POSITIVE 100% nuclear positivity 3+ average intensity score (range 0 to 3+) HER2 oncoprotein expression is NEGATIVE ( 1+ average membranous intensity) Breast, right, Block [id number]: B. Breast, Right, 3:00 Areolar Edge, core biopsy: - Invasive ductal carcinoma ( invasive mammary carcinoma no special type) Estrogen Receptor (ER) protein expression is STRONGLY POSITIVE 95% nuclear positivity 2+ average intensity score (range 0 to 3+) Progesterone Receptor (AZ) protein expression is STRONGLY POSITIVE 95% nuclear positivity 2+ average intensity score (range 0 to 3+) HER2 oncoprotein expression is NEGATIVE ( 1+ average membranous intensity) Hormone Receptor Reference Ranges (nuclear staining) ER/AZ Negative <1% nuclear staining ER Low Positive 1 - 10% nuclear staining ER Positive >10% nuclear staining AZ Positive >1% nuclear staining BREAST ROS: No new breast lumps or masses, No severe breast pain, No nipple discharge, No recent change in shape/color, and Performs self breast exam GYNECOLOGIC HISTORY: LMP: No LMP recorded. Patient has had an implant. Menarche at age: 11 Menopause at age: 46 Number of children: 1 Patient's age at first live : 28 Did you breast feed any of your children: Yes Ever take oral contraceptives? Yes, history of use for 12 year(s) Ever take estrogen? No RADIOLOGIC INTERPRETATION: 01/20/23: Result MAMMOGRAM SCREENING RONEY BILATERAL History Encounter for screening mammogram for breast cancer The patient has no documented relevant family history. Films Compared 03/10/2021 MAMMOGRAM SCREENING RONEY BILATERAL and 10/30/2017 MAMMOGRAM SCREENING RONEY BILATERAL Right mammogram 02/02/2015 and bilateral mammogram 11/27/2014. Findings Left The left breast is heterogeneously dense, which may obscure small masses. There is no evidence of suspicious masses, calcifications, or other abnormal findings in the left breast. Right The right breast is heterogeneously dense, which may obscure small masses. Focal asymmetry in the lower inner/near central posterior depth. Additional imaging is advised. Impression Right breast focal asymmetry. Additional imaging is advised. No mammographic evidence of malignancy in the left breast. BI-RADS Category: 0 - Incomplete: Needs Additional Imaging Evaluation. Recommendation Screening mammogram in 1 year is recommended for the left breast. Callback ultrasound is recommended for the right breast. Callback diagnostic mammogram is recommended for the right breast. 02/06/23: Result US BREAST LIMITED RIGHT MAMMOGRAM DIAGNOSTIC RONEY RIGHT History Abnormal mammogram The patient has no documented relevant family history. Films Compared 01/20/2023 MAMMOGRAM SCREENING RONEY BILATERAL, 03/10/2021 MAMMOGRAM SCREENING RONEY BILATERAL, and 10/30/2017 MAMMOGRAM SCREENING RONEY BILATERAL Right mammogram 02/02/2015 and 11/27/2014. Findings MAMMOGRAM DIAGNOSTIC RONEY RIGHT US BREAST LIMITED RIGHT The right breast is heterogeneously dense, which may obscure small masses. The breast tissue has a homogeneous background echotexture - fibroglandular. Targeted ultrasound demonstrates a 1.5 x 1.1 x 1.1 cm poorly defined hypoechoic mass at 3 o'clock 10 cm from nipple correlate to a spiculated mass seen on mammogram. Mammographic and sonographic findings are highly suspicious. Ultrasound-guided core biopsy is advised. This would be helpful to define the posterior extent of the disease. A 7 x 8 x 4 mm poorly defined hypoechoic mass is seen at 3 o'clock areolar edge. Ultrasound-guided core biopsy is advised. This would be helpful to define the anterior extent of the disease. A 6 x 4 x 4 mm poorly defined hypoechoic mass is seen at 3 o'clock 8 cm from and a 4 x 4 x 5 mm poorly defined hypoechoic mass at 4 o'clock 3 cm from nipple. Also noted is a 7 x 5 x 3 mm well-defined oval hypoechoic lesion at 9 o'clock 7 cm from nipple, incidental finding . Ultrasound of the right axilla demonstrates a lymph node with thickened cortex measuring up to 5 mmin thickness. Ultrasound-guided core biopsy is advised. Impression MAMMOGRAM DIAGNOSTIC RONEY RIGHT US BREAST LIMITED RIGHT A 1.5 x 1.1 x 1.1 cm poorly defined hypoechoic mass at 3 o'clock 10 cm from nipple correlate to a spiculated mass seen on mammogram. Mammographic and sonographic findings are highly suspicious. Ultrasound-guided core biopsy is advised. This would be helpful to define the posterior extent of the disease. Diagnostic considerations would include leukemia in this patient with history of leukemia versus primary breast carcinoma. A 7 x 8 x 4 mm poorly defined hypoechoic mass is seen at 3 o'clock areolar edge. Ultrasound-guided core biopsy is advised. This would be helpful to define the anterior extent of the disease. Diagnostic considerations would include leukemia in this patient with history of leukemia versus primary breast carcinoma. Right axilla lymph node with thickened cortex. Ultrasound-guided core biopsy would be helpful to evaluate for metastatic disease versus leukemia. BI-RADS Category: 5 - Highly Suggestive of Malignancy. Recommendation US guided breast core biopsy is recommended for the right breast. US guided breast core biopsy is recommended for the right axilla. Follow-up left mammogram is advised in 1 year or sooner if warranted clinically. The above findings and recommendations were discussed with and understood by the patient. ADDENDUM: Ultrasound guided core biopsy of a 12 x 11 x 15 mm hypoechoic mass at 3 o'clock 10 cm from nipple, right breast: Received from the department of pathology is the histology diagnosis of invasive mammary carcinoma with focal micro papillary features. Juda score 6/9. Flow cytometry: Paucicellular specimen with debris and particles reacting nonspecifically with analytic reagents. Insufficient for evaluation. Ultrasound-guided core biopsy of a 4 x 8 x 6 mm hypoechoic mass at 3 o'clock areolar edge, right breast: Received from the department of pathology is the histology diagnosis of invasive ductal carcinoma, invasive mammary carcinoma no special type, Elliott score 6/9. Flow cytometry: Adequate flow cytometric analysis cannot be performed due to insufficient cellularity and suboptimal specimen viability. Ultrasound-guided core biopsy of right axilla lymph node with thickened cortex: Received from the department of pathology is the histology diagnosis of metastatic carcinoma to lymph node. Flow cytometry: No monotypic B-cell or abnormal T-cell population identified. The histology diagnoses are concordant with imaging findings. Surgical consultation and follow-up is advised. Patient is advised to follow-up with Dr. Charles in the Department of surgery. Mammography Lookback Coordinator Asha Red has been notified for scheduling and tracking purposes. Signed by Katalina Hendricsk MD on 02/24/2023 15:03 Narrative & Impression EXAM: 02/15/2023US GUIDED BREAST BIOPSY RIGHT; MAMMOGRAM POST BIOPSY CLIP PLACEMENT HISTORY: -Referred for ultrasound guided core biopsy of - a 12 x 11 x 15 mm hypoechoic mass 3 o'clock 10 cm from nipple, right breast. -a 4 x 8 x 6 mm hypoechoic mass at 3 o'clock areolar edge, right breast. -right axilla lymph node with thickened coretx. TECHNIQUE: ANESTHESIA: 1% lidocaine CIGARETTE MACHINE FILLER: Dr. Douglas was present for and performed the entire procedure. The following procedure/examinations were performed: - Ultrasound guided core biopsy of a 12 x 11 x 15 mm hypoechoic mass at 3 o'clock 10 cm from nipple, right breast and ribbon tissue marker placement - ultrasound-guided core biopsy of a 4 x 8 x 6 mm hypoechoic mass at 3 o'clock areolar edge, right breast and heart shaped tissue marker placement - Ultrasound-guided core biopsy of right axilla lymph node with thickened cortex and [place] tissue marker placement - Post clip/tissue marker placement unilateral mammogram Following a discussion of the risks and benefits of the procedure as well as a discussion of alternatives to this procedure, the patient was given the opportunity to ask questions. Once the patient'squestions were answered to her satisfaction, informed consent was signed by the patient. A timeout,with verification of patient name and site of procedure was performed by Dr. Douglas in the presence of communications technologist and it was confirmed that procedure matches verbalized consent. COMPARISON: Multiple priors to include FINDINGS: Ultrasound guided core biopsy of a 12 x 11 x 15 mm hypoechoic mass at 3 o'clock 10 cm from nipple, right breast and ribbon tissue marker placement: Preliminary ultrasound demonstrates a 12 x 11 x 15 mm hypoechoic mass at 3 o'clock 10 cm from nipple, right breast. Using aseptic technique, local anesthesia with 1% buffered lidocaine, a small skin incision was made with a surgical blade to permit passage of the 14 gauge core biopsy needle. A spring activated/ automated Sertera biopsy device was utilized. Under direct sonographic guidance and visualization, several passes were made through the target and core specimen obtained. The core specimen were placed in formalin and submitted for histopathologic analysis. Under direct sonographic guidance and visualization, a ribbon tissue marker was placed within the lesion for future reference. Post procedural mammogram demonstrates migration of the tissue marker, the located tissue marker in the chest wall as s een on the true lateral view. This was a technically difficult biopsy. Ultrasound-guided core biopsy of a 4 x 8 x 6 mm hypoechoic mass at 3 o'clock areolar edge, right breast and heart shaped tissue marker placement: Preliminary ultrasound demonstrates a 4 x 8 x 6 mm hypoechoic mass at 3 o'clock areolar edge, rightbreast. Using aseptic technique, local anesthesia with 1% buffered lidocaine, a small skin incision was made with a surgical blade to permit passage of the 14 gauge core biopsy needle. A spring activated/ automated Sertera biopsy device was utilized. Under direct sonographic guidance and visualization, several passes were made through the target and core specimen obtained. The core specimen were placed in formalin and submitted for histopathologic analysis. Under direct sonographic guidance and visualization, a heart shaped tissue marker was placed within the lesion for future reference. Post procedural mammogram verified tissue marker placement. Ultrasound-guided core biopsy of right axilla lymph node with thickened cortex tissue marker placement: Preliminary ultrasound demonstrates a right axilla lymph node with thickened cortex measuring up to5 mm thick. Using aseptic technique, local anesthesia with 1% buffered lidocaine, a small skin incision was made with a surgical blade to permit passage of the Inrad core biopsy needle. A spring activated/ automated Inrad biopsy device was utilized. Under direct sonographic guidance and visualization, several passes were made through the target and core specimen obtained. The core specimen were placed in formalin and submitted for histopathologic analysis. Under direct sonographic guidance and visualization, a [place] tissue marker was placed within the lesion for future reference. The patient tolerated the procedure well and there were no complications. Written discharge instructions were given to the patient and also reviewed verbally with her. The patient expressed understanding of the instructions and was discharged from the department in stable condition. IMPRESSION IMPRESSION: 1. Ultrasound guided core biopsy of right breast and tissue marker placement x 2 sites. 2. Position of the tissue markers is identified on unilateral mammogram obtained following the ultrasound-guided core biopsy and tissue marker placement as discussed above. 3. Core specimen submitted for histopathologic interpretation x 2. 4. Ultrasound-guided core biopsy of a right axilla lymph node with thickened cortex and tissue marker placement. 5. Core specimen submitted for histopathologic analysis. 6. A supplement/addendum to this report will follow pending receipt of pathology results. I personally viewed and interpreted the mammographic films and concur with the above. 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 Chemo and gentamicin caused hearing loss. PAST SURGICAL HISTORY: Past Surgical History: Procedure Laterality Date INFORMATION ear tubes INFORMATION double lumen phillip catherters LAPAROSCOPY; CHOLECYSTECTOMY 07/10/03 [facility] Dr. Stanley REMOVAL OF KIDNEY STONE 05/02/2018 REMOVAL OF TONSILS, UNDER AGE 11 CURRENT OUTPATIENT PRESCRIPTIONS: Current Outpatient Medications Medication Sig Dispense Refill VITAMIN B-6 100 MG OR TABS 0 B-12-SL 1000 MCG Sublingual Tablet Sublingual (Cyanocobalamin) [...] MOUTH IN THE MORNING 90 Tablet 1 albuterol (PROAIR HFA) 108 (90 BASE) MCG/ACT inhaler Inhale 2 Puffs by mouth 4 times a day. 1 Inhaler 1 Omeprazole 20 MG Oral Capsule Delayed Release (PriLOSEC) Take by mouth 1 Capsule in the morning. 1 hour before the first meal of the day. 30 Capsule 5 Enoxaparin Sodium 80 MG/0.8ML Injection Solution Prefilled Syringe (Lovenox) Inject 70 mg under theskin in the morning and 70 mg before bedtime. As instructed by the [facility]. 8 mL 0 No current facility-administered medications for this visit. ALLERGIES: Allergies as of 02/28/2023 - Reviewed 02/28/2023 Allergen Reaction Noted Vancomycin 02/24/2000 SOCIAL HISTORY: Social History Tobacco Use Smoking status: Never Smokeless tobacco: Never Substance Use Topics Alcohol use: Yes Comment: rare Vaping/E-Cigarette Use Vaping/E-Cigarette Use Never User Vaping/E-Cigarette Substances Vaping/E-Cigarette Devices ROS: GEN: no weight loss, fever, fatigue HEENT: pos for hearing loss related to gentamicin toxicity RESPIRATORY: no cough, wheezing, SOB or change in breathing CARDIOVASCULAR: no exertional chest pain, dyspnea, palpitations GI: no melena, hemetemesis, no vomiting or diarrhea : no dysuria, hematuria, frequency MUSCULOSKELETAL: no change in joint pains, no new arthritis PSYCHIATRIC: no significant anxiety or depression, unchanged sleep pattern HEME: pos for clotting tendency - on coumadin NEURO: no significant headache, no seizures , no tremors SKIN: no new rashes, no itching PHYSICAL EXAMINATION: Blood pressure 150/71, pulse 97, weight 73.4 kg (161 lb 14.4 oz), not currently . Constitutional: alert, healthy Head: normocephalic, atraumatic Eyes: conjunctiva non-injected, sclera white Ears: pinna normal shape and color and wears hearing aid/ reads lips Neck: supple, no adenopathy Lungs: clear to auscultation, breath sounds are equal and symmetric Heart: regular rate & rhythm and no murmur, gallops or rubs Abdomen: soft, non-tender Back: normal curvature Extremities: no edema Neuro: alert, gait normal, motor normal BREAST EXAMINATION: Nipples symmetric, ptotic Right Breast: Right Breast: Masses noted: Yes, 3:00 near sternal edge, there is a 15 mm firm area, not fixed; there is another 1 cm firm area 3:00 areolar edge but this may represent hematoma as there is bruising noted Post XRT edema: No Post XRT erythema: No Other palpable abnormality: No Skin: Skin retraction: No Peau d'orange: No Telangectasia: No Scar(s) present: No Other changes: No Right Nipple: Nipple inversion: No Pagets: No Nipple discharge: No Right Lymph Nodes: Arm edema: No Palpable axillary adenopathy: No (Node is not palpable) Palpable supraclavicular adenopathy: No Previous axillary incision: No Left Breast: Left Breast: Masses noted: No Post XRT edema: No Post XRT erythema: No Other palpable abnormality: No Skin: Skin retraction: No Peau d'orange: No Telangectasia: No Scar(s) present: No Other changes: No Left Nipple: Nipple inversion: No Pagets: No Nipple discharge: No Left Lymph Nodes: Arm edema: No Palpable axillary adenopathy: No Palpable supraclavicular adenopathy: No Previous axillary incision: No IMPRESSION: 47 yr old woman on coumadin for clotting disorder, personal history of leukemia, now with multifocal right breast hormone positive, 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 There are four separate tumors in the 3-4:00 axis - largest is 15 mm and at the sternal border. We discussed genetic counseling/ testing given her young age of diagnosis and family history of breast cancer. We discussed removal of her mirena IUD and message was sent to gynecology. We had a detailed discussion with the patient reviewing her diagnosis and treatment options. She understands that the treatment of breast cancer is a multidisciplinary approach potentially involving surgery, radiation oncology, and medical oncology. We reviewed surgical options for her breast, including breast conservation and mastectomy. We discussed that breast conservation requires both removal of the cancer to a negative margin and treatment with radiotherapy to the remaining breast tissue.We discussed that survival is not improved with more aggressive surgery (i.e. Mastectomy) and that mastectomy also does not eliminate the potential for breast cancer recurrence as a small amount of tissue is left to support the skin. In addition, more aggressive surgery does not eliminate the need for chemotherapy or targeted therapies; the decisions for these treatment choices are based upon thecancer's characteristics. Despite this, she has developed four separate tumors within the right breast. For this reason, I would recommend right mastectomy. Risks of mastectomy to include bleeding, infection, numbness of the chest wall, wound complicatons with necrosis of the skin, and the need for drain placement were discussed. We reviewed the option of reconstruction and how this effects the operation and recovery. We discussed that there are different choices of reconstruction which can include implants or tissue transfer/ flap procedures. I reviewed that reconstruction is not typically a one stage surgical procedure. Often, a tissue termite treater is placed at the time of mastectomy and then sequentially expanded whil e the skin is recovering. Following completion of treatment, this termite treater can then be switched to a more permanent reconstruction. She will be referred onto plastic surgery for consideration of reconstruction. She is likely to need postmastectomy radiation therapy We reviewed that the biggest potential benefit of chemotherapy before surgery is in potential downstaging of the axilla. At this point, she would require a complete axillary dissection with a possible 20% risk of permanent lymphedema. Should she need radiation therapy to the axilla following surgery (which she is likely to need), the risk of lymphedema increases to near 40%. However, neoadjuvant chemotherapy has a potential for shrinking/ clearing the disease within the lymph nodes. Following chemotherapy, staging of the axilla with a targeted axillary dissection (removal of the previously positive node and sentinel node biopsy) would be an option. Following chemotherapy, the accuracy of sentinel node staging is increased if 3 or more nodes are removed. There is a small (<5%) chance ofa failed sentinel node biopsy where the nodes cannot be found. In this instance or in the instance of remaining disease within the axilla, a full axillary dissection would be performed. Risks of sentinel node biopsy including bleeding, infection, and a small rate of lymphedema (6-12%) were discussed. Depending on the result of the targeted axillary dissection, radiation may be able to be used fortreatment of the remaining axillary nodes. I would recommend jeanette warehousing technician placement into the positivenode now. She has an appt to see medical oncology later this week. Systemic staging will be deferred to medical oncology. She understands that I would recommend a preoperative MRI scan to better evaluate her breasts and check the other breast. We reviewed that there is no survival advantage to contralateral prophylacticmastectomy and she would prefer to save the left breast if possible. She may need a port placement. Has had two prior sparks catheters on the left, one prior on the right side. If needs port, will schedule in the OR under local and IV sedation. Will need lovenox bridge and will be at higher risk of bleeding because of her coumadin use. PLAN: Bilateral breast MRI scan Plastic surgery consult Oncology consult for consideration of neoadjuvant chemotherapy for downstaging of right axilla. Right axillary jeanette warehousing technician placement. Genetic counseling/ testing Removal of mirena IUD Potential port placement. I spent a total of Greater than 55 mins (exact time 62 mins) on the date of service in preparation,delivery, and documentation of the care provided to Ruth Hylton excluding any time spent in the performance of separately billed services. Renee Loving M.D. 02/28/2023 12:50 PM documented in this encounter H&P Notes * Renee Loving MD - 02/28/2023 12:51 PM EDT [facility] NEW BREAST CANCER CLINIC NOTE Chief Complaint Patient presents with NEW PATIENT Breast cancer REASON FOR CONSULTATION: Right Breast Cancer Clinical Stage 2-T1 multifocal, N1 MX HPI: Ruth Hylton is a 47 year old female who was referred by Gabriel Iqbal DO for evaluationand discussion of newly diagnosed breast cancer. This was found on screening mammogram which showeda focal asymmetry in the right breast. This was confirmed on spot compression films and US showed four separate tumors within the right 3:00- 4:00 breast. Two of these (3:00 areolar edge and 3:00 10 cm FN) were biopsied. Two (3:00 8 cm FN and 4:00 3 cm FN) have not been. An axillary node was noted to be thickened and was also biopsied. 1) Right 3:00 10 cm FN: 15 mm mass, invasive mammary carcinoma, intermediate grade, er/pr pos, [id number] 2) Right 3:00 areolar edge: 8 mm mass, invasive mammary carcinoma, intermediate grade, er/pr pos, her2 neg 3) Right axillary node: metastatic carcinoma Personal history of leukemia - did chemotherapy May 1997-December 1998. Continued ATRA through Jun 1998. Developed bilateral thromboses and was found to have a high homocysteine level, factor V leiden mutation, and MTHFR gene mutation. On coumadin since 1998. Does do bridges with lovenox when coumadin needs to be held. Had surgery last year due to a bleeding ruptured ovarian cyst. Ovary was able to be saved. Has mirena IUD in place. No prior breast procedures. Paternal aunt with breast cancer, may also have had ovarian or cervicalcancer. Unsure is she did genetic testing. 02/26/23: A. Breast, Right, 3:00 10cmfn, core biopsy: - Invasive mammary carcinoma with focal micropapillary features, Juda score 6/9 : Tubule formation : 3/3, nuclear grade 2/3, mitotic count : 1/3 - Lymphovascular invasion or microcalcification is not identified - Breast biomarkers will be issued in an addendum - see microscopic description B. Breast, Right, 3:00 Areolar Edge, core biopsy: - Invasive ductal carcinoma ( invasive mammary carcinoma no special type) Juda score 6/9 : Tubule formation : 3/3, nuclear grade 2/3, mitotic count : 1/3 - Lymphovascular invasion or microcalcification is not identified - Breast biomarkers will be issued in an addendum - see microscopic description C. Lymph Node, Right Axilla, core biopsy: - Metastatic carcinoma to lymph node, measuring 5.0 mm in greatest dimension in the current material ( metastatic foci labels with AE1-AE3 immunostain, supportive of final diagnosis) - No perinodal tumor extension is identified at 1244 Order Comments Ultrasound guided core biopsy of a 12 x 11 x 15mm hypoechoic suspicious mass right breast 3:00 10cmfn rule out breast CA, rule out leukemia. Specimen submitted in formalin and RPMI, please run flow cytometry Gross Description A. Breast, Right. Received part in formalin, part in RPMI solution with a container labeled with "Tunaspot L Vactor", "[id number]", "1975" and " right breast three o'clock 10cmfn". Received in formalin are three cores of nesbitt-white to yellow and rubbery soft tissue that range from 1.1 up to 1.5 cm in greatest dimension. Also received in RPMI solution are three additional fragments of nesbitt-pink and rubbery soft tissue. The cores of tissue received in formalin are submitted in A1 and the fragments of tissue received in RPMI are sent for flow cytometry analysis. Gross By: SIOMARA B. Breast, Right. Received part in formalin, part in RPMI solution with a container labeled with "Ruth L Vactor", "[id number]", "1975" and " right breast three o'clock areolar edge". Received in formalin are three cores of nesbitt-pink and rubbery soft tissue with a scant amount of attached red-brown hemorrhagic material that range from 0.8 up to 1.1 cm in greatest dimension. Also received in RPMI solution are multiple additional fragments of nesbitt-pink and rubbery soft tissue. The cores of tissue received in formalin are submitted in B1 and the fragments of tissue received in RPMI solution are sent flow cytometry analysis. Gross By: SIOMARA C. Lymph Node, Right Axillary. Received part in formalin, part in RPMI solution with a container labeled with "Ruth L Vactor", "[id number]", "1975" and " right axilla lymph node". Received in formalin are three cores of nesbitt-pink and rubbery soft tissue with a scant amount of attached red-brown hemorrhagic material that range from 0.6 up to 0.7 cm in greatest dimension. Also received in RPMI solution are multiple additional fragments of nesbitt-pink and rubbery soft tissue. The cores of tissue received in formalin are submitted in C1 and the fragments of tissue received in RPMI solution are sent for flow cytometry analysis. Gross By: NS Microscopic Description The largest dimension of the invasive carcinoma is 1.3 cm in part one and 0.5 cm in part 2. Breast, right, Block [id number] A. Breast, Right, 3:00 10cmfn, core biopsy: - Invasive mammary carcinoma with focal micropapillary features Estrogen Receptor (ER) protein expression is STRONGLY POSITIVE 100% nuclear positivity 2+ average intensity score (range 0 to 3+) Progesterone Receptor (AZ) protein expression is STRONGLY POSITIVE 100% nuclear positivity 3+ average intensity score (range 0 to 3+) HER2 oncoprotein expression is NEGATIVE ( 1+ average membranous intensity) Breast, right, Block [id number]: B. Breast, Right, 3:00 Areolar Edge, core biopsy: - Invasive ductal carcinoma ( invasive mammary carcinoma no special type) Estrogen Receptor (ER) protein expression is STRONGLY POSITIVE 95% nuclear positivity 2+ average intensity score (range 0 to 3+) Progesterone Receptor (AZ) protein expression is STRONGLY POSITIVE 95% nuclear positivity 2+ average intensity score (range 0 to 3+) HER2 oncoprotein expression is NEGATIVE ( 1+ average membranous intensity) Hormone Receptor Reference Ranges (nuclear staining) ER/AZ Negative <1% nuclear staining ER Low Positive 1 - 10% nuclear staining ER Positive >10% nuclear staining AZ Positive >1% nuclear staining BREAST ROS: No new breast lumps or masses, No severe breast pain, No nipple discharge, No recent change in shape/color, and Performs self breast exam GYNECOLOGIC HISTORY: LMP: No LMP recorded. Patient has had an implant. Menarche at age: 11 Menopause at age: 46 Number of children: 1 Patient's age at first live : 28 Did you breast feed any of your children: Yes Ever take oral contraceptives? Yes, history of use for 12 year(s) Ever take estrogen? No RADIOLOGIC INTERPRETATION: 01/20/23: Result MAMMOGRAM SCREENING RONEY BILATERAL History Encounter for screening mammogram for breast cancer The patient has no documented relevant family history. Films Compared 03/10/2021 MAMMOGRAM SCREENING RONEY BILATERAL and 10/30/2017 MAMMOGRAM SCREENING RONEY BILATERAL Right mammogram 02/02/2015 and bilateral mammogram 11/27/2014. Findings Left The left breast is heterogeneously dense, which may obscure small masses. There is no evidence of suspicious masses, calcifications, or other abnormal findings in the left breast. Right The right breast is heterogeneously dense, which may obscure small masses. Focal asymmetry in the lower inner/near central posterior depth. Additional imaging is advised. Impression Right breast focal asymmetry. Additional imaging is advised. No mammographic evidence of malignancy in the left breast. BI-RADS Category: 0 - Incomplete: Needs Additional Imaging Evaluation. Recommendation Screening mammogram in 1 year is recommended for the left breast. Callback ultrasound is recommended for the right breast. Callback diagnostic mammogram is recommended for the right breast. 02/06/23: Result US BREAST LIMITED RIGHT MAMMOGRAM DIAGNOSTIC RONEY RIGHT History Abnormal mammogram The patient has no documented relevant family history. Films Compared 01/20/2023 MAMMOGRAM SCREENING RONEY BILATERAL, 03/10/2021 MAMMOGRAM SCREENING RONEY BILATERAL, and 10/30/2017 MAMMOGRAM SCREENING RONEY BILATERAL Right mammogram 02/02/2015 and 11/27/2014. Findings MAMMOGRAM DIAGNOSTIC RONEY RIGHT US BREAST LIMITED RIGHT The right breast is heterogeneously dense, which may obscure small masses. The breast tissue has a homogeneous background echotexture - fibroglandular. Targeted ultrasound demonstrates a 1.5 x 1.1 x 1.1 cm poorly defined hypoechoic mass at 3 o'clock 10 cm from nipple correlate to a spiculated mass seen on mammogram. Mammographic and sonographic findings are highly suspicious. Ultrasound-guided core biopsy is advised. This would be helpful to define the posterior extent of the disease. A 7 x 8 x 4 mm poorly defined hypoechoic mass is seen at 3 o'clock areolar edge. Ultrasound-guided core biopsy is advised. This would be helpful to define the anterior extent of the disease. A 6 x 4 x 4 mm poorly defined hypoechoic mass is seen at 3 o'clock 8 cm from and a 4 x 4 x 5 mm poorly defined hypoechoic mass at 4 o'clock 3 cm from nipple. Also noted is a 7 x 5 x 3 mm well-defined oval hypoechoic lesion at 9 o'clock 7 cm from nipple, incidental finding . Ultrasound of the right axilla demonstrates a lymph node with thickened cortex measuring up to 5 mmin thickness. Ultrasound-guided core biopsy is advised. Impression MAMMOGRAM DIAGNOSTIC RONEY RIGHT US BREAST LIMITED RIGHT A 1.5 x 1.1 x 1.1 cm poorly defined hypoechoic mass at 3 o'clock 10 cm from nipple correlate to a spiculated mass seen on mammogram. Mammographic and sonographic findings are highly suspicious. Ultrasound-guided core biopsy is advised. This would be helpful to define the posterior extent of the disease. Diagnostic considerations would include leukemia in this patient with history of leukemia versus primary breast carcinoma. A 7 x 8 x 4 mm poorly defined hypoechoic mass is seen at 3 o'clock areolar edge. Ultrasound-guided core biopsy is advised. This would be helpful to define the anterior extent of the disease. Diagnostic considerations would include leukemia in this patient with history of leukemia versus primary breast carcinoma. Right axilla lymph node with thickened cortex. Ultrasound-guided core biopsy would be helpful to evaluate for metastatic disease versus leukemia. BI-RADS Category: 5 - Highly Suggestive of Malignancy. Recommendation US guided breast core biopsy is recommended for the right breast. US guided breast core biopsy is recommended for the right axilla. Follow-up left mammogram is advised in 1 year or sooner if warranted clinically. The above findings and recommendations were discussed with and understood by the patient. ADDENDUM: Ultrasound guided core biopsy of a 12 x 11 x 15 mm hypoechoic mass at 3 o'clock 10 cm from nipple, right breast: Received from the department of pathology is the histology diagnosis of invasive mammary carcinoma with focal micro papillary features. Juda score 6/9. Flow cytometry: Paucicellular specimen with debris and particles reacting nonspecifically with analytic reagents. Insufficient for evaluation. Ultrasound-guided core biopsy of a 4 x 8 x 6 mm hypoechoic mass at 3 o'clock areolar edge, right breast: Received from the department of pathology is the histology diagnosis of invasive ductal carcinoma, invasive mammary carcinoma no special type, Juda score 6/9. Flow cytometry: Adequate flow cytometric analysis cannot be performed due to insufficient cellularity and suboptimal specimen viability. Ultrasound-guided core biopsy of right axilla lymph node with thickened cortex: Received from the department of pathology is the histology diagnosis of metastatic carcinoma to lymph node. Flow cytometry: No monotypic B-cell or abnormal T-cell population identified. The histology diagnoses are concordant with imaging findings. Surgical consultation and follow-up is advised. Patient is advised to follow-up with Dr. Charles in the Department of surgery. Mammography Lookback Coordinator Asha Red has been notified for scheduling and tracking purposes. Signed by Katalina Hendricks MD on 02/24/2023 15:03 Narrative & Impression EXAM: 02/15/2023US GUIDED BREAST BIOPSY RIGHT; MAMMOGRAM POST BIOPSY CLIP PLACEMENT HISTORY: -Referred for ultrasound guided core biopsy of - a 12 x 11 x 15 mm hypoechoic mass 3 o'clock 10 cm from nipple, right breast. -a 4 x 8 x 6 mm hypoechoic mass at 3 o'clock areolar edge, right breast. -right axilla lymph node with thickened coretx. TECHNIQUE: ANESTHESIA: 1% lidocaine CIGARETTE MACHINE FILLER: Dr. Douglas was present for and performed the entire procedure. The following procedure/examinations were performed: - Ultrasound guided core biopsy of a 12 x 11 x 15 mm hypoechoic mass at 3 o'clock 10 cm from nipple, right breast and ribbon tissue marker placement - ultrasound-guided core biopsy of a 4 x 8 x 6 mm hypoechoic mass at 3 o'clock areolar edge, right breast and heart shaped tissue marker placement - Ultrasound-guided core biopsy of right axilla lymph node with thickened cortex and [place] tissue marker placement - Post clip/tissue marker placement unilateral mammogram Following a discussion of the risks and benefits of the procedure as well as a discussion of alternatives to this procedure, the patient was given the opportunity to ask questions. Once the patient'squestions were answered to her satisfaction, informed consent was signed by the patient. A timeout,with verification of patient name and site of procedure was performed by Dr. Douglas in the presence of communications technologist and it was confirmed that procedure matches verbalized consent. COMPARISON: Multiple priors to include FINDINGS: Ultrasound guided core biopsy of a 12 x 11 x 15 mm hypoechoic mass at 3 o'clock 10 cm from nipple, right breast and ribbon tissue marker placement: Preliminary ultrasound demonstrates a 12 x 11 x 15 mm hypoechoic mass at 3 o'clock 10 cm from nipple, right breast. Using aseptic technique, local anesthesia with 1% buffered lidocaine, a small skin incision was made with a surgical blade to permit passage of the 14 gauge core biopsy needle. A spring activated/ automated Sertera biopsy device was utilized. Under direct sonographic guidance and visualization, several passes were made through the target and core specimen obtained. The core specimen were placed in formalin and submitted for histopathologic analysis. Under direct sonographic guidance and visualization, a ribbon tissue marker was placed within the lesion for future reference. Post procedural mammogram demonstrates migration of the tissue marker, the located tissue marker in the chest wall as s een on the true lateral view. This was a technically difficult biopsy. Ultrasound-guided core biopsy of a 4 x 8 x 6 mm hypoechoic mass at 3 o'clock areolar edge, right breast and heart shaped tissue marker placement: Preliminary ultrasound demonstrates a 4 x 8 x 6 mm hypoechoic mass at 3 o'clock areolar edge, rightbreast. Using aseptic technique, local anesthesia with 1% buffered lidocaine, a small skin incision was made with a surgical blade to permit passage of the 14 gauge core biopsy needle. A spring activated/ automated Sertera biopsy device was utilized. Under direct sonographic guidance and visualization, several passes were made through the target and core specimen obtained. The core specimen were placed in formalin and submitted for histopathologic analysis. Under direct sonographic guidance and visualization, a heart shaped tissue marker was placed within the lesion for future reference. Post procedural mammogram verified tissue marker placement. Ultrasound-guided core biopsy of right axilla lymph node with thickened cortex tissue marker placement: Preliminary ultrasound demonstrates a right axilla lymph node with thickened cortex measuring up to5 mm thick. Using aseptic technique, local anesthesia with 1% buffered lidocaine, a small skin incision was made with a surgical blade to permit passage of the Inrad core biopsy needle. A spring activated/ automated Inrad biopsy device was utilized. Under direct sonographic guidance and visualization, several passes were made through the target and core specimen obtained. The core specimen were placed in formalin and submitted for histopathologic analysis. Under direct sonographic guidance and visualization, a [place] tissue marker was placed within the lesion for future reference. The patient tolerated the procedure well and there were no complications. Written discharge instructions were given to the patient and also reviewed verbally with her. The patient expressed understanding of the instructions and was discharged from the department in stable condition. IMPRESSION IMPRESSION: 1. Ultrasound guided core biopsy of right breast and tissue marker placement x 2 sites. 2. Position of the tissue markers is identified on unilateral mammogram obtained following the ultrasound-guided core biopsy and tissue marker placement as discussed above. 3. Core specimen submitted for histopathologic interpretation x 2. 4. Ultrasound-guided core biopsy of a right axilla lymph node with thickened cortex and tissue marker placement. 5. Core specimen submitted for histopathologic analysis. 6. A supplement/addendum to this report will follow pending receipt of pathology results. I personally viewed and interpreted the mammographic films and concur with the above. 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 Chemo and gentamicin caused hearing loss. PAST SURGICAL HISTORY: Past Surgical History: Procedure Laterality Date INFORMATION ear tubes INFORMATION double lumen phillip catherters LAPAROSCOPY; CHOLECYSTECTOMY 07/10/03 [facility] Dr. Stanley REMOVAL OF KIDNEY STONE 05/02/2018 REMOVAL OF TONSILS, UNDER AGE 11 CURRENT OUTPATIENT PRESCRIPTIONS: Current Outpatient Medications Medication Sig Dispense Refill VITAMIN B-6 100 MG OR TABS 0 B-12-SL 1000 MCG Sublingual Tablet Sublingual (Cyanocobalamin) [...] MOUTH IN THE MORNING 90 Tablet 1 albuterol (PROAIR HFA) 108 (90 BASE) MCG/ACT inhaler Inhale 2 Puffs by mouth 4 times a day. 1 Inhaler 1 Omeprazole 20 MG Oral Capsule Delayed Release (PriLOSEC) Take by mouth 1 Capsule in the morning. 1 hour before the first meal of the day. 30 Capsule 5 Enoxaparin Sodium 80 MG/0.8ML Injection Solution Prefilled Syringe (Lovenox) Inject 70 mg under theskin in the morning and 70 mg before bedtime. As instructed by the [facility]. 8 mL 0 No current facility-administered medications for this visit. ALLERGIES: Allergies as of 02/28/2023 - Reviewed 02/28/2023 Allergen Reaction Noted Vancomycin 02/24/2000 SOCIAL HISTORY: Social History Tobacco Use Smoking status: Never Smokeless tobacco: Never Substance Use Topics Alcohol use: Yes Comment: rare Vaping/E-Cigarette Use Vaping/E-Cigarette Use Never User Vaping/E-Cigarette Substances Vaping/E-Cigarette Devices ROS: GEN: no weight loss, fever, fatigue HEENT: pos for hearing loss related to gentamicin toxicity RESPIRATORY: no cough, wheezing, SOB or change in breathing CARDIOVASCULAR: no exertional chest pain, dyspnea, palpitations GI: no melena, hemetemesis, no vomiting or diarrhea : no dysuria, hematuria, frequency MUSCULOSKELETAL: no change in joint pains, no new arthritis PSYCHIATRIC: no significant anxiety or depression, unchanged sleep pattern HEME: pos for clotting tendency - on coumadin NEURO: no significant headache, no seizures , no tremors SKIN: no new rashes, no itching PHYSICAL EXAMINATION: Blood pressure 150/71, pulse 97, weight 73.4 kg (161 lb 14.4 oz), not currently . Constitutional: alert, healthy Head: normocephalic, atraumatic Eyes: conjunctiva non-injected, sclera white Ears: pinna normal shape and color and wears hearing aid/ reads lips Neck: supple, no adenopathy Lungs: clear to auscultation, breath sounds are equal and symmetric Heart: regular rate & rhythm and no murmur, gallops or rubs Abdomen: soft, non-tender Back: normal curvature Extremities: no edema Neuro: alert, gait normal, motor normal BREAST EXAMINATION: Nipples symmetric, ptotic Right Breast: Right Breast: Masses noted: Yes, 3:00 near sternal edge, there is a 15 mm firm area, not fixed; there is another 1 cm firm area 3:00 areolar edge but this may represent hematoma as there is bruising noted Post XRT edema: No Post XRT erythema: No Other palpable abnormality: No Skin: Skin retraction: No Peau d'orange: No Telangectasia: No Scar(s) present: No Other changes: No Right Nipple: Nipple inversion: No Pagets: No Nipple discharge: No Right Lymph Nodes: Arm edema: No Palpable axillary adenopathy: No (Node is not palpable) Palpable supraclavicular adenopathy: No Previous axillary incision: No Left Breast: Left Breast: Masses noted: No Post XRT edema: No Post XRT erythema: No Other palpable abnormality: No Skin: Skin retraction: No Peau d'orange: No Telangectasia: No Scar(s) present: No Other changes: No Left Nipple: Nipple inversion: No Pagets: No Nipple discharge: No Left Lymph Nodes: Arm edema: No Palpable axillary adenopathy: No Palpable supraclavicular adenopathy: No Previous axillary incision: No IMPRESSION: 47 yr old woman on coumadin for clotting disorder, personal history of leukemia, now with multifocal right breast hormone positive, 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 There are four separate tumors in the 3-4:00 axis - largest is 15 mm and at the sternal border. We discussed genetic counseling/ testing given her young age of diagnosis and family history of breast cancer. We discussed removal of her mirena IUD and message was sent to gynecology. We had a detailed discussion with the patient reviewing her diagnosis and treatment options. She understands that the treatment of breast cancer is a multidisciplinary approach potentially involving surgery, radiation oncology, and medical oncology. We reviewed surgical options for her breast, including breast conservation and mastectomy. We discussed that breast conservation requires both removal of the cancer to a negative margin and treatment with radiotherapy to the remaining breast tissue.We discussed that survival is not improved with more aggressive surgery (i.e. Mastectomy) and that mastectomy also does not eliminate the potential for breast cancer recurrence as a small amount of tissue is left to support the skin. In addition, more aggressive surgery does not eliminate the need for chemotherapy or targeted therapies; the decisions for these treatment choices are based upon thecancer's characteristics. Despite this, she has developed four separate tumors within the right breast. For this reason, I would recommend right mastectomy. Risks of mastectomy to include bleeding, infection, numbness of the chest wall, wound complicatons with necrosis of the skin, and the need for drain placement were discussed. We reviewed the option of reconstruction and how this effects the operation and recovery. We discussed that there are different choices of reconstruction which can include implants or tissue transfer/ flap procedures. I reviewed that reconstruction is not typically a one stage surgical procedure. Often, a tissue termite treater is placed at the time of mastectomy and then sequentially expanded whil e the skin is recovering. Following completion of treatment, this termite treater can then be switched to a more permanent reconstruction. She will be referred onto plastic surgery for consideration of reconstruction. She is likely to need postmastectomy radiation therapy We reviewed that the biggest potential benefit of chemotherapy before surgery is in potential downstaging of the axilla. At this point, she would require a complete axillary dissection with a possible 20% risk of permanent lymphedema. Should she need radiation therapy to the axilla following surgery (which she is likely to need), the risk of lymphedema increases to near 40%. However, neoadjuvant chemotherapy has a potential for shrinking/ clearing the disease within the lymph nodes. Following chemotherapy, staging of the axilla with a targeted axillary dissection (removal of the previously positive node and sentinel node biopsy) would be an option. Following chemotherapy, the accuracy of sentinel node staging is increased if 3 or more nodes are removed. There is a small (<5%) chance ofa failed sentinel node biopsy where the nodes cannot be found. In this instance or in the instance of remaining disease within the axilla, a full axillary dissection would be performed. Risks of sentinel node biopsy including bleeding, infection, and a small rate of lymphedema (6-12%) were discussed. Depending on the result of the targeted axillary dissection, radiation may be able to be used fortreatment of the remaining axillary nodes. I would recommend jeanette warehousing technician placement into the positivenode now. She has an appt to see medical oncology later this week. Systemic staging will be deferred to medical oncology. She understands that I would recommend a preoperative MRI scan to better evaluate her breasts and check the other breast. We reviewed that there is no survival advantage to contralateral prophylacticmastectomy and she would prefer to save the left breast if possible. She may need a port placement. Has had two prior sparks catheters on the left, one prior on the right side. If needs port, will schedule in the OR under local and IV sedation. Will need lovenox bridge and will be at higher risk of bleeding because of her coumadin use. PLAN: Bilateral breast MRI scan Plastic surgery consult Oncology consult for consideration of neoadjuvant chemotherapy for downstaging of right axilla. Right axillary jeanette warehousing technician placement. Genetic counseling/ testing Removal of mirena IUD Potential port placement. I spent a total of Greater than 55 mins (exact time 62 mins) on the date of service in preparation,delivery, and documentation of the care provided to Ruth Hylton excluding any time spent in the performance of separately billed services. Renee Loving M.D. 02/28/2023 12:50 PM documented in this encounter Nursing Notes * Chata Gates LPN - 02/28/2023 11:17 AM EDT Chief Complaint Patient presents with NEW PATIENT Breast cancer Patient presents today for evaluation of Abnormal Mammogram. Patient had mammogram done at [facility] on 01/20/2023 BREAST HISTORY: Mass: No Breast Pain: no Nipple discharge: No Previous problems/surgeries: None Breast Cancer: no Other Cancers: yes GYNECOLOGIC HISTORY: LMP: No LMP recorded. Patient has had an implant. Menarche at age: 11 Menopause at age: 46 Number of children: 1 Patient's age at first live : 28 Did you breast feed any of your children: Yes Ever take oral contraceptives? Yes, history of use for 12 year(s) Ever take estrogen? No Family History of Breast Cancer: Yes fraternal Aunt documented in this encounter Plan of Treatment Upcoming Encounters Date Type Department Care Team (Latest Contact Info) Description 03/02/2023 12:15 PM EDT [facility] [address] [place] [address] Zach Anderson MD [address] [place] [address] 03/03/2023 4:10 PM EDT Laboratory Laboratory, [facility] [address] [place] [address] [facility] [address] [place] [address] 03/06/2023 6:15 AM EDT [facility] Pharmacy Call Center [address] [place] [address] [facility] [address] [facility] [place] [address] 03/14/2023 1:00 PM EST Office Visit Gynecology/Obstetr ics [facility] [address] [place] [address] BackerLea CRNP [address] [place] [address] 03/23/2023 1:00 PM EST Imaging Radiology [facility]st [facility] [place] [address] [place] [address] 06/02/2023 8:30 AM EST Hospital Encounter ENDO [facility], Endoscopy Room [facility] [address] [place] [address] Itzel Monroy, [address] [place] [address] 06/02/2023 8:30 AM EST - 06/02/2023 9:00 AM EST Surgery ENDO [facility], Endoscopy Room [facility] [address] [place] [address] Itzel Monroy DO [address] [place] [address] COLONOSCOPY FLEXIBLE PROXIMAL DIAGNOSTIC Scheduled Orders Name Type Priority Associated Diagnoses Orde r Schedule MRI BREAST BILATERAL W WO CONTRAST Medical Imaging Routine Malignant neoplasm of upper-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, estrogen receptor positive Expected: 03/01/2023 (Approximate), Expires: 03/31/2024 US BREAST NEEDLE LOCALIZATION RIGHT Medical Imaging Routine Malignant neoplasm of upper-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, estrogen receptor positive Expected: 03/01/2023 (Approximate), Expires: 03/31/2024 Scheduled Procedures Name Priority Associated Diagnoses Date/Ti me COLONOSCOPY FLEXIBLE PROXIMAL DIAGNOSTIC Screening for colon cancer 06/02/2023 8:30 AM EST Scheduled Referrals Name Type Priority Associated Diagnoses Orde r Schedule PLASTIC SURGERY REFERRAL OP Referral Within 10 days (routine) Malignant neoplasm of upper-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, estrogen receptor positive Ordered: 02/28/2023 GENETICS REFERRAL OP Referral Within 10 days (routine) [...] colon documented in this encounter Care Teams Boiler Assistant Operator Relationship Specialty Start Date End Date Gabriel Iqbal DO [address] [place] [address] PCP - General Family Medicine 08/04/20 documented as of this encounter
--- OUTSIDE RECORDS SUMMARY | 2023-03-30 15:03 | External Medical Summary | Summary of Care ---
Author Name Unknown Organization [facility] Address [address] [place] [address] Phone [phone] Care Team Providers Care Profiling Machine Setup Operator Name Role Phone Gabriel Iqbal DO Primary Care Provider Reason for Visit * Reason Comments Outpatient Testing Encounter Details Date Type Department Care Team Description 02/06/2023 Laboratory Laboratory, [facility] [address] [facility] [place] [address] [facility] 132 [facility] [place] [address] Anticoagulation management encounter Allergies Active [...] (intrauterine device) in place 08/16 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 skilled nursing current use of anticoagulant t herapy 05/12/2003 [...] ACUTE MYELOID LEUKEMIA; WITHOUT MENTION OF DARRIUS POONON 11/22/2002 01/29/2011 Anticoagulation management encounter 10/26/2001 08/04/2020 [...] [facility] [address] [place] [address] 03/06/2023 [facility] [address] [facility] [place] [address] 06/02/2023 Hospital Encounter Endoscopy Itzel Monroy DO [address] [place] [address] 06/02/2023 Surgery Endoscopy Itzel Monroy DO [address] [place] [address] COLONOSCOPY FLEXIBLE PROXIMAL DIAGNOSTIC Pending Results Name Type Priority Associated Diagnoses Date /Time PT INR Lab Routine Anticoagulation management encounter 02/06/2023 4:19 PM EDT Scheduled Procedures Name Priority Associated [...] (FLU shot) (#1) 2023 Mammogram 01/21/2024 01/20/2023, 11/0 07/2020, 10/30/2017, Additional history exists Cervical Cancer Screening [...] colon documented in this encounter Care Teams Profiling Machine Setup Operator Relationship Specialty Start Date End Date Gabriel Iqbal DO [address] [place] [address] PCP - General Family Medicine 08/04/20 documented as of this encounter
--- OUTSIDE RECORDS SUMMARY | 2023-03-30 15:03 | External Medical Summary | Summary of Care ---
Author Name Unknown Organization [facility] Address [address] [place] [address] Phone [phone] Care Team Providers Care Social Media Content Specialist Name Role Phone Gabriel Iqbal DO Primary Care Provider Reason for Visit * Reason Onset Date Comments Test Results 02/08/2023 Encounter Details Date Type Department Care Team Description 02/08/2023 Telephone Family Practice [facility] [address] [place] [address] Melissa Kowalski DO [address] [place] [address] Test Results Allergies Active Allergy Reactions Severity Noted Date Comments 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, stopped as soon as infusion stopped documented as of this encounter (statuses as of 02/08/2023) Medications Medication Sig Dispensed Refills Start Date [...] before bedtime. As instructed by the [facility]. 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 termite treater helper current use of anticoagulant t herapy 05/12/2003 Overview: ICD-10 update of inactive term MTHFR MUTATION- HOMOZYGOUS 02/28/2003 History of acute myeloid leukemia in rem ission 12/23/2002 documented as of this encounter (statuses as of 02/08/2023) Resolved Problems Problem Noted Date Resolved Date [...] as of this encounter (statuses as of 02/08/2023) Immunizations Name Administration Dates Next Due COVID-19 mRNA, LNP-s, No Pre serve, 2-Dose Series (Muut) 09/03/2020,08/13/2020 TD - Tetanus/Diptheria (ADULT) 05/08/2000 TDAP [...] Miscellaneous Notes * Telephone Encounter - MATTHEW Sahu - 02/08/2023 12:56 PM EDT Scheduled 02/15 * Telephone Encounter - Melissa Kowalski DO - 02/08/2023 12:14 PM EDT HERCAMOSHOPhart message sent US guided breast core biopsy is recommended for the right breast. US guided breast core biopsy is recommended for the right axilla. documented in this encounter Plan of Treatment Upcoming Encounters Date Type Specialty Care Team Description 02/09/[address] [facility] [address] [facility] [address] 02/15/2023 Imaging Radiology 02/15/2023 Imaging Radiology 03/03/2023 Laboratory Laboratory [place], [facility] [address] [place] [address] 03/06/[address] [address] [facility] [place] [address] 06/02/2023 Hospital Encounter Endoscopy Itzel Monroy DO [address] [place] [address] 06/02/2023 Surgery Endoscopy Itzel Monroy DO [address] [place] [address] COLONOSCOPY FLEXIBLE PROXIMAL DIAGNOSTIC Scheduled Orders Name Type Priority Associated Diagnoses Orde r Schedule US GUIDED BREAST BIOPSY RIGHT Medical Imaging Routine Mass of right breast, unspecified quadrant History of acute myeloid leukemia in remission Expected: 02/09/2023 (Approximate), Expires: 03/11/2024 Scheduled Procedures Name Priority Associated Diagnoses Date/Ti [...] as of this encounter Visit Diagnoses Diagnosis Mass of right breast, unspecified quadrant- Primary History of acute myeloid leukemia in remission Personal history of myeloid leukemia Screening for colon cancer Special screening for malignant neoplasms, colon documented in this encounter Care Teams Social Media Content Specialist Relationship Specialty Start Date End Date Gabriel Iqbal DO [address] [place] [address] PCP - General Family Medicine 08/04/20 documented as of this encounter
--- OUTSIDE RECORDS SUMMARY | 2023-03-30 15:03 | External Medical Summary | Summary of Care ---
Author Name Unknown Organization [facility] Address [address] [place] [address] Phone [phone] Care Team Providers Care Machine I Engraver Name Role Phone Gabriel Iqbal DO Primary Care Provider Reason for Visit * Reason Onset Date Comments Returning Call 02/07/2023 Encounter Details Date Type Department Care Team Description 02/07/2023 Telephone Pharmacy, [facility] [address] [place] [address] Telepharmacy, [facility] [address] [facility] [place] [address] Returning Call Allergies Active Allergy Reactions Severity Noted Date [...] (intrauterine device) in place 08/16 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 watermaster current use of anticoagulant t herapy 05/12/2003 [...] Encounter - Magali Conti RPh - 02/07/2023 12:18 PM EDT Noted - will call patient back within [facility] encounter from today -- attempted to call patient previously and VM box was full. Thanks, Magali Conti PharmD Clinical Pharmacist [facility] ([facility]) (Formerly Telepharmacy) [phone] 02/07/2023 12:20 PM * Telephone Encounter - CHRISTY Sandoval - 02/07/2023 12:14 PM EDT Caller's name: Ruth Preferred call back number(OFFICE NUMBER FOR ): [phone] Reason for call: Questions about Coumadin/ Lovenox dosing: Pt calling back about her dose dirs. Thank you, Boom Moreno, [facility] Deputy Head [facility] 02/07/2023,12:15 PM documented in this encounter Plan of Treatment Upcoming Encounters Date Type Specialty Care Team Description 02/15/2023 Imaging Radiology 02/15/2023 Imaging Radiology 03/03/2023 Laboratory Laboratory [place], [facility] [address] [place] [address] 03/06/2023 [facility] [address] [facility] [address] 06/02/2023 Hospital Encounter Endoscopy Itzel Monroy DO [address] [place] [address] 06/02/2023 Surgery Endoscopy Itzel Monroy DO [address] [place] [address] COLONOSCOPY FLEXIBLE PROXIMAL DIAGNOSTIC Scheduled Procedures Name [...] filedocumented as of this encounter Care Teams Machine I Engraver Relationship Specialty Start Date End Date Gabriel Iqbal DO [address] [place] [address] PCP - General Family Medicine 08/04/20 documented as of this encounter
--- OUTSIDE RECORDS SUMMARY | 2023-03-30 15:03 | External Medical Summary ---
Author Name Unknown Address Unknown Organization [facility] [address] [place] [address] Laboratory Report Ordering Provider Test Date Status MELCHOR ALLEN 02/06/2023 16:19:20 Final Standing order for pt/inr. < br/>Please draw pt/inr every 1 to 4 weeks as requested
Results to [facility]

Warfarin Therapy
INR: 2.0-3.0 conventional anticoagulation
INR: 2.5-3.5 high intensity anticoagulation Observation Date Value Abnormality Reference (Units ) Status PT 02/06/2023 16:19:20 20.8 Above high normal 11 .6-15.2 (seconds) Final INR 02/06/2023 16:19:20 1.8 Above high normal 0. 8-1.2 Final Performing Location [facility] [address] [place] [address]
--- OUTSIDE RECORDS SUMMARY | 2023-03-30 15:03 | External Medical Summary | Summary of Care ---
Author Name Unknown Organization [facility] Address [address] [place] [address] Phone [phone] Care Team Providers Care Trim Crew Supervisor Name Role Phone Rasheed Ganesh Kylejaylan Primary Care Provider Reason for Visit * Reason Comments eRx-Medication Refill Encounter Details Date Type Department Care Team Description 01/26/2023 Refill Family Practice [facility] [address] [place] [address] Melissa Kowalski DO [address] [place] [id number] Allergies Active Allergy Reactions Severity Noted Date Comments 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, stopped as soon as infusion stopped documented as of this encounter (statuses as of 01/26/2023) Medications Medication Sig Dispensed Refills Start Date [...] THE MORNING 90 Tablet 1 01/26/2023 Active Folic Acid 1 MG Oral Tablet Take 1 Tablet by mouth in the morning. 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 documented as of this encounter (statuses as of 01/26/2023) Immunizations Name Administration Dates Next Due COVID-19 mRNA, LNP-s, No Pre serve, 2-Dose Series ([employer]) 09/03/2020,08/13/2020 TD - Tetanus/Diptheria (ADULT) 05/08/2000 TDAP [...] encounter Miscellaneous Notes * Telephone Encounter - Judit Gonzalez RPh - 01/26/2023 9:14 PM EDTSigned Prescriptions: Disp Refills Folic Acid 1 MG Oral Tablet 90 Tab*1 Sig: TAKE 1 TABLET BY MOUTHIN THE MORNINGAuthorizing Provider: GANESH IQBAL User: JUDIT GONZALEZ documented in this encounter Plan of Treatment Upcoming Encounters Date Type Specialty Care Team Description 02/06/2023 Imaging Radiology 02/06/2023 Imaging Radiology 03/03/2023 Laboratory Laboratory [place], [facility] [address] [place] [address] 03/06/2023 [facility] 60 [facility] [place] [address] 06/02/2023 Hospital Encounter Endoscopy Itzel Monroy DO [address] [place] [address] 06/02/2023 Surgery Endoscopy Itzel Monroy DO [address] [place] [address] COLONOSCOPY FLEXIBLE PROXIMAL DIAGNOSTIC Scheduled Procedures Name [...] Td or Tdap) 11/16/2030 11/16/2020, 09/22/2010, 05/08/2000 Hepatitis C Screening Completed 01/24/2003 GARDASIL-HPV IMMUNIZATION SERIES Aged Out No longer eligible based on patient's age to complete this topic MENINGOCOCCAL (MENACTRA/MENVEO) Aged Out No longer eligible based on patient's age to complete this topic documented as of this encounter Medical Devices Not on filedocumented as of this encounter Care Teams Trim Crew Supervisor Relationship Specialty Start Date End Date Ganesh Iqbal DO [address] [place] [address] PCP - General Family Medicine 08/04/20 documented as of this encounter
--- OUTSIDE RECORDS SUMMARY | 2023-03-30 15:03 | External Medical Summary | Summary of Care ---
Author Name Unknown Organization [facility] Address [address] [place] [facility] [place] [address] Phone [phone] Care Team Providers Care Supervisor Transcribing Operators Name Role Phone Gabriel Iqbal DO Primary Care Provider Reason for Visit * Reason Comments Dosage Adjustment Via Phone (anticoag Cl inic) Encounter Details Date Type Department Care Team Description 02/09/2023 Anticoagulation Pharmacy Call Center 58[address] [facility] [place] [address] Telepharmacy, [facility] 58 60 [facility] [place] [address] History of DVT (deep vein thrombosis)*; Methyltetrahydrofolat e reductase mutation; Hereditary factor V deficiency disease (HCC) Allergies Active Allergy Reactions Severity Noted Date Comments 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, stopped as soon as infusion stopped documented as of this encounter (statuses as of 02/09/2023) Medications Medication Sig Dispensed Refills Start Date [...] mg before bedtime. As instructed by the [facility]. 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 Lovenox dosing schedule faxed to pharmacy previously with prescription. Patient confirmed Lovenox was obtained from the pharmacy as prescribed. Used Lovenox previously and confirmed understanding of the following: Your Lovenox dose is 70mg which will be injected every 12 hours as noted on your dosing schedule. Administration: Lovenox Should be Injected on either side of the abdomen 2 inches from the belly button. Injection site should be rotated with each injection. Wash hands and swab injection area with alcohol. Remove needle cap Push plunger to expel Lovenox to the 70mg chelo, this will be waste. Pinch and inch of skin and insert the needle at a 90 degree angle into the fold of skin, inject the remainder of the syringe Remove needle from the skin and press firmly on plunger to activate the safety device. Discard in sharps container. Patient verbalized understanding of above. Patient aware last dose of coumadin prior to the procedure will be 02/09 and will bridge with Lovenox as outlined on dosing schedule in letters. Patient aware to contact [facility] Clinic with any questions or concerns regarding bridge or should procedure be cancelled or rescheduled. Alida Urbano Rp, Pharm.D. Clinical Pharmacist [facility] ([facility]) (formerly Telepharmacy) [phone] 02/09/2023,3:05 PM documented in this encounter Plan of Treatment Upcoming Encounters Date Type Specialty Care Team Description 02/15/2023 Imaging Radiology 02/15/2023 Imaging Radiology 03/03/2023 Laboratory Laboratory [place], [facility] 132 [facility] [place] [address] 03/06/2023 [facility] [address] 03/14/2023 Office Visit Gynecology Obstetrics BackerLea CRNP [address] [place] [address] 06/02/2023 Hospital Encounter Endoscopy Itzel Monroy DO [address] [place] [address] 06/02/2023 Surgery Endoscopy Itzel Monroy DO [address] [place] [address] COLONOSCOPY FLEXIBLE PROXIMAL DIAGNOSTIC Scheduled Procedures Name [...] Personal history of venous thrombosis and embolism 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
--- OUTSIDE RECORDS SUMMARY | 2023-03-30 15:03 | External Medical Summary | Summary of Care ---
Author Name Unknown Organization [facility] Address [address] [place] [address] Phone [phone] Care Team Providers Care Kerrick Kleaner Operator Name Role Phone Gabriel Iqbal Primary Care Provider Reason for Visit * Reason Onset Date Comments Genetic Counseling 02/28/2023 Referral Encounter Details Date Type Department Care Team (Late st Contact Info) Description 02/28/2023 Telephone Genetics [facility] [address] [place] [address] Itzel Hernandez CHRA Genetic Counseling (Referral) Allergies Active Allergy Reactions Criticality Noted Date [...] mg before bedtime. As instructed by the [facility]. 8 mL 0 02/07/2023 Active [...] encounter Miscellaneous Notes * Telephone Encounter - ALAYNA Coles - 02/28/2023 12:44 PM EDT 954 documented in this encounter Plan of Treatment Upcoming Encounters Date Type Department Care Team (Latest Contact Info) Description 03/02/2023 12:15 PM EDT Office Visit Hematology/Oncolog y Sherice Melgar [place] [address] [place] [address] Zach Anderson MD [address] [place] [address] 03/03/2023 4:10 PM EDT Laboratory Laboratory, [facility] [address] [place] [id number] [facility] [address] [place] [address] 03/06/2023 6:15 AM EDT [facility] Call Center [address] [place] [address] [facility], [facility] 58 60 [facility] [place] [address] 03/14/2023 1:00 PM EST Office Visit Gynecology/Obstetr ics [facility] [address] [place] [address] Lea Drummond CRNP [address] [place] [address] 03/23/2023 1:00 PM EST Imaging Radiology [facility] 1st [facility] [place] [address] [place] [address] 06/02/2023 8:30 AM EST Hospital Encounter ENDO [facility], Endoscopy Room [facility] [address] [place] [phone] Itzel Monroy DO [address] [place] [address] 06/02/2023 8:30 AM EST - 06/02/2023 9:00 AM EST Surgery ENDO [facility], Endoscopy Room [facility] [address] [place] [address] Itzel Monroy DO [address] [place] [address] COLONOSCOPY FLEXIBLE PROXIMAL DIAGNOSTIC Scheduled Procedures Name [...] filedocumented as of this encounter Care Teams Kerrick Kleaner Operator Relationship Specialty Start Date End Date Gabriel Iqbal DO [facility] [address] [place] [address] PCP - General Family Medicine 08/04/20 documented as of this encounter
--- OUTSIDE RECORDS SUMMARY | 2023-03-30 15:03 | External Medical Summary | Summary of Care ---
Author Name Unknown Organization [facility] Address [address] [place] [address] Phone [phone] Care Team Providers Care Impersonator Character Name Role Phone Gabriel Iqbal DO Primary Care Provider Reason for Visit * Reason Comments Outpatient Testing Encounter Details Date Type Department Care Team Description 02/06/2023 Laboratory Laboratory, [facility] 132 [facility] [place] [address] [facility] 132 [facility] [place] [address] Anticoagulation management encounter [...] (intrauterine device) in place 08/16 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 alf current use of anticoagulant t herapy 05/12/2003 [...] Specialty Care Team Description 03/03/2023 Laboratory Laboratory Octaviano [place] [address] [place] [address] 03/06/2023 Anticoagulation Pharmacy [facility] [address] [facility] [address] 03/14/2023 Office Visit Gynecology Obstetrics BackerLea CRNP [address] [place] [address] 06/02/2023 Hospital Encounter Endoscopy Itzel Monroy DO [address] [place] [address] 06/02/2023 Surgery Endoscopy Itzel Monroy DO [address] [place] [address] COLONOSCOPY FLEXIBLE PROXIMAL DIAGNOSTIC Scheduled Procedures Name [...] INR: 2.5-3.5 high intensity anticoagulation Alida Urbano [facility] LAB BLOOD ORDERABLES LABORATORY [place] [address] [place] [address] documented in this encounter Visit Diagnoses Diagnosis Anticoagulation management encounter Encounter for therapeutic drug monitoring Screening for colon cancer Special screening for malignant neoplasms, colon documented in this encounter Care Teams Impersonator Character Relationship Specialty Start Date End Date Gabriel Iqbal DO [address] [place] [address] PCP - General Family Medicine 08/04/20 documented as of this encounter
--- OUTSIDE RECORDS SUMMARY | 2023-03-30 15:03 | External Medical Summary | Summary of Care ---
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 Should the patient call back, please transfer her to myself or the next available pharmacist in the [facility] anticoagulation workflow. Thanks, Magali Conti PharmD Clinical Pharmacist [facility]acy Services ([facility]) (Formerly Telepharmacy) [phone] 02/07/2023 12:20 PM * Telephone Encounter - CHRISTY Sandoval - 02/07/2023 12:14 PM EDT Caller's name: Ruth Preferred call back number(OFFICE NUMBER FOR ): [phone] Reason for call: Questions about Coumadin/ Lovenox dosing: Pt calling back about her dose dirs. Thank you, Boom Moreno freight car builder Replanting Machine Crew [facility] 02/07/2023,12:15 PM documented in this encounter Plan of Treatment Upcoming Encounters Date Type Specialty Care Team Description 02/15/2023 Imaging Radiology 02/15/2023 Imaging Radiology 03/03/2023 Laboratory Laboratory [place], [facility] [address] [place] [address] 03/06/2023 Anticoagulation [place] [address] 60 [facility] [place] [address] 06/02/2023 Hospital Encounter Endoscopy Itzel Monroy DO [address] [place] [address] 06/02/2023 Surgery Endoscopy Itzel Monroy DO [address] [place] [address] COLONOSCOPY FLEXIBLE PROXIMAL DIAGNOSTIC Scheduled Procedures Name [...] filedocumented as of this encounter Care Teams Cream Gatherer Relationship Specialty Start Date End Date Gabriel Iqbal, [address] [place] [address] PCP - General Family Medicine 08/04/20 documented as of this encounter
--- OUTSIDE RECORDS SUMMARY | 2023-03-30 15:03 | External Medical Summary | Summary of Care ---
Author Name Unknown Organization [facility] Address [address] [place] [facility] [place] [address] Phone [phone] Care Team Providers Care Shop Cooper Name Role Phone Gabriel Iqbal DO Primary Care Provider Reason for Visit * Reason Comments Dosage Adjustment Via Phone (anticoag Cl inic) Encounter Details Date Type Department Care Team Description 02/07/2023 Anticoagulation Pharmacy Call Center 58[address]60 [facility] [place] [address] Telepharmacy, [facility] 58 60 [facility] [place] [address] History of DVT (deep vein thrombosis)*; Methyltetrahydrofolat [...] mg before bedtime. As instructed by the [facility]. 8 mL 0 02/07/2023 [...] (intrauterine device) in place 08/16 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 Patient has history of DVT, MTHFR mutation and factor V deficiency and requires Lovenox bridging. Patient used Lovenox before. See letters section for specific lovenox bridge instructions. Actual Body Weight 73.8 kg [place] Body Weight 45.5 kg Adjusted Body Weight 56.8 kg Labs Drawn on 01/20/23 Serum creatinine: 0.8 mg/dL 01/20/23 1530 Estimated creatinine clearance: 77.1 mL/min Hemoglobin Results: Lab Results Component Value Date/Time HGB - [facility] 14.0 01/20/2023 03:30 PM HGB - [facility] 10.6 (L) 12/03/2021 04:21 PM HGB - [facility] 9.7 (L) 11/30/2021 04:11 PM HGB - [facility] 14.4 12/16/2019 02:37 PM HGB - [facility] 14.5 10/12/2012 01:22 PM HGB - [facility] 13.7 09/16/2011 11:30 AM Platelets: Lab Results Component Value Date/Time PLATELET AUTO - [facility] 237 01/20/2023 03:30 PM PLATELET AUTO - [facility] 435 (H) 12/03/2021 04:21 PM PLATELET AUTO - [facility] 376 11/30/2021 04:11 PM PLATELET AUTO - [facility] 250 12/16/2019 02:37 PM PLATELET AUTO - [facility] 189 10/12/2012 01:22 PM PLATELET AUTO - [facility] 222 09/16/2011 11:30 AM Lovenox Dose: 70 mg every 12 hours Magali Conti [facility] Clinical Pharmacist Medication Therapy Disease Management 02/07/2023, 10:14 AM * Magali Conti RP - 02/07/2023 10:04 AM EDT Images from the original note were not included. Medication Therapy Disease Management - Anticoagulation Patient: Ruth Hylton | : 1975 Subjective Contacts Type Contact Phone/Fax 02/07/2023 11:46 AM EDT Phone (Outgoing) AvaJulien bulljimmy Pena (Self) [phone] (M) Not Available - VM box full 02/07/2023 01:53 PM EDT Phone (Outgoing) Warner Ruth Pena (Self) [phone] (M) Not Available - VM Box full 02/07/2023 04:16 PM EDT Phone (Outgoing) Ruth Hylton (Self) [phone] (M) Patient-Reported Symptoms: Patient Findings Positives: Upcoming invasive procedure (Breast biopsy 02/15/23 - lovenox bridge (see letters)), Missed doses (Missed doses over the weekend) Objective Current Warfarin Dose As of 02/07/2023 Warfarin maintenance plan: 9 mg (6 mg x 1.5) every Fri; 12 mg (6 mg x 2) all other days INR Result As of 02/07/2023 INR goal: 2.5-3.5 INR used for dosin.8 (02/06/2023) Assessment & Plan Warfarin Plan As of 02/07/2023 Full warfarin instructions: 02/07: 18 mg 02/10 -02/15: Hold for proc on 02/15 02/16 & 02/17: 24 mg 02/18: 18 mg Otherwise 9 mg every Fri; 12 mg all other days Next INR check: 03/03/2023 Repeat PT/INR in 3.5 week(s) Weekly dose: not changed Additional Dosing Information: Description Fern Conti [facility] Clinical Pharmacist 02/07/2023, 10:04 AM documented in this encounter Plan of Treatment Upcoming Encounters Date Type Specialty Care Team Description 02/09/2023 [facility] 58 60 [facility] [place] [address] 02/15/2023 Imaging Radiology 02/15/2023 Imaging Radiology 03/03/2023 Laboratory Laboratory Octaviano [place] [address] [place] [address] 03/06/2023 [facility] 58 60 [facility] [place] [address] 06/02/2023 Hospital Encounter Endoscopy Itzel Monroy DO [address] [place] [address] 06/02/2023 Surgery Endoscopy Itzel Monroy, DO [address] [place] [address] COLONOSCOPY FLEXIBLE PROXIMAL DIAGNOSTIC Scheduled Procedures Name [...] colon documented in this encounter Care Teams Shop Cooper Relationship Specialty Start Date End Date Gabriel Iqbal, [address] [place] [address] PCP - General Family Medicine 08/04/20 documented as of this encounter"
--- OUTSIDE RECORDS SUMMARY | 2023-03-30 15:03 | External Medical Summary | Summary of Care ---
Author Name Unknown Organization [facility] Address [address] [place] [place] [place] [address] Phone [phone] Care Team Providers Care Disability Services Coordinator Name Role Phone Gabriel Iqbal DO Primary Care Provider Reason for Visit * Reason Onset Date Comments NEW PATIENT 02/22/2023 TAMIKA SEEN SOONER Encounter Details Date Type Department Care Team Description 02/22/2023 Telephone Hematology/Oncology [facility] [place] [address] [facility] [place] [address] Zach Anderson MD [address] [facility] [place] [address] NEW PATIENT (TAMIKA SEEN SOONER) Allergies Active Allergy Reactions Severity Noted Date Comments 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, stopped as soon as infusion stopped documented as of this encounter (statuses as of 02/22/2023) Medications Medication Sig Dispensed Refills Start Date [...] mg before bedtime. As instructed by the [facility]. 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 Melissa Kowalski. Called cell unable to leave message on voicemail for patient as voicemail was full. Temporarily scheduled patient with Dr. Zach Anderson 02/28 at 12:15pm with arrival time of 12pm. If patient calls back advise of this appointment. If this date and time do not suite schedule next opening with either provider documented in this encounter Plan of Treatment Upcoming Encounters Date Type Specialty Care Team Description 02/28/2023 Office Visit General Surgery Renee Loving MD [address] [place] [address] 03/01/2023 Office Visit Hematology Oncology Zach Anderson MD [address] [place] [address] 03/03/2023 Laboratory Laboratory [facility] [address] [place] [address] 03/06/2023 [facility] [place] [address] [address] [place] [address] 03/14/2023 Office Visit Gynecology Obstetrics Backer, MOO Johnson [address] [place] [address] 06/02/2023 Hospital Encounter Endoscopy Itzel Monroy DO [address] [place] [address] 06/02/2023 Surgery Endoscopy Itzel Monroy DO [address] [place] [address] COLONOSCOPY FLEXIBLE PROXIMAL DIAGNOSTIC Scheduled Procedures Name [...] filedocumented as of this encounter Care Teams Disability Services Coordinator Relationship Specialty Start Date End Date Gabriel Iqbal DO [address] [place] [address] PCP - General Family Medicine 08/04/20 documented as of this encounter
--- OUTSIDE RECORDS SUMMARY | 2023-03-30 15:03 | External Medical Summary | Summary of Care ---
Author Name Unknown Organization [facility] Address [address] [place] [address] Phone [phone] Care Team Providers Care Voip Network Engineer Name Role Phone Gabriel Iqbal DO Primary Care Provider Reason for Visit * Reason Onset Date Comments Test Results 01/26/2023 Encounter Details Date Type Department Care Team Description 01/26/2023 Telephone Family Practice [facility] [address] [place] [address] Melissa Kowalski DO [address] [place] [address] Test Results Allergies Active Allergy Reactions Severity Noted Date Comments 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, stopped as soon as infusion stopped documented as of this encounter (statuses as of 01/27/2023) Medications Medication Sig Dispensed Refills Start Date [...] on INR) 270 Tablet 1 12/20/2021 Active documented as of this encounter (statuses as of 01/27/2023) Active Problems Problem Noted Date ANTONY III (vulvar intraepithelial neoplasi a III) 11/25/2021 Overview: 11/21/2021 Right and left vulvar biopsies: Vulvar intraepithelial neoplasia 3, no invasive squamous cell carcinoma identified (positive margins) 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 Told she can do them sametime as her PT/INR blood work. She does not use the Portal for messages. * Telephone Encounter - Juliette Lyon LPN - 01/26/2023 1:40 PM EDT Called cell number and not able to leave message as mailbox is full, will have to try later. * Telephone Encounter - Melissa Kowalski DO - 01/26/2023 1:37 PM EDT Please notify pt of MyG message. Thank you. documented in this encounter Plan of Treatment Upcoming Encounters Date Type Specialty Care Team Description 02/06/2023 Imaging Radiology 02/06/2023 Imaging Radiology 03/03/2023 Laboratory Laboratory [place] [address] [place] [address] 03/06/20[facility] [address] [facility] [place] [address] 06/02/2023 Hospital Encounter Endoscopy Itzel Monroy DO [address] [place] [address] 06/02/2023 Surgery Endoscopy Itzel Monroy DO [address] [place] [address] COLONOSCOPY FLEXIBLE PROXIMAL DIAGNOSTIC Scheduled Orders Name Type Priority Associated Diagnoses Orde r Schedule LIPID PANEL WITH DIRECT LDL IF TG IS HIGH Lab Routine Hypertriglyceridemia Expected: 07/28/2023, Expires: 01/28/2024 HEPATIC FUNCTION PANEL Lab Routine Transaminitis Expected: 02/26/2023 (Approximate), Expires: 01/27/2024 Scheduled Procedures Name Priority Associated Diagnoses Date/Ti [...] as of this encounter Visit Diagnoses Diagnosis Hypertriglyceridemia- Primary Pure hyperglyceridemia Transaminitis Nonspecific elevation of levels of transaminase or lactic acid dehydrogenase (LDH) Screening for colon cancer Special screening for malignant neoplasms, colon documented in this encounter Care Teams Voip Network Engineer Relationship Specialty Start Date End Date Gabriel Iqbal, [address] [place] [address] PCP - General Family Medicine 08/04/20 documented as of this encounter
--- OUTSIDE RECORDS SUMMARY | 2023-03-30 15:04 | External Medical Summary | Summary of Care ---
Author Name Unknown Organization [facility] Address [address] [place] [facility] [place] [address] Phone [phone] Care Team Providers Care Recreation Counselor Name Role Phone Gabriel Iqbal DO Primary Care Provider Reason for Visit * Reason Comments Dosage Adjustment Via Phone (anticoag Cl inic) Encounter Details Date Type Department Care Team Description 10/12/2022 Anticoagulation Pharmacy Call Center [address] [facility] [place] [address] Telepharmacy, [facility] [address] [facility] [place] [address] Anticoagulation management encounter* Allergies Active Allergy Reactions Severity Noted Date Comments 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, stopped as soon as infusion stopped documented as of this encounter (statuses as of 10/12/2022) Medications Medication Sig Dispensed Refills Start Date End Date Status VITAMIN B-6 100 MG OR TABS 0 03/12/2002 Active albuterol (PROAIR HFA) 108 (90 BASE) MCG/ACT inhalerIndications: Acute bronchitis, complicated Inhale 2 Puffs by mouth 4 times a day. 1 Inhaler 1 04/07/2016 Active Folic Acid 1 MG Oral Tablet Take by mouth 1 Tablet in the morning. 90 Tablet 0 10/25/2021 Active B-12-SL 1000 MCG Sublingual Tablet Sublingual [...] 2 MG Oral Tablet (Immodium (A-D)) Take by mouth 2 mg as needed in the morning AND 2 mg as needed at noon AND 2 mg as needed in the evening AND 2 mg as needed before bedtime for Diarrhea. 0 Active Promethazine HCl 25 MG Oral Tablet (Phenergan)Indicati ons:Migraine variant, intractable Take by mouth 1 Tablet every 6 hours as needed for Nausea. or vomiting 12 Tablet 0 11/22/2021 Active Naproxen 500 MG Oral Tablet (Naprosyn)Indicatio ns:Migraine variant, intractable Take by mouth 1 Tablet 2 times a day as needed for Pain. With food 40 Tablet 1 11/22/2021 Active Omeprazole 20 MG Oral Capsule Delayed Release (PriLOSEC) Take by mouth 1 Capsule in the morning. 1 hour before the first meal of the day. 30 Capsule 5 11/22/2021 Active Imiquimod 5 % External Cream Apply topically to affected area at bedtime . at bedtime, apply to affected area. Wash off after 6 to 10 hours. Use up to 16 weeks. 12 Packet 3 11/24/2021 Active Additional Information Patient not taking.Reported on 12/03/2021 Warfarin Sodium 6 MG Oral Tablet (Coumadin) TAKE 2 Tablets by mouth daily OR DIRECTED BY COUMADIN CLINIC (patient taking up to 3 tabs daily based on INR) 270 Tablet 1 12/20/2021 Active Imiquimod 5 % External Cream Apply topically to affected area at bedtime . at bedtime, apply to affected area. Wash off after 6 to 10 hours. 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 She will go to the lab today. Thank you, Kyleigh Iqbal Audio Visual Aids Director [facility] ([facility]) 10/12/2022,8:33 AM documented in this encounter Plan of Treatment Upcoming Encounters Date Type Specialty Care Team Description 10/13/2022 Anticoagulation Pharmacy Telepharmacy, [facility] [address] [facility] [place] [address] 11/02/2022 Office Visit Family Medicine Melissa Kowalski DO [address] [place] [address] Health Maintenance Due Date Last Done Comments Hepatitis B (1 of 3 - 3-dose series) 1974 Pneumococcal Vaccine: Pediatrics (0 to 5 Years) and At-Risk Patients (6 to 64 Years) (1 - PCV) 1980 Cologuard 10/28/2019 Colonoscopy 10/28/2019 Colorectal Cancer Screening 10/28/2019 Fecal Occult Blood Test 10/28/2019 Sigmoidoscopy 10/28/2019 Depression Screening, Annual for Pts 12 and Over 01/09/2020 01/08/2019 COVID-19 Vaccine (3 - Pfizer risk series) 10/01/2020 09/03/2020, 08/13/2020 Mammogram 03/10/2022 03/10/2021, 10/07, 02/02/2015, Additional history exists Lipid Panel 10/11/2022 10/11/2017 Influenza Vaccine (FLU shot) (Season Ended) 2023 Diabetes Screening 11/20/2024 11/20/2021, 0 11/20/2021, 2021, Additional history exists IUD 7-Year 03/08/2026 03/08/2019 Pap Smear 12/03/2026 12/03/2021, 10/06, 10/20/2017, Additional history exists DTaP,Tdap,and Td Vaccines (3 - Td or [...] this encounter Visit Diagnoses Diagnosis Anticoagulation management encounter- Primary Encounter for therapeutic drug monitoring documented in this encounter Care Teams Recreation Counselor Relationship Specialty Start Date End Date Gabriel Iqbal DO [address] [place] [address] PCP - General Family Medicine 08/04/20 documented as of this encounter
--- OUTSIDE RECORDS SUMMARY | 2023-03-30 15:04 | External Medical Summary | Summary of Care ---
Author Name Unknown Organization [facility] Address [address] [place] [address] Phone [phone] Care Team Providers Care Culinary Artist Name Role Phone Gabriel Iqbal Sarojjaylan Primary Care Provider Reason for Visit * Reason Onset Date Comments Appointment 10/10/2022 Encounter Details Date Type Department Care Team Description 10/10/2022 Telephone Family Practice [facility] [address] [place] [address] Tami Ahmadi LPN Appointment Allergies Active Allergy Reactions Severity Noted Date Comments 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, stopped as soon as infusion stopped documented as of this encounter (statuses as of 10/11/2022) Medications Medication Sig Dispensed Refills Start Date [...] as of this encounter (statuses as of 10/11/2022) Active Problems Problem Noted Date ANTONY III (vulvar intraepithelial neoplasi a III) 11/25/2021 Overview: 11/21/2021 Right and left vulvar biopsies: Vulvar intraepithelial neoplasia 3, no invasive squamous cell carcinoma identified (positive margins) 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 * Telephone Encounter - Tami Ahmadi LPN - 10/11/2022 10:58 AM EDT Attempted call to pt. Voice mail box full. Sent My G with need for appointment. * Telephone Encounter - Rupinder Iqbal - 10/11/2022 9:36 AM EDT No answer and VM full No my g since Will try later * Telephone Encounter - Gabriel Iqbal DO - 10/11/2022 8:37 AM EDT No I can fill form out first But it's sort of an exception to the rule * Telephone Encounter - Rupinder Iqbal - 10/11/2022 8:04 AM EDT So I can let pt know when I call her, is appt needed prior to form being filled out? * Telephone Encounter - Gabriel Iqbal DO - 10/10/2022 2:42 PM EDT Please ensure f/u in family medicine - hasn't been seen in 2 years * Telephone Encounter - Tami Ahmadi LPN - 10/10/2022 1:35 PM EDT ([place]ENEE[place])Received form form [place] [employer] requesting letter on [facility] letterhead signed by Dr. Iqbal that Pt is "medically cleared for hearing aids" Pt has been found eligible to obtain services from the Office of Vocational Rehabilitation and pt is requesting [facility] to assist in providing hearing aids which will help her obtain or maintain employment. Requirement is to obtain both medical clearance and audiologists recommendation before hearing aidscan be provided per form request. Received signed medical release with pt's signature. Letter awaiting signature, on Dr. Iqbal's desk. Can fax to [phone]. documented in this encounter Plan of Treatment Upcoming Encounters Date Type Specialty Care Team Description 10/12/2022 Anticoagulation Pharmacy Telepharmacy, [place] [address] [address] [place] [address] Health Maintenance Due Date Last Done Comments [...] filedocumented as of this encounter Care Teams Culinary Artist Relationship Specialty Start Date End Date Gabriel Iqbal DO [address] [place] [address] PCP - General Family Medicine 08/04/20 documented as of this encounter
--- OUTSIDE RECORDS SUMMARY | 2023-03-30 15:04 | External Medical Summary | Summary of Care ---
Author Name Unknown Organization [facility] Address [address] [place] [facility] [place] [address] Phone [phone] Care Team Providers Care [employer] Principal Name Role Phone Gabriel Iqbal DO Primary Care Provider Reason for Visit * Reason Comments Dosage Adjustment Via Phone (anticoag Cl inic) Encounter Details Date Type Department Care Team Description 01/12/2023 Anticoagulation Pharmacy Call Center [address] [facility] [place] [address] [facility], [facility] [address] [facility] [place] [address] History of DVT (deep vein thrombosis)*; Methyltetrahydrofolat e reductase mutation; Hereditary factor V deficiency disease (HCC) Allergies Active Allergy Reactions Severity Noted Date Comments 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, stopped as soon as infusion stopped documented as of this encounter (statuses as of 01/12/2023) Medications Medication Sig Dispensed Refills Start Date [...] in the morning. 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 [facility] message sent --no Clinic will follow up again in 2 week(s). Thank you, Magalis Puckett Supervisor Hard Candy [facility]) (Formerly Telepharmacy) [phone] 01/12/2023,8:30 AM documented in this encounter Plan of Treatment Upcoming Encounters Date Type Specialty Care Team Description 01/26/2023 [facility] [address] [facility] [place] [address] Health Maintenance Due Date Last Done Comments [...] Panel 10/11/2022 10/11/2017 Influenza Vaccine (FLU shot) (#1) 2023 Diabetes Screening 11/20/2024 11/20/2021, 0 11/20/2021, 2021, Additional history exists Cervical Cancer Screening 12/03/2024 Pap Smear 12/03/2024 12/03/2021, 10/06, 10/20/2017, Additional history exists IUD 7-Year 03/08/2026 03/08/2019 DTaP,Tdap,and Td Vaccines (3 - Td or [...] (HCC) Congenital deficiency of other clotting factors documented in this encounter Care Teams [employer] Principal Relationship Specialty Start Date End Date Gabriel Iqbal, [address] [place] [address] PCP - General Family Medicine 08/04/20 documented as of this encounter
--- OUTSIDE RECORDS SUMMARY | 2023-03-30 15:04 | External Medical Summary | Summary of Care ---
Author Name Unknown Organization [facility] Address [address] [facility] [place] [address] Phone [phone] Care Team Providers Care Access Liaison Name Role Phone Gabriel Iqbal DO Primary Care Provider Reason for Visit * Reason Comments Dosage Adjustment Via Phone (anticoag Cl inic) Encounter Details Date Type Department Care Team Description 10/13/2022 Anticoagulation Pharmacy Call Center [address] [facility] [place] [address] Tele[facility]acy, [facility] [address] [facility] [place] [address] History of DVT (deep vein thrombosis)*; Methyltetrahydrofolat e reductase mutation; Hereditary factor V deficiency disease (HCC) Allergies Active Allergy Reactions Severity Noted Date Comments 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, stopped as soon as infusion stopped documented as of this encounter (statuses as of 10/13/2022) Medications Medication Sig Dispensed Refills Start Date [...] as of this encounter (statuses as of 10/13/2022) Active Problems Problem Noted Date ANTONY III [...] as of this encounter (statuses as of 10/13/2022) Resolved Problems Problem Noted Date Resolved Date [...] as of this encounter (statuses as of 10/13/2022) Immunizations Name Administration Dates Next Due COVID-19 [...] as of this encounter Progress Notes * MATTHEW Lara - 10/13/2022 3:55 PM EDT Contacts Type Contact Phone/Fax 10/13/2022 01:43 PM EDT Phone (Outgoing) Ruth Hylton (Self) [phone] (M) No Answer/Busy - VM is full. 10/13/2022 01:44 PM EDT Phone (Outgoing) Benigno Hylton (Emergency Contact) [phone] No Answer/Busy - Busy 10/13/2022 03:53 PM EDT Phone (Outgoing) Ruth Hylton (Self) [phone] (M) Patient Findings Negatives: Signs/symptoms of thrombosis, Signs/symptoms [...] date communicated as noted by Pharmacist: Yes MATTHEW Lara 10/13/2022, 3:55 PM * Magali Conti RPh - 10/13/2022 8:31 AM EDT Coumadin Clinic (region specific) Current Warfarin Dose As of 10/13/2022 Warfarin maintenance plan: 9 mg (6 mg x 1.5) every Fri; 12 mg (6 mg x 2) all other days INR Result As of 10/13/2022 INR goal: 2.5-3.5 INR used for dosin.5 (10/12/2022) Warfarin Plan As of 10/13/2022 Full warfarin instructions: 9 mg every Fri; 12 mg all other days No change documented: Magali Conti RPh Next INR check: 11/23/2022 Repeat PT/INR in 6 week(s) Weekly dose: not changed Additional Dosing Information: Description Fern Cardona to contact patient with dose instructions as noted. Magali Conti RPh 10/13/2022, 8:31 AM documented in this encounter Plan of Treatment Upcoming Encounters Date Type Specialty Care Team Description 11/02/2022 Office Visit Family Medicine Melissa Kowalski DO [address] [place] [address] 11/23/2022 Laboratory Laboratory [facility] [place] [address] [place] [address] 11/24/2022 [facility] [place] [address] [address] [facility] [place] [address] Health Maintenance Due Date Last Done Comments [...] factors documented in this encounter Care Teams Access Liaison Relationship Specialty Start Date End Date Gabriel Iqbal DO [address] [place] [address] PCP - General Family Medicine 08/04/20 documented as of this encounter
--- OUTSIDE RECORDS SUMMARY | 2023-03-30 15:04 | External Medical Summary | Summary of Care ---
Author Name Unknown Organization [facility] Address [address] [facility] [place] [address] Phone [phone] Care Team Providers Care Cardroom Manager Name Role Phone Gabriel Iqbal DO Primary Care Provider Reason for Visit * Reason Onset Date Comments Protime Testing 10/13/2022 Encounter Details Date Type Department Care Team Description 10/13/2022 Telephone Pharmacy Call Center [address] [place] [address] [facility] [address] [place] [address] Protime Testing Allergies Active Allergy Reactions Severity Noted Date [...] (intrauterine device) in place 08/16 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 Clinical Pharmacist [facility] ([facility]) (formally Telepharmacy) [address] [facility], 4th Floor [address] [place] [address] 10/13/2022,6:34 AM documented in this encounter Plan of Treatment Upcoming Encounters Date Type Specialty Care Team Description 11/02/2022 Office Visit Family Medicine Melissa Kowalski, DO [address] [place] [address] Scheduled Orders Name Type Priority Associated Diagnoses Orde r Schedule PT INR Lab Routine Anticoagulation management encounter Other, Please specify in Comments field for 26 Occurrences starting 10/13/2022 until 10/14/2023 Health Maintenance Due Date Last Done Comments [...] monitoring documented in this encounter Care Teams Cardroom Manager Relationship Specialty Start Date End Date Gabriel Iqbal DO [address] [place] [address] PCP - General Family Medicine 08/04/20 documented as of this encounter
--- OUTSIDE RECORDS SUMMARY | 2023-03-30 15:04 | External Medical Summary ---
Author Name Unknown Address Unknown Organization [facility] [address] [place] [address] Laboratory Report Ordering Provider Test Date Status ANGEL ASHBY 01/20/2023 15:30:19 Final Observation Date Value Abnormality Reference (Units ) Status SYNC LEUKOCYTES IN BLOOD BY AUTOMATED COUNT 01/20/2023 15:30:19 6.20 4.00-10.80 (K/uL) Final Segs 01/20/2023 15:30:19 48.3 40.0-75.0 (%) Final Lymphs % 01/20/2023 15:30:19 33.7 18.0-42.0 (%) Final Monos 01/20/2023 15:30:19 12.9 Above high normal 1.0-11.0 (%) Final Eosinophils 01/20/2023 15:30:19 4.5 0.0-6.0 (%) Final Basos 01/20/2023 15:30:19 0.6 0.0-2.0 (%) Final Absolute Segs 01/20/2023 15:30:19 2.99 1.80-7.70 (K/uL) Final Lymphs, absolute 01/20/2023 15:30:19 2.09 1.00-4.80 (K/ul) Final Monos, Abs 01/20/2023 15:30:19 0.80 0.00-1.10 (K/uL) Final Eos, Abs 01/20/2023 15:30:19 0.28 0.00-0.70 (K/uL) Final Basos, Abs 01/20/2023 15:30:19 0.04 0.00-0.20 (K/uL) Final Performing Location [facility] [address] [place] [address]
--- OUTSIDE RECORDS SUMMARY | 2023-03-30 15:04 | External Medical Summary | Summary of Care ---
Author Name Unknown Organization [facility] Address [address] [place] [address] Phone [phone] Care Team Providers Care Human Resources Designate Name Role Phone Rasheed Gabriel Sarojjaylan Primary Care Provider Reason for Referral * Ancillary Services (Within 30 days (routine)) - Pending Review Specialty Diagnoses / Procedures Referred By Myranda john Referred To Contact Gastroenterology Diagnoses Screening for colon cancer Melissa Miranda DO [address] [place] [address] Referral ID Status Reason Start Date Expiration Date Visits Requested Visits Authorized [id number] Pending Review Ancillary Services Required 11/02/[phone] Question Answer Referral Priority Within 30 days (routine) Comments ALERT: Do not order for pediatric patients (18 years or younger). Cancel off screen and order PEDS GASTROENTEROLOGY CONSULT (Type: 1 visit only-Evaluate and Treat) The following Pt. Instructions are available: - Gastro Colonoscopy Prep Instructions [[id number]] - Gastro Colonoscopy Prep Instructions (Jordanian Version) [[id number]] Go to the Pt. Instructions section within the Visit Navigator to access. Colonoscopy ASGE Guidelines: Average risk screening (begin at age 50, 10 year intervals) ADDITIONAL INFORMATION 1. Is the patient on Coumadin? No 2. Is the patient on Pradaxa? No * Evaluate & Treat - Unlimited Visits (Within 10 days (routine)) - Pending Review Specialty Diagnoses / Procedures Referred By Myranda john Referred To Contact Obstetrics/Gynecology / Gynecology Obstetrics Diagnoses Pap smear for cervical cancer screening Melissa Miranda DO [address] [place] [address] Referral ID Status Reason Start Date Expiration Date Visits Requested Visits Authorized [id number] Pending Review Specialty Services Required 11/02/[phone] Question Answer Referral Priority Within 10 days (routine) What condition is the patient being seen for? Annual Wellness Reason for Visit * Reason Comments Physical-Exam Patient presents in office today for her annual CPE. Encounter Details Date Type Department Care Team Description 11/02/2022 Office Visit Family [facility] [address] [place] [address] Melissa Miranda DO [address] [place] [address] Well adult exam*; Pap smear for cervical cancer screening; Encounter for screening mammogram for breast cancer; Screening for colon cancer Allergies Active Allergy Reactions Severity Noted Date Comments 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, stopped as soon as infusion stopped documented as of this encounter (statuses as of 11/02/2022) Medications Medication Sig Dispensed Refills Start Date [...] the morning. 90 Tablet 0 11/02/2022 Active Folic Acid 1 MG Oral Tablet Take by mouth 1 Tablet in the morning. 90 Tablet 0 10/25/2021 11/03/19 Discontinued(Ref ill) Promethazine HCl 25 MG Oral Tablet (Phenergan)Indic ations:Migraine variant, intractable Take by mouth 1 Tablet every 6 hours as needed for Nausea. or vomiting 12 Tablet 0 11/22/2021 11/03/19 23 Discontinued(Med ication List Clean Up) Naproxen 500 MG Oral Tablet (Naprosyn)Indica tions:Migraine variant, intractable Take by mouth 1 Tablet 2 times a day as needed for Pain. With food 40 Tablet 1 11/22/2021 11/03/19 23 Discontinued Imiquimod 5 % External Cream Apply topically to affected area at bedtime . at bedtime, apply to affected area. Wash off after 6 to 10 hours. Use up to 16 weeks. 12 Packet 3 11/24/2021 11/03/19 23 Discontinued(Med ication List Clean Up) Imiquimod 5 % External Cream Apply topically to affected area at bedtime . at bedtime, apply to affected area. Wash off after 6 to 10 hours. 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 12/23/2002 documented as of this encounter (statuses as of 11/02/2022) Resolved Problems Problem Noted Date Resolved Date [...] as of this encounter (statuses as of 11/02/2022) Immunizations Name Administration Dates Next Due COVID-19 [...] Sign Reading Time Taken Comments Blood Pressure 108/72 11/02/2022 8:41 AM EDT Pulse 88 11/02/2022 8:41 AM EDT Temperature - - Respiratory Rate 18 11/02/2022 8:41 AM EDT Oxygen Saturation - - Inhaled Oxygen Concentration - - Weight 73.8 kg (162 lb 9.6 oz) 11/02/2022 8:41 A M EDT Height 152.4 cm (5') 11/02/2022 8:41 AM EDT Body Mass Index 31.76 11/02/2022 8:41 AM EDT documented in this encounter Progress Notes * Melissa Miranda, DO - 11/02/2022 9:07 AM EDT Subjective: Ruth Hylton is a 47 year old female. Chief Complaint Patient presents with Physical-Exam Patient presents in office today for her annual CPE. HPI: This is a 47 year old female with PMHx as below presents for annual well check. 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 1 Inhaler 1 B-12-SL 1000 MCG Sublingual Tablet Sublingual (Cyanocobalamin) Place under the tongue 1,000 mcgdaily . 90 Tablet 3 Ondansetron HCl 8 MG Oral Tablet (Zofran) Take by mouth 1 Tablet as needed in the morning AND 1Tablet as needed at noon AND 1 Tablet as needed in the evening for Nausea. 21 Tablet 1 Loperamide HCl 2 MG Oral Tablet (Immodium (A-D)) Take 1 Tablet by mouth 4 times a day as neededfor Diarrhea. Omeprazole 20 MG Oral Capsule Delayed Release [...] 1 Folic Acid 1 MG Oral Tablet Take 1 Tablet by mouth in the morning. 90 Tablet 0 Naproxen 500 MG Oral Tablet (Naprosyn) Take by mouth 1 Tablet 2 times a day as needed for Pain.With food 40 Tablet 1 No current facility-administered medications for this visit. 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 Stanley REMOVAL OF KIDNEY STONE 05/02/2018 REMOVAL OF TONSILS, UNDER AGE 12 Review of patient's allergies indicates: Allergen Reactions Vancomycin Red yusuf syndrome, stopped as soon as infusion stopped Family History Problem Relation Age of Onset Endocrine Disorder Mother hypo/hyper thyroid Heart Disorder Mother MVP Diabetes Grandfather (Maternal) Heart Disorder Grandmother (Maternal) Asthma Sister Family Status Relation Status Mo Alive Fa Alive Sis Alive Bro Alive MGFA (Not Specified) MGMA (Not Specified) Sis (Not Specified) Social History Socioeconomic History Marital status: Spouse name: Not on file Number of children: Not on file Years of education: Not on file Highest education level: Not on file Occupational History 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 In general, compared to other people your age, what would you say that your health is? Good Does the patient have advance directives/living will? No Not Applicable Hospital ER within 30 days: No Patient is able to obtain all of his medications? Yes Patient takes medications as prescribed? Yes Spirometry: Not applicable Dental Exam: Yes Eye Screening: Yes: Exercise Screening: does not exercise regularly Pain Screening: Yes Are you having any pain? No Review of Systems: As per HPI all other ROS negative. Results for orders placed or performed in visit on 10/12/22 PT INR Result Value Ref Range Prothrombin Time 27.4 (H) 11.6 - 15.2 seconds INR 2.5 (H) 0.8 - 1.2 *Note: Due to a large number of results and/or encounters for the requested time period, some results have not been displayed. A complete set of results can be found in Results Review. Wt Readings from Last 3 Encounters: 11/02/22 73.8 kg (162 lb 9.6 oz) 03/16/22 71.2 kg (157 lb) 12/23/21 71.7 kg (158 lb) Health Maintenance Due Topic Date Due Hepatitis B (1 of 3 - 3-dose series) Never done Pneumococcal Vaccine: Pediatrics (0 to 5 Years) and At-Risk Patients (6 to 64 Years) (1 - PCV) Never done Colorectal Cancer Screening Never done Depression Screening, Annual for Pts 12 and Over 01/09/2020 COVID-19 Vaccine (3 - Pfizer risk series) 10/01/2020 Mammogram 03/10/2022 Lipid Panel 10/11/2022 OBJECTIVE: Physical Exam: BP 108/72 | Pulse 88 | Resp 18 | Ht 1.524 m (5') | Wt 73.8 kg (162 lb 9.6 oz) | BMI 31.76 kg/m | BSA 1.77 m General: alert, healthy and no distress Head: Normocephalic, No masses, lesions, tenderness or abnormalities Eye Exam: PERRLA, extraocular movements intact, conjunctiva are pink and non- injected, sclera clear Ears: External ears normal, Canals clear, TM's Normal Oropharynx: no exudate, no erythema, lips, buccal mucosa, and tongue normal and mucous membranes are moist Neck: supple, no adenopathy, no bruits Heart: regular rate & rhythm, no murmur and no gallops Lungs: lungs clear to auscultation Abdomen: abdomen soft, non-tender, normal bowel sounds and no masses or organomegaly Extremities: no joint deformities, effusion, or inflammation, no edema Well adult exam (Primary) - CBC WITH WBC DIFFERENTIAL; Future; Expected date: 11/02/2022 - COMPREHENSIVE METABOLIC PANEL; Future; Expected date: 11/02/2022 - TSH WITH FREE T4 IF INDICATED; Future; Expected date: 11/02/2022 - LIPID PANEL WITH DIRECT LDL IF TG IS HIGH; Future; Expected date: 11/02/2022 Pap smear for cervical cancer screening - INSPECTOR SOLDERING REFERRAL OP Encounter for screening mammogram for breast cancer - MAMMOGRAM SCREENING RONEY BILATERAL; Future; Expected date: 11/02/2022 Screening for colon cancer - COLONOSCOPY, GI REFERRAL OP Other orders - Folic Acid 1 MG Oral Tablet; Take 1 Tablet by mouth in the morning. Follow Up: Return in about 1 year (around 11/03/2023), or if symptoms worsen or fail to improve, forClinic Visit. | For: Clinic Visit Discussed with patient: -HEALTH PROMOTION: Adequate sleep (8-10 hours/night), regular exercise, balanced diet, dental care,limiting sedentary activities (TV, computer, Internet) -MENTAL HEALTH: Discuss feelings with an someone that they can trust -INJURY PREVENTION: Driving Safety, Seat Belts, Sun Safety, No Weapons, Conflict Resolution, Personal Safety -SUBSTANCE ABUSE: Tobacco, Drugs, Alcohol Melissa Miranda DO documented in this encounter Nursing Notes * MAVIS Nelson - 11/02/2022 8:38 AM EDT The patient has been properly identified by confirmation of name and date of . Chief Complaint Patient presents with Physical-Exam Patient presents in office today for her annual CPE. documented in this encounter Plan of Treatment Upcoming Encounters Date Type Specialty Care Team Description 11/23/2022 Laboratory Laboratory [place] [address] [facility] [address] [place] [address] 11/24/20[facility] [address] [place] [address] Scheduled Orders Name Type Priority Associated Diagnoses Orde r Schedule MAMMOGRAM SCREENING RONEY BILATERAL Medical Imaging Routine Encounter for screening mammogram for breast cancer Expected: 11/02/2022, Expires: 12/03/2023 CBC WITH WBC DIFFERENTIAL Lab Routine Well adult exam Expected: 11/02/2022 (Approximate), Expires: 11/03/2023 COMPREHENSIVE METABOLIC PANEL Lab Routine Well adult exam Expected: 11/02/2022 (Approximate), Expires: 11/03/2023 TSH WITH FREE T4 IF INDICATED Lab Routine Well adult exam Expected: 11/02/2022 (Approximate), Expires: 11/03/2023 LIPID PANEL WITH DIRECT LDL IF TG IS HIGH Lab Routine Well adult exam Expected: 11/02/2022 (Approximate), Expires: 11/03/2023 Scheduled Referrals Name Type Priority Associated Diagnoses Orde r Schedule INSPECTOR SOLDERING REFERRAL OP Referral Within 10 days (routine) Pap smear for cervical cancer screening Ordered: 11/02/2022 COLONOSCOPY, GI REFERRAL OP Referral Within 30 days (routine) Screening for colon cancer Ordered: 11/02/2022 Health Maintenance Due Date Last Done Comments [...] as of this encounter Visit Diagnoses Diagnosis Well adult exam- Primary Routine general medical examination at a health care facility Pap smear for cervical cancer screening Screening for malignant neoplasm of the cervix Encounter for screening mammogram for breast cancer Screening for colon cancer Special screening for malignant neoplasms, colon documented in this encounter Care Teams Human Resources Designate Relationship Specialty Start Date End Date Gabriel Iqbal DO [address] [place] [address] PCP - General Family Medicine 08/04/20 documented as of this encounter"
--- OUTSIDE RECORDS SUMMARY | 2023-03-30 15:04 | External Medical Summary | Summary of Care ---
Author Name Unknown Organization [facility] Address [address] [place] [address] Phone [phone] Care Team Providers Care Lead Software Architect Name Role Phone Gabriel Iqbal DO Primary Care Provider Reason for Visit * Reason Onset Date Comments Referral 11/02/2022 Encounter Details Date Type Department Care Team Description 11/02/2022 Telephone Family Practice [facility] [address] [place] [address] Melissa Kowalski DO [address] [place] [address] Referral Allergies Active Allergy Reactions Severity Noted Date [...] day as needed for Diarrhea. 0 Active Naproxen 500 MG Oral Tablet (Naprosyn)Indication s:Migraine variant, intractable Take by mouth 1 Tablet [...] encounter Miscellaneous Notes * Telephone Encounter - Rupinder Iqbal - 11/02/2022 9:20 AM EDT Pt will call when she has time to schedule her mammo/EQUIPMENT OPERATOR WAGE HAND/colon/CPE documented in this encounter Plan of Treatment Upcoming Encounters Date Type Specialty Care Team Description 11/23/2022 Laboratory Laboratory [facility] [place] [address] [facility] [place] [address] 11/24/2022 Anticoagulation Pharmacy [address] [place] [address] Health Maintenance Due Date Last Done Comments [...] filedocumented as of this encounter Care Teams Lead Software Architect Relationship Specialty Start Date End Date Gabriel Iqbal DO [address] [place] [address] PCP - General Family Medicine 08/04/20 documented as of this encounter
--- OUTSIDE RECORDS SUMMARY | 2023-03-30 15:04 | External Medical Summary | Summary of Care ---
Author Name Unknown Organization [facility] Address [address] [place] [address] Phone [phone] Care Team Providers Care Gas Turbine Assembler Name Role Phone Gabriel Iqbal DO Primary Care Provider Reason for Visit * Reason Comments Appointment Encounter Details Date Type Department Care Team Description 10/05/2022 Anticoagulation Pharmacy Call Center [address] [place] [address] [facility] [address] [facility] [place] [address] History of DVT (deep vein thrombosis)*; Methyltetrahydrofolat e reductase mutation; Hereditary factor V deficiency disease (HCC) Allergies Active Allergy Reactions Severity Noted Date Comments 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, stopped as soon as infusion stopped documented as of this encounter (statuses as of 10/05/2022) Medications Medication Sig Dispensed Refills Start Date [...] as of this encounter (statuses as of 10/05/2022) Active Problems Problem Noted Date ANTONY III [...] as of this encounter (statuses as of 10/05/2022) Resolved Problems Problem Noted Date Resolved Date [...] as of this encounter (statuses as of 10/05/2022) Immunizations Name Administration Dates Next Due COVID-19 mRNA, LNP-s, No Pre serve, 2-Dose Series (AMENDIA) 09/03/2020,08/13/2020 TD - Tetanus/Diptheria (ADULT) 05/08/2000 TDAP [...] of this encounter Progress Notes * CHRISTY Agrawal - 10/05/2022 9:03 AM EDT Patient Phone Numbers Left message on patients answering machine to schedule MTD appointment for coag management. [facility] message sent --no Clinic will follow up again in 1 week(s). Thank you, Xenia Richard Mannequin Refinisher 10/05/2022, 9:03 AM documented in this encounter Plan of Treatment Upcoming Encounters Date Type Specialty Care Team Description 10/12/2022 [facility] [address] [facility] Health Maintenance Due Date Last Done Comments [...] factors documented in this encounter Care Teams Gas Turbine Assembler Relationship Specialty Start Date End Date Gabriel Iqbal DO [address] [place] [address] PCP - General Family Medicine 08/04/20 documented as of this encounter
--- OUTSIDE RECORDS SUMMARY | 2023-03-30 15:04 | External Medical Summary ---
Author Name Unknown Address Unknown Organization [id number]:[place] [facility] [place] [address] [facility] [address] Laboratory Report Ordering Provider Test Date Status ANGEL ASHBY 01/20/2023 15:30:19 Final Observation Date Value Abnormality Reference (Units ) Status TSH 01/20/2023 15:30:19 1.84 0.27-4.20 (uIU/mL) Final Performing Location LABORATORY C - [address] [facility] [address]
--- OUTSIDE RECORDS SUMMARY | 2023-03-30 15:04 | External Medical Summary ---
Author Name Unknown Address Unknown Organization [id number]:[facility]ATORY [facility] [place] - [address] [place] [address] Laboratory Report Ordering Provider Test Date Status ANGEL ASHBY 01/20/2023 15:30:19 Final Observation Date Value Abnormality Reference (Units ) Status Triglyceride 01/20/2023 15:30:19 256 Above high normal <=174 (mg/dL) Final Triglyceride Reference Range s (mg/dL):
<150 Acceptable
150-174 Borderline high
175-499 High
>=500 Very high Cholesterol 01/20/2023 15:30:19 176 <200 (mg /dL) Final Total Cholesterol Reference Ranges (mg/dL):
<200 Desirable
200-239 Borderline high
>=240 High HDL 01/20/2023 15:30:19 56 >49 (mg/dL ) Final HDL Cholesterol Reference Ra nges (mg/dL):
>=60 High (Desirable)
<50 Low (Undesirable) For Females
<40 Low (Undesirable) For Males NON-HDL CHOLESTEROL 01/20/2023 15:30:19 120 <=159 (mg/dL) Final Non-HDL Cholesterol Referenc e Range (mg/dL):
<100 Target level for high risk ASCVD patient
<130 Optimal for general population
130-159 Near optimal for general population
160-189 Borderline High
190-219 High
>=220 Very High Performing Location LABORATORY [facility] - [address] [place] [address]
--- OUTSIDE RECORDS SUMMARY | 2023-03-30 15:04 | External Medical Summary ---
Author Name Unknown Address Unknown Organization [id number][facility] [address] [place] [address] Laboratory Report Ordering Provider Test Date Status ANGEL ASHBY 01/20/2023 15:30:19 Final Observation Date Value Abnormality Reference (Units ) Status WBC, Total 01/20/2023 15:30:19 6.20 4.00-10.8 0 (K/uL) Final RBC 01/20/2023 15:30:19 4.55 3.85-5.15 (M/uL) Final Hemoglobin 01/20/2023 15:30:19 14.0 12.0-15.3 (g/dL) Final HCT 01/20/2023 15:30:19 41.5 36.0-45.2 (%) Final MCV 01/20/2023 15:30:19 91.2 81.5-97.5 (fL) Final MCH 01/20/2023 15:30:19 30.8 27.0-34.0 (pg) Final MCHC 01/20/2023 15:30:19 33.7 32.0-36.0 (g/dL) Final RDW 01/20/2023 15:30:19 13.3 11.5-15.5 (%) Final Platelets 01/20/2023 15:30:19 237 140-400 (K /uL) Final MPV 01/20/2023 15:30:19 8.6 6.6-11.1 ( fL) Final Performing Location [facility]ATORY [facility] [address] [place] [address]
--- OUTSIDE RECORDS SUMMARY | 2023-03-30 15:04 | External Medical Summary | Summary of Care ---
Author Name Unknown Organization [facility] Address [address] [place] [address] Phone [phone] Care Team Providers Care Solderer Furnace Name Role Phone Gabriel Iqbal DO Primary Care Provider Reason for Visit * Reason Comments Dosage Adjustment Via Phone (anticoag Cl inic) Encounter Details Date Type Department Care Team Description 01/23/2023 Anticoagulation Pharmacy Call Center [address] [facility] [place] [address] Telepharmacy, [facility] [address] [facility] [place] [address] History of DVT (deep vein thrombosis)*; Methyltetrahydrofolat e reductase mutation; Hereditary factor V deficiency disease (HCC) Allergies Active Allergy Reactions Severity Noted Date Comments 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, stopped as soon as infusion stopped documented as of this encounter (statuses as of 01/23/2023) Medications Medication Sig Dispensed Refills Start Date [...] as of this encounter (statuses as of 01/23/2023) Active Problems Problem Noted Date ANTONY III [...] as of this encounter (statuses as of 01/23/2023) Resolved Problems Problem Noted Date Resolved Date [...] as of this encounter (statuses as of 01/23/2023) Immunizations Name Administration Dates Next Due COVID-19 [...] Progress Notes * Alida Urbano RPh - 01/23/2023 3:50 PM EDT Noted Alida Urbano Rph, Pharm.D. Clinical Pharmacist [facility] ([facility]) (formerly Telepharmacy) [phone] 01/23/2023,3:50 PM * Yelena Aguilar, SOBEIDA - 01/23/2023 9:57 AM EDT Contacts Type Contact Phone/Fax 01/23/2023 09:55 AM EDT Phone (Outgoing) Ruth Hylton (Self) [phone] (M) Subjective Patient Findings Positives: Change in health (Pt reports seasonal allergies (itchy eyes) and has been taking an OTC non-drowsy medication - she was unsure of the name.), Upcoming invasive procedure (Pt reports colonoscopy scheduled at the end of May.) Negatives: Signs/symptoms of thrombosis, Signs/symptoms of bleeding, Change in alcohol use, Change in activity, Missed doses, Extra doses, Change in medications, Change in diet/appetite, Bruising Advised patient to contact Anticoagulation Clinic if any unusual bruising or bleeding, recent illness, changes in medication, or questions/concerns. PT/INR results, Coumadin dose instructions, and next PT/INR date communicated as noted by Pharmacist: Yes - Pt reports she was unsure how she is taking the coumadin but knows she is taking 12 mg on all days except for Fridays. She has a pill box and knows she takes a different dose on Fridays. Advised pt to continue taking the same dose that she has been. Yelena Aguilar RPh 01/23/2023, 9:57 AM * Alida Urbano RPh - 01/23/2023 8:04 AM EDT Coumadin Clinic (region specific) Objective Current Warfarin Dose As of 01/23/2023 Warfarin maintenance plan: 9 mg (6 mg x 1.5) every Fri; 12 mg (6 mg x 2) all other days INR Result As of 01/23/2023 INR goal: 2.5-3.5 INR used for dosin.3 (01/20/2023) Assessment & Plan Warfarin Plan As of 01/23/2023 Full warfarin instructions: 9 mg every Fri; 12 mg all other days Next INR check: 03/03/2023 Repeat PT/INR in 6 week(s) Weekly dose: not changed Additional Dosing Information: Edgar Cardona to contact patient with dose instructions as noted. Alida Urbano RPh 01/23/2023, 8:04 AM documented in this encounter Plan of Treatment Upcoming Encounters Date Type Specialty Care Team Description 06/02/2023 Hospital Encounter Endoscopy Itzel Monroy DO [address] [place] [address] 06/02/2023 Surgery Endoscopy Itzel Monroy, [address] [place] [address] COLONOSCOPY FLEXIBLE PROXIMAL DIAGNOSTIC Scheduled Procedures Name [...] 03/10/2022 03/10/2021, 10/07, 02/02/2015, Additional history exists Influenza Vaccine (FLU shot) (#1) 2023 Cervical Cancer Screening 12/03/2024 Pap Smear 12/03/2024 [...] colon documented in this encounter Care Teams Solderer Furnace Relationship Specialty Start Date End Date Gabriel Iqbal, [address] [place] [address] PCP - General Family Medicine 08/04/20 documented as of this encounter
--- OUTSIDE RECORDS SUMMARY | 2023-03-30 15:04 | External Medical Summary ---
Author Name Unknown Address Unknown Organization [id number]:[facility] - [address] [place] [address] Laboratory Report Ordering Provider Test Date Status ANGEL ASHBY 01/20/2023 15:30:19 Final Observation Date Value Abnormality Reference (Units ) Status LDL, (direct) 01/20/2023 15:30:19 86 <=129 (mg/dL) Final LDL Cholesterol Reference Ra nges (mg/dL):
<70 Target level for high risk ASCVD patient
<100 Optimal for general population
100-129 Near optimal for general population
130-159 Borderline high
160-189 High
>=190 Very high Performing Location [facility] - [address] [place] [address]
--- OUTSIDE RECORDS SUMMARY | 2023-03-30 15:04 | External Medical Summary | Summary of Care ---
Author Name Unknown Organization [facility] Address [address] [place] [address] Phone [phone] Care Team Providers Care Sales Representative Raw Fibers Name Role Phone Gabriel Iqbal DO Primary Care Provider Reason for Visit * Reason Comments Outpatient Testing Encounter Details Date Type Department Care Team Description 01/20/2023 Laboratory Laboratory, [facility] 132 [facility] [place] [address] [facility] 132 [facility] [place] [address] Anticoagulation management encounter; Well adult exam Allergies Active Allergy Reactions Severity Noted Date Comments 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, stopped as soon as infusion stopped documented as of this encounter (statuses as of 01/20/2023) Medications Medication Sig Dispensed Refills Start Date [...] as of this encounter (statuses as of 01/20/2023) Active Problems Problem Noted Date 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 documented as of this encounter (statuses as of 01/20/2023) Resolved Problems Problem Noted Date Resolved Date [...] as of this encounter (statuses as of 01/20/2023) Immunizations Name Administration Dates Next Due COVID-19 [...] Encounters Date Type Specialty Care Team Description 01/23/2023 Anticoagulation Pharmacy [facility] [address] [facility] [place] [address] 06/02/2023 Hospital Encounter Endoscopy Itzel Monroy DO [address] [place] [address] 06/02/2023 Surgery Endoscopy Itzel Monroy DO [address] [place] [address] COLONOSCOPY FLEXIBLE PROXIMAL DIAGNOSTIC Pending Results Name Type Priority Associated Diagnoses Date /Time PT INR Lab Routine Anticoagulation management encounter 01/20/2023 3:30 PM EDT COMPREHENSIVE METABOLIC PANEL Lab Routine Well adult exam 01/20/2023 3:30 PM EDT TSH WITH FREE T4 IF INDICATED Lab Routine Well adult exam 01/20/2023 3:30 PM EDT LIPID PANEL WITH DIRECT LDL IF TG IS HIGH Lab Routine Well adult exam 01/20/2023 3:30 PM EDT Scheduled Procedures Name Priority Associated [...] Priority Date/Time Associated Diagnosis Comments DIFFERENTIAL, AUTOMATED Routine 01/20/2023 3:30 PM EDT Well adult exam CBC WITH WBC DIFFERENTIAL Routine 01/20/2023 3:30 PM EDT Well adult exam CBC Routine 01/20/2023 3:30 PM EDT Well adult exam documented in this encounter Results * (ABNORMAL) DIFFERENTIAL, AUTOMATED (01/20/2023 3:30 PM EDT) WBC 6.20 4.00 - 10.80 K/uL 01/20/2023 3:35 PM EDT [facility]10 Neutrophils % 48.3 40.0 - 75.0 % 01/20/2023 3:35 PM EDT [facility] 57[facility]10 Lymphocytes % 33.7 18.0 - 42.0 % 01/20/2023 3:35 PM EDT [facility] 57[facility]10 Monocytes % 12.9(H) 1.0 - 11.0 % 01/20/2023 3:35 PM EDT [facility] 57[facility]10 Eosinophils % 4.5 0.0 - 6.0 % 01/20/2023 3:35 PM EDT [facility] 57[facility]10 Basophils % 0.6 0.0 - 2.0 % 01/20/2023 3:35 PM EDT [facility]10 Absolute Neutrophils 2.99 1.80 - 7.70 K/uL 01/20/2023 3:35 PM EDT [facility]10 Absolute Lymphocytes 2.09 1.00 - 4.80 K/ul 01/20/2023 3:35 PM EDT [facility]10 Absolute Monocytes 0.80 0.00 - 1.10 K/uL 01/20/2023 3:35 PM EDT [facility]10 Absolute Eosinophils 0.28 0.00 - 0.70 K/uL 01/20/2023 3:35 PM EDT [facility]10 Absolute Basophils 0.04 0.00 - 0.20 K/uL 01/20/2023 3:35 PM EDT [facility]10 Blood Venous blood specimen / Unknown Venipuncture / Unknown 01/20/2023 3:30 PM EDT 01/20/2023 3:30 PM EDT Melissa Kowalski DO LAB BLOOD ORDERABLE S [facility] [place] [address] * CBC (01/20/2023 3:30 PM EDT) WBC 6.20 4.00 - 10.80 K/uL 01/20/2023 3:35 PM EDT [facility]10 RBC 4.55 3.85 - 5.15 M/uL 01/20/2023 3:35 PM EDT [facility]10 HGB 14.0 12.0 - 15.3 g/dL 01/20/2023 3:35 PM EDT [facility]10 HCT 41.5 36.0 - 45.2 % 01/20/2023 3:35 PM EDT [facility]10 MCV 91.2 81.5 - 97.5 fL 01/20/2023 3:35 PM EDT [facility]10 MCH 30.8 27.0 - 34.0 pg 01/20/2023 3:35 PM EDT [facility]10 MCHC 33.7 32.0 - 36.0 g/dL 01/20/2023 3:35 PM EDT [facility]10 RDW 13.3 11.5 - 15.5 % 01/20/2023 3:35 PM EDT [facility]10 PLT 237 140 - 400 K/uL 01/20/2023 3:35 PM EDT [facility]10 MPV 8.6 6.6 - 11.1 fL 01/20/2023 3:35 PM EDT [facility]10 Blood Venous blood specimen / Unknown Venipuncture / Unknown 01/20/2023 3:30 PM EDT 01/20/2023 3:30 PM EDT Melissa Kowalski DO LAB BLOOD ORDERABLE S [facility] [place] [address] documented in this encounter Visit Diagnoses Diagnosis Anticoagulation management encounter Encounter for therapeutic drug monitoring Well adult exam Routine general medical examination at a health care facility Screening for colon cancer Special screening for malignant neoplasms, colon documented in this encounter Care Teams Sales Representative Raw Fibers Relationship Specialty Start Date End Date Gabriel Iqbal DO [address] [place] [address] PCP - General Family Medicine 08/04/20 documented as of this encounter
--- OUTSIDE RECORDS SUMMARY | 2023-03-30 15:04 | External Medical Summary ---
Author Name Unknown Address Unknown Organization K01:[facility] [place] [address] [place] [facility] [place] [address] Laboratory Report Ordering Provider Test Date Status ANGEL ASHBY 01/20/2023 15:30:19 Final Observation Date Value Abnormality Reference (Units ) Status BUN 01/20/2023 15:30:19 14 6-20 (mg/dL) Final Creatinine 01/20/2023 15:30:19 0.8 0.5-1.0 (mg/dL) Final Glomerular filtration rate/1.73 sq M.predicted [Volume Rate/Area] in Serum, Plasma or Blood by Creatinine-based formula (CKD-EPI) 01/20/2023 15:30:19 >90 >=60 (mL/min) Final eGFR is calculated based on the CKD-EPI 2020 equation SODIUM 01/20/2023 15:30:19 140 135-146 (m mol/L) Final Potassium 01/20/2023 15:30:19 3.7 3.5-5.1 (m mol/L) Final Cl 01/20/2023 15:30:19 103 98-107 (mm ol/L) Final CO2 01/20/2023 15:30:19 26 22-32 (mmo l/L) Final Anion gap 01/20/2023 15:30:19 11 7-15 (mmol /L) Final Glucose 01/20/2023 15:30:19 106 70-120 (mg /dL) Final Albumin 01/20/2023 15:30:19 4.3 3.8-5.0 (g /dL) Final AST (Aspartate aminotransferase) 01/20/2023 15:30:19 34 10-35 (U/L) Fin al Alk Phos 01/20/2023 15:30:19 141 Above high normal 35 -130 (U/L) Final Bilirubin, Total 01/20/2023 15:30:19 0.3 <=1 .2 (mg/dL) Final Calcium 01/20/2023 15:30:19 8.9 8.4-10.2 ( mg/dL) Final Protein 01/20/2023 15:30:19 6.7 6.0-8.3 (g /dL) Final ALT (Alanine aminotransferase) 01/20/2023 15:30:19 48 Above high normal 10-35 (U/L) Final Performing Location [facility] [place] [address] [facility] [address]
--- OUTSIDE RECORDS SUMMARY | 2023-03-30 15:04 | External Medical Summary ---
Author Name Unknown Address Unknown Organization [id number]:[facility] [address] - [address] [place] [address] Laboratory Report Ordering Provider Test Date Status MELCHOR ALLEN 01/20/2023 15:30:19 Final Standing order for pt/inr. < br/>Please draw pt/inr every 1 to 4 weeks as requested
Results to [facility]

Warfarin Therapy
INR: 2.0-3.0 conventional anticoagulation
INR: 2.5-3.5 high intensity anticoagulation Observation Date Value Abnormality Reference (Units ) Status PT 01/20/2023 15:30:19 33.4 Above high normal 11 .6-15.2 (seconds) Final INR 01/20/2023 15:30:19 3.3 Above high normal 0. 8-1.2 Final Performing Location [facility] 0 - [address] [place] [address]
--- OUTSIDE RECORDS SUMMARY | 2023-03-30 15:04 | External Medical Summary | Summary of Care ---
Author Name Unknown Organization [facility] Address [address] [place] [address] Phone [phone] Care Team Providers Care Carver Hand Name Role Phone Gabriel Iqbal Sarojjaylan Primary Care Provider Reason for Visit * Reason Onset Date Comments Appointment 10/10/2022 Encounter Details Date Type Department Care Team Description 10/10/2022 Telephone Family Practice [facility] [address] [place] [address] Tami Ahmadi LPN Appointment Allergies [...] (intrauterine device) in place 08/16 Overview: [facility] current use of anticoagulant t herapy [...] Telephone Encounter - Rupinder Iqbal - 10/11/2022 1:50 PM EDT appt scheduled with pt * Telephone Encounter - Tami Ahmadi LPN [...] Ahmadi LPN - 10/10/2022 1:35 PM EDT (FYI)[place] [employer] [facility] requesting letter on [facility] letterhead signed by Dr. Iqbal that Pt [...] on Dr. Iqbal's desk. Can fax to [phone]. documented in this encounter Plan of Treatment Upcoming Encounters Date Type Specialty Care Team Description 10/12/2022 Anticoagulation Pharmacy Telepharmacy, [facility] [address] [facility] [place] [address] 11/02/2022 Office Visit Family Medicine Melissa Kowalski DO [address] [place] [address] Health Maintenance Due Date Last Done Comments [...] filedocumented as of this encounter Care Teams Carver Hand Relationship Specialty Start Date End Date Gabriel Iqbal DO [address] [place] [address] PCP - General Family Medicine 08/04/20 documented as of this encounter
--- OUTSIDE RECORDS SUMMARY | 2023-03-30 15:04 | External Medical Summary ---
Author Name Unknown Address Unknown Organization K01:[facility] – [place] - [address] [place] [address] Laboratory Report Ordering Provider Test Date Status MELCHOR ALLEN 10/12/2022 16:52:13 Final Warfarin Therapy
INR: 2 .0-3.0 conventional anticoagulation
INR: 2.5- 3.5 high intensity anticoagulation Observation Date Value Abnormality Reference (Units ) Status PT 10/12/2022 16:52:13 27.4 Above high normal 11 .6-15.2 (seconds) Final INR 10/12/2022 16:52:13 2.5 Above high normal 0. 8-1.2 Final Performing Location [facility] – [place] - [address] [place] [address]
--- OUTSIDE RECORDS SUMMARY | 2023-03-30 15:04 | External Medical Summary | Summary of Care ---
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, stopped as soon as infusion stopped documented as of this encounter (statuses as of 01/24/2023) Medications Medication Sig Dispensed Refills Start Date [...] as of this encounter (statuses as of 01/24/2023) Active Problems Problem Noted Date 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 documented as of this encounter (statuses as of 01/24/2023) Resolved Problems Problem Noted Date Resolved Date [...] as of this encounter (statuses as of 01/24/2023) Immunizations Name Administration Dates Next Due COVID-19 [...] encounter Miscellaneous Notes * Telephone Encounter - Jaguar [place] - 01/24/2023 10:28 AM EDT Pt called and scheduled * Telephone Encounter - Melissa Kowalski DO - 01/23/2023 4:35 PM EDT R additional images needed documented in this encounter Plan of Treatment Upcoming Encounters Date Type Specialty Care Team Description 02/06/2023 Imaging Radiology 02/06/2023 Imaging Radiology 03/03/2023 Laboratory Laboratory [place] [address] [facility] [place] [address] 03/06/2023 Anticoagulation Pharmacy Telepharmacy, [facility] [address] [facility] [place] [address] 06/02/2023 Hospital Encounter Endoscopy Itzel Monroy, [address] [place] [address] 06/02/2023 Surgery Endoscopy Itzel Monroy DO [address] [place] [address] COLONOSCOPY FLEXIBLE PROXIMAL DIAGNOSTIC Scheduled Orders Name Type Priority Associated Diagnoses Orde r Schedule MAMMOGRAM DIAGNOSTIC RIGHT Medical Imaging Routine Abnormal mammogram Ordered: 01/23/2023 US BREAST LIMITED RIGHT Medical Imaging Routine Abnormal mammogram Ordered: 01/23/2023 Scheduled Procedures Name Priority Associated Diagnoses Date/Ti [...] (FLU shot) (#1) 2023 Mammogram 01/21/2024 01/20/2023, /07/2020, 10/30/2017, Additional history exists Cervical Cancer Screening [...] as of this encounter Visit Diagnoses Diagnosis Abnormal mammogram- Primary Abnormal mammogram, unspecified Screening for colon cancer Special screening for malignant neoplasms, colon documented in this encounter Care Teams Electrical Tester Battery Relationship Specialty Start Date End Date Gabriel Iqbal DO [address] [place] [address] PCP - General Family Medicine 08/04/20 documented as of this encounter
[2023-03-30] MEDS ORDERED: SODIUM CHLORIDE 0.9% 1,000 ML IV SCH (15:15)
--- NOTE | 2023-03-30 15:29 | Emergency Department Note ---
Impression & Plan Vaginal bleeding, Elevated INR ED Provider Note NAME: TEZ SALEH AGE: 47 SEX: F : 1975 ARRIVES VIA: Walk-In INFORMANT: Patient ED PROVIDER(S): Abdulkadir Parks DO CHIEF COMPLAINT: vaginal bleeding HPI: Patient is a 47-year-old female who presents ER for vaginal bleeding. She had an IUD removed on the seventh of this month. This past Monday she started with bleeding as initially started after the removal of the IUD and then resolved and then started back up. It got heavier last night. She admits that she does take Coumadin. This is for previous clots. She notes that the bleeding has been going through more than 1 pad an hour. She denies any dizziness or lightheadedness. No chest pain or shortness of breath. No nausea, vomiting, or diarrhea. No dysuria, urgency, or frequency. No other exacerbating or remitting factors. ADDITIONAL HISTORY OBTAINED: Per HPI Chronic Medical/Social Conditions Affecting Care: Per HPI PAST MEDICAL HISTORY:See Below PAST SURGICAL HISTORY:See Below FAMILY HISTORY:See Below SOCIAL HISTORY:See Below HOME MEDICATIONS:See Below ALLERGIES:See Below VITALS:See Below PHYSICAL EXAMINATION: GENERAL: Sitting up in bed, alert, well appearing, well nourished, no distress, non-toxic EYE EXAM: normal conjunctiva. OROPHARYNX: mucous membranes are moist LUNGS: Clear to auscultation. Normal chest wall mechanics HEART: no murmurs, S1 normal and S2 normal ABDOMEN: abdomen soft, non-tender, normo-active bowel sounds, no masses, no rebound or guarding. BACK: Back is symmetrical on inspection and there is no deformity, no midline tenderness, no CVA tenderness. : Normal external genitalia. Small amount of blood in the pools in the vaginal vault which was cleared with 2 Q-tips but was slowly pooling. Cervix is closed. UPPER EXTREMITIES: upper extremities are grossly normal. LOWER EXTREMITIES: No pitting edema. NEURO EXAM: Normal sensorium, cranial nerves II-XII grossly intact, normal speech, no gross weakness of arms, no gross weakness of legs. MEDICAL DECISION MAKING: Patient is a 47-year-old female who presents ER for vaginal bleeding. She is on Coumadin and her last INR was slightly high at 3.5. IV was established blood work was obtained. External records reviewed as described below. Labs showed a mild leukocytosis 34,000 which is likely secondary to the Neupogen that she received recently as she is currently getting chemotherapy for breast cancer. INR was supratherapeutic at greater than 9.5. BMP along with LFTs bilirubin was unremarkable. UA was contaminated with blood. was negative. Patient was given IV vitamin K for reversal. On pelvic exam there was some pooling of blood which was removed with 3-4 Q-tips. Did not refill quickly. With this patient was only given 5 mg of vitamin K. Patient was discussed with TELETYPE ADJUSTER as well as hospitalist for further evaluation management treat. External Records Reviewed: Taken to the [place] [address] Glover following bleeding vaginally from cyst Consults/Care Managements Discussions: Per [facility] Triage Nursing notes reviewed. Limited review of prior medical records performed Vital Signs: reviewed and remarkable for no significant abnormalities Differential diagnosis: Etiologies such as threatened AB, miscarriage, ectopic , dysfunction uterine bleeding, bleeding dyscrasia, trauma, infection, as well as others were entertained. ER treatment provided: See below Diagnostics interpreted by me include EKG and cardiac monitoring as listed below: -Cardiac Monitoring: An order was placed for continuous cardiac monitoring. The monitor shows a rate of 80 with sinus rhythm. -ECG: none -Laboratory studies:Interpreted by me as stated above in MDM and shown below. Imaging studies: Xrays: As interpreted by me:none CTs show: none Ultrasound of the pelvis was heterogeneous Procedures:none Past Med/Surg History Medical History Supratherapeutic INR Lab test negative for COVID-19 virus Elevated WBC count Hemoperitoneum Free fluid in pelvis Migraines Chronic anticoagulation Venous thrombosis Sagittal sinus B/L. On Coumadin. MTHFR mutation On Coumadin. 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 Factor V Leiden On Coumadin. Eczema Surgical History S/P cholecystectomy S/P tonsillectomy and adenoidectomy Family History Other Asthma Thyroid disease Social History Smoking Status: Never smoker Second Hand Exposure: No; Do You Dip or Chew Tobacco: No; Hx Alcohol Use: No Hx Substance Use: No Preferred Language: Chinese Communication Ability: Effective Visual Impairment: No Limitations Faith Healer Required: No Beliefs That Will Affect Care: None Current Living Situation: Spouse and Family Current Living Situation Comment: and son Feels Safe at Home: Yes Assistive Devices: Glasses Allergies Allergies Allergy/AdvReac Type Severity Reaction Status Date / Time vancomycin Allergy Severe EBONY Verified 03/30/23 17:41 SYNDROME Home Meds Home Medications Medication Instructions Recorded Confirmed albuterol sulfate 90 mcg/actuation 2 puff inhalation Q6H PRN 04/27/18 03/30/23 aerosol inhaler (Ventolin HFA) Shortness Of Breath Or Wheezing folic acid 1 mg tablet 1 mg PO DAILY 04/27/18 03/30/23 loperamide 2 mg tablet (Imodium 2 mg PO DIRECTED PRN Diarrhea 04/27/18 03/30/23 A-D) pyridoxine (vitamin B6) 100 mg 100 mg PO DAILY 04/27/18 03/30/23 tablet (Vitamin B-6) cyanocobalamin (vitamin B-12) 1,000 mcg PO DAILY 11/20/21 03/30/23 1,000 mcg tablet (Vitamin B-12) ondansetron HCl 8 mg tablet 8 mg PO TID PRN NAUSEA/VOMITING 11/20/21 03/30/23 Taxotere-Cytoxan See Rx Instructions .Route .COMPLEX 03/30/23 03/30/23 lidocaine-prilocaine 2.5 %-2.5 % 1 applic topical UD 03/30/23 03/30/23 topical cream pegfilgrastim 6 mg/0.6 mL 6 mg subcut .THE DAY AFTER CHEMO 03/30/23 03/30/23 subcutaneous syringe (Neulasta) warfarin 6 mg tablet See Rx Instructions .Route .COMPLEX 03/30/23 03/30/23 Results & Data (ED) Vital Signs Vital Signs - 24 hr 03/30/23 14:55 03/30/23 15:28 03/30/23 15:30 Pulse Rate 110 H Pulse Rate [Left Finger] 98 H Pulse Rhythm Regular Pulse Rhythm [Left Finger] Regular Pulse Strength [Left Finger] Normal Respiratory Rate 20 20 Respiratory Effort / Characteristics Non-Labored Spontaneous Respiratory Depth Normal Respiratory Pattern Regular Blood Pressure 145/81 H Blood Pressure [Right Arm] 135/100 Blood Pressure Mean 102 Blood Pressure Mean [Right Arm] 111 Blood Pressure Position [Right Arm] Sitting Pulse Oximetry 95 98 Oxygen Delivery Method Room Air Room Air Sepsis Recent Fever Within 48 Hours No Sepsis New/Unexplained Change in Mental Status N/A Sepsis Action Taken by Nursing No Action Required 03/30/23 16:50 03/30/23 18:20 03/30/23 19:00 Pulse Rate Pulse Rate [Left Finger] 77 101 H Pulse Rhythm Pulse Rhythm [Left Finger] Pulse Strength [Left Finger] Respiratory Rate 20 18 Respiratory Effort / Characteristics Respiratory Depth Respiratory Pattern Blood Pressure Blood Pressure [Right Arm] 135/99 112/86 Blood Pressure Mean Blood Pressure Mean [Right Arm] 111 94 Blood Pressure Position [Right Arm] Sitting Pulse Oximetry 98 96 94 Oxygen Delivery Method Room Air Room Air Sepsis Recent Fever Within 48 Hours Sepsis New/Unexplained Change in Mental Status Sepsis Action Taken by Nursing 03/30/23 19:00 03/30/23 20:00 Pulse Rate Pulse Rate [Left Finger] 104 H 77 Pulse Rhythm Pulse Rhythm [Left Finger] Pulse Strength [Left Finger] Respiratory Rate 17 17 Respiratory Effort / Characteristics Non-Labored Spontaneous Non-Labored Respiratory Depth Normal Normal Respiratory Pattern Regular Regular Blood Pressure Blood Pressure [Right Arm] Blood Pressure Mean Blood Pressure Mean [Right Arm] Blood Pressure Position [Right Arm] Pulse Oximetry 98 Oxygen Delivery Method Room Air Sepsis Recent Fever Within 48 Hours Sepsis New/Unexplained Change in Mental Status Sepsis Action Taken by Nursing Laboratory Data 03/30/23 19:21 03/30/23 16:43 Lab Results 03/30/23 03/30/23 03/30/23 Range/Units 15:24 16:43 19:21 WBC 34.93 H* (4.8-10.8) K/ul RBC 4.61 (4.20-5.40) M/uL Hgb 14.2 13.6 (12.0-16.0) g/dl Hct 41.1 39.4 (37.0-47.0) % MCV 89.2 (80.0-100.0) fL MCH 30.8 (25.0-34.0) pg MCHC 34.5 (32.0-36.0) g/dL RDW Std Deviation 43.7 (36.4-46.3) fL RDW Coeff of Mima 13.3 (11.5-14.5) % Plt Count 166 (130-400) K/uL MPV 9.7 (9.4-12.4) fL Neutrophils % (Manual) 98 % Lymphocytes % (Manual) 2 % Neutrophils # (Manual) 34.23 H (1.40-6.50) K/uL Total Absolute Neuts 34.23 H (1.4-6.5) K/uL Lymphocytes # (Manual) 0.70 L (1.2-3.4) K/uL Total Abs Lymphocytes 0.70 L (1.2-3.4) K/uL Toxic Vacuolation 1+ PT Cancelled > 90.0 H INR Cancelled > 9.5 H* APTT Cancelled 84.0 H* PTT Ratio Cancelled 3.0 Sodium TNP 135 L Potassium TNP 4.1 Chloride 99 (98-107) mmol/L Carbon Dioxide 27 (21-32) mmol/L Anion Gap TNP BUN 15 (6-23) mg/dl Creatinine 0.71 (0.6-1.2) mg/dl Est Cr Clr Drug Dosing 86.6 ml/min Est GFR ( Amer) 116.7 ml/min Est GFR (Non-Af Amer) 100.7 ml/min BUN/Creatinine Ratio 21.1 H (10-20) Glucose 103 H (70-99(Fasting)) mg/dl Calcium 8.2 L (8.6-10.3) mg/dl Total Bilirubin 1.0 (0.2-1.0) mg/dl AST TNP 32 ALT 37 (7-52) U/L Alkaline Phosphatase 129 H (34-104) U/L Total Protein 6.7 (6.0-8.3) gm/dl Albumin 3.9 (3.4-5.0) gm/dl Globulin 2.8 (2.5-4.0) gm/dl Albumin/Globulin Ratio 1.4 (0.9-2) Urine Color Red Urine Appearance Cloudy A (Clear) Urine pH 5.5 (4.5-7.5) Ur Specific [place] 1.025 (1.000-1.030) Urine Protein 3+ H (Negative) Urine Glucose (UA) Negative (Negative) Urine Ketones Negative (Negative) Urine Blood 3+ H (Negative) Urine Nitrite Negative (Negative) Urine Bilirubin Negative (Negative) Urine Urobilinogen Negative (Negative) Ur Leukocyte Esterase Trace H (Negative) Urine RBC >30 H (0-4) /hpf Urine WBC 10-30 H (0-5) /hpf Ur Epithelial Cells 0-5 (0-5) /lpf Urine Bacteria Negative (Negative) Urine Test Negative (Negative) Administered Medications Discontinued Medications Sodium Chloride (Nss) 1,000 mls @ 999 mls/hr IV .Q1H1M REYNA Stop: 03/30/23 16:15 Last Infusion: 03/30/23 16:22 Dose: Infused Documented By: Admin: 03/30/23 15:21 Dose: 999 mls/hr Documented By: JESSE Phytonadione 5 mg/ Dextrose 50.5 mls @ 102 mls/hr IV ONE ONE Stop: 03/30/23 18:12 Last Infusion: 03/30/23 19:18 Dose: Infused Documented By: Admin: 03/30/23 18:20 Dose: 102 mls/hr Documented By: JESSE Imaging Data Radiologist's Impression: Pelvis Ultrasound 03/30/23 15:04 US pelvic complete CLINICAL HISTORY: vag bleeding TECHNIQUE: Real-time sonographic images of the pelvic contents were obtained with transabdominal and transvaginal technique. Comparison: Comparison is made to pelvic ultrasound 11/20/2021 FINDINGS: The uterus measures 8.1 x 3.9 x 4.4 cm. The endometrial cavity echo stripe measures 0.6 cm in thickness. Uterus is heterogeneous. Previously noted intrauterine device has been removed. The cervix is heterogeneously thickened in appearance. The right ovary is not visualized The left ovary measures 3.7 x 1.8 x 2.7 cm. Normal appearance of the ovaries bilaterally. There was no fluid in the cul-de-sac. IMPRESSION: Heterogeneous thickening of the cervix is seen. Although findings may represent a blood clot, pelvic exam is recommended to exclude solid mass. ACT 112: Positive. There are findings on this exam that require communication between the performing entity and the patient following Patient Test Result Information Act ([place] Act 112) guidelines. Electronically signed by: Marcos Ramos M.D. 03/30/2023 5:17 PM Discharge Plan Visit Data Chief Complaint: Vaginal Bleeding Stated Complaint: VAG BLEEDING ED Provider: Abdulkadir Parks Discharge Problem: Vaginal bleeding, Elevated INR Prescriptions Prescriptions: No Action loperamide [Imodium A-D] 2 mg Tablet 2 mg PO DIRECTED PRN (Reason: Diarrhea) folic acid 1 mg Tablet 1 mg PO DAILY pyridoxine (vitamin B6) [Vitamin B-6] 100 mg Tablet 100 mg PO DAILY albuterol sulfate [Ventolin HFA] 90 mcg/actuation Hfa Aerosol Inhaler 2 puff INHALATION Q6H PRN (Reason: Shortness Of Breath Or Wheezing) ondansetron HCl 8 mg Tablet 8 mg PO TID PRN (Reason: NAUSEA/VOMITING) cyanocobalamin (vitamin B-12) [Vitamin B-12] 1,000 mcg Tablet 1,000 mcg PO DAILY lidocaine-prilocaine 2.5-2.5 % Cream 1 applic topical UD Rx Instructions: Apply to access site Neulasta 6 mg/0.6 mL Syringe 6 mg SUBCUT .THE DAY AFTER CHEMO Taxotere-Cytoxan See Rx Instructions .ROUTE .COMPLEX Rx Instructions: 1st round of chemo was 03/27/23. Patient will be doing this every 3 weeks. warfarin 6 mg tablet See Rx Instructions .ROUTE .COMPLEX Rx Instructions: Take 9mg on Fridays and 12mg all other days
[2023-03-30 15:42] LABS: Pregnancy Test, Urine Negative (Negative)
[2023-03-30 15:46] LABS: Appearance Urine Cloudy (Clear); Bilirubin Urine Negative (Negative); Blood Urine 3+ (Negative); Color Urine Red; Glucose Urine UA Negative (Negative); Ketones Urine Negative (Negative); Leukocyte Esterase Urine Trace (Negative); Nitrite Urine Negative (Negative); Protein Urine 3+ (Negative); Specific Gravity Urine 1.025 (1.000-1.030); Urobilinogen Urine Negative (Negative); pH Urine 5.5 (4.5-7.5)
[2023-03-30 15:50] LABS: Bacteria Urine Negative (Negative); Epithelial Cell Urine 0-5 /lpf (0-5); RBC Urine >30 /hpf (0-4)
[2023-03-30 16:11] LABS: Alanine Aminotransferase 37 U/L (7-52); Albumin Globulin Ratio 1.4 (0.9-2); Albumin Level 3.9 gm/dl (3.4-5.0); Alkaline Phosphatase 129 U/L (34-104); BUN Creatinine Ratio 21.1 (10-20); Blood Urea Nitrogen 15 mg/dl (6-23); Calcium 8.2 mg/dl (8.6-10.3); Carbon Dioxide 27 mmol/L (21-32); Chloride 99 mmol/L (98-107); Creatinine Clr Calc Pharmacy 86.6 ml/min; Est GFR (African American) 116.7 ml/min; Est GFR (Non-African American) 100.7 ml/min; Globulin 2.8 gm/dl (2.5-4.0); Glucose 103 mg/dl (70-99(Fasting)); Total Protein 6.7 gm/dl (6.0-8.3)
[2023-03-30 16:24] LABS: Hematocrit (blood only) 41.1 % (37.0-47.0); Hemoglobin 14.2 g/dl (12.0-16.0); Mean Corpuscular Hemoglobin 30.8 pg (25.0-34.0); Mean Corpuscular Hgb Conc 34.5 g/dL (32.0-36.0); Mean Corpuscular Volume 89.2 fL (80.0-100.0); Mean Platelet Volume 9.7 fL (9.4-12.4); Platelet Count 166 K/uL (130-400); RDW Coefficient of Variation 13.3 % (11.5-14.5); RDW Standard Deviation 43.7 fL (36.4-46.3); Red Blood Count 4.61 M/uL (4.20-5.40); White Blood Count 34.93 K/ul (4.8-10.8)
[2023-03-30 16:29] LABS: ANC (manual) 34.23 K/uL (1.4-6.5); Lymphocytes % (manual) 2 %; Neutrophils # (manual) 34.23 K/uL (1.40-6.50); Neutrophils % (manual) 98 %; Toxic Vacuolation 1+
[2023-03-30 17:15] LABS: Potassium 4.1 mmol/L (3.5-5.1)
--- NOTE | 2023-03-30 17:19 | Ultrasound Report ---
US pelvic complete CLINICAL HISTORY: vag bleeding TECHNIQUE: Real-time sonographic images of the pelvic contents were obtained with transabdominal and transvaginal technique. Comparison: Comparison is made to pelvic ultrasound 11/20/2021 FINDINGS: The uterus measures 8.1 x 3.9 x 4.4 cm. The endometrial cavity echo stripe measures 0.6 cm in thickne ss. Uterus is heterogeneous. Previously noted intrauterine device has been removed. The cervix is het erogeneously thickened in appearance. The right ovary is not visualized The left ovary measures 3.7 x 1.8 x 2.7 cm. Normal appearance of th e ovaries bilaterally. There was no fluid in the cul-de-sac. IMPRESSION: Heterogeneous thickening of the cervix is seen. Although findings may represent a blood clot, pelvic exam is recommended to exclude solid mass. ACT 112: Positive. There are findings on this exam that require communication between the performing entity and the patient following Patient Test Result Information Act ([place] Act 112) guidelines. Electronically signed by: Marcos Ramos M.D. 03/30/2023 5:17 PM
[2023-03-30] MEDS ORDERED: PHYTONADIONE 5 MG in DEXTROSE 5% 50 ML IV ONE (17:43)
[2023-03-30 17:45] LABS: INR > 9.5 (0.9-1.1); Prothrombin Time > 90.0 Seconds (9.0-12.0)
[2023-03-30] MEDS ORDERED: ACETAMINOPHEN 325 MG TAB PO PRN (18:32)
--- NOTE | 2023-03-30 18:43 | History & Physical Report ---
Date of Service March 30, 2023 Assessment & Plan (1) H/O deep venous thrombosis: (2) Current use of intermediate anticoagulation: (3) Factor V Leiden: (4) Vaginal bleeding: Plan: Recently diagnosed w/ breast ca ER positive VT positive and her IUD (mirena) was therefore removed (on 03/14/23) On chronic anticoagulation d/t hx of sagittal sinus thrombosis, factor V Leiden, etc. INR >9.5 in the ED and received 5 IV vit K Hgb 14, will repeat H&H and will cont. to closely monitor Hold coumadin per ED provider exam - Small amount of blood in the pools in the vaginal vault which was cleared with 2 Q-tips but was slowly pooling. Cervix is closed. Pelvic US obtained and discussed w/ motivational speaker, Dr. Glover Heterogeneous thickening of the cervix is seen. Although findings may represent a blood clot, pelvic exam is recommended to exclude solid mass. Dr. Glover consulted for further eval and recommendations Will also further discuss w/ Dr. Anderson (pt's bankman/oncologist) Leukocytosis - no signs of infection noted - pt received decadron prior to chemo and neulastin after chemo (03/28), WBC elevated likely 2/2 that - cont. to monitor History of Present Illness Chief Complaint: vaginal bleed, supratherap. 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 Justin Luis) , who presents with vaginal bleed, and found to have elevated INR. Pt reports her IUD was removed on 03/14/2023 d/t her new diagnosis of breast c ancer hormonal receptor positive. Then on Tuesday 03/27 she developed vaginal bleeding. Denies any abdominal pain. Denies any fever, chills, chest pain, shortness of breath. She started her chemo on Monday, and received neulasta the next day. She has also been on Decadron prior to starting chemotherapy. Pelvic US was obtained in the ED and reviewed by motivational speaker, Dr. Glover. Pt received 5 mg vit K in the ED. Exam - per ED provider -Small amount of blood in the pools in the vaginal vault which was cleared with 2 Q-tips but was slowly pooling. Cervix is closed. She was found to have elevated WBC in 30sK, likely secondary to decadron and Neulasta received on 03/28/23. Of note, her last admission - in 11/2021- pt admitted for ruptured ovarian cyst and required laparoscopic blood clot evacuation, ovarian cystectomy. Allergies Allergy/AdvReac Type Severity Reaction Status Date / Time vancomycin Allergy Severe EBONY Verified 03/30/23 17:41 SYNDROME Home Medications Medication Instructions Recorded Confirmed Type albuterol sulfate 90 mcg/actuation 2 puff inhalation Q6H PRN 04/27/18 03/30/23 History aerosol inhaler (Ventolin HFA) Shortness Of Breath Or Wheezing folic acid 1 mg tablet 1 mg PO DAILY 04/27/18 03/30/23 History loperamide 2 mg tablet (Imodium 2 mg PO DIRECTED PRN Diarrhea 04/27/18 03/30/23 History A-D) pyridoxine (vitamin B6) 100 mg 100 mg PO DAILY 04/27/18 03/30/23 History tablet (Vitamin B-6) cyanocobalamin (vitamin B-12) 1,000 mcg PO DAILY 11/20/21 03/30/23 History 1,000 mcg tablet (Vitamin B-12) ondansetron HCl 8 mg tablet 8 mg PO TID PRN NAUSEA/VOMITING 11/20/21 03/30/23 History Taxotere-Cytoxan See Rx Instructions .Route .COMPLEX 03/30/23 03/30/23 History lidocaine-prilocaine 2.5 %-2.5 % 1 applic topical UD 03/30/23 03/30/23 History topical cream pegfilgrastim 6 mg/0.6 mL 6 mg subcut .THE DAY AFTER CHEMO 03/30/23 03/30/23 History subcutaneous syringe (Neulasta) warfarin 6 mg tablet See Rx Instructions .Route .COMPLEX 03/30/23 03/30/23 History Past Med/Surg History Medical History Supratherapeutic INR Lab test negative for COVID-19 virus Elevated WBC count Hemoperitoneum Free fluid in pelvis Migraines Chronic anticoagulation Venous thrombosis Sagittal sinus B/L. On Coumadin. MTHFR mutation On Coumadin. 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 Factor V Leiden On Coumadin. Eczema Surgical History S/P cholecystectomy S/P tonsillectomy and adenoidectomy Family History Other Asthma Thyroid disease Social History Smoking Status: Never smoker Second Hand Exposure: No; Do You Dip or Chew Tobacco: No; Hx Alcohol Use: No Hx Substance Use: No Preferred Language: Khmer Communication Ability: Effective Visual Impairment: No Limitations Instructor Flying Required: No Beliefs That Will Affect Care: None Current Living Situation: Spouse and Family Current Living Situation Comment: and son Feels Safe at Home: Yes Assistive Devices: Glasses Review of Systems Review of Systems: All systems reviewed & are unremarkable except as noted in Subjective Physical Exam Constitutional: WD/WN, vitals as above Eyes: PERRL, conjunctivae normal, anicteric sclerae ENMT: external ear and nose normal, oropharynx normal Neck: trachea midline, no thyromegaly Respiratory: normal respiratory effort, lungs clear to auscultation Cardiovascular: RRR, no murmur, no edema Gastrointestinal (Abdomen): normal bowel sounds, soft, nontender, no hepatosplenomegaly Musculoskeletal: no cyanosis or clubbing, extremities motor strength 5/5 Skin: no rashes, warm and dry Neurologic: PERRL, EOMI, accommodation nl, no face palsy, no dysarthria Psychiatric: A+Ox3, euthymic affect Results & Data Results & Data Vital Signs (Past 12 Hours) Vital Signs Pulse Pulse Resp BP BP Pulse Ox O2 Del Method 03/30/23 18:20 101 H 18 112/86 96 Room Air 03/30/23 16:50 77 20 135/99 98 03/30/23 15:30 98 H 20 135/100 98 Room Air 03/30/23 15:28 110 H 20 95 Room Air 03/30/23 14:55 145/81 H Laboratory Results 03/30/23 03/30/23 03/30/23 Range/Units 19:21 16:43 15:24 WBC 34.93 H* (4.8-10.8) K/ul RBC 4.61 (4.20-5.40) M/uL Hgb Pending 14.2 (12.0-16.0) g/dl Hct Pending 41.1 (37.0-47.0) % MCV 89.2 (80.0-100.0) fL MCH 30.8 (25.0-34.0) pg MCHC 34.5 (32.0-36.0) g/dL RDW Std Deviation 43.7 (36.4-46.3) fL RDW Coeff of Mima 13.3 (11.5-14.5) % Plt Count 166 (130-400) K/uL MPV 9.7 (9.4-12.4) fL Neutrophils % (Manual) 98 % Lymphocytes % (Manual) 2 % Neutrophils # (Manual) 34.23 H (1.40-6.50) K/uL Total Absolute Neuts 34.23 H (1.4-6.5) K/uL Lymphocytes # (Manual) 0.70 L (1.2-3.4) K/uL Total Abs Lymphocytes 0.70 L (1.2-3.4) K/uL Toxic Vacuolation 1+ PT > 90.0 H Cancelled INR > 9.5 H* Cancelled APTT 84.0 H* Cancelled PTT Ratio 3.0 Cancelled Sodium 135 L TNP Potassium 4.1 TNP Chloride 99 (98-107) mmol/L Carbon Dioxide 27 (21-32) mmol/L Anion Gap TNP BUN 15 (6-23) mg/dl Creatinine 0.71 (0.6-1.2) mg/dl Est Cr Clr Drug Dosing 86.6 ml/min Est GFR ( Amer) 116.7 ml/min Est GFR (Non-Af Amer) 100.7 ml/min BUN/Creatinine Ratio 21.1 H (10-20) Glucose 103 H (70-99(Fasting)) mg/dl Calcium 8.2 L (8.6-10.3) mg/dl Total Bilirubin 1.0 (0.2-1.0) mg/dl AST 32 TNP ALT 37 (7-52) U/L Alkaline Phosphatase 129 H (34-104) U/L Total Protein 6.7 (6.0-8.3) gm/dl Albumin 3.9 (3.4-5.0) gm/dl Globulin 2.8 (2.5-4.0) gm/dl Albumin/Globulin Ratio 1.4 (0.9-2) Urine Color Red Urine Appearance Cloudy A (Clear) Urine pH 5.5 (4.5-7.5) Ur Specific [place] 1.025 (1.000-1.030) Urine Protein 3+ H (Negative) Urine Glucose (UA) Negative (Negative) Urine Ketones Negative (Negative) Urine Blood 3+ H (Negative) Urine Nitrite Negative (Negative) Urine Bilirubin Negative (Negative) Urine Urobilinogen Negative (Negative) Ur Leukocyte Esterase Trace H (Negative) Urine RBC >30 H (0-4) /hpf Urine WBC 10-30 H (0-5) /hpf Ur Epithelial Cells 0-5 (0-5) /lpf Urine Bacteria Negative (Negative) Urine Test Negative (Negative) Diagnostic Findings Pelvic US Heterogeneous thickening of the cervix is seen. Although findings may represent a blood clot, pelvic exam is recommended to exclude solid mass. Code Status & VTE Plan VTE Prophylaxis Plan VTE Prophylaxis will be ordered: Yes
[2023-03-30 19:54] LABS: Hematocrit (blood only) 39.4 % (37.0-47.0); Hemoglobin 13.6 g/dl (12.0-16.0)
[2023-03-30] MEDS ORDERED: LOPERAMIDE HCL 2 MG CAP PO PRN (22:00)
[2023-03-30 22:53] VITALS: RESP 16
--- NOTE | 2023-03-31 01:09 | OB/GYN Consultation ---
Date of Consultation March 31, 2023 Assessment & Plan (1) Episode of heavy vaginal bleedin yo female with HMB, s/p IUD removal due to ER, NV + Breast cancer, on Coumadin with elevated INR, PT, PTT, chronic anticoagulation, VSS Afebrile, H&H Stable, VB slowed down after Vit K US normal, 6 mm endometrium, cervical thickening, most likely blood cloths seen, pelvic exam normal Unable to use hormones due to ER, NV breast cancer, hoping bleeding would slow down with INR being normalized Future plan would be endometrial ablation to prevent periods, I would arrange that through our office in am Continue to monitor closely (2) Elevated INR: (3) H/O deep venous thrombosis: (4) Current use of nursing home anticoagulation: (5) Factor V Leiden: (6) Chronic anticoagulation: (7) Breast cancer in female: History of Present Illness Reason for Consultation: Heavy VB Attending Physician: Zia Brooks MD History of Present Illness Patient is a 47 yo F with factor V Leiden deficiency, MTHFR mutation, history of DVT, history of sagittal sinus thrombosis, on chronic Coumadin, history of hyperhomocysteinemia, history of acute myeloid leukemia - in remission, as per heme/onc notes however most recently (02/2023) diagnosed with R breast cancer estrogen receptor strongly positive, progesterone receptor stro ngly positive , HER2 negat. 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 Justin Luis) , who presents with heavy vaginal bleed, and found to have elevated INR. She had Mirena IUD for years to prevent periods but it was remove don 03/14 due to recent diagnosis of Breast ca, ER, NV +, recommended by Dr Anderson She started to have VB on 03/28 as light flow which has increased yesterday, changing pads every 1- hours. No pelvic pain She was given IV Vit K to reverse Coumadin her bleeding has slowed down. She soaked only 1 pd since she came here. She is known to me from 11/2021 when she presented to ER with hemorrhagic ovarian cyst, hemoperitoneum and again elevted NR We performed Op Laparoscopy, evacuation of blood cloths from pelvis, excision of vulvar lesion which came as ANTONY 3, no invasion She has seen Jewelry Department Supervisor onc and recommended to continue with [place] thomas, he lesions has resolved. She had normal pap smear on 11/2021 Pelvic US showed: INDINGS: The uterus measures 8.1 x 3.9 x 4.4 cm. The endometrial cavity echo stripe measures 0.6 cm in thickness. Uterus is heterogeneous. Previously noted intrauterine device has been removed. The cervix is heterogeneously thickened in appearance. The right ovary is not visualized The left ovary measures 3.7 x 1.8 x 2.7 cm. Normal appearance of the ovaries bilaterally. There was no fluid in the cul-de-sac. IMPRESSION: Heterogeneous thickening of the cervix is seen. Although findings may represent a blood clot, pelvic exam is recommended to exclude solid mass. She has been admitted by hospitalist to reverse INR. Pelvic exam normal except some bleeding. Allergies Allergy/AdvReac Type Severity Reaction Status Date / Time vancomycin Allergy Severe EBONY Verified 03/30/23 17:41 SYNDROME Home Medications Medication Instructions Recorded Confirmed Type albuterol sulfate 90 mcg/actuation 2 puff inhalation Q6H PRN 04/27/18 03/30/23 History aerosol inhaler (Ventolin HFA) Shortness Of Breath Or Wheezing folic acid 1 mg tablet 1 mg PO DAILY 04/27/18 03/30/23 History loperamide 2 mg tablet (Imodium 2 mg PO DIRECTED PRN Diarrhea 04/27/18 03/30/23 History A-D) pyridoxine (vitamin B6) 100 mg 100 mg PO DAILY 04/27/18 03/30/23 History tablet (Vitamin B-6) cyanocobalamin (vitamin B-12) 1,000 mcg PO DAILY 11/20/21 03/30/23 History 1,000 mcg tablet (Vitamin B-12) ondansetron HCl 8 mg tablet 8 mg PO TID PRN NAUSEA/VOMITING 11/20/21 03/30/23 History Taxotere-Cytoxan See Rx Instructions .Route .COMPLEX 03/30/23 03/30/23 History lidocaine-prilocaine 2.5 %-2.5 % 1 applic topical UD 03/30/23 03/30/23 History topical cream pegfilgrastim 6 mg/0.6 mL 6 mg subcut .THE DAY AFTER CHEMO 03/30/23 03/30/23 History subcutaneous syringe (Neulasta) warfarin 6 mg tablet See Rx Instructions .Route .COMPLEX 03/30/23 03/30/23 History Patient History Medical History Supratherapeutic INR Lab test negative for COVID-19 virus Elevated WBC count Hemoperitoneum Free fluid in pelvis Migraines Chronic anticoagulation Venous thrombosis Sagittal sinus B/L. On Coumadin. MTHFR mutation On Coumadin. 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 Factor V Leiden On Coumadin. Eczema Surgical History S/P tonsillectomy and adenoidectomy S/P cholecystectomy Family History Other Asthma Thyroid disease Social History Smoking Status: Never smoker Second Hand Exposure: No; Do You Dip or Chew Tobacco: No; Hx Alcohol Use: Yes Hx Substance Use: No Preferred Language: Irish Communication Ability: Effective Visual Impairment: No Limitations Occup Ther Required: No Beliefs That Will Affect Care: None Current Living Situation: Spouse Current Living Situation Comment: and son Feels Safe at Home: Yes Safety Concerns: Feels Safe At This Time Assistive Devices: Glasses Review of Systems Constitutional: as per Subjective / HPI Physical Exam Constitutional: WD/WN, vitals as above well developed, well nourished and comfortable Genitourinary: normal external appearance Speculum/Bimanual Exam: normal bimanual exam, normal appearance of the vagina (3-4 ml dark blood cleaned), normal appearance of the cervix, + vaginal bleeding (3-4 ml) and normal cervical palpation Cervix is normal, small cloths with coughing, pap smear is collected, cervical canal feels normal and palpation of cervix normal. Bimanual exam normal, no tenderness noted. Results & Data Vital Signs (Past 12 Hours) Vital Signs Pulse Pulse Resp BP BP Pulse Ox O2 Del Method 03/30/23 22:52 96 H 16 121/80 98 Room Air 03/30/23 22:00 77 17 112/87 100 Room Air 03/30/23 20:00 77 17 98 Room Air 03/30/23 19:00 104 H 17 03/30/23 19:00 94 Room Air 03/30/23 18:20 101 H 18 112/86 96 Room Air 03/30/23 16:50 77 20 135/99 98 03/30/23 15:30 98 H 20 135/100 98 Room Air 03/30/23 15:28 110 H 20 95 Room Air 03/30/23 14:55 145/81 H Laboratory Results Lab Results 03/30/23 03/30/23 03/30/23 Range/Units 15:24 16:43 19:21 WBC 34.93 H* (4.8-10.8) K/ul RBC 4.61 (4.20-5.40) M/uL Hgb 14.2 13.6 (12.0-16.0) g/dl Hct 41.1 39.4 (37.0-47.0) % MCV 89.2 (80.0-100.0) fL MCH 30.8 (25.0-34.0) pg MCHC 34.5 (32.0-36.0) g/dL RDW Std Deviation 43.7 (36.4-46.3) fL RDW Coeff of Mima 13.3 (11.5-14.5) % Plt Count 166 (130-400) K/uL MPV 9.7 (9.4-12.4) fL Neutrophils % (Manual) 98 % Lymphocytes % (Manual) 2 % Neutrophils # (Manual) 34.23 H (1.40-6.50) K/uL Total Absolute Neuts 34.23 H (1.4-6.5) K/uL Lymphocytes # (Manual) 0.70 L (1.2-3.4) K/uL Total Abs Lymphocytes 0.70 L (1.2-3.4) K/uL Toxic Vacuolation 1+ PT Cancelled > 90.0 H INR Cancelled > 9.5 H* APTT Cancelled 84.0 H* PTT Ratio Cancelled 3.0 Sodium TNP 135 L Potassium TNP 4.1 Chloride 99 (98-107) mmol/L Carbon Dioxide 27 (21-32) mmol/L Anion Gap TNP BUN 15 (6-23) mg/dl Creatinine 0.71 (0.6-1.2) mg/dl Est Cr Clr Drug Dosing 86.6 ml/min Est GFR ( Amer) 116.7 ml/min Est GFR (Non-Af Amer) 100.7 ml/min BUN/Creatinine Ratio 21.1 H (10-20) Glucose 103 H (70-99(Fasting)) mg/dl Calcium 8.2 L (8.6-10.3) mg/dl Total Bilirubin 1.0 (0.2-1.0) mg/dl AST TNP 32 ALT 37 (7-52) U/L Alkaline Phosphatase 129 H (34-104) U/L Total Protein 6.7 (6.0-8.3) gm/dl Albumin 3.9 (3.4-5.0) gm/dl Globulin 2.8 (2.5-4.0) gm/dl Albumin/Globulin Ratio 1.4 (0.9-2) Urine Color Red Urine Appearance Cloudy A (Clear) Urine pH 5.5 (4.5-7.5) Ur Specific [place] 1.025 (1.000-1.030) Urine Protein 3+ H (Negative) Urine Glucose (UA) Negative (Negative) Urine Ketones Negative (Negative) Urine Blood 3+ H (Negative) Urine Nitrite Negative (Negative) Urine Bilirubin Negative (Negative) Urine Urobilinogen Negative (Negative) Ur Leukocyte Esterase Trace H (Negative) Urine RBC >30 H (0-4) /hpf Urine WBC 10-30 H (0-5) /hpf Ur Epithelial Cells 0-5 (0-5) /lpf Urine Bacteria Negative (Negative) Urine Test Negative (Negative)
[2023-03-31 05:00] LABS: BUN Creatinine Ratio 16.1 (10-20); Calcium 8.2 mg/dl (8.6-10.3); Creatinine Clr Calc Pharmacy 99.2 ml/min; Est GFR (African American) 123.6 ml/min; Est GFR (Non-African American) 106.6 ml/min; Potassium 3.7 mmol/L (3.5-5.1)
[2023-03-31 05:13] LABS: Hematocrit (blood only) 37.8 % (37.0-47.0); Hemoglobin 13.2 g/dl (12.0-16.0); Mean Corpuscular Hemoglobin 30.7 pg (25.0-34.0); Mean Corpuscular Hgb Conc 34.9 g/dL (32.0-36.0); Mean Corpuscular Volume 87.9 fL (80.0-100.0); Mean Platelet Volume 9.4 fL (9.4-12.4); Platelet Count 127 K/uL (130-400); RDW Coefficient of Variation 13.1 % (11.5-14.5); RDW Standard Deviation 42.3 fL (36.4-46.3); White Blood Count 20.27 K/ul (4.8-10.8)
[2023-03-31 05:14] LABS: ALC (manual) 1.01 K/uL (1.2-3.4); ANC (manual) 19.05 K/uL (1.4-6.5); Lymphocytes # (manual) 1.01 K/uL (1.2-3.4); Lymphocytes % (manual) 5 %; Monocytes % (manual) 1 %; Neutrophils # (manual) 19.05 K/uL (1.40-6.50); Neutrophils % (manual) 94 %; RBC Morphology Unremarkable
[2023-03-31 05:29] VITALS: O2SAT 99
[2023-03-31 08:59] LABS: INR 1.3 (0.9-1.1); Prothrombin Time 14.1 Seconds (9.0-12.0)
[2023-03-31] MEDS ORDERED: CYANOCOBALAMIN (B-12) 500 MCG TABLET PO SCH (09:00)
[2023-03-31] MEDS ORDERED: FOLIC ACID 1 MG TAB PO SCH (09:00)
[2023-03-31] MEDS ORDERED: PYRIDOXINE HCL 50 MG TAB PO SCH (09:00)
--- NOTE | 2023-03-31 09:01 | Hospitalist Progress Note ---
Date of Service March 31, 2023 Assessment & Plan (1) H/O deep venous thrombosis: (2) Current use of correction anticoagulation: (3) Factor V Leiden: (4) Vaginal bleeding: Plan: Recently diagnosed w/ breast ca ER positive [place] positive and her IUD (mirena) was therefore removed (on 03/14/23) On chronic anticoagulation d/t hx of sagittal sinus thrombosis, factor V Leiden, etc. INR >9.5 in the ED and received 5 IV vit K Hgb 14, will repeat H&H and will cont. to closely monitor Hold coumadin per ED provider exam - Small amount of blood in the pools in the vaginal vault which was cleared with 2 Q-tips but was slowly pooling. Cervix is closed. Pelvic US obtained and discussed w/ video game engineer, Dr. Glover Heterogeneous thickening of the cervix is seen. Although findings may represent a blood clot, pelvic exam is recommended to exclude solid mass. Dr. Glover consulted for further eval and recommendations Will also further discuss w/ Dr. Anderson (pt's railroad design consultant/oncologist) Leukocytosis - no signs of infection noted - pt received decadron prior to chemo and neulastin after chemo (03/28), WBC elevated likely 2/2 that - cont. to monitor 03/31 - Pt's INR is down to 1.3 and bleeding subsided. Pt feels well and would like to be discharged. Pt was seen by Dr. Glover (ob gyn physician assistant) last evening - plan for outpt follow up and endometrial ablation. Also discussed with Dr. Anderson this AM - pt will be seen in his office on Monday (nursing visit) and will have her INR checked. She will be then further instructed about her coumadin. She will hold coumadin over the weekend. Admission and Anticipated Discharge Date Admission Date: March 30, 2023 Subjective Pt seen in follow up of vaginal bleed, supratherap. INR, recent dg. of breast ca (removal of IUD d/t that) Currently pt feels well. Bleeding has subsided. Current INR 1.3 Pt received 5 mg IV vit K in ED last evening Pt was seen by gynecology and they are arranging outpt follow up for endometrial ablation. Discussed today with gynecology and hem/ onc - Dr. Anderson - pt will be seen in Dr. Anderson's office on Monday and will have INR checked. Review of Systems Review of Systems: All systems reviewed & are unremarkable except as noted in Subjective Physical Exam Physical Exam: Constitutional: WD/WN, vitals as a kelly Eyes: PERRL, conjunctiva e normal, anicteri c sclerae ENMT: external ear and n ose normal, oropha rynx normal Neck: trachea midline, n o thyromegaly Respiratory: normal respiratory effort, lungs seema ar to auscultation Cardiovascular: RRR, no murmur, no edema Gastrointestinal ( Abdomen): normal bowel sound s, soft, nontender Musculoskeletal: extremities motor strength 5/5 Skin: no rashes, warm an d dry Neurologic: PERRL, EOMI,no fac e palsy, no dysart hria Psychiatric: A+Ox3, euthymic af fect Results & Data Results & Data Vital Signs (Past 12 Hours) Vital Signs Pulse Resp BP Pulse Ox O2 Del Method 03/31/23 05:29 90 16 99 Room Air 03/31/23 01:32 93 H 16 122/84 95 Room Air 03/30/23 22:52 96 H 16 121/80 98 Room Air 03/30/23 22:00 77 17 112/87 100 Room Air Laboratory Results 03/31/23 03/31/23 03/30/23 Range/Units 08:11 04:23 19:21 WBC 20.27 H (4.8-10.8) K/ul RBC 4.30 (4.20-5.40) M/uL Hgb 13.2 13.6 (12.0-16.0) g/dl Hct 37.8 39.4 (37.0-47.0) % MCV 87.9 (80.0-100.0) fL MCH 30.7 (25.0-34.0) pg MCHC 34.9 (32.0-36.0) g/dL RDW Std Deviation 42.3 (36.4-46.3) fL RDW Coeff of Mima 13.1 (11.5-14.5) % Plt Count 127 L (130-400) K/uL MPV 9.4 (9.4-12.4) fL Neutrophils % (Manual) 94 % Lymphocytes % (Manual) 5 % Monocytes % (Manual) 1 % Neutrophils # (Manual) 19.05 H (1.40-6.50) K/uL Total Absolute Neuts 19.05 H (1.4-6.5) K/uL Lymphocytes # (Manual) 1.01 L (1.2-3.4) K/uL Total Abs Lymphocytes 1.01 L (1.2-3.4) K/uL Monocytes # (Manual) 0.20 (0.11-0.59) K/uL Toxic Vacuolation RBC Morphology Unremarkable PT 14.1 H INR 1.3 H APTT PTT Ratio Sodium 136 Potassium 3.7 Chloride 103 (98-107) mmol/L Carbon Dioxide 28 (21-32) mmol/L Anion Gap 5 BUN 10 (6-23) mg/dl Creatinine 0.62 (0.6-1.2) mg/dl Est Cr Clr Drug Dosing 99.2 ml/min Est GFR ( Amer) 123.6 ml/min Est GFR (Non-Af Amer) 106.6 ml/min BUN/Creatinine Ratio 16.1 (10-20) Glucose 113 H (70-99(Fasting)) mg/dl Calcium 8.2 L (8.6-10.3) mg/dl Total Bilirubin (0.2-1.0) mg/dl AST ALT (7-52) U/L Alkaline Phosphatase (34-104) U/L Total Protein (6.0-8.3) gm/dl Albumin (3.4-5.0) gm/dl Globulin (2.5-4.0) gm/dl Albumin/Globulin Ratio (0.9-2) Urine Color Urine Appearance (Clear) Urine pH (4.5-7.5) Ur Specific [place] (1.000-1.030) Urine Protein (Negative) Urine Glucose (UA) (Negative) Urine Ketones (Negative) Urine Blood (Negative) Urine Nitrite (Negative) Urine Bilirubin (Negative) Urine Urobilinogen (Negative) Ur Leukocyte Esterase (Negative) Urine RBC (0-4) /hpf Urine WBC (0-5) /hpf Ur Epithelial Cells (0-5) /lpf Urine Bacteria (Negative) Urine Test (Negative) 03/30/23 03/30/23 Range/Units 16:43 15:24 WBC 34.93 H* (4.8-10.8) K/ul RBC 4.61 (4.20-5.40) M/uL Hgb 14.2 (12.0-16.0) g/dl Hct 41.1 (37.0-47.0) % MCV 89.2 (80.0-100.0) fL MCH 30.8 (25.0-34.0) pg MCHC 34.5 (32.0-36.0) g/dL RDW Std Deviation 43.7 (36.4-46.3) fL RDW Coeff of Mima 13.3 (11.5-14.5) % Plt Count 166 (130-400) K/uL MPV 9.7 (9.4-12.4) fL Neutrophils % (Manual) 98 % Lymphocytes % (Manual) 2 % Monocytes % (Manual) % Neutrophils # (Manual) 34.23 H (1.40-6.50) K/uL Total Absolute Neuts 34.23 H (1.4-6.5) K/uL Lymphocytes # (Manual) 0.70 L (1.2-3.4) K/uL Total Abs Lymphocytes 0.70 L (1.2-3.4) K/uL Monocytes # (Manual) (0.11-0.59) K/uL Toxic Vacuolation 1+ RBC Morphology PT > 90.0 H Cancelled INR > 9.5 H* Cancelled APTT 84.0 H* Cancelled PTT Ratio 3.0 Cancelled Sodium 135 L TNP Potassium 4.1 TNP Chloride 99 (98-107) mmol/L Carbon Dioxide 27 (21-32) mmol/L Anion Gap TNP BUN 15 (6-23) mg/dl Creatinine 0.71 (0.6-1.2) mg/dl Est Cr Clr Drug Dosing 86.6 ml/min Est GFR ( Amer) 116.7 ml/min Est GFR (Non-Af Amer) 100.7 ml/min BUN/Creatinine Ratio 21.1 H (10-20) Glucose 103 H (70-99(Fasting)) mg/dl Calcium 8.2 L (8.6-10.3) mg/dl Total Bilirubin 1.0 (0.2-1.0) mg/dl AST 32 TNP ALT 37 (7-52) U/L Alkaline Phosphatase 129 H (34-104) U/L Total Protein 6.7 (6.0-8.3) gm/dl Albumin 3.9 (3.4-5.0) gm/dl Globulin 2.8 (2.5-4.0) gm/dl Albumin/Globulin Ratio 1.4 (0.9-2) Urine Color Red Urine Appearance Cloudy A (Clear) Urine pH 5.5 (4.5-7.5) Ur Specific [place] 1.025 (1.000-1.030) Urine Protein 3+ H (Negative) Urine Glucose (UA) Negative (Negative) Urine Ketones Negative (Negative) Urine Blood 3+ H (Negative) Urine Nitrite Negative (Negative) Urine Bilirubin Negative (Negative) Urine Urobilinogen Negative (Negative) Ur Leukocyte Esterase Trace H (Negative) Urine RBC >30 H (0-4) /hpf Urine WBC 10-30 H (0-5) /hpf Ur Epithelial Cells 0-5 (0-5) /lpf Urine Bacteria Negative (Negative) Urine Test Negative (Negative) Medications Administered Current Inpatient Medications Acetaminophen (Acetaminophen 325 Mg Tab) 650 mg PO Q4H PRN PRN Reason: Pain or Fever Stop: 04/29/23 18:31 Cyanocobalamin (Cyanocobalamin (B-12) 500 Mcg Tablet) 1,000 mcg PO DAILY REYNA Stop: 04/30/23 08:59 Last Admin: 03/31/23 09:22 Dose: 1,000 mcg Folic Acid (Folic Acid 1 Mg Tab) 1 mg PO DAILY REYNA Stop: 04/30/23 08:59 Last Admin: 03/31/23 09:22 Dose: 1 mg Loperamide HCl (Loperamide Hcl 2 Mg Cap) 2 mg PO UD PRN PRN Reason: Diarrhea Stop: 04/29/23 21:59 Pyridoxine HCl (Pyridoxine Hcl 50 Mg Tab) 100 mg PO DAILY REYNA Stop: 04/30/23 08:59 Last Admin: 03/31/23 09:22 Dose: 100 mg
[2023-03-31] MEDS ORDERED: TRANEXAMIC ACID 100 MG/ML 10 ML VIAL IV ONE (09:06)
[2023-03-31] MEDS ORDERED: TRANEXAMIC ACID / 0.7% NACL 1000MG/100ML BAG IV ONE (09:30)
[2023-03-31] MEDS ORDERED: ONDANSETRON INJ 2 MG/ML 2 ML VIAL IV STA (10:08)
--- NOTE | 2023-03-31 11:09 | Discharge Summary ---
Date of Service March 31, 2023 Admission HPI Per Admitting Provider Pt is a 47 yo F with factor V Leiden deficiency, MTHFR mutation, history of DVT, history of sagittal sinus thrombosis, on chronic Coumadin, history of hyperhomocysteinemia, history of acute myeloid leukemia - in remission, as per heme/onc notes however most recently (02/2023) diagnosed with R breast cancer estrogen receptor strongly positive, progesterone receptor strongly positive , HER2 negat. 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 Justin Luis) , who presents with vaginal bleed, and found to have elevated INR. Pt reports her IUD was removed on 03/14/2023 d/t her new diagnosis of breast cancer hormonal receptor positive. Then on Tuesday 03/27 she developed vaginal bleeding. Denies any abdominal pain. Denies any fever, chills, chest pain, shortness of breath. She started her chemo on Monday, and received neulasta the next day. She has also been on Decadron prior to starting chemotherapy. Pelvic US was obtained in the ED and reviewed by bank advisor, Dr. Glover. Pt received 5 mg vit K in the ED. Exam - per ED provider -Small amount of blood in the pools in the vaginal vault which was cleared with 2 Q-tips but was slowly pooling. Cervix is closed. She was found to have elevated WBC in 30sK, likely secondary to decadron and Neulasta received on 03/28/23. Of note, her last admission - in 11/2021- pt admitted for ruptured ovarian cyst and required laparoscopic blood clot evacuation, ovarian cystectomy. Admission Exam Per Admitting Provider Constitutional: WD/WN, vitals as above Eyes: PERRL, conjunctivae normal, anicteric sclerae ENMT: external ear and nose normal, oropharynx normal Neck: trachea midline, no thyromegaly Respiratory: normal respiratory effort, lungs clear to auscultation Cardiovascular: RRR, no murmur, no edema Gastrointestinal (Abdomen): normal bowel sounds, soft, nontender Musculoskeletal: no cyanosis or clubbing, extremities motor strength 5/5 Skin: no rashes, warm and dry Neurologic: PERRL, EOMI, accommodation nl, no face palsy, no dysarthria Psychiatric: A+Ox3, euthymic affect Principal Diagnosis Vaginal bleed, supratherapeutic INR Discharge Exam Constitutional: WD/WN, vitals as above Eyes: PERRL, conjunctivae normal, anicteric sclerae ENMT: external ear and nose normal, oropharynx normal Neck: trachea midline, no thyromegaly Respiratory: normal respiratory effort, lungs clear to auscultation Cardiovascular: RRR, no murmur, no edema Gastrointestinal (Abdomen): normal bowel sounds, soft, nontender Musculoskeletal: extremities motor strength 5/5 Skin: no rashes, warm and dry Neurologic: PERRL, EOMI,no face palsy, no dysarthria Psychiatric: A+Ox3, euthymic affect Discharge Data Allergies Allergy/AdvReac Type Severity Reaction Status Date / Time vancomycin Allergy Severe EBONY Verified 03/30/23 17:41 SYNDROME Consultations 03/30/23 18:00 ED Decision to Admit Stat 03/30/23 18:34 Consult Gynecology Routine Ordered Studies 03/30/23 15:04 US pelvic complete Stat 03/30/23 15:05 US transvaginal Stat Hospital Course (1) H/O deep venous thrombosis: (2) Current use of fdc anticoagulation: (3) Factor V Leiden: (4) Vaginal bleeding: Recently diagnosed w/ breast ca ER positive [place] positive and her IUD (mirena) was therefore removed (on 03/14/23) On chronic anticoagulation d/t hx of sagittal sinus thrombosis, factor V Leiden, etc. INR >9.5 in the ED and received 5 IV vit K Hgb 14, will repeat H&H and will cont. to closely monitor Hold coumadin per ED provider exam - Small amount of blood in the pools in the vaginal vault which was cleared with 2 Q-tips but was slowly pooling. Cervix is closed. Pelvic US obtained and discussed w/ bank advisor, Dr. Glover Heterogeneous thickening of the cervix is seen. Although findings may represent a blood clot, pelvic exam is recommended to exclude solid mass. Dr. Glover consulted for further eval and recommendations Will also further discuss w/ Dr. Anderson (pt's construction or leak gang laborer/oncologist) Leukocytosis - no signs of infection noted - pt received decadron prior to chemo and neulastin after chemo (03/28), WBC elevated likely 2/2 that - cont. to monitor 03/31 - Pt's INR is down to 1.3 and bleeding subsided. Hgb 13.2. Pt feels well and would like to be discharged. Pt was seen by Dr. Glover (chemical laboratory assistant) last evening - plan for outpt follow up and endometrial ablation. Also discussed with Dr. Anderson (hem/onc) this AM - pt will be seen in his office on Monday (nursing visit) and will have her INR checked. She will be then further instructed about her coumadin. She will hold coumadin over the weekend. Total Time Total Time Spent Total Time Spent (In Minutes): 40 Discharge Plan Discharge Items Patient Disposition: Home - Self-Care Reason For Visit: VAGINAL BLEED, SUPRATHERAP. INR Discharge Diagnosis: Vaginal bleed, supratherapeutic INR Condition on Discharge: Good Activity: Per Instructions section Non-emergency contact: Primary Care Provider, Specialist and Oncologist Call non-emergency contact if: you have any medication questions and your symptoms worsen Follow-up/Referrals: Sher Conti MD [Primary Care Provider] - Diet: Regular Addtl Attending Provider Instructions: Do not take warfarin over the weekend. On Monday, follow up at Dr. Anderson's office and have your INR checked. You will be then instructed about your warfarin. You will also need to follow up with gynecology. You will be contacted about the appointment. Pending Studies at Discharge: No Stand-Alone Forms: My [employer], Smoking Cessation Medications and DC Order Prescriptions: Continued loperamide [Imodium A-D] 2 mg Tablet 2 mg PO DIRECTED PRN (Reason: Diarrhea) folic acid 1 mg Tablet 1 mg PO DAILY pyridoxine (vitamin B6) [Vitamin B-6] 100 mg Tablet 100 mg PO DAILY albuterol sulfate [Ventolin HFA] 90 mcg/actuation Hfa Aerosol Inhaler 2 puff INHALATION Q6H PRN (Reason: Shortness Of Breath Or Wheezing) ondansetron HCl 8 mg Tablet 8 mg PO TID PRN (Reason: NAUSEA/VOMITING) cyanocobalamin (vitamin B-12) [Vitamin B-12] 1,000 mcg Tablet 1,000 mcg PO DAILY lidocaine-prilocaine 2.5-2.5 % Cream 1 applic topical UD Rx Instructions: Apply to access site Neulasta 6 mg/0.6 mL Syringe 6 mg SUBCUT .THE DAY AFTER CHEMO Taxotere-Cytoxan See Rx Instructions .ROUTE .COMPLEX Rx Instructions: 1st round of chemo was 03/27/23. Patient will be doing this every 3 weeks. Held warfarin 6 mg tablet See Rx Instructions .ROUTE .COMPLEX Hold Instructions: Resume on 04/03/23. AFTER discussing with Dr. Anderson and have your INR checked on 04/03/2023 Rx Instructions: Take 9mg on Fridays and 12mg all other days Discharge Orders: Discharge Order (Routine); Ordered 03/31/23 Ordered By: Zia Brooks Admission Data Admit Date/Time: 03/30/23 18:32 Attending Provider: Zia Brooks Admit Provider: Zia Brooks Primary Care Provider: Sher Conti Other Providers: Zia Brooks; Isaura Grant
[2023-03-31 11:15] VITALS: BP 123/78; PULSE 86; TEMP 98.2
== END 2023-03-31 11:13 | disposition home or self-care (01) ==
LOC: ED 14:52 → EDINP 14:52
DX: Z79.01 Long term (current) use of anticoagulants; Z86.718 Personal history of other venous thrombosis and embolism; Z79.899 Other long term (current) drug therapy; D68.51 Activated protein C resistance; Z88.1 Allergy status to other antibiotic agents; N93.9 Abnormal uterine and vaginal bleeding, unspecified; C92.Z1 Other myeloid leukemia, in remission; R79.1 Abnormal coagulation profile